=== PATIENT | male | born 1950 | race Caucasian/White ===

== ENCOUNTER → 2018-01-04 08:21 | Outpatient (CLI) | payer MEDICARE, SELFPAY ==
[2018-01-04 09:18] LABS: AST(SGOT) 39 U/L (15-37); Alanine Aminotransfer ALT/SGPT 66 U/L (16-61); Albumin, Serum 3.7 g/dL (3.2-5.0); Alkaline Phosphatase 42 U/L (45-117); Bilirubin, Direct 0.12 mg/dL (0.00-0.30); Cholesterol 156 mg/dL (200); Globulin 3.3 g/dL (2.2-4.2); High Density Lipoprotein 34 mg/dL; Triglycerides 221 mg/dL; Very Low Density Lipoprotein 44 mg/dL (5-40)
== END ==
PROVIDERS: Family Provider Family Medicine; PCP Family Medicine; Visit Provider Internal Medicine Cardiovascular Disease
DX: E78.5 Hyperlipidemia, unspecified (principal); Z79.899 Other long term (current) drug therapy
CPT/HCPCS: 36415; 80061; 80076

== ENCOUNTER → 2018-10-04 08:55 | Outpatient (CLI) | payer MEDICARE, SELFPAY ==
[2018-10-04 10:33] LABS: AST(SGOT) 36 U/L (15-37); Alanine Aminotransfer ALT/SGPT 67 U/L (16-61); Albumin, Serum 3.7 g/dL (3.2-5.0); Alkaline Phosphatase 41 U/L (45-117); Bilirubin, Direct 0.09 mg/dL (0.00-0.30); Cholesterol 158 mg/dL (200); Globulin 3.2 g/dL (2.2-4.2); High Density Lipoprotein 37 mg/dL; Protein, Total 6.9 g/dL (6.4-8.2); Triglycerides 217 mg/dL; Very Low Density Lipoprotein 43 mg/dL (5-40)
== END ==
PROVIDERS: Family Provider Family Medicine; PCP Family Medicine; Referring Provider Internal Medicine Cardiovascular Disease; Visit Provider Internal Medicine Cardiovascular Disease
DX: E78.5 Hyperlipidemia, unspecified (principal)
CPT/HCPCS: 36415; 80061; 80076

== ENCOUNTER → 2019-06-14 07:07 | Outpatient (CLI) | payer MEDICARE, SELFPAY ==
[2018-10-08 13:10] VITALS: BMI 36.3
[2019-06-14 08:54] LABS: AST(SGOT) 30 U/L (15-37); Alanine Aminotransfer ALT/SGPT 61 U/L (16-61); Albumin, Serum 3.6 g/dL (3.2-5.0); Alkaline Phosphatase 36 U/L (45-117); Bilirubin, Direct 0.14 mg/dL (0.00-0.30); Cholesterol 155 mg/dL (200); Globulin 3.3 g/dL (2.2-4.2); High Density Lipoprotein 43 mg/dL; Protein, Total 6.9 g/dL (6.4-8.2); Triglycerides 179 mg/dL; Very Low Density Lipoprotein 36 mg/dL (5-40)
== END ==
PROVIDERS: Family Provider Family Medicine; PCP Family Medicine; Referring Provider Internal Medicine Cardiovascular Disease; Visit Provider Internal Medicine Cardiovascular Disease
DX: E78.5 Hyperlipidemia, unspecified (principal)
CPT/HCPCS: 36415; 80061; 80076

== ENCOUNTER → 2019-07-08 06:14 | Outpatient (CLI) | payer MEDICARE, SELFPAY ==
[2019-06-20 14:14] VITALS: BMI 36.3
--- NOTE | 2019-07-08 06:15 | ECHOCS_ITS ---
Reason For Study: S/P CABG Procedure This was a 2D Doppler, Color Flow transthoracic echocardiogram. Contrast injection was performed. The study was technically difficult. Exam performed in department. Left Ventricle Normal LV size. Left ventricular systolic function is normal. The estimated ejection fraction is 65 %. Stage 2 diastolic dysfunction. No regional wall motion abnormalities noted. Right Ventricle Normal RV size. Normal systolic function. Atria Normal left atrium. Normal right atrium. Mitral Valve Normal mitral valve. Tricuspid Valve Normal tricuspid valve. Aortic Valve Normal aortic valve. The aortic valve is not well visualized. Pulmonic Valve Normal pulmonic valve. Great Vessels Normal aortic root. The pulmonary artery is normal size. Normal inferior vena cava. Pericardium/Pleural No pericardial effusion. Medication Diluted definity 2.5ml given slow IV push to enhance endocardial definition. MMode/2D Measurements & Calculations LVIDd: 5.4 cm IVSd: 1.1 cm Ao root diam: 3.8 cm LVIDs: 3.8 cm LVPWd: 1.3 cm LA dimension: 4.2 cm FS: 30.0 % LAV(MOD-sp4): 50.4 ml LA A4 area: 19.1 cm2 RA A4 area: 17.8 cm2 Time Measurements MV dec time: 0.17 sec Doppler Measurements & Calculations MV E max john: 91.6 cm/sec Lat Peak E' John: 7.0 cm/sec Med Peak E' John: 5.4 cm/sec MV A max john: 75.0 cm/sec E/E' lat: 13.1 E/E' med: 16.9 MV E/A: 1.2 MV V2 max: 105.0 cm/sec MV P1/2t max john: 105.9 cm/sec Ao V2 max: 124.2 cm/sec MV max P.4 mmHg MV P1/2t: 103.8 msec Ao max P.2 mmHg MV V2 mean: 60.6 cm/sec MV dec slope: 298.9 cm/sec2 Ao V2 mean: 80.4 cm/sec MV mean P.7 mmHg Ao mean P.0 mmHg MV V2 VTI: 32.8 cm MVA(P1/2t): 2.1 cm2 Ao V2 VTI: 28.2 cm LV V1 max: 84.6 cm/sec PA V2 max: 86.7 cm/sec LV V1 max P.9 mmHg LV V1 mean P.5 mmHg LV V1 mean: 57.7 cm/sec LV V1 VTI: 21.8 cm Interpretation Summary Normal LV size. Left ventricular systolic function is normal. The estimated ejection fraction is 65 %. Stage 2 diastolic dysfunction. The study was technically limited. The study was technically difficult. Contrast injection was performed. Ordering Physician: Caesar Weiner Referring Physician: JUAN Elizondo M.D. Performed By: Daniel Loo RCS
--- NOTE | 2019-07-08 20:11 | STRESSREP ---
Stress Test Report Pharmacologic myocardial perfusion stress test. 69-year-old man with a history of coronary artery disease status post coronary bypass surgery. Stress protocol: Resting EKG demonstrates normal sinus rhythm with a rate of 62 bpm normal intervals are noted right bundle branch block is present. Resting blood pressures 160/80 mmHg. 0.4 mg of regadenoson was infused per usual protocol followed by rapid intravenous saline flush injection continuous implementation engineer was performed. Maximum heart rate attained was 81 bpm which was 53% of maximum predicted heart rate the maximum workload was 1 metabolic equivalent. At rest nonspecific ST-T wave changes were noted at peak infusion nonspecific ST-T wave changes were noted with no meet the criteria for ischemia. Myocardial perfusion protocol. 15.0 mCi of technetium 99m sestamibi was injected at rest. 0.4 mg of regadenoson was infused per usual protocol peak infusion 45.0 mCi of technetium 99m sestamibi was injected stress images were obtained stress and rest images were reconstructed in comparing the short axis vertical and horizontal long axis. Gated images were also obtained Perfusion SPECT analysis: Review of the stress images demonstrate normal uptake of tracer noted in the septum and lateral wall and anterior wall. The basal to mid inferior wall demonstrates a perfusion defect suggestive of a previous inferior infarct. The resting images demonstrate the same suggesting a previous moderate size inferior infarct. No reversibility is noted suggest ischemia. Gated SPECT analysis. The gated ejection fraction is noted to be 69%. Conclusion: Pharmacologic myocardial perfusion stress test with no evidence of ischemia. Previous inferior infarct noted. Preserved ejection fraction
== END ==
PROVIDERS: Family Provider Family Medicine; PCP Family Medicine; Referring Provider Internal Medicine Cardiovascular Disease; Visit Provider Internal Medicine Cardiovascular Disease
DX: I25.10 Atherosclerotic heart disease of native coronary artery without angina pectoris (principal); Z95.1 Presence of aortocoronary bypass graft
CPT/HCPCS: 78452; 93017; 93306; A9500; Q9957; A4216; C8929; J2785

== ENCOUNTER 2019-10-20 13:45 | Emergency (ER) | payer MEDICARE, SELFPAY ==
[2019-06-20 14:14] VITALS: BMI 36.3
[2019-10-20] VITALS (7 sets, daily range): BP systolic 144–176; BP diastolic 59–82; PULSE 65–75; RESP 12–18; TEMP 36.9–37.1; O2SAT 96–97; BMI 36.3
--- NOTE | 2019-10-20 13:49 | EKG12_ITS ---
Test Reason : STROKE SYMPT Blood Pressure : / mmHG Vent. Rate : 073 BPM Atrial Rate : 073 BPM P-R Int : 256 ms QRS Dur : 128 ms QT Int : 468 ms P-R-T Axes : 050 -09 054 degrees QTc Int : 515 ms Sinus rhythm with 1st degree A-V block Right bundle branch block T wave abnormality, consider lateral ischemia Abnormal ECG Confirmed by CHANTEL WANG, RADHA ([id number]), scientific publications editor GIACOMO COVARRUBIAS ([id number]) on 10/21/2019 10:18:41 AM Referred By: UG Confirmed By:RADHA GOLDEN MD
--- NOTE | 2019-10-20 13:49 | CT_ITS ---
STUDY: CT BRAIN WITHOUT CONTRAST REASON FOR EXAM: Male, 69 years old. STROKE PROTOCAL -- LEFT SIDE DEFICIT RADIATION DOSAGE (If Supplied By Facility): CTDIvol = ( 44.99 ) mGy, DLP = ( 745.49 ) mGycm TECHNIQUE: Transaxial CT imaging of the brain was performed without administration of intravenous contrast material. Individualized dose optimization techniques were used for this CT. COMPARISON: No relevant priors. FINDINGS: Normal soft tissue structures. Normal calvarium. There is moderate cerebral atrophy with widening of the extra-axial spaces and ventricular dilatation. There are areas of decreased attenuation within the white matter tracts of the supratentorial brain, consistent with microvascular disease changes. Normal basal ganglia and thalami. Normal brainstem. There is mild cerebellar atrophy. There is no intracranial hemorrhage. There is an area of subtle matos/white matter differentiation loss in the left temporoparietal lobe which could be related to very early ischemia in the correct clinical setting. No mass effect or midline shift Normal visualized paranasal sinuses. CT/Brain/Head without Contrast IMPRESSION: There is an area of subtle matos/white matter differentiation loss in the left temporoparietal region suggesting acute ischemic stroke. MRI brain will be needed to further evaluate. No mass effect or midline shift. No hemorrhage. N.B. : The above information has been verbally conveyed by Gus Bañuelos DO to Damien [id number], on 10/20/2019 14:07:24 (ET). Electronically Signed: Gus Bañuelos DO at 14:08 EST Tel , Service support ,
--- NOTE | 2019-10-20 13:51 | CT_ITS ---
STUDY: CTA HEAD AND NECK WITH CONTRAST REASON FOR EXAM: Male, 69 years old. STROKE PROTOCOL -- LEFT SIDE DEFICIT RADIATION DOSAGE (If Supplied By Facility): CTDIvol = ( 18.58 ) mGy, DLP = ( 747.29 ) mGycm TECHNIQUE: CT angiography was performed with a multi-detector CT scanner. Data acquisition was obtained from the skull base through the vertex following intravenous administration of 100CC [id number]. MIP images were reconstructed from the axial data set. Post-processing of the angiographic images was performed, with multiplanar reformation and 3D reconstruction. Individualized dose optimization techniques were used for this CT. COMPARISON: No relevant priors. FINDINGS: There is decreased flow in the left distal internal carotid artery There is calcified plaque formation of the right cavernous carotid artery, without a cross-sectional luminal stenosis. There is calcified plaque formation of the left cavernous carotid artery, with a moderate stenosis (50-75%). Normal right A1 segments of the anterior cerebral artery. Normal left A1 segments of the anterior cerebral artery. Normal intact anterior communicating artery (ACOM). Normal bilateral A2 segments of the anterior cerebral arteries. Normal right M1 and M2 segments of the middle cerebral arteries, with a normal M1 bifurcation. There is left M1 occlusion, series 2 image 179/258 Normal right posterior communicating artery (PCOM). Normal left posterior communicating artery (PCOM). There is a small atretic right vertebral artery with a dominant left vertebral artery. Normal basilar artery with a normal basilar bifurcation. The visualized bilateral superior cerebellar (SCA) arteries are normal. Normal bilateral P1, P2 and visualized P3 segments of the posterior cerebral arteries. There is no demonstrated aneurysm of the [place]. There is no demonstrated abnormality of the visualized brain. AORTIC ARCH: There is atherosclerotic calcific plaque formation of the aortic arch and great vessels arising from the aortic arch, without a hemodynamically significant stenosis. There is a bovine origin of the great vessels with a common origin of the brachiocephalic and left common carotid artery. Normal origin of the left subclavian artery. Normal origins of the brachiocephalic, left common carotid, and left subclavian arteries. RIGHT CAROTID ARTERIES: There is atherosclerotic plaque formation of the common carotid artery, but without a hemodynamically significant stenosis. There is moderate atherosclerotic plaque formation with moderate narrowing of the right carotid bulb. There is moderate atherosclerotic plaque formation of the origin of the right internal carotid artery with an estimated stenosis of 50-69% stenosis. There is atherosclerotic tortuous elongation of the cervical portion of the right internal carotid artery. Normal origin of the right external carotid artery (ECA). LEFT CAROTID ARTERIES: There is atherosclerotic plaque formation of the common carotid artery, but without a hemodynamically significant stenosis. There is extensive atherosclerotic plaque formation with severe narrowing of the carotid bulb with a hemodynamically significant stenosis. There is severe atherosclerotic plaque formation of the origin of the left internal carotid artery with a near complete occlusion. There is decreased flow in the visualized cervical portion of the left internal carotid artery. Normal origin of the left external carotid artery (ECA). VERTEBRAL ARTERIES: There is enhancement within the bilateral vertebral arteries with a small right vertebral artery, and a dominant left vertebral artery. CT/CTA Head AND Neck W/ Contrast IMPRESSION: Left middle cerebral artery occlusion. Severe left internal carotid artery stenosis. Moderate right internal carotid artery stenosis. N.B. : The above information has been verbally conveyed by Earnest Gallagher MD to Dr. Faustino MD, on 10/20/2019 14:35:09 (ET). Electronically Signed: Earnest Gallagher MD at 14:37 EST , Service support ,
--- NOTE | 2019-10-20 13:52 | ED.VIS.STROK ---
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 Narrative: Patient 69-year-old male who was last seen well by his at 0730. noted he was having trouble speaking and had a symmetric smile. Squad was called. Stroke alert was called prior to his arrival. History is limited to what the paramedics were able to tell me. There is no therapy available history at this time. has arrived. She informed that he awoke at 0600 and was normal. Symptoms started at 0730. Prior similar symptoms: No Recent Illness/Hospitalization: No Capacity - Capacity Assessment Tool Can the patient make a choice & communicate that choice?: No Can the patient understand benefits, risks and alternatives?: Unable to Determine Can the patient make a logical, rational choice?: Unable to Determine Is the choice the patient makes consistent w/ their values?: Yes Is there an impending, emergent risk to the patient?: Yes Does the patient have an Advance Directive?: No Is there a Surrogate Available?: Yes i.e. HCPOA: Yes i.e. close relative (spouse, child, parent, sibling)?: Yes - Past Medical History (1) Abdominal aortic aneurysm (AAA) Status: Chronic Comment: History of endovascular stent graft for abdominal aortic aneurysm (2) Atherosclerosis of coronary artery of [place] heart without angina pectoris Status: Chronic Comment: CABG x 3 MASTERS to LAD, SVG to Dx, SVG to RCA 01/09/2009 (3) Essential (primary) hypertension Status: Chronic (4) Hyperlipidemia Status: Chronic (5) H/O coronary artery bypass surgery Status: Chronic Comment: CABG x 3 MASTERS to LAD, SVG to Dx, SVG to RCA 01/09/2009 (6) Type 1 diabetes mellitus Status: Chronic Past Medical History - Allergies and Home Meds Allergies/Adverse Reactions: Allergies No Known Allergies Allergy (Verified 10/20/19 14:10) Primary Care Physician: Raffaele Elizondo III, MD [Primary Care Provider] - Prior records reviewed: Yes Lives: Spouse/ Significant Other Smoking Status: Former smoker Alcohol: None Drugs: None Review of Systems ROS: Unable to Obtain STROKE Inital Vital Signs reviewed: Yes - NIHSS Initial 1a Level of Consciousness: 1 1b LOC Questions (Score 2 if aphasic/stupor): 2 1c LOC Commands (Only score 1st attempt): 0 2 Best Gaze (If aphasic, use reflexive mvmts.): 0 3 Visual: 0 4 Facial Palsy: 1 5 Motor Arm Right (UN = amputation/fusion): 1 5 Motor Arm Left: 0 6 Motor Leg Right: 1 6 Motor Leg Left: 0 7 Limb ataxia (Only + if out of proportion): 0 8 Sensory (Aphasia/stupor=0 or 1, coma=2): 1 9 Best Language: 2 10 Dysarthria (mute, coma=2, intubated=UN): 0 11 Extinction and Inattention (only scored if +): 1 Total Score: 10 General: Well nourished, Well developed, Obese Head: Normocephalic, Atraumatic Eyes: Perrl, EOMI. Negative for: Pale conjunctiva, Scleral icterus ENT: Moist mucous membranes, No rhinorrhea Neck: Supple, Nontender, No lymphadenopathy, No JVD Cardiovascular: Regular rate, Regular rhythm, No murmurs Respiratory: No distress, CTA bilaterally, Chest nontender Abdomen: Soft, Nontender, Nondistended, Normal bowel sounds Rectal: Deferred Back: Nontender, Normal Inspection Extremities: Nontender, Edema Skin: No rash, No Trauma. Negative for: Cyanosis, Diaphoresis, Jaundice Neurological: Right side facial droop. Negative for: Alert, Oriented x3, Cranial nerves II-XII grossly intact, Normal Strength, Normal Sensation Psychological: Normal affect Diagnostic/Tx/Re-eval I received a call from the radiologist at 08/24/2002 that indicates patient has an acute stroke involving the left temporoparietal region. CTA reveals severe left internal carotid artery stenosis. There is occlusion of the left middle cerebral artery. Spoke with neurologist at [facility]. He confirms that there is a clot. He has accepted patient. Time of conversation 1430 with neuroradiologist and neurologist at [facility]. Arrangements are now being made, [address] 10/20/19 13:49 IMPRESSION: There is an area of subtle matos/white matter differentiation loss in the left temporoparietal region suggesting acute ischemic stroke. MRI brain will be needed to further evaluate. No mass effect or midline shift. No hemorrhage. N.B. : The above information has been verbally conveyed by Gus Bañuelos DO to Damien Dong MD, on 10/20/2019 14:07:24 (ET). Electronically Signed: Gus Bañuelos DO at 14:08 EST Tel , Service support , ADDENDUM: 10/20/19 1415 IMPRESSION: There is an area of subtle matos/white matter differentiation loss in the left temporoparietal region suggesting acute ischemic stroke. MRI brain will be needed to further evaluate. No mass effect or midline shift. No hemorrhage. N.B. : The above information has been verbally conveyed by Gus Bañuelos DO to Damien Dong MD, on 10/20/2019 14:07:24 (ET). Electronically Signed: Gus Bañuelos DO at 14:08 EST Tel , Service support , 10/20/19 13:49 Brain/Head without Contrast [CT] Stat 10/20/19 13:51 CTA Head AND Neck W/ Contrast [CT] Stat Laboratory Results 10/20/19 10/20/19 10/20/19 14:02 14:02 14:02 WBC 7.7 RBC 4.42 L Hgb 11.4 L Hct 36.1 L MCV 81.7 MCH 25.8 L MCHC 31.6 L RDW Std Deviation 46.6 H RDW Coeff of [place] 15.9 H Plt Count 251 MPV 9.9 Immature Gran % (Auto) 0.400 Neut % (Auto) 76.1 H Lymph % (Auto) 12.3 L [place] % (Auto) 9.0 Eos % (Auto) 1.7 Baso % (Auto) 0.5 Absolute Neuts (auto) 5.8 Absolute Lymphs (auto) 0.94 Nucleated RBC % 0 PT 13.6 INR 1.1 APTT 27.3 Sodium 137 Potassium 4.9 Chloride 103 Carbon Dioxide 29.0 Anion Gap 5 BUN 41 H Creatinine 2.13 H Estim Creat Clear Calc 33.19 Est GFR (MDRD) Af Amer 40 L Est GFR (MDRD) Non-Af 33 L BUN/Creatinine Ratio 19.2 Glucose 111 H Calcium 9.0 Troponin I < 0.015 transport to [facility] for retrieval. - EKG Initial EKG Interpretation: Sinus Rhythm - Sinus rhythm with a ventricular rate of 73 and first-degree AV block. ND interval 256 ms. QS duration 120 ms. There is evidence of right bundle branch block. There is repolarization changes noted. QT interval 468 ms. [place] to the right. - Medical Decision Making Stroke Team Activated: Yes Reviewed Inclusion/Exclusion criteria: Yes IV Alteplase (t-PA) Administered: No - Patient outside the 6-hour window No contraindications for IV Alteplase (t-PA) administration.: Yes Alteplase (t-PA) risks, benefits, alternative discussed: No Trocar set was initiated since patient has a NIH of 10 and findings consistent with left hemispheric stroke. Case was discussed with neurologist at [facility]. He confirms there is a clot. He has accepted patient. He requested 325 mg of aspirin rectally. This was ordered and patient will receive. [facility] transport person, chance, is helping with life flight transport to [facility]. has been told that her has had a stroke and that there is a clot. She understands and agrees with transport since does not have capacity to make this decision. Critical care time (excluding procedures): 30-74 minutes - Acute care time 33 minutes this includes history, physical examination, documentation, interpretation of laboratory results, discussion with radiologist who read unenhanced scan and radiologist who read CTA of the head neck. This also included time with neurologist at [facility] who has accepted patient and asked that aspirin be given to patient. has been told that her is within the window to remove the clot that is causing his symptoms. She understands risk benefits of transfer and procedure. She would like him transferred. She made decision since I do not believe patient has capacity to make this decision. Capacity form was completed. 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
[2019-10-20 14:11] LABS: Absolute Lymphocyte Count 0.94 X10^3/uL (0.83-4.51); Absolute Neutrophil Count 5.8 X10^3/uL (2.0-7.7); Basophil# 0.04 X10^3/uL; Basophil% 0.5 % (0-1); Eosinophil# 0.13 X10^3/uL; Eosinophils% 1.7 % (0-5); Hematocrit 36.1 % (40-54); Hemoglobin 11.4 g/dL (13.0-16.5); Lymphocyte # 0.94 X10^3/ul (4.0); Lymphocyte % 12.3 % (19-41); Mean Corp Hgb Conc 31.6 g/dL (32-36); Mean Corpuscular Hgb 25.8 pg (27.0-32.0); Mean Corpuscular Volume 81.7 fL (80-94); Mean Platelet Vol. 9.9 fl (6.2-12.0); Monocyte# 0.69 X10^3/uL; NRBC Flagged by Analyzer 0 % (0-5); Neutrophil # 5.84 X10^3/uL (2.7-7.7); Neutrophil % 76.1 % (47-70); Platelet Count 251 K/mm3 (150-450); RBC Distribution Width CV 15.9 % (11.6-14.6); RBC Distribution Width SD 46.6 fl (35.1-43.9); Red Blood Count 4.42 M/mm3 (4.6-6.2); White Blood Count 7.7 K/mm3 (4.4-11.0)
--- NOTE | 2019-10-20 14:12 | HP.PCM_ITS ---
Problem List (1) Type 1 diabetes mellitus Status: Chronic (2) Atherosclerosis of coronary artery of [place] heart without angina pectoris Status: Chronic Qualifiers: Coronary Disease-Associated Artery/Lesion type: [place] artery Qualified Code(s): I25.10 - Atherosclerotic heart disease of [place] coronary artery without angina pectoris Comment: CABG x 3 MASTERS to LAD, SVG to Dx, SVG to RCA 01/09/2009 (3) H/O coronary artery bypass surgery Status: Chronic Comment: CABG x 3 MASTERS to LAD, SVG to Dx, SVG to RCA 01/09/2009 (4) Abdominal aortic aneurysm (AAA) Status: Chronic Comment: History of endovascular stent graft for abdominal aortic aneurysm (5) Essential (primary) hypertension Status: Chronic (6) Hyperlipidemia Status: Chronic Qualifiers: Hyperlipidemia type: pure hypercholesterolemia Qualified Code(s): E78.00 - Pure hypercholesterolemia, unspecified History of Present Illness Date of Admission: 10/20/19 Chief Complaint: Right facial droop, slurred speech. The patient is a 69 year old M Past Medical History Past Medical History (Chronic Problems): Chronic Problems (Last Reviewed 06/20/19 @ 14:[address] Caesar Weiner MD) Type 1 diabetes mellitus (Chronic) Atherosclerosis of coronary artery of [place] heart without angina pectoris (Chronic) CABG x 3 MASTERS to LAD, SVG to Dx, SVG to RCA 01/09/2009 H/O coronary artery bypass surgery (Chronic 01/09/09) CABG x 3 MASTERS to LAD, SVG to Dx, SVG to RCA 01/09/2009 Abdominal aortic aneurysm (AAA) (Chronic) History of endovascular stent graft for abdominal aortic aneurysm Essential (primary) hypertension (Chronic) Hyperlipidemia (Chronic) Medical History: Medical History (Last Reviewed 06/20/19 @ 14:[address] Caesar Weiner MD) Atherosclerosis of coronary artery of [place] heart without angina pectoris (Chronic) I25.10 CABG x 3 MASTERS to LAD, SVG to Dx, SVG to RCA 01/09/2009 Abdominal aortic aneurysm (AAA) (Chronic) I71.4 History of endovascular stent graft for abdominal aortic aneurysm Essential (primary) hypertension (Chronic) I10 Hyperlipidemia (Chronic) E78.5 Diabetes mellitus E11.9 Allergies No Known Allergies Allergy (Verified 10/20/19 14:10) Home Medications: Ambulatory Orders Medication Instructions Recorded metoprolol succinate 100 mg 100 mg PO QDAY #90 tab 12/13/17 tablet,extended release 24 hr fenofibrate nanocrystallized 145 145 mg PO QDAY #90 tab 02/01/18 mg tablet acetaminophen 650 mg 650 mg PO QDAY tab 04/06/18 tablet,extended release albuterol sulfate 90 mcg/actuation INHALATION 33 Days #8 04/06/18 aerosol inhaler aspirin 81 mg tablet,delayed 81 mg PO QDAY 04/06/18 release budesonide-formoterol HFA 160 INHALATION 90 Days #30 04/06/18 mcg-4.5 mcg/actuation aerosol inhaler insulin lispro 100 unit/mL 12 unit SC TID ml 04/06/18 subcutaneous pen multivit with min-folic acid 200 mcg PO 04/06/18 mcg chewable tablet omega-3 360 [id number]-pta-fish oil cap PO 04/06/18 1,200 mg capsule,delayed release omeprazole 20 mg capsule,delayed 20 mg PO QDAY 90 Days #90 cap 04/06/18 release pioglitazone 30 mg tablet 30 mg PO QDAY 90 Days #90 tab 04/06/18 pregabalin 75 mg capsule 75 mg PO BID 90 Days #180 cap 04/06/18 dulaglutide 1.5 mg/0.5 mL 1.5 mg SC QWEEK 10/08/18 subcutaneous pen injector folic acid 800 mcg tablet 0.8 mg PO DAILY 10/08/18 insulin glargine 100 unit/mL (3 46 unit SC QHS 98 Days #45.08 ml 10/08/18 mL) subcutaneous pen GO LO PO DAILY 06/20/19 amlodipine 5 mg tablet 5 mg PO QDAY 90 Days #90 tab 06/20/19 atorvastatin 80 mg tablet 80 mg PO QDAY #90 tab 06/20/19 hydrochlorothiazide 25 mg tablet 25 mg PO QDAY #90 tab 06/20/19 ramipril 5 mg capsule 5 mg PO QDAY #90 cap 06/20/19 Surgical History: Surgical History (Last Reviewed 06/20/19 @ 14:[address] Caesar Weiner MD) H/O coronary artery bypass surgery (Resolved) Onset Date: 01/09/09 Z95.1 CABG x 3 MASTERS to LAD, SVG to Dx, SVG to RCA 01/09/2009 History of coronary artery stent placement Z95.5 [id number] LAD w/ 3.5 x 15 mm Penta 10/2001 History of endovascular stent graft for abdominal aortic aneurysm (AAA) Onset Date: 2015 Z82 Lives: Spouse/ Significant Other Smoking Status: Former smoker Alcohol: None Drugs: None - Physical Exam Vitals/I&O's: Vital Signs Temp Pulse Resp BP Pulse Ox 98.7 F 75 18 176/82 H 97 10/20/19 13:47 10/20/19 13:47 10/20/19 13:47 10/20/19 13:47 10/20/19 13:47 Oxygen Flow Rate (L/min) 2 Oxygen Delivery Method Nasal Cannula Weight: 246 lb Body Mass Index (BMI) 36.3 Finger Stick Blood Glucose 100 Laboratory Results 10/20/19 14:02: WBC 7.7, RBC 4.42 L, Hgb 11.4 L, Hct 36.1 L, MCV 81.7, MCH 25.8 L, MCHC 31.6 L, RDW Std Deviation 46.6 H, RDW Coeff of Sherlyn 15.9 H, Plt Count 251, MPV 9.9, Immature Gran % (Auto) 0.400, Neut % (Auto) 76.1 H, Lymph % (Auto) 12.3 L, [place] % (Auto) 9.0, Eos % (Auto) 1.7, Baso % (Auto) 0.5, Absolute Neuts (auto) 5.8, Absolute Lymphs (auto) 0.94, Nucleated RBC % 0 10/20/19 14:02: PT Pending, INR Pending, APTT Pending 10/20/19 14:02: Sodium Pending, Potassium Pending, Chloride Pending, Carbon Dioxide Pending, Anion Gap Pending, BUN Pending, Creatinine Pending, Est GFR (MDRD) Af Amer Pending, Est GFR (MDRD) Non-Af Pending, BUN/Creatinine Ratio Pending, Glucose Pending, Calcium Pending, Troponin I Pending Assessment/Plan 1. Acute ischemic stroke-brain CT admission shows left temporal parietal region acute ischemic stroke. Head and neck CTA pending. Obtain MRI brain. PT/OT/ST. Obtain echo. Neuro consult from ED pending. [facility]. 2. CAD with history of CABG x3 MASTERS to LAD, SVG to DX and SVG to RCA (2008)- continue aspirin, statin. Follows with Dr. Weiner. 3. Hypertension-permissive secondary to #1. Hold ramipril, HCTZ, amlodipine, metoprolol. 4. Hyperlipidemia-continue high-dose statin. Fasting lipid panel in a.m. 5. Type 2 diabetes [id number] with sliding scale insulin. Continue home long-acting regimen. Hold oral regimen. 6. Chronic COPD- PRN albuterol aerosol. 7. GERD- continue PPI. 8. AAA-history of endovascular stent graft. Continue outpatient follow-up. DVT prophylaxis-Lovenox subcu This patient was seen by LIZZETTE Escamilla under the supervision of Dr. Estes.
[2019-10-20 14:18] LABS: International Normalized Ratio 1.1; Prothrombin Time (Protime)PT. 13.6 SECONDS (11.7-14.9)
[2019-10-20 14:19] LABS: Partial Thromboplast Time 27.3 Seconds (24.1-36.2)
[2019-10-20 14:30] LABS: Anion Gap 5 (5-15); BUN 41 mg/dL (7-18); BUN/Creat Ratio 19.2 RATIO (10-20); Chloride 103 mmol/L (98-107); Creatinine, Serum 2.13 mg/dL (0.70-1.30); EST Glomerular Filtration Rate 33 mL/min (>60); Est Glom Filt Rate - Afr Amer 40 mL/min (>60); Estimated Creatinine Clearance 33.19 ml/min; Glucose 111 mg/dL (74-106); Potassium 4.9 mmol/L (3.5-5.1); Sodium Level 137 mmol/L (136-145)
[2019-10-20] MEDS: Aspirin 300 MG Suppository RECTAL (14:38)
--- NOTE | 2019-10-20 14:41 | NURSING ---
1439 MED FLIGHT ETA IS 25 TO 26 MIN
== END 2019-10-20 15:18 | disposition short-term general hospital (02) ==
PROVIDERS: Emergency Provider Emergency Medicine; PCP Family Medicine
DX: I63.232 Cerebral infarction due to unspecified occlusion or stenosis of left carotid arteries (principal); I25.10 Atherosclerotic heart disease of native coronary artery without angina pectoris; E78.5 Hyperlipidemia, unspecified; I10 Essential (primary) hypertension; I44.0 Atrioventricular block, first degree; I45.10 Unspecified right bundle-branch block; I71.4 Abdominal aortic aneurysm, without rupture; Z79.4 Long term (current) use of insulin; Z87.891 Personal history of nicotine dependence; Z95.1 Presence of aortocoronary bypass graft
CPT/HCPCS: 70450; 70496; 70498; 80048; 84484; 85025; 85610; 85730; 93005; 99285; J7030; Q9967; A4216

== ENCOUNTER 2019-11-04 21:03 | Inpatient (IN) | payer MEDICARE, SELFPAY ==
[2019-10-20 13:56] VITALS: BMI 36.3
[2019-11-04 21:12] VITALS: BP 141/73; PULSE 62; RESP 16; TEMP 36.7; O2SAT 95
--- NOTE | 2019-11-04 21:13 | NURSING ---
Pt arrived to unit at 2054 via ambulance services to inpatient rehab unit. present at bedside.
[2019-11-04 21:20] VITALS: PULSE 62; RESP 16; O2SAT 95
[2019-11-04 21:37] VITALS: BMI 35.2
[2019-11-04 21:55] VITALS: BMI 35.2
[2019-11-04 22:10] LABS: Bedside Glucose 162 mg/dL (70-110)
[2019-11-04] MEDS: Insulin Lispro 100 UNIT/ML INSULN.PEN SC (23:34)
[2019-11-04] MEDS: Carvedilol 25 MG Tablet PO (23:35)
[2019-11-04] MEDS: Atorvastatin Calcium 80 MG Tablet 40 MG PO (23:35)
[2019-11-04] MEDS: Senna/Docusate Sodium 1 Tablet 2 TABLET PO (23:35)
[2019-11-04] MEDS: Fenofibrate 145 MG Tablet PO (23:35)
[2019-11-04] MEDS: Pregabalin 75 MG Capsule 150 MG PO (23:36)
[2019-11-05 07:11] LABS: Bedside Glucose 156 mg/dL (70-110)
[2019-11-05 07:31] LABS: Absolute Lymphocyte Count 0.96 X10^3/uL (0.83-4.51); Absolute Neutrophil Count 4.7 X10^3/uL (2.0-7.7); Basophil# 0.03 X10^3/uL; Basophil% 0.4 % (0-1); Eosinophils% 4.3 % (0-5); Hematocrit 34.6 % (40-54); Hemoglobin 11.1 g/dL (13.0-16.5); Lymphocyte # 0.96 X10^3/ul (4.0); Lymphocyte % 13.8 % (19-41); Mean Corp Hgb Conc 32.1 g/dL (32-36); Mean Platelet Vol. 9.6 fl (6.2-12.0); Monocyte# 0.78 X10^3/uL; Monocyte% 11.2 % (0-10); NRBC Flagged by Analyzer 0.3 % (0-5); Neutrophil # 4.71 X10^3/uL (2.7-7.7); Platelet Count 447 K/mm3 (150-450); RBC Distribution Width CV 14.3 % (11.6-14.6); RBC Distribution Width SD 40.7 fl (35.1-43.9); Red Blood Count 4.27 M/mm3 (4.6-6.2); White Blood Count 6.9 K/mm3 (4.4-11.0)
[2019-11-05 07:58] LABS: ALB/GLOB Ratio 0.7 RATIO (0.9-2.4); AST(SGOT) 60 U/L (15-37); Alanine Aminotransfer ALT/SGPT 88 U/L (16-61); Albumin, Serum 2.7 g/dL (3.2-5.0); Alkaline Phosphatase 40 U/L (45-117); Anion Gap 9 (5-15); BUN 57 mg/dL (7-18); BUN/Creat Ratio 28.5 RATIO (10-20); Calcium,Total 9.6 mg/dL (8.5-10.1); Chloride 108 mmol/L (98-107); EST Glomerular Filtration Rate 35 mL/min (>60); Est Glom Filt Rate - Afr Amer 43 mL/min (>60); Globulin 4.1 g/dL (2.2-4.2); Glucose 145 mg/dL (74-106); Magnesium 1.9 mg/dL (1.6-2.6); Potassium 3.7 mmol/L (3.5-5.1); Protein, Total 6.8 g/dL (6.4-8.2); Sodium Level 144 mmol/L (136-145)
[2019-11-05] MEDS: Insulin Lispro 100 UNIT/ML INSULN.PEN SC ×4 (08:19→22:21)
[2019-11-05] MEDS: Carvedilol 25 MG Tablet PO ×2 (08:20→22:16)
[2019-11-05] MEDS: hydroCHLOROthiazide 25 MG Tablet PO (08:20)
[2019-11-05] MEDS: Aspirin E.C. 81 MG Tablet PO (08:20)
[2019-11-05] MEDS: NYSTATIN 500,000 UNIT/5 ML UDC 500000 UNIT PO ×4 (08:21→22:16)
[2019-11-05] MEDS: amLODIPine 5 MG Tablet 10 MG PO (08:21)
[2019-11-05] MEDS: Famotidine 20 MG Tablet PO (08:22)
[2019-11-05] MEDS: Fenofibrate 145 MG Tablet PO (08:24)
[2019-11-05] MEDS: FLUoxetine 20 MG Capsule PO (08:24)
[2019-11-05] MEDS: Senna/Docusate Sodium 1 Tablet 2 TABLET PO ×2 (08:24→22:15)
[2019-11-05] MEDS: Pregabalin 75 MG Capsule 150 MG PO ×2 (09:19→22:15)
[2019-11-05 09:29] VITALS: BP 141/73; PULSE 60; RESP 18; TEMP 36.9; O2SAT 96
[2019-11-05 11:30] LABS: Bedside Glucose 188 mg/dL (70-110)
--- NOTE | 2019-11-05 11:35 | PCM.HP.STD ---
Problem List (1) PAD (peripheral artery disease) Status: Chronic (2) BPH (benign prostatic hyperplasia) Status: Chronic (3) COPD (chronic obstructive pulmonary disease) Status: Chronic (4) Chronic back pain Status: Chronic Qualifiers: Back pain location: low back pain (5) Chronic renal failure, stage 3 (moderate) Status: Chronic (6) Obstructive sleep apnea Status: Chronic Comment: does not wear CPAP (7) Dysphagia Status: Acute (8) Acute ischemic left MCA stroke Status: Acute Comment: 10/20/19 (9) Cerebrovascular disease Status: Chronic Comment: occluded left M1 (10) Morbid obesity Status: Acute (11) Former cigarette smoker Status: Acute (12) History of AAA (abdominal aortic aneurysm) repair Status: Acute (13) Carotid stenosis, left Status: Chronic Comment: near total occlusion (14) Carotid stenosis, right Status: Chronic Comment: moderate (15) Grade II diastolic dysfunction Status: Chronic (16) Abnormal LFTs Status: Acute Comment: mild increase in AST and ALT (17) Atherosclerosis of coronary artery of [place] heart without angina pectoris Status: Chronic Qualifiers: Coronary Disease-Associated Artery/Lesion type: [place] artery Qualified Code(s): I25.10 - Atherosclerotic heart disease of [place] coronary artery without angina pectoris Comment: CABG x 3 MASTERS to LAD, SVG to Dx, SVG to RCA 01/09/2009 (18) H/O coronary artery bypass surgery Status: Chronic Comment: CABG x 3 MASTERS to LAD, SVG to Dx, SVG to RCA 01/09/2009 (19) Abdominal aortic aneurysm (AAA) Status: Chronic Comment: History of endovascular stent graft for abdominal aortic aneurysm (20) Essential (primary) hypertension Status: Chronic (21) Hyperlipidemia Status: Chronic Qualifiers: Hyperlipidemia type: pure hypercholesterolemia Qualified Code(s): E78.00 - Pure hypercholesterolemia, unspecified (22) Type 2 diabetes mellitus Status: Chronic Qualifiers: Diabetes mellitus complication detail: with chronic kidney disease Chronic kidney disease stage: stage 3 (moderate) Comment: also with cardiovascular disease. 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 Status: Acute (24) Left atrial enlargement Status: Chronic Comment: mild - moderate History of Present Illness Date of Admission: 11/05/19 Chief Complaint: Post left MCA ischemic stroke debility with dysphagia, severe right side weakness, right side visual field defect and right facial droop The patient is a 69 year old M with a past medical history of hypertension, diabetes mellitus type 2, coronary artery disease, CABG in 2009, peripheral arterial disease, hyperlipidemia, history of abdominal aortic aneurysm status post endovascular stent, morbid obesity, former tobacco dependence, BPH, chronic low back pain, tonic renal failure stage III and recent L MCA ischemic CVA who is admitted to the IPRU at [facility] on 11/04/19 for >3 hours of therapy a day to restore function at or near his prior level of independence/function. At the present time he is requiring a Marli lift to get him out of the bed. He has severe expressive aphasia and impaired receptive aphasia. He is able to follow simple commands for me but, I have to demonstrate what I want him to do. HE was independent with ADL's, mobility and driving prior to the stroke. All the records sent from [facility] were reviewed. He had a KWADWO at [facility] and he does not have a PFO , ASD or VSD. EF was 55% MBS showed aspiration of thin and nectar thick liquids. HGB is low and the MCV was 81 today. HGBA1C was 6.5% at [facility] and the LDL was 87. Stress test Conclusion: Pharmacologic myocardial perfusion stress test with no evidence of ischemia. Previous inferior infarct noted. Preserved ejection fraction 07/08/192013 <Electronically signed by Caesar Weiner MD> Date Caesar Weiner MD Echocardiogram 07/08/2019 Normal left ventricular size Left ventricular systolic function is normal EF is 65% Stage II diastolic dysfunction Normal tricuspid valve Past Medical History Past Medical History (Chronic Problems): Chronic Problems (Last Reviewed 11/05/19 @ 12:[address] Diamond Sosa, ) PAD (peripheral artery disease) (Chronic) BPH (benign prostatic hyperplasia) (Chronic) COPD (chronic obstructive pulmonary disease) (Chronic) Chronic back pain (Chronic) Chronic renal failure, stage 3 (moderate) (Chronic) Obstructive sleep apnea (Chronic) does not wear CPAP Cerebrovascular disease (Chronic) occluded left M1 Carotid stenosis, left (Chronic) near total occlusion Carotid stenosis, right (Chronic) moderate Grade II diastolic dysfunction (Chronic) Type 2 diabetes mellitus (Chronic) also with cardiovascular disease. cerebrovascular disease, PAD Left atrial enlargement (Chronic) mild - moderate Atherosclerosis of coronary artery of [place] heart without angina pectoris (Chronic) CABG x 3 MASTERS to LAD, SVG to Dx, SVG to RCA 01/09/2009 H/O coronary artery bypass surgery (Chronic 01/09/09) CABG x 3 MASTERS to LAD, SVG to Dx, SVG to RCA 01/09/2009 Abdominal aortic aneurysm (AAA) (Chronic) History of endovascular stent graft for abdominal aortic aneurysm Essential (primary) hypertension (Chronic) Hyperlipidemia (Chronic) Medical History: Medical History (Last Reviewed 11/05/19 @ 12:[address] Diamond Sosa DO) Atherosclerosis of coronary artery of [place] heart without angina pectoris (Chronic) I25.10 CABG x 3 MASTERS to LAD, SVG to Dx, SVG to RCA 01/09/2009 Abdominal aortic aneurysm (AAA) (Chronic) I71.4 History of endovascular stent graft for abdominal aortic aneurysm Essential (primary) hypertension (Chronic) I10 Hyperlipidemia (Chronic) E78.5 Diabetes mellitus E11.9 Allergies No Known Allergies Allergy (Verified 10/20/19 14:10) Home Medications: Ambulatory Orders Medication Instructions Recorded albuterol sulfate 90 mcg/actuation 1 puff INHALATION Q6H PRN PRN 33 04/06/18 aerosol inhaler Days #8 aspirin 81 mg tablet,delayed 81 mg PO QDAY 04/06/18 release insulin lispro 100 unit/mL See Protocol SC ACHS ml 04/06/18 subcutaneous pen pregabalin 75 mg capsule 150 mg PO BID 90 Days #180 cap 04/06/18 dulaglutide 1.5 mg/0.5 mL 1.5 mg SC QWEEK 10/08/18 subcutaneous pen injector insulin glargine 100 unit/mL (3 20 unit SC BID 98 Days #45.08 ml 10/08/18 mL) subcutaneous pen Amlodipine Besylate 10 mg PO QDAY 11/04/19 Atorvastatin Calcium 40 mg PO QDAY 11/04/19 Fenofibrate Nanocrystallized 145 mg PO QDAY 11/04/19 [Tricor] Hydrochlorothiazide [Hctz] 25 mg PO QDAY 11/04/19 Surgical History: Surgical History (Last Reviewed 11/05/19 @ 12:[address] Diamond Sosa DO) H/O coronary artery bypass surgery (Chronic) Onset Date: 01/09/09 Z95.1 CABG x 3 MASTERS to LAD, SVG to Dx, SVG to RCA 01/09/2009 History of coronary artery stent placement Z95.5 [id number] LAD w/ 3.5 x 15 mm Penta 10/2001 History of endovascular stent graft for abdominal aortic aneurysm (AAA) Onset Date: 2015 Z95.828 Psychiatric History: Depression - psot stroke Smoking Status: Former smoker - quit in approximately 2008....when he had his CABG probably Tobacco Use: Cigarettes, Chew Alcohol: Occasional - 2-3 times a month, beer and hard liquor Drugs: None - *Family History Maternal Family History: Family History (Last Reviewed 11/05/19 @ 12:[address] Diamond Sosa DO) Father Myocardial infarction Hypertension Brother Diabetes Review of Systems Unable to obtain accurate/complete ROS d/t: can not obtain - he has expressive aphasia. Comment: He did deny CP, SOB, N/V/abd pain by shaking his head. No headache and no other pain. VTE Information - Inpt Only VTE Present on Admission: No VTE Mechan Device Prophylaxis: Knee High JAMAL Hose VTE Pharm Prophylaxis ordered?: Yes Patient Problems: Active and Suspected Problems (Last Reviewed 11/05/19 @ 12:[address] Diamond Sosa DO) Dysphagia (Acute) Acute ischemic left MCA stroke (Acute) 10/20/19 Morbid obesity (Acute) Former cigarette smoker (Acute) History of AAA (abdominal aortic aneurysm) repair (Acute) Abnormal LFTs (Acute) mild increase in AST and ALT Depression due to acute stroke (Acute) - Physical Exam Vitals/I&O's: Vital Signs Temp Pulse Resp BP Pulse Ox 98.4 F 60 18 141/73 H 96 11/05/19 09:29 11/05/19 09:29 11/05/19 09:29 11/05/19 09:29 11/05/19 09:29 Oxygen Delivery Method Room Air Weight: 231 lb 15.985 oz Body Mass Index (BMI) 35.2 Finger Stick Blood Glucose 100 Intake and Output for Last 24 Hours 11/03/19 11/04/19 11/05/19 23:59 23:59 23:59 Intake Total 60 / 60 300 / 300 Balance 60 / 60 300 / 300 General: Alert, Cooperative, No apparent distress, - - expressive aphasia - severe HEENT: Atraumatic, PERRLA, EOMI, Normocephalic, - - tongue is coated. Was on antibiotics recently for aspiration pneumonia Oral: Dry Mucosa Neck: Supple, No JVD, Negative Carotid Bruits, - - Brisk carotid upstroke with good pulse volume Lungs: No rhonchi, No wheeze, Diminished, Rales - on the right side anterolateral, - - Not tachypneic, no accessory muscle use Cardiovascular: Regular rate, Regular Rhythm, Normal S1, Normal S2, No murmurs, No rub noted, No Gallop, - - Heart sounds are distant, more likely than not secondary to patient's body habitus Abdomen: Bowel Sounds Present, Soft, Obese, - - No guarding with palpation Extremities: No clubbing, No cyanosis, No edema, No Calf Tenderness, Diminished Peripheral Pulses Skin: No rashes, No breakdown Musculoskeletal: No Muscle Wasting Neurological: - - Right facial droop, 0/5 strength in the right upper extremity, he is able to plantar flex and dorsiflex the R foot and is able to move it a little side to side. He has 5/5 strength in the LUE and the left LE. He has no right side neglect. Severe expressive aphasia. He is able to follow simple commands.I did not detect a visual field deficit on my exam but, the exam is difficult because he can only say no to me. Psych/Mental Status: - - not agitated. He is cooperative. Laboratory Results 11/04/19 21:42: POC Glucose 162 H 11/05/19 06:49: POC Glucose 156 H 11/05/19 07:04: WBC 6.9, RBC 4.27 L, Hgb 11.1 L, Hct 34.6 L, MCV 81.0, MCH 26.0 L, MCHC 32.1, RDW Std Deviation 40.7, RDW Coeff of Sherlyn 14.3, Plt Count 447, MPV 9.6, Immature Gran % (Auto) 2.300 H, Neut % (Auto) 68.0, Lymph % (Auto) 13.8 L, [place] % (Auto) 11.2 H, Eos % (Auto) 4.3, Baso % (Auto) 0.4, Absolute Neuts (auto) 4.7, Absolute Lymphs (auto) 0.96, Nucleated RBC % 0.3 11/05/19 07:04: Sodium 144, Potassium 3.7, Chloride 108 H, Carbon Dioxide 27.0, Anion Gap 9, BUN 57 H, Creatinine 2.00 H, Estim Creat Clear Calc 34.20, Est GFR (MDRD) Af Amer 43 L, Est GFR (MDRD) Non-Af 35 L, BUN/Creatinine Ratio 28.5 H, Glucose 145 H, Calcium 9.6, Magnesium 1.9, Total Bilirubin 0.40, AST 60 H, ALT 88 H, Alkaline Phosphatase 40 L, Total Protein 6.8, Albumin 2.7 L, Globulin 4.1, Albumin/Globulin Ratio 0.7 L 11/05/19 11:20: POC Glucose 188 H Current Medications Albuterol Sulfate (Ventolin Hfa (Sp)) 1 puff INHALATION Q6H PRN PRN PRN Reason: WHEEZING Amlodipine Besylate (Norvasc) 10 mg PO DAILY [facility] Last Admin: 11/05/19 08:21 Dose: 10 mg Documented by: Aspirin (Ecotrin) 81 mg PO DAILY [facility] Last Admin: 11/05/19 08:20 Dose: 81 mg Documented by: Atorvastatin Calcium (Lipitor) 40 mg PO QHS [facility] Last Admin: 11/04/19 23:35 Dose: 40 mg Documented by: Bisacodyl (Dulcolax) 10 mg RECTAL .PRN X 1 PRN PRN Reason: Constipation Carvedilol (Coreg) 25 mg PO BID [facility] Last Admin: 11/05/19 08:20 Dose: 25 mg Documented by: Famotidine (Pepcid) 20 mg PO DAILY [facility] Last Admin: 11/05/19 08:22 Dose: 20 mg Documented by: Fenofibrate (Tricor) 145 mg PO DAILY [facility] Last Admin: 11/05/19 08:24 Dose: 145 mg Documented by: Fluoxetine HCl (Prozac) 20 mg PO DAILY [facility] Last Admin: 11/05/19 08:24 Dose: 20 mg Documented by: Hydrochlorothiazide (Hctz) 25 mg PO DAILY [facility] Last Admin: 11/05/19 08:20 Dose: 25 mg Documented by: Insulin Glargine (Lantus (Bkc)) 20 units SC BID [facility] Last Admin: 11/05/19 08:20 Dose: 20 u Documented by: Insulin Human Lispro (Humalog Kwikpen (Bkc)) 0 unit SC ACHS [facility] Last Admin: 11/05/19 08:19 Dose: 1 u Documented by: Magnesium Hydroxide (Milk Of Magnesia) 30 ml PO .PRN X 1 PRN PRN Reason: Constipation Nystatin (Nystatin) 500,000 unit PO 4X/DAY [facility] Last Admin: 11/05/19 08:21 Dose: 500,000 unit Documented by: Pregabalin (Lyrica) 150 mg PO BID [facility] Last Admin: 11/05/19 09:19 Dose: 150 mg Documented by: Senna/Docusate Sodium (Senokot-S, Yessenia-Colace) 2 tablet PO BID [facility] Last Admin: 11/05/19 08:24 Dose: 2 tablet Documented by: Assessment/Plan All Active Problems (Last Reviewed 11/05/19 @ 12:[address] 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 Subacute left ischemic MCA infarct with total occlusion of the M1 branch on CTA. 2. Post stroke debility secondary to #1 3. Severe expressive a aphasia 4. Dysphagia -currently on honey thick liquids and pur?ed diet 5. Dehydration 6. Abnormal LFTs with mild increased in transaminases 7. Hypertension 8. Hyperlipidemia 9. Diabetes mellitus type 2 with recent hemoglobin A1c of 6.5% 10. History of abdominal aortic aneurysm, status post endovascular repair with stent 11. Carotid stenosis, left greater than right 12. Cerebrovascular disease 13. Coronary artery disease with history of CABG in 2008 14. Former tobacco dependence-quit in 2008 15. Normochromic normocytic anemia-check iron studies, reticulocyte count, TSH 16. Recent aspiration pneumonia-check AP chest today 17. Mild to moderate left atrial enlargement, 55% EF, no shunt on KWADWO 18. Obstructive sleep apnea-this was on the records from [facility] and apparently he is not on CPAP. He has never had a sleep study at [facility]. Will obtain Dr. Raffaele Elizondo iii's records. PLAN PT for gait stability OT for ADL's ST for evaluation Analgesics as needed Bowel protocol Fall precautions Continue Prozac 20 mg daily for post stroke depression GI prophylaxis with famotidine DVT prophylaxis with subcu heparin 5000 units every 12 hours Follow up with Dr. Raffaele Elizondo and neurology at [facility] following DC from Rehab Inpatient E&M: [id number] Init Hosp L3
--- NOTE | 2019-11-05 12:45 | RAD_ITS ---
STUDY: X-RAY CHEST REASON FOR EXAM: Male, 69 years old. ASPIRATION PNEUMONIA FOLLOW UP, TECHNIQUE: Single frontal view of the chest. COMPARISON: 08/08/2012. FINDINGS: Median sternotomy wires and mediastinal clips. Cardiac silhouette unremarkable. Pulmonary vascularity unremarkable. Aorta unremarkable. No focal airspace opacities. No pleural effusions. Upper abdomen unremarkable. Osseous structures intact. No pneumothorax. RAD/Chest 1 View IMPRESSION: No acute cardiopulmonary findings Electronically Signed: Cesar Kat, at 17:12 EDT Tel , Service support ,
[2019-11-05 12:55] LABS: Cholesterol 106 mg/dL (200); High Density Lipoprotein 29 mg/dL; Triglycerides 256 mg/dL; Very Low Density Lipoprotein 51 mg/dL (5-40)
--- NOTE | 2019-11-05 13:01 | PCM.RU.PYE ---
Admission Information Primary Diagnosis:: Post stroke debility Status Changes from Prescreening?: No changes Identified Actual Problem List:: Aspiration, Cognitve Impr/Memory Loss, Depression, Alteration in Nutrition, Mobility Impaired, Self Care Deficit, Ineffective Communication, Diabetes, Hyperglycemia, BP, Hypertension, Alteration-Leisure Activ. Potential Problem List:: DVT, Bleeding, Infection, UTI, Aspiration, Falls, Skin Integrity, Depression Risk of Complications DVT: JAMAL Hose, - - Heparin 5000 units subcutaneously every 12 hours Bleeding: Monitor Lab Values, Nursing to Teach Precautions for anti-coagulation therapy., Wound, if applicable, to be assessed every shift., Stroke patients assessed for lethargy or change in status. Infection: Clinical Staff to Monitor for S/S of infection:, S/S of infection include fever, redness, warmth, etc. Urinary Tract Infection: Monitor for frequency, burning, discomfort, or incontinence., Nursing will obtain urine sample for urinalysis and C&S when ordered. Aspiration: Clinical staff will monitor for coughing, drooling, congestion., Speech will evaluate swallowing and dsyphasia., Nursing will monitor patient swallowing during meals. Falls: Patient will be evaluated for Fall Precautions, Patient will be placed on Fall Precautions as indicated per protocol. Skin Breakdown: Nursing will assess skin daily using assessment tool., Nursing will place on Skin Breakdown Precautions as indicated. Pain: Clinical staff will assess patient's pain level per protocol., Medications will be given, if needed, and the pain level reassessed., Other methods: Massage, distraction, decrease stimulus, etc. used PRN. Plan of Care Patient requires physician specializing in physical medicine and rehab oversight to provide close medical supervision of rehab issues including: Pain Management, Sleep Problems, Bowel and Bladder, Medical and co-morbidity Management, DVT prophylaxis, Rehabilitation Leadership, Coordination of treatment team Patient needs Physical Therapy: For a minimum of 1 hour, At least 5 out of 7 days Patient needs Physical Therapy to improve:: Mobility, Mobility, Mobility, Strengthening, Transfers, Stretching, ROM, Endurance, Stairs, Gait, Balance Patient needs Occupational Therapy: For a minimum of 1 hour, At least 5 out of 7 days Patient needs Occupational Therapy to improve ADL's incl.: Eating, Grooming, Bathing, Dressing, Toileting, Toilet transfers, Community Reintegration, Higher functioning activities, Household tasks, Adaptive Equipment, Splinting, Other activities as determined Patient requires speech therapy: For a minimum of 1 hour, At least 5 out of 7 days Patient requires speech therapy for: Swallowing, Cognition, Language Skills, Compensatory Strategies Patient requires 24/ Rehabilitation Nursing for: Pain Issues, Identifying and preventing risk factors, Monitoring and reporting current medical conditions, Assisting with ambulation, transfer, and all ADL's, Teaching patients about disease process and medications, Family teaching, Providing safe environment, Bowel and Bladder Issues, Skin integrity, Medication Management Patient needs Associate Chemist/ Case Management for: Discharge Planning, Arranging Home Equipment or Services, Family Interventions Patient needs Dietary and Nutrition Services for: Adequate Nutrition, Nutritional Supplements, Nutritional Education Goals Patient will remain: free from falls, or injury at time of discharge. Patient will perform bed mobility at: MOD I level of assist. Patient will complete transfers from bed to chair at: MOD I level of assist. Patient will ambulate: 100 feet, with MOD I assist, with LRD Patient will complete upper body dressing at: MOD I level of assist. Patient will complete lower body dressing at: MOD I level of assist. Patient will complete toileting at: MOD I level of assist. Patient will perform bathing at: MOD I level of assist. Patient will complete grooming at: MOD I level of assist. Patient will complete home management skills at: MOD I level of assist. Patient will achieve: 12 stairs, at MOD I assist Patient will have pain level of: of 3 or less Patient's skin will: remain intact, free from infection. Patient will receive: adequate nutrition. Discharge Planning Pt Prognosis for Sig. Practical Improv. w/in Reasonable Time: Fair Estimated Length of stay (days): 21 Anticipated D/C Destination: [facility] Was Preadmission Assessment Accurate?: Yes
[2019-11-05 13:04] LABS: Platelet Count 456 K/mm3 (150-450); RET-HE 32.3 pg (30-35); Reticulocyte Count 2.35 % (0.5-1.5)
[2019-11-05] MEDS: 0.9% Normal Saline 1,000 ML 75 ML IV (13:07)
[2019-11-05 13:09] LABS: Hemoglobin A1c 7.1 % (4.2-6.3)
[2019-11-05 13:11] LABS: Ferritin 266 ng/mL (26-388); Iron 84 ug/dL (65-175); Iron Binding Capacity,Total 300 ug/dL (250-450)
--- NOTE | 2019-11-05 13:39 | CASEMGMT ---
Social Work Completed PHQ-9 with pt. Score: 09/16 Cynthia Soares, social work risk management internship Sabina Alexandra, FLYING SQUAD SALESPERSON BOTTLE TESTER
--- NOTE | 2019-11-05 14:00 | NURSING ---
Unable to complete orthostatic VS due to patient unable to stand long enough for standing vs to be done. Therapy x 2 and x2 staff members assisted but unable. Currently patient is flaccid on right side and able to stand pivot transfers x 2-3 staff with therapy present but cannot stand for long periods of time. Dr. Sosa aware, unable to complete.
[2019-11-05 14:01] LABS: Thyroid Stim Hormone (TSH) 1.99 uIU/mL (0.358-3.74)
[2019-11-05 14:07] VITALS: BMI 35.3
[2019-11-05 14:54] VITALS: BMI 35.2
--- NOTE | 2019-11-05 15:01 | CASEMGMT ---
Social Work Reviewed and agreed with social work internet sales director documentation on this date. Sabina Alexandra, RECRUITMENT CONSULTANT SPINNER BOX
--- NOTE | 2019-11-05 15:28 | CASEMGMT ---
Social Work Attempted to meet with pt to complete assessment. Pt is nonverbal d/t stroke and SWI was unable to assess pt other than yes/no questions. Attempted to call pt to complete rest of assessment. Left message with . Will continue to follow. Cynthia Soares, social work sales intern Sabina Alexandra, MILKING SYSTEM INSTALLER SOCIAL WORKER CLINICAL
[2019-11-05 17:01] LABS: Bedside Glucose 162 mg/dL (70-110)
[2019-11-05 20:42] VITALS: BP 129/76; PULSE 68; RESP 16; TEMP 36.6; O2SAT 96
[2019-11-05 20:45] VITALS: BMI 35.2
[2019-11-05 22:15] VITALS: PULSE 68; RESP 16; O2SAT 63
[2019-11-05] MEDS: Heparin Injection (Vial) 5,000 UNIT/ML VIAL 5000 UNIT SC (22:15)
[2019-11-05 22:41] LABS: Bedside Glucose 219 mg/dL (70-110)
[2019-11-05] MEDS: Atorvastatin Calcium 40 MG Tablet PO (22:45)
--- NOTE | 2019-11-05 22:53 | NURSING ---
pt has not voided since 1900 and bladder scan completed at 2100, value was 514cc. pt offered urinal at this time and was unable to void. pt given 120cc of po fluids thickened as ordered and pt drank all of this. pt currently has ns running at 75cc/hr x's 2 bags. Rn aware and will continue to monitor
--- NOTE | 2019-11-06 00:41 | NURSING ---
0000 staff to check on pt and remains dry. bladder scan completed and value was 596cc. pt straight cathed for 500cc of strong smellingpt has hx of BPH dark yellow urine. pt tolerated well. pt took po fluids when offered. pt has hx of BPH and did indicate to this staff worker that he has difficulty urinating at home.
[2019-11-06] MEDS: 0.9% Normal Saline 1,000 ML 75 ML IV (02:08)
[2019-11-06 06:45] LABS: Bedside Glucose 146 mg/dL (70-110)
[2019-11-06] MEDS: amLODIPine 5 MG Tablet 10 MG PO (07:30)
[2019-11-06] MEDS: hydroCHLOROthiazide 25 MG Tablet PO (07:30)
[2019-11-06] MEDS: Aspirin E.C. 81 MG Tablet PO (07:30)
[2019-11-06] MEDS: Senna/Docusate Sodium 1 Tablet 2 TABLET PO (07:31)
[2019-11-06] MEDS: FLUoxetine 20 MG Capsule PO (07:31)
[2019-11-06] MEDS: Famotidine 20 MG Tablet PO (07:31)
[2019-11-06] MEDS: Fenofibrate 145 MG Tablet PO (07:31)
[2019-11-06 09:04] VITALS: BP 134/67; PULSE 62; RESP 18; TEMP 36.8; O2SAT 95
[2019-11-06] MEDS: Heparin Injection (Vial) 5,000 UNIT/ML VIAL 5000 UNIT SC ×2 (09:18→22:59)
[2019-11-06] MEDS: Pregabalin 75 MG Capsule 150 MG PO ×2 (10:05→23:09)
[2019-11-06] MEDS: Carvedilol 25 MG Tablet PO ×2 (10:05→23:00)
[2019-11-06 11:36] LABS: Bedside Glucose 283 mg/dL (70-110)
[2019-11-06 11:40] VITALS: PULSE 70; RESP 16; O2SAT 94
[2019-11-06] MEDS: Albuterol 2.5 MG/3 ML VIAL.NEB. INHALATION (11:40)
[2019-11-06] MEDS: NYSTATIN 500,000 UNIT/5 ML UDC 500000 UNIT PO ×4 (11:58→22:58)
[2019-11-06] MEDS: Insulin Lispro 100 UNIT/ML INSULN.PEN SC ×3 (11:58→23:00)
[2019-11-06 15:35] VITALS: BMI 35.2
[2019-11-06 17:25] LABS: Bedside Glucose 163 mg/dL (70-110)
[2019-11-06 20:15] VITALS: BP 128/72; PULSE 67; RESP 18; TEMP 36.6; O2SAT 95
[2019-11-06] MEDS: Atorvastatin Calcium 40 MG Tablet PO (22:58)
[2019-11-06 23:11] LABS: Bedside Glucose 201 mg/dL (70-110)
[2019-11-07 07:00] VITALS: BP 126/72; PULSE 64; RESP 20; TEMP 36.8; O2SAT 95
[2019-11-07 07:31] LABS: Bedside Glucose 124 mg/dL (70-110)
--- NOTE | 2019-11-07 08:45 | PCM.PN.BLA ---
Progress Note Pedro was seen on TEAM rounds today. His deyvi present for rounds today. She speaks Hungarian and speaks pretty good broken Italian....they have been for 50 years Afebrile VSS-blood pressure is well controlled. Maintaining appropriate oxygen saturation on RA Oral intake is proving. The oral intake yesterday was 1660 and the prior day was 1300. Discussed with nursing -Pedro has been having large residuals post void. He was unable to void at all this morning and a Andersen catheter was inserted. The urine is somewhat pale and clear. Reviewed the PT/OT/ST notes - he has some movement in the RUE today in the triceps area. He is counting and he said hello to me today. It has become more obvious over the past 2 days that there is a right visual field cut and he has R side neglect. Medication list reviewed. The blood sugar record was reviewed today. The lunchtime blood sugar is increased because he does not get any lispro in the a.m. Requiring minimal insulin with meals. he is alert today. Able to say hello and able to say clearly no and yes now. He has a R visual field cut and also R side neglect. He applied shaving cream to his face today and he did not cover the right side of the face with cream. Still with a right side facial droop He now has some movement in the R shoulder and the triceps. Lungs - CTA Heart RRR, no gallop no edema Impressions 1. Post stroke debility 2. Left ischemic MCA infarct with total occlusion of the M1 branch on CTA of the head 3. urine retention - with increasing creat. We started on Flomax and a andersen was placed. will recheck a BMP in the AM and also a phosphorous. voiding trial in a few days 4. Complicated urinary tract infection-more likely than not secondary to urine retention. - start Duricef and obtain a urine culture. Start Flomax 0.4 mg daily Start 2 units of insulin with each meal. Continue the sliding insulin scale. Continue the Lantus.. BMP and BNP today - BNP was 48 and the Creat has increased to 2.45.....possibly due to the urine retention. Will recheck the BMP in the AM. Check a urine sodium and creat today. If the creat continues to increase will consult nephrology. If creat is not improved by tomorrow will also get a renal US. Try acccupap with the aerosols BS's are coming under better control. May be a candidate for a trial of Pletal to see if the pain in the left leg improves......at the very least he should have repeat JUDY's on the legs and referral to vascular surgery if < 0.8 I reviewed all the records sent from the office of Dr. 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 whether the left Leg pain is due to sciatic/lumbar stenosis OR to critical PVD....JUDY in 2017 n the left was only 0.61 he has a hx of SMA stent and suprarenal stent with bilateral SECURITY GUARD endarterectomies with profundoplasty and patch on 09/16/2014 I spent a total of 50 minutes in the care of this pt....including reviewing all the records we received from Dr. Elizondo Inpatient E&M: 10182 Subs Hosp L3
[2019-11-07 09:12] LABS: Anion Gap 10 (5-15); BUN 64 mg/dL (7-18); BUN/Creat Ratio 26.1 RATIO (10-20); Calcium,Total 9.3 mg/dL (8.5-10.1); Chloride 106 mmol/L (98-107); Creatinine, Serum 2.45 mg/dL (0.70-1.30); EST Glomerular Filtration Rate 28 mL/min (>60); Est Glom Filt Rate - Afr Amer 34 mL/min (>60); Estimated Creatinine Clearance 27.92 ml/min; Glucose 288 mg/dL (74-106); Potassium 4.4 mmol/L (3.5-5.1); Sodium Level 140 mmol/L (136-145)
[2019-11-07 09:13] LABS: BNP,B-Type NATRIURETIC PEPTIDE 45.8 pg/mL (0-100)
[2019-11-07] MEDS: Aspirin E.C. 81 MG Tablet PO (09:13)
[2019-11-07] MEDS: NYSTATIN 500,000 UNIT/5 ML UDC 500000 UNIT PO ×4 (09:13→21:58)
[2019-11-07] MEDS: FLUoxetine 20 MG Capsule PO (09:13)
[2019-11-07] MEDS: Fenofibrate 145 MG Tablet PO (09:13)
[2019-11-07] MEDS: Carvedilol 25 MG Tablet PO ×2 (09:13→21:58)
[2019-11-07] MEDS: hydroCHLOROthiazide 25 MG Tablet PO (09:13)
[2019-11-07] MEDS: Senna/Docusate Sodium 1 Tablet 2 TABLET PO (09:13)
[2019-11-07] MEDS: amLODIPine 5 MG Tablet 10 MG PO (09:13)
[2019-11-07] MEDS: Heparin Injection (Vial) 5,000 UNIT/ML VIAL 5000 UNIT SC ×2 (09:14→21:58)
[2019-11-07] MEDS: Famotidine 20 MG Tablet PO (09:14)
[2019-11-07] MEDS: Insulin Lispro 100 UNIT/ML INSULN.PEN SC ×6 (09:16→22:10)
[2019-11-07] MEDS: Pregabalin 75 MG Capsule 150 MG PO ×2 (09:18→21:58)
--- NOTE | 2019-11-07 10:38 | CASEMGMT ---
Social Work IDT met with pt and pt to discuss pt progress. Pt is walking 10ft at the wall rail, with FWW at mod assist x2. Pt able to line ordering clinician parallel bars for 2 minutes- mod x2. Pt is mod assist for grooming, min assist for UE ADLS, and total assist for LE tasks. Pt is max assist x2 for toileting tasks. Pt is having unilateral neglect and some contraction in shoulder. Pt is on HT liquids and pureed diet. ST to work on strengthening swallowing/ mouth muscles then re-eval for aspiration. ST also to work on language and speech tasks. Explained [facility] insurance to pt, NRD 11/17. Pt requesting SW talk with dtr-in-law for information and communication to facilitate language barrier. SW requested pt to bring in POA paper work. Will continue to follow. Cynthia Soares, social work production intern Sabina Alexandra, GROUND CREWMAN STRETCHING MACHINE OPERATOR
[2019-11-07 12:05] LABS: Bedside Glucose 178 mg/dL (70-110)
[2019-11-07 14:16] LABS: Mucous, Urine 0 SEEN /hpf (<or=2+)
[2019-11-07 14:17] LABS: Color, Urine Yellow (Yellow); Glucose, Dipstick Normal (Normal); Ketone-Dipstick Negative (Negative); Leukocyte Esterase-Dipstick 500 /ul (Negative); Nitrite-Dipstick Negative (Negative); Occult Blood-Urine 250 /ul (Negative); Protein-Dipstick 30 mg/dl (Negative); Urine Bilirubin Dipstick Negative (Negative); Urine Clarity Clear (Clear); Urine Urobilinogen Normal (Normal)
[2019-11-07 14:23] LABS: Red Blood Cells-Urine 5-10 SEEN /hpf (0-5); Squamous Epithelial Cells - UA 0-5 SEEN /hpf (0-5); White Blood Cells 10-25 SEEN /hpf (0-5)
[2019-11-07 14:24] LABS: Bacteria 1+ /hpf (None Seen)
--- NOTE | 2019-11-07 16:15 | CASEMGMT ---
Social Work Reviewed and agreed with social work international recruiter documentation on this date. Sabina Alexandra, TRAFFIC SIGNAL SUPERVISOR MAINTENANCE UNIVERSITY LIBRARIAN
[2019-11-07 17:00] VITALS: BMI 35.2
[2019-11-07 17:00] LABS: Bedside Glucose 169 mg/dL (70-110)
[2019-11-07] MEDS: Tamsulosin HCl 0.4 MG Capsule PO (17:46)
[2019-11-07] MEDS: Cefadroxil 500 MG CAPSULE 1000 MG PO (18:28)
[2019-11-07 19:24] LABS: Urine Sodium 61 mmol/L (Not Establ.)
[2019-11-07] MEDS: Atorvastatin Calcium 40 MG Tablet PO (21:58)
[2019-11-07] MEDS: Acetaminophen 500 MG Tablet 1000 MG PO (21:59)
[2019-11-07 22:00] VITALS: BP 145/60; PULSE 73; RESP 18; TEMP 37; O2SAT 96
--- NOTE | 2019-11-07 22:00 | NURSING ---
pt c/o tenderness to buttocks at this time. When assesses, small 1 cm x 1 cm shear noted to R gluteal cleft. Sacral mepilex applied for protection and comfort measures. pt to be turned every 2 hours. will continue to monitor area for increased irritation. pt states the mepilex provides increased comfort.
[2019-11-07 22:06] LABS: Bedside Glucose 205 mg/dL (70-110)
[2019-11-08 01:46] VITALS: BMI 35.2
[2019-11-08] MEDS: Acetaminophen 500 MG Tablet 1000 MG PO ×3 (05:25→23:02)
[2019-11-08 06:46] LABS: Bedside Glucose 153 mg/dL (70-110)
[2019-11-08] MEDS: Insulin Lispro 100 UNIT/ML INSULN.PEN SC ×7 (08:15→23:02)
[2019-11-08 08:17] LABS: Anion Gap 6 (5-15); BUN 62 mg/dL (7-18); BUN/Creat Ratio 26.1 RATIO (10-20); Calcium,Total 9.7 mg/dL (8.5-10.1); Chloride 107 mmol/L (98-107); Creatinine, Serum 2.38 mg/dL (0.70-1.30); EST Glomerular Filtration Rate 29 mL/min (>60); Est Glom Filt Rate - Afr Amer 35 mL/min (>60); Estimated Creatinine Clearance 28.74 ml/min; Glucose 201 mg/dL (74-106); Phosphorus 3.6 mg/dL (2.5-4.9); Potassium 4.4 mmol/L (3.5-5.1); Sodium Level 141 mmol/L (136-145)
[2019-11-08] MEDS: Famotidine 20 MG Tablet PO (08:45)
[2019-11-08] MEDS: FLUoxetine 20 MG Capsule PO (08:45)
[2019-11-08] MEDS: hydroCHLOROthiazide 25 MG Tablet PO (08:45)
[2019-11-08] MEDS: Senna/Docusate Sodium 1 Tablet 2 TABLET PO (08:45)
[2019-11-08] MEDS: Aspirin E.C. 81 MG Tablet PO (08:45)
[2019-11-08] MEDS: Carvedilol 25 MG Tablet PO ×2 (08:45→23:01)
[2019-11-08] MEDS: Fenofibrate 145 MG Tablet PO (08:45)
[2019-11-08] MEDS: Cefadroxil 500 MG CAPSULE PO ×2 (08:46→23:01)
[2019-11-08] MEDS: NYSTATIN 500,000 UNIT/5 ML UDC 500000 UNIT PO ×4 (08:46→23:01)
[2019-11-08] MEDS: Heparin Injection (Vial) 5,000 UNIT/ML VIAL 5000 UNIT SC ×2 (08:46→23:01)
[2019-11-08] MEDS: amLODIPine 5 MG Tablet 10 MG PO (08:46)
[2019-11-08] MEDS: Pregabalin 75 MG Capsule 150 MG PO ×2 (08:50→23:01)
[2019-11-08 09:40] VITALS: BP 134/71; PULSE 59; RESP 18; TEMP 36.7; O2SAT 95
[2019-11-08 11:31] LABS: Bedside Glucose 222 mg/dL (70-110)
[2019-11-08 14:24] VITALS: BMI 35.2
[2019-11-08] MEDS: Tamsulosin HCl 0.4 MG Capsule PO (17:21)
[2019-11-08 17:36] LABS: Bedside Glucose 166 mg/dL (70-110)
[2019-11-08 19:31] VITALS: BP 131/68; PULSE 65; RESP 18; TEMP 36.6; O2SAT 94
[2019-11-08 22:11] LABS: Bedside Glucose 165 mg/dL (70-110)
[2019-11-08] MEDS: Atorvastatin Calcium 40 MG Tablet PO (23:03)
[2019-11-08 23:46] VITALS: BMI 35.2
[2019-11-09 00:08] VITALS: PULSE 61; RESP 18
[2019-11-09] MEDS: Albuterol 2.5 MG/3 ML VIAL.NEB. INHALATION ×3 (00:08→17:53)
[2019-11-09] MEDS: Acetaminophen 500 MG Tablet 1000 MG PO ×3 (05:54→20:26)
[2019-11-09 06:56] LABS: Bedside Glucose 137 mg/dL (70-110)
[2019-11-09 07:15] VITALS: PULSE 60; RESP 16; O2SAT 94
[2019-11-09] MEDS: Insulin Lispro 100 UNIT/ML INSULN.PEN SC ×5 (07:50→17:01)
[2019-11-09] MEDS: Carvedilol 25 MG Tablet PO ×2 (07:51→20:15)
[2019-11-09] MEDS: Aspirin E.C. 81 MG Tablet PO (07:51)
[2019-11-09] MEDS: Cefadroxil 500 MG CAPSULE PO (07:51)
[2019-11-09] MEDS: hydroCHLOROthiazide 25 MG Tablet PO (07:51)
[2019-11-09] MEDS: Heparin Injection (Vial) 5,000 UNIT/ML VIAL 5000 UNIT SC ×2 (07:52→20:15)
[2019-11-09] MEDS: NYSTATIN 500,000 UNIT/5 ML UDC 500000 UNIT PO ×4 (07:53→20:14)
[2019-11-09] MEDS: amLODIPine 5 MG Tablet 10 MG PO (07:53)
[2019-11-09] MEDS: FLUoxetine 20 MG Capsule PO (07:54)
[2019-11-09] MEDS: Senna/Docusate Sodium 1 Tablet 2 TABLET PO ×2 (07:54→20:14)
[2019-11-09] MEDS: Famotidine 20 MG Tablet PO (07:54)
[2019-11-09] MEDS: Fenofibrate 145 MG Tablet PO (07:55)
[2019-11-09] MEDS: Pregabalin 75 MG Capsule 150 MG PO ×2 (07:56→20:19)
[2019-11-09 08:51] VITALS: BP 126/71; PULSE 64; RESP 18; TEMP 36.4; O2SAT 95
[2019-11-09 12:11] LABS: Bedside Glucose 194 mg/dL (70-110)
[2019-11-09 12:30] VITALS: BMI 35.2
--- NOTE | 2019-11-09 14:10 | PCM.PN.BLA ---
Progress Note Afebile VSS-blood pressure is well controlled. Maintaining appropriate oxygen saturation on RA Oral intake is adequate Discussed with nursing - He has not been sleeping well at night. Reviewed the PT/OT/ST notes Medication list reviewed. BS record reviewed. The BS at lunch has been high the past 2 days. The urine culture had no growth. Alert, NAD Lungs - diminished but CTA H - RRR, no gallop abd - soft, NT, good bowel function No calf tenderness and no edema or cyanosis no rashes and no breakdown Impression's 1. Post stroke debility 2. Tract infection 3. Urine retention 4. Insomnia 5. Diabetes mellitus type 2 Trazodone 50 mg p.o. nightly. Voiding trial next week. Continue Flomax 0.4 mg daily Mealtime insulin was adjusted He needs a sleep study......will try to arrange this for the day of DC if possible DC the Cefadroxil Inpatient E&M: 66847 Subs Hosp L2
[2019-11-09] MEDS: Tamsulosin HCl 0.4 MG Capsule PO (17:01)
[2019-11-09 17:15] LABS: Bedside Glucose 155 mg/dL (70-110)
[2019-11-09 17:53] VITALS: PULSE 61; RESP 16
[2019-11-09 19:28] VITALS: BP 126/64; PULSE 61; RESP 18; TEMP 36.4; O2SAT 94
[2019-11-09 20:13] VITALS: BMI 35.2
[2019-11-09] MEDS: traZODone 50 MG Tablet PO (20:15)
[2019-11-09] MEDS: Atorvastatin Calcium 40 MG Tablet PO (20:19)
[2019-11-09 21:26] LABS: Bedside Glucose 161 mg/dL (70-110)
[2019-11-09 22:00] VITALS: PULSE 61
[2019-11-10] MEDS: Acetaminophen 500 MG Tablet 1000 MG PO ×3 (06:54→20:37)
[2019-11-10 07:10] LABS: Bedside Glucose 134 mg/dL (70-110)
[2019-11-10] MEDS: Insulin Lispro 100 UNIT/ML INSULN.PEN SC ×5 (08:26→16:54)
[2019-11-10] MEDS: Carvedilol 25 MG Tablet PO ×2 (08:27→20:37)
[2019-11-10] MEDS: Aspirin E.C. 81 MG Tablet PO (08:28)
[2019-11-10] MEDS: hydroCHLOROthiazide 25 MG Tablet PO (08:30)
[2019-11-10] MEDS: Heparin Injection (Vial) 5,000 UNIT/ML VIAL 5000 UNIT SC ×2 (08:30→20:38)
[2019-11-10] MEDS: amLODIPine 5 MG Tablet 10 MG PO (08:31)
[2019-11-10] MEDS: Famotidine 20 MG Tablet PO (08:32)
[2019-11-10] MEDS: FLUoxetine 20 MG Capsule PO (08:32)
[2019-11-10] MEDS: NYSTATIN 500,000 UNIT/5 ML UDC 500000 UNIT PO ×4 (08:32→20:40)
[2019-11-10] MEDS: Senna/Docusate Sodium 1 Tablet 2 TABLET PO ×2 (08:32→20:38)
[2019-11-10] MEDS: Fenofibrate 145 MG Tablet PO (08:33)
[2019-11-10 09:00] VITALS: PULSE 58; RESP 16; O2SAT 96
[2019-11-10] MEDS: Albuterol 2.5 MG/3 ML VIAL.NEB. INHALATION ×2 (09:00→21:15)
[2019-11-10] MEDS: Pregabalin 75 MG Capsule 150 MG PO ×2 (09:36→20:37)
[2019-11-10 09:54] VITALS: BP 138/68; PULSE 60; RESP 18; TEMP 36.6; O2SAT 95
[2019-11-10 11:36] LABS: Bedside Glucose 234 mg/dL (70-110)
[2019-11-10 13:00] VITALS: BMI 35.2
[2019-11-10] MEDS: Tamsulosin HCl 0.4 MG Capsule PO (16:48)
[2019-11-10 17:21] LABS: Bedside Glucose 172 mg/dL (70-110)
[2019-11-10 19:41] VITALS: BP 120/57; PULSE 65; RESP 18; TEMP 36.9; O2SAT 95
[2019-11-10 20:35] VITALS: BMI 35.2
[2019-11-10] MEDS: traZODone 50 MG Tablet PO (20:37)
[2019-11-10] MEDS: Atorvastatin Calcium 40 MG Tablet PO (20:37)
[2019-11-10 20:40] VITALS: PULSE 65; RESP 18; O2SAT 95
[2019-11-10 21:15] VITALS: PULSE 62; RESP 16
[2019-11-10 21:36] LABS: Bedside Glucose 244 mg/dL (70-110)
[2019-11-10 21:52] VITALS: BP 120/57; PULSE 65; RESP 18; TEMP 36.9; O2SAT 95
--- NOTE | 2019-11-11 02:38 | NURSING ---
called into room by tool inspector and staff noted a moderate amt at the top of attends and on abd. staff cleansed abd with ns and found that heprin site was still bleeding. bandaide applied to area and will continue to monitor.
--- NOTE | 2019-11-11 03:52 | NURSING ---
Reviewed and agree with PROP ATTENDANT documentation and charting.
[2019-11-11] MEDS: Acetaminophen 500 MG Tablet 1000 MG PO ×3 (05:23→20:41)
[2019-11-11 07:05] LABS: Bedside Glucose 152 mg/dL (70-110)
[2019-11-11] MEDS: Fenofibrate 145 MG Tablet PO (08:14)
[2019-11-11] MEDS: FLUoxetine 20 MG Capsule PO (08:14)
[2019-11-11] MEDS: hydroCHLOROthiazide 25 MG Tablet PO (08:14)
[2019-11-11] MEDS: amLODIPine 5 MG Tablet 10 MG PO (08:15)
[2019-11-11] MEDS: Aspirin E.C. 81 MG Tablet PO (08:15)
[2019-11-11] MEDS: Famotidine 20 MG Tablet PO (08:15)
[2019-11-11] MEDS: Carvedilol 25 MG Tablet PO ×2 (08:15→20:41)
[2019-11-11] MEDS: Insulin Lispro 100 UNIT/ML INSULN.PEN SC ×4 (08:16→17:43)
[2019-11-11] MEDS: Insulin Lispro 100 UNIT/ML INSULN.PEN 8 UNIT SC (08:16)
[2019-11-11 08:30] VITALS: BP 130/63; PULSE 54; RESP 15; TEMP 36.7; O2SAT 95
[2019-11-11] MEDS: Heparin Injection (Vial) 5,000 UNIT/ML VIAL 5000 UNIT SC ×2 (10:33→22:16)
[2019-11-11] MEDS: Pregabalin 75 MG Capsule 150 MG PO ×2 (10:33→20:41)
[2019-11-11] MEDS: NYSTATIN 500,000 UNIT/5 ML UDC 500000 UNIT PO ×4 (10:38→20:41)
[2019-11-11 12:16] LABS: Bedside Glucose 181 mg/dL (70-110)
[2019-11-11 13:34] VITALS: BMI 35.2
[2019-11-11 17:35] LABS: Bedside Glucose 155 mg/dL (70-110)
[2019-11-11] MEDS: Insulin Lispro 100 UNIT/ML INSULN.PEN 6 UNIT SC (17:43)
[2019-11-11] MEDS: Tamsulosin HCl 0.4 MG Capsule PO (17:43)
[2019-11-11] MEDS: traZODone 50 MG Tablet PO (20:41)
[2019-11-11] MEDS: Senna/Docusate Sodium 1 Tablet 2 TABLET PO (20:41)
[2019-11-11] MEDS: Atorvastatin Calcium 40 MG Tablet PO (20:41)
[2019-11-11 20:45] VITALS: BMI 35.2
[2019-11-11 20:48] VITALS: BP 135/70; PULSE 64; RESP 20; TEMP 36.6; O2SAT 96
[2019-11-11 21:15] LABS: Bedside Glucose 248 mg/dL (70-110)
[2019-11-11 22:00] VITALS: PULSE 64; RESP 20; O2SAT 96
--- NOTE | 2019-11-12 03:39 | NURSING ---
Reviewed and agree with SUPERVISOR SPRING UP documentation and charting.
[2019-11-12] MEDS: Acetaminophen 500 MG Tablet 1000 MG PO ×3 (05:31→20:12)
[2019-11-12 06:25] LABS: Bedside Glucose 145 mg/dL (70-110)
[2019-11-12 07:00] VITALS: BP 131/67; PULSE 53; RESP 18; TEMP 36.9; O2SAT 95
[2019-11-12] MEDS: hydroCHLOROthiazide 25 MG Tablet PO (07:54)
[2019-11-12] MEDS: amLODIPine 5 MG Tablet 10 MG PO (07:54)
[2019-11-12] MEDS: Carvedilol 25 MG Tablet PO ×2 (07:54→20:12)
[2019-11-12] MEDS: Aspirin E.C. 81 MG Tablet PO (07:54)
[2019-11-12] MEDS: FLUoxetine 20 MG Capsule PO (07:55)
[2019-11-12] MEDS: Fenofibrate 145 MG Tablet PO (07:55)
[2019-11-12] MEDS: Famotidine 20 MG Tablet PO (07:55)
[2019-11-12] MEDS: Insulin Lispro 100 UNIT/ML INSULN.PEN 8 UNIT SC (07:55)
[2019-11-12] MEDS: Heparin Injection (Vial) 5,000 UNIT/ML VIAL 5000 UNIT SC ×2 (07:57→20:12)
[2019-11-12] MEDS: Pregabalin 75 MG Capsule 150 MG PO ×2 (08:01→20:14)
[2019-11-12] MEDS: NYSTATIN 500,000 UNIT/5 ML UDC 500000 UNIT PO ×4 (09:12→20:11)
[2019-11-12 12:06] LABS: Bedside Glucose 156 mg/dL (70-110)
[2019-11-12] MEDS: Insulin Lispro 100 UNIT/ML INSULN.PEN SC ×2 (12:16→12:17)
[2019-11-12 14:59] VITALS: BMI 35.2
--- NOTE | 2019-11-12 16:33 | PCM.PN.BLA ---
Progress Note Afebile VSS-blood pressure is very well controlled Maintaining appropriate oxygen saturation on RA Oral intake is good Discussed with nursing - no problems that need addressed Reviewed the PT/OT/ST notes Medication list reviewed. Pedro has no complaints. He tells me that his says he snores and actually stops breathing at night....even before the CVA. He has never had a sleep study. He often feels tired during the day. On his records from the other hospital KAREN is listed as a diagnosis and I am not sure how this was made without a sleep study. Alert, sitting in the recliner at the bedside watching TV. He is pleasant and appears in no acute distress. Lungs-clear to auscultation Heart-regular rate and rhythm, no gallop Abdomen-obese, soft, nontender, nondistended, good bowel function, no guarding with palpation, bowel sounds heard No peripheral edema, no calf tenderness No rashes, no skin breakdown Still with a right facial droop He is able to say a few words now in addition to yes, no, hello he was able to get out of short sentence. He was able to say the months, first and last name, count from 1-11 and say his ABCs with speech therapy today. He is now able to advance his right leg without assistance when ambulating. Impressions 1. Post stroke debility 2. Left ischemic MCA infarct with total occlusion of the M1 branch on CTA of the head 3. urine retention - with increasing creat. We started on Flomax and a andersen was placed. 4. Complicated urinary tract infection (ruled out) -more likely than not secondary to urine retention. - Urine culture was negative and Duricef was discontinued. 5. Sleep disordered breathing-suspected KAREN 6. Diabetes mellitus type 2 -continue to adjust insulin to get the blood sugars adequately controlled. Goal range is 120-180 on all blood sugars 7. [id number]-mvqy-[id number] Measure Pedro's neck and get an overnight trending pulse ox. If he desaturates at night will place him on oxygen at night and anytime he is sleeping. AND refer for a sleep study at [place]. Studies show that stroke patients recover better and have less functional disability if sleep apnea is treated. Will calculate a STOP BANG after we have the neck circumference. Voiding trial in the AM....UA prior to removing the andersen Inpatient E&M: 38363 Subs Hosp L2
[2019-11-12] MEDS: Tamsulosin HCl 0.4 MG Capsule PO (17:13)
[2019-11-12] MEDS: Insulin Lispro 100 UNIT/ML INSULN.PEN 10 UNIT SC (17:18)
[2019-11-12 17:26] LABS: Bedside Glucose 139 mg/dL (70-110)
[2019-11-12 20:00] VITALS: BP 100/58; PULSE 59; RESP 18; TEMP 36.2; O2SAT 95; BMI 35.2
[2019-11-12] MEDS: traZODone 50 MG Tablet PO (20:11)
[2019-11-12] MEDS: Senna/Docusate Sodium 1 Tablet 2 TABLET PO (20:11)
[2019-11-12] MEDS: Atorvastatin Calcium 40 MG Tablet PO (20:12)
[2019-11-12 21:10] LABS: Mucous, Urine 0 SEEN /hpf (<or=2+); Squamous Epithelial Cells - UA 0 SEEN /hpf (0-5); White Blood Cells 0 SEEN /hpf (0-5)
[2019-11-12 21:26] LABS: Color, Urine Yellow (Yellow); Glucose, Dipstick Normal (Normal); Ketone-Dipstick Negative (Negative); Leukocyte Esterase-Dipstick Negative /ul (Negative); Nitrite-Dipstick Negative (Negative); Occult Blood-Urine 50 /ul (Negative); Protein-Dipstick 30 mg/dl (Negative); Specific Gravity, Urine 1.015 (1.002-1.030); Urine Bilirubin Dipstick Negative (Negative); Urine Clarity Clear (Clear); Urine Urobilinogen Normal (Normal)
[2019-11-12 21:33] LABS: Bacteria RARE /hpf (None Seen); Red Blood Cells-Urine 0-5 SEEN /hpf (0-5)
[2019-11-12 21:56] LABS: Bedside Glucose 192 mg/dL (70-110)
[2019-11-12 23:22] VITALS: PULSE 59; O2SAT 94
--- NOTE | 2019-11-13 01:21 | NURSING ---
Reviewed and agree with BONE TENDER charting.
[2019-11-13 05:27] LABS: Absolute Lymphocyte Count 0.89 X10^3/uL (0.83-4.51); Absolute Neutrophil Count 2.5 X10^3/uL (2.0-7.7); Basophil# 0.03 X10^3/uL; Basophil% 0.7 % (0-1); Eosinophil# 0.25 X10^3/uL; Eosinophils% 5.9 % (0-5); Hematocrit 34.6 % (40-54); Lymphocyte # 0.89 X10^3/ul (4.0); Mean Corp Hgb Conc 31.8 g/dL (32-36); Mean Corpuscular Hgb 26.3 pg (27.0-32.0); Mean Corpuscular Volume 82.8 fL (80-94); Mean Platelet Vol. 10.3 fl (6.2-12.0); Monocyte# 0.57 X10^3/uL; Monocyte% 13.5 % (0-10); NRBC Flagged by Analyzer 0 % (0-5); Neutrophil # 2.48 X10^3/uL (2.7-7.7); Neutrophil % 58.7 % (47-70); Platelet Count 231 K/mm3 (150-450); RBC Distribution Width CV 15.6 % (11.6-14.6); RBC Distribution Width SD 43.7 fl (35.1-43.9); Red Blood Count 4.18 M/mm3 (4.6-6.2); White Blood Count 4.2 K/mm3 (4.4-11.0)
[2019-11-13 05:41] LABS: Anion Gap 9 (5-15); BUN 60 mg/dL (7-18); BUN/Creat Ratio 24.9 RATIO (10-20); Calcium,Total 9.1 mg/dL (8.5-10.1); Chloride 99 mmol/L (98-107); Creatinine, Serum 2.41 mg/dL (0.70-1.30); EST Glomerular Filtration Rate 29 mL/min (>60); Est Glom Filt Rate - Afr Amer 35 mL/min (>60); Estimated Creatinine Clearance 28.38 ml/min; Glucose 132 mg/dL (74-106); Magnesium 2.2 mg/dL (1.6-2.6); Phosphorus 3.7 mg/dL (2.5-4.9); Potassium 3.8 mmol/L (3.5-5.1); Sodium Level 137 mmol/L (136-145)
[2019-11-13 06:01] VITALS: PULSE 57; RESP 20
[2019-11-13] MEDS: Albuterol 2.5 MG/3 ML VIAL.NEB. INHALATION (06:01)
[2019-11-13] MEDS: Acetaminophen 500 MG Tablet 1000 MG PO ×3 (06:33→21:09)
[2019-11-13 06:51] LABS: Bedside Glucose 157 mg/dL (70-110)
--- NOTE | 2019-11-13 07:18 | NURSING ---
0545 andersen d/c'd this am as per order and tolerated well. urine is cloudy with mild odor. urine showed positive for blood and protein that was in in the previous ua but noted to be improved .
[2019-11-13] MEDS: Insulin Lispro 100 UNIT/ML INSULN.PEN SC ×3 (08:40→12:31)
[2019-11-13] MEDS: Insulin Lispro 100 UNIT/ML INSULN.PEN 10 UNIT SC (08:41)
[2019-11-13] MEDS: Famotidine 20 MG Tablet PO (08:46)
[2019-11-13] MEDS: NYSTATIN 500,000 UNIT/5 ML UDC 500000 UNIT PO ×4 (08:46→21:09)
[2019-11-13] MEDS: FLUoxetine 20 MG Capsule PO (08:46)
[2019-11-13] MEDS: Pregabalin 75 MG Capsule 150 MG PO ×2 (08:46→21:07)
[2019-11-13] MEDS: Fenofibrate 145 MG Tablet PO (08:46)
[2019-11-13] MEDS: amLODIPine 5 MG Tablet 10 MG PO (08:47)
[2019-11-13] MEDS: hydroCHLOROthiazide 25 MG Tablet PO (08:47)
[2019-11-13] MEDS: Heparin Injection (Vial) 5,000 UNIT/ML VIAL 5000 UNIT SC (08:47)
[2019-11-13] MEDS: Carvedilol 25 MG Tablet PO ×2 (08:47→21:09)
[2019-11-13] MEDS: Aspirin E.C. 81 MG Tablet PO (08:47)
[2019-11-13 10:00] VITALS: BP 122/61; PULSE 62; RESP 20; TEMP 36.6; O2SAT 94
[2019-11-13 12:20] LABS: Bedside Glucose 170 mg/dL (70-110)
[2019-11-13 13:32] VITALS: BMI 35.2
--- NOTE | 2019-11-13 14:09 | PCM.PN.BLA ---
Progress Note Afebrile Blood pressure is well controlled. He is maintaining appropriate oxygen saturation on room air while awake. Overnight trending pulse ox shows that he desaturates to 84% and his heart rate decreased to 40 bpm at one time. All lab was personally reviewed. Hemoglobin is stable at 11. Platelet count is within normal limits. There are 5.9% eosinophils. Creatinine is stable at 2.41 and the BUN is 60. Phosphorus and magnesium are within normal limits. GFR is 29 which is consistent with stage IV chronic renal failure. Blood sugar record was reviewed. Blood sugars are well controlled. All blood sugars for the past 36 hours have been less than 200. the highest BS is still at HS. Lungs - CTA HRRR no significant peripheral edema no rashes and no pruritus Impressions 1. post CVA disability 2. HTN - controlled 3. CRF stage IV - will need to follow up with nephrology going forward 4. sleep disordered breathing 5. Normochromic normocytic anemia - heme negative stool Placed the patient on oxygen 2 L anytime he is sleeping. Will need a formal sleep study following discharge. Increase the mealtime Humalog at dinner to get the at bedtime blood sugar less than 180. Continue therapy Change the aerosols to PRN....no longer wheezing Stop HCTZ. continue the Coreg 25 mg p.o. twice daily and amlodipine 10 mg daily for blood pressure control. If additional BP control is needed will consider Cardura or Hydralazine encourage increased fluid intake today Recheck a BMP in a few days Inpatient E&M: 70643 Subs Hosp L2
[2019-11-13] MEDS: Tamsulosin HCl 0.4 MG Capsule PO (17:04)
[2019-11-13] MEDS: Insulin Lispro 100 UNIT/ML INSULN.PEN 12 UNIT SC (17:04)
[2019-11-13 17:25] LABS: Bedside Glucose 122 mg/dL (70-110)
[2019-11-13 20:42] VITALS: BP 130/60; PULSE 63; RESP 18; TEMP 36.8; O2SAT 95
[2019-11-13 20:45] VITALS: BMI 35.2
[2019-11-13 20:54] VITALS: PULSE 63; RESP 18
[2019-11-13] MEDS: Atorvastatin Calcium 40 MG Tablet PO (21:07)
[2019-11-13] MEDS: traZODone 50 MG Tablet PO (21:08)
[2019-11-13] MEDS: Senna/Docusate Sodium 1 Tablet 2 TABLET PO (21:09)
[2019-11-13 22:31] LABS: Bedside Glucose 201 mg/dL (70-110)
[2019-11-14] MEDS: Acetaminophen 500 MG Tablet 1000 MG PO ×3 (06:47→22:18)
[2019-11-14 07:01] LABS: Bedside Glucose 120 mg/dL (70-110)
[2019-11-14] MEDS: Insulin Lispro 100 UNIT/ML INSULN.PEN 10 UNIT SC (08:20)
[2019-11-14 09:14] VITALS: BP 114/54; PULSE 55; RESP 16; TEMP 36.9; O2SAT 96
--- NOTE | 2019-11-14 09:29 | CASEMGMT ---
Social Work IDT met with pt and pt dtr in law via conference call for Team meeting. Pt is mod assist for transfers and uses HR to assist in pulling himself. Pt is an assist of 2 to stand-assist of max x 1 and min x1. Pt is walking 20ft with FWW and HR and has right field cut. Pt is able to do UE bathing at SBA and LE bathing at max assist. Pt is able to do UE dressing at mod assist and max assist x2 on LE dressing. Pt is total assist for toileting. Pt complains of no pain and is sleeping well. Pt is on puree texture diet with Honey Thick liquids. ST to work on automatic speech, short sounds and words and working on verbalizing basic wants and needs. Pt is doing breathing treatments to continue to clear lungs. Explained insurance to pt NRD 11/17- continued stay is not guaranteed so alt. plans suggested. Explained to dtr in law the difference of insurance in an inpatient rehab verses SNF. Provided list of facilities via email. Dtr in law understanding and asked for SW/SWI to explain why family is not able to visit. Pt aware and understanding of visitation restrictions. Will continue to follow. Cynthia Soares, social work internal revenue agent Sabina Alexandra, FIELD ATTENDANT NURSE ORTHOPEDIC
--- NOTE | 2019-11-14 09:45 | RAD_ITS ---
STUDY: X-RAY CHEST REASON FOR EXAM: Male, 69 years old. COUGH TECHNIQUE: Single AP portable view of the chest. COMPARISON: Comparison is made with prior study dated November 05, 2019. FINDINGS: Elevation of the right hemidiaphragm. The lungs are clear. There is no demonstrated pleural abnormality. Sternal cerclage wires and vascular clips are present from a prior sternotomy and coronary artery bypass graft procedure (CABG). Borderline cardiomegaly Normal mediastinum and carmen. Normal visualized pulmonary arteries. Normal visualized aortic arch and descending thoracic aorta. Normal visualized thoracic spine. Normal visualized ribs, clavicles, and shoulders. There is no demonstrated abnormality of the visualized soft tissue structures of the upper abdomen. RAD/Chest 1 View (Portable) IMPRESSION: No acute abnormality is seen. Electronically Signed: Adithya Wallace, at 10:06 EDT , Service support ,
[2019-11-14] MEDS: NYSTATIN 500,000 UNIT/5 ML UDC 500000 UNIT PO ×4 (10:30→22:19)
[2019-11-14] MEDS: Tamsulosin HCl 0.4 MG Capsule PO ×2 (10:30→22:20)
[2019-11-14] MEDS: Fenofibrate 145 MG Tablet PO (10:30)
[2019-11-14] MEDS: hydroCHLOROthiazide 25 MG Tablet PO (10:30)
[2019-11-14] MEDS: Senna/Docusate Sodium 1 Tablet 2 TABLET PO ×2 (10:30→22:19)
[2019-11-14] MEDS: Carvedilol 25 MG Tablet PO ×2 (10:30→22:21)
[2019-11-14] MEDS: Aspirin E.C. 81 MG Tablet PO (10:30)
[2019-11-14] MEDS: FLUoxetine 20 MG Capsule PO (10:30)
[2019-11-14] MEDS: amLODIPine 5 MG Tablet 10 MG PO (10:30)
[2019-11-14] MEDS: Famotidine 20 MG Tablet PO (10:30)
[2019-11-14] MEDS: Pregabalin 75 MG Capsule 150 MG PO ×2 (10:30→22:19)
[2019-11-14 11:26] LABS: Bedside Glucose 233 mg/dL (70-110)
[2019-11-14] MEDS: Insulin Lispro 100 UNIT/ML INSULN.PEN SC ×3 (12:14→17:04)
--- NOTE | 2019-11-14 13:21 | PCM.PROGNOTE ---
Patient Problems: Active and Suspected Problems (Last Reviewed 11/05/19 @ 12:[address] 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 No family was present but we had a phone conference with his bcmmkrkz-tu-rjk Halima. Afebile VSS-blood pressure is well controlled Maintaining appropriate oxygen saturation on RA - he is on O2 at 2 LPM while he is sleeping due to sleep disordered breathing with desaturation to 84% on an overnight trending pulse ox. Oral intake is good. Patient is currently on a pur?ed diet with honey thickened liquids. Meal analysis was completed today by the speech therapist. He was able to self feed with his left hand. Cues were required for use of double swallows. He had cough x3 following bites of pur?ed food. There were no overt signs of aspiration noted. Discussed with nursing -the Pimentel catheter was discontinued today and he has had to be straight cathed twice. We will continue with straight cath as needed today but if he continues to retain will replace the Pimentel tomorrow. Reviewed the PT/OT/ST notes Medication list reviewed. He is progressing. Will have insurance update on 11/18/19. He is sleeping weel. NO N/V/D/C. Denies CP. He does have a cough and today he told me he feels SOB. I had changed the aerodols to PRN yesterday because he had not had any wheezing but, he has wheezes throughout today. No tachypnea at rest. CXR showed improved aeration and good improvement in the infiltrate in the left base. He did have aspiration PNA prior to being admitted to the rehab unit. - Physical Exam Vitals/I&O's: Vital Signs Temp Pulse Resp BP Pulse Ox 98.4 F 55 L 16 114/54 L 96 11/14/19 09:14 11/14/19 09:14 11/14/19 09:14 11/14/19 09:14 11/14/19 09:14 Oxygen Flow Rate (L/min) 2 Oxygen Delivery Method Nasal Cannula Weight: 230 lb 9.656 oz Body Mass Index (BMI) 35.2 Finger Stick Blood Glucose 100 Intake and Output for Last 24 Hours 11/12/19 11/13/19 11/14/19 23:59 23:59 23:59 Intake Total 1350 / 1350 1720 / 1770 940 / 940 Output Total 1425 / 1425 1350 / 1350 1400 / 1400 Balance -75 / -75 370 / 420 -460 / -460 General: Alert, Cooperative, Well developed, Well nourished, - - he is coughing more today and it sounds loose. HEENT: PERRLA, Normocephalic Oral: Moist Mucosa, No Gingival or Mucosal Lesions/ Ulcerations Neck: No Nodes, Trachea Midline Lungs: Wheezes - expiratory wheezing diffusely with fair air exchange. No rales. Not tachypneic at rest and no accessory muscle use. Cardiovascular: Regular rate, Regular Rhythm, Normal S1, Normal S2, No Gallop Abdomen: Bowel Sounds Present, Soft, Non Tender, Non-Distended, Obese Extremities: No edema, No Calf Tenderness Skin: No rashes, No breakdown Neurological: - - Requiring 1 person for sit to stand today. doing better with moving his feet for standing and pivoting. He was able to walk 20 feet x 2 with advancing his right lower extremity 100% of the time. He did not require wheelchair follow today and was able to turn and pivot to sit in the chair. Psych/Mental Status: Appropriate Microbiology Past 72 Hours 11/12/19 20:50 Urine, Clean Catch Urine Culture - Preliminary Culture exhibits no growth. Laboratory Results 11/13/19 17:01: POC Glucose 122 H 11/13/19 21:07: POC Glucose 201 H 11/14/19 06:53: POC Glucose 120 H 11/14/19 11:16: POC Glucose 233 H Current Medications Acetaminophen (Tylenol) 1,000 mg PO Q8 [facility] Last Admin: 11/14/19 06:47 Dose: 1,000 mg Documented by: Albuterol Sulfate (Ventolin Aerosols) 2.5 mg INHALATION Q2H PRN PRN PRN Reason: SOB &/OR WHEEZING Albuterol Sulfate (Ventolin Aerosols) 2.5 mg INHALATION Q4HWA.RT [facility] Last Admin: 11/14/19 11:51 Dose: Not Given Documented by: Amlodipine Besylate (Norvasc) 10 mg PO DAILY [facility] Last Admin: 11/14/19 10:30 Dose: 10 mg Documented by: Aspirin (Ecotrin) 81 mg PO DAILY [facility] Last Admin: 11/14/19 10:30 Dose: 81 mg Documented by: Atorvastatin Calcium (Lipitor) 40 mg PO QHS [facility] Last Admin: 11/13/19 21:07 Dose: 40 mg Documented by: Bisacodyl (Dulcolax) 10 mg RECTAL .PRN X 1 PRN PRN Reason: Constipation Carvedilol (Coreg) 25 mg PO BID [facility] Last Admin: 11/14/19 10:30 Dose: 25 mg Documented by: Famotidine (Pepcid) 20 mg PO DAILY [facility] Last Admin: 11/14/19 10:30 Dose: 20 mg Documented by: Fenofibrate (Tricor) 145 mg PO DAILY [facility] Last Admin: 11/14/19 10:30 Dose: 145 mg Documented by: Fluoxetine HCl (Prozac) 20 mg PO DAILY [facility] Last Admin: 11/14/19 10:30 Dose: 20 mg Documented by: Hydrochlorothiazide (Hctz) 25 mg PO DAILY [facility] Last Admin: 11/14/19 10:30 Dose: 25 mg Documented by: Insulin Glargine (Lantus (Bkc)) 15 units SC QHS [facility] Last Admin: 11/13/19 21:08 Dose: 15 u Documented by: Insulin Glargine (Lantus (Bkc)) 20 units SC QAM [facility] Last Admin: 11/14/19 10:30 Dose: 20 u Documented by: Insulin Human Lispro (Humalog Kwikpen (Bkc)) 0 unit SC TIDAC [facility]; Protocol Last Admin: 11/14/19 12:14 Dose: 4 u Documented by: Insulin Human Lispro (Humalog Kwikpen (Bkc)) 3 unit SC LUNCH [facility] Last Admin: 11/14/19 12:14 Dose: 3 u Documented by: Insulin Human Lispro (Humalog Kwikpen (Bkc)) 10 unit SC BREAKFAST [facility] Last Admin: 11/14/19 08:20 Dose: 10 u Documented by: Insulin Human Lispro (Humalog Kwikpen (Bkc)) 12 unit SC DINNER [facility] Last Admin: 11/13/19 17:04 Dose: 12 u Documented by: Magnesium Hydroxide (Milk Of Magnesia) 30 ml PO .PRN X 1 PRN PRN Reason: Constipation Nystatin (Nystatin) 500,000 unit PO 4X/DAY [facility] Last Admin: 11/14/19 10:30 Dose: 500,000 unit Documented by: Pregabalin (Lyrica) 150 mg PO BID [facility] Last Admin: 11/14/19 10:30 Dose: 150 mg Documented by: Senna/Docusate Sodium (Senokot-S, Yessenia-Colace) 2 tablet PO BID [facility] Last Admin: 11/14/19 10:30 Dose: 2 tablet Documented by: Sodium Chloride () 10 - 40 ml IV UD PRN PRN Reason: SALINE FLUSH Tamsulosin HCl (Flomax) 0.4 mg PO BID [facility] Last Admin: 11/14/19 10:30 Dose: 0.4 mg Documented by: Trazodone HCl (Desyrel) 50 mg PO QHS [facility] Last Admin: 11/13/19 21:08 Dose: 50 mg Documented by: Medical Necessity - Tobacco Use Smoking Status: Former smoker Tobacco Use: Cigarettes, Chew Assessment/Plan All Active Problems (Last Reviewed 11/05/19 @ 12:[address] 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 Subacute left ischemic MCA infarct with total occlusion of the M1 branch on CTA. 2. Post stroke debility secondary to #1 3. Severe expressive aphasia - doing better with automatics like counting, hello, good. He was able to say Rehana today which is the name of his physical therapist. 4. Dysphagia -currently on honey thick liquids and pur?ed diet. No overt signs/SX of aspiration 5. Dehydration 6. Abnormal LFTs with mild increased in transaminases 7. Takxbrfnrkft-fteu-avwiaqzgyj 8. Hyperlipidemia 9. Diabetes mellitus type 2 with recent hemoglobin A1c of 6.5% 10. History of abdominal aortic aneurysm, status post endovascular repair with stent 11. Carotid stenosis, left greater than right 12. Cerebrovascular disease 13. Coronary artery disease with history of CABG in 2008 14. Former tobacco dependence-quit in 2008 15. Normochromic normocytic anemia-check iron studies, reticulocyte count, TSH 16. Recent aspiration pneumonia-check AP chest today 17. Mild to moderate left atrial enlargement, 55% EF, no shunt on KWADWO 18. Obstructive sleep apnea? -this was on the records from [facility] and apparently he is not on CPAP. He has never had a sleep study. He desaturates at night down to 84% and HR decreases to 40. Will need a sleep study going forward but, for now will use O2 at 2 LPM anytime he is sleeping. 19. Suspected acute bronchitis-most likely viral- can not do a respiratory panel due to short supply but, it would not change the management at this time so no need 20. Stage IV chronic renal failure - Will need to follow up with nephrology going forward. Restart the Albuterol aerosols Q 4H WA and continue PRN Decrease the protein in the diet...D/W the sales support technician. Limit protein to 40-60 GM daily K is 3.8 on 11/13/19 Adjust the dinner insulin up to better control the HS sugar. Increase the Flomax to 0.4 mg BID and check orthostatic BP in the AM X3 - if he is still retaining then will consider Avodart 0.5 mg daily. Continue to monitor the breath sounds frequently Inpatient E&M: 53345 Subs Hosp L2
[2019-11-14 14:58] VITALS: PULSE 61; RESP 12; O2SAT 91; BMI 35.2
[2019-11-14 16:35] LABS: Bedside Glucose 151 mg/dL (70-110)
[2019-11-14] MEDS: Insulin Lispro 100 UNIT/ML INSULN.PEN 15 UNIT SC (17:04)
[2019-11-14 18:45] VITALS: PULSE 62; RESP 18
[2019-11-14] MEDS: Albuterol 2.5 MG/3 ML VIAL.NEB. INHALATION (18:45)
[2019-11-14 19:18] VITALS: BP 129/80; PULSE 61; RESP 18; TEMP 36.5; O2SAT 96
[2019-11-14 21:11] LABS: Bedside Glucose 176 mg/dL (70-110)
[2019-11-14] MEDS: Atorvastatin Calcium 40 MG Tablet PO (22:19)
[2019-11-14] MEDS: traZODone 50 MG Tablet PO (22:20)
[2019-11-15] VITALS (8 sets, daily range): BP systolic 75–139; BP diastolic 39–67; PULSE 50–58; RESP 16–18; TEMP 36.3–36.6; O2SAT 95–99; BMI 35.2
--- NOTE | 2019-11-15 02:35 | NURSING ---
PT BLADDER SCANNED FOR 560 ML URINE, AND IS UNABLE TO PASS URINE INTO URINAL. #16 FR CUBA INSERTED VIA STERILE TECHNIQUE WITHOUT DIFFICULTY. PT TOLERATES PROCEDURE WELL. 425 ML OF CLEAR YELLOW URINE DRAINED FROM CUBA BAG.
[2019-11-15] MEDS: Acetaminophen 500 MG Tablet 1000 MG PO ×3 (06:54→20:43)
[2019-11-15 07:36] LABS: Bedside Glucose 151 mg/dL (70-110)
[2019-11-15] MEDS: Insulin Lispro 100 UNIT/ML INSULN.PEN SC ×2 (08:06→12:16)
[2019-11-15] MEDS: Insulin Lispro 100 UNIT/ML INSULN.PEN 12 UNIT SC (08:06)
[2019-11-15] MEDS: Aspirin E.C. 81 MG Tablet PO (08:07)
[2019-11-15] MEDS: Fenofibrate 145 MG Tablet PO (08:07)
[2019-11-15] MEDS: Famotidine 20 MG Tablet PO (08:07)
[2019-11-15] MEDS: NYSTATIN 500,000 UNIT/5 ML UDC 500000 UNIT PO ×4 (08:07→20:44)
[2019-11-15] MEDS: FLUoxetine 20 MG Capsule PO (08:07)
[2019-11-15] MEDS: amLODIPine 5 MG Tablet 10 MG PO (08:59)
[2019-11-15] MEDS: Carvedilol 25 MG Tablet PO (08:59)
[2019-11-15] MEDS: Pregabalin 75 MG Capsule 150 MG PO ×2 (08:59→20:44)
[2019-11-15] MEDS: Tamsulosin HCl 0.4 MG Capsule PO ×2 (09:00→20:44)
--- NOTE | 2019-11-15 10:00 | NURSING ---
Dr. Sosa aware of orthostatic VS readings from manager night and day shift. Patient asymptomatic.
--- NOTE | 2019-11-15 10:03 | CASEMGMT ---
Social Work DIL contacted SW to discuss SNF and payment options. Explained for DIL to choose several facilities for SW to refer to and use Medicare.gov as a resource since SNFs are not allowing tours. DIL inquired about Medicare and Medicaid coverage. Explained traditional Medicare vs Medicare Replacement and Medicaid for spousal eligibility. DIL would like Medicaid application. Emailed application. Offered continued assistance with DC planning. Will continue to follow. NRD 11/17. ELIZABETH MahanW
--- NOTE | 2019-11-15 11:52 | PCM.PN.BLA ---
Progress Note Afebile Orthostatics were + today. HR can not increase when upright to maintain the BP. Coreg dose has been decreased. He was asymptomatic even though the orthostatics were + Maintaining appropriate oxygen saturation on RA Oral intake is good. Last bowel movement was 11/14/2019. Urine output is good. Discussed with nursing - no problems that need addressed Reviewed the PT/OT/ST notes Medication list reviewed. Blood sugar record was reviewed. His blood sugars are now in good control. The at bedtime sugar last night was 176. He tells me he feels rested when he gets up in the morning and he is sleeping much better since the oxygen was added. He is also doing better with therapy and the OT reported to me today that is is now moving the RUE and starting to have some muscle twitching. Denies SOB today and the cough is improving. He was restarted on scheduled Albuterol aerosols yesterday. alert, NAD Lungs no rales, good air exchange, less expiratory wheezing today and it is more like rhonchi. Not tachypneic, no conversational dyspnea, no accessory muscle use. Heart-regular rate and rhythm, no gallop No peripheral edema No rashes, no breakdown, no calf tenderness. Impressions 1. Post stroke debility with right side weakness and primarily expressive aphasia 2. Diabetes mellitus type 7-nzim-djuxiqyfpd now 3. Pbypkyqyqkfh-nrle-avmgyrssja 4. Stage IV chronic renal failure 5. BPH with urine retention, on Flomax 0.4 mg twice daily. 6. Orthostatic hypotension-asymptomatic. He cannot increase his heart rate when going from lying to standing due to high-dose beta-kathrine. The Coreg has been decreased to 18.75 mg twice daily from 25 mg twice daily. We will continue to monitor orthostatic pressures for the next 2 days. 7. Voiding trial on Monday - Pimentel was inserted 11/15/19 at 3 AM due to persistent large residuals. 8. Sleep disordered breathing-suspected KAREN, possibly central and peripheral. Will continue oxygen therapy and attempt to schedule a sleep study for the day he is discharged from rehab Recheck BMP on Monday BUN is increased out of proportion to the creatinine secondary to high protein intake. Diet has been changed to 40 to 60 g of protein daily Urine culture from 11/12/2019 prior to removing the catheter has no growth. Continue scheduled aerosols. Chest x-ray showed no infiltrates on 11/14/2019. STROKE Vital Signs/Narrative: Vital Signs Pulse Pulse Pulse BP BP BP 11/15/19 08:55 50 L 50 L 53 L 127/67 H 139/65 H 106/57 L Inpatient E&M: 55052 Subs Hosp L2
[2019-11-15] MEDS: Albuterol 2.5 MG/3 ML VIAL.NEB. INHALATION ×3 (11:57→19:05)
[2019-11-15 12:06] LABS: Bedside Glucose 136 mg/dL (70-110)
[2019-11-15 17:01] LABS: Bedside Glucose 107 mg/dL (70-110)
[2019-11-15] MEDS: Insulin Lispro 100 UNIT/ML INSULN.PEN 15 UNIT SC (17:09)
[2019-11-15] MEDS: Carvedilol 6.25 MG Tablet 18.75 MG PO (20:44)
[2019-11-15] MEDS: traZODone 50 MG Tablet PO (20:44)
[2019-11-15] MEDS: Atorvastatin Calcium 40 MG Tablet PO (20:44)
[2019-11-15 21:35] LABS: Bedside Glucose 177 mg/dL (70-110)
[2019-11-16 05:00] VITALS: BMI 35.2
[2019-11-16 06:00] VITALS: BP 111/74; BP 127/66; BP 95/48; PULSE 52; PULSE 55; PULSE 61
[2019-11-16] MEDS: Acetaminophen 500 MG Tablet 1000 MG PO ×3 (06:04→21:23)
[2019-11-16 06:21] LABS: Bedside Glucose 105 mg/dL (70-110)
[2019-11-16 06:25] VITALS: PULSE 52; RESP 16
[2019-11-16] MEDS: Albuterol 2.5 MG/3 ML VIAL.NEB. INHALATION ×3 (06:25→19:16)
[2019-11-16] MEDS: Famotidine 20 MG Tablet PO (08:01)
[2019-11-16] MEDS: amLODIPine 5 MG Tablet 10 MG PO (08:01)
[2019-11-16] MEDS: NYSTATIN 500,000 UNIT/5 ML UDC 500000 UNIT PO ×4 (08:01→21:23)
[2019-11-16] MEDS: Fenofibrate 145 MG Tablet PO (08:01)
[2019-11-16] MEDS: Tamsulosin HCl 0.4 MG Capsule PO ×2 (08:01→21:23)
[2019-11-16] MEDS: Aspirin E.C. 81 MG Tablet PO (08:02)
[2019-11-16] MEDS: Carvedilol 6.25 MG Tablet 18.75 MG PO ×2 (08:02→21:23)
[2019-11-16] MEDS: Insulin Lispro 100 UNIT/ML INSULN.PEN 12 UNIT SC (08:03)
[2019-11-16] MEDS: FLUoxetine 20 MG Capsule PO (08:06)
[2019-11-16] MEDS: Pregabalin 75 MG Capsule 150 MG PO ×2 (08:06→21:29)
[2019-11-16 08:48] VITALS: BP 126/63; PULSE 52; RESP 16; TEMP 36.6; O2SAT 97
[2019-11-16 09:03] VITALS: BMI 35.2
[2019-11-16] MEDS: Insulin Lispro 100 UNIT/ML INSULN.PEN SC ×3 (11:55→16:47)
[2019-11-16 12:01] LABS: Bedside Glucose 165 mg/dL (70-110)
[2019-11-16 14:56] VITALS: PULSE 51; RESP 14
[2019-11-16] MEDS: Insulin Lispro 100 UNIT/ML INSULN.PEN 15 UNIT SC (16:47)
[2019-11-16 16:56] LABS: Bedside Glucose 184 mg/dL (70-110)
[2019-11-16 19:16] VITALS: PULSE 67; RESP 16
[2019-11-16 21:05] VITALS: BP 130/68; PULSE 61; RESP 16; TEMP 36.7; O2SAT 95
[2019-11-16 21:11] LABS: Bedside Glucose 203 mg/dL (70-110)
[2019-11-16] MEDS: traZODone 50 MG Tablet PO (21:23)
[2019-11-16] MEDS: Atorvastatin Calcium 40 MG Tablet PO (21:23)
[2019-11-17] VITALS (8 sets, daily range): BP systolic 90–139; BP diastolic 44–66; PULSE 55–62; RESP 16–20; TEMP 36.7; O2SAT 93–98; BMI 35.2
[2019-11-17] MEDS: Acetaminophen 500 MG Tablet 1000 MG PO ×3 (06:26→21:23)
[2019-11-17 06:56] LABS: Bedside Glucose 112 mg/dL (70-110)
[2019-11-17] MEDS: Insulin Lispro 100 UNIT/ML INSULN.PEN 12 UNIT SC (07:39)
[2019-11-17] MEDS: Albuterol 2.5 MG/3 ML VIAL.NEB. INHALATION ×5 (07:40→22:05)
[2019-11-17] MEDS: Famotidine 20 MG Tablet PO (07:52)
[2019-11-17] MEDS: Senna/Docusate Sodium 1 Tablet 2 TABLET PO (07:52)
[2019-11-17] MEDS: Fenofibrate 145 MG Tablet PO (07:52)
[2019-11-17] MEDS: FLUoxetine 20 MG Capsule PO (07:52)
[2019-11-17] MEDS: Carvedilol 6.25 MG Tablet 18.75 MG PO ×2 (07:53→21:22)
[2019-11-17] MEDS: NYSTATIN 500,000 UNIT/5 ML UDC 500000 UNIT PO ×4 (07:53→21:23)
[2019-11-17] MEDS: Tamsulosin HCl 0.4 MG Capsule PO ×2 (07:53→21:23)
[2019-11-17] MEDS: amLODIPine 5 MG Tablet 10 MG PO (07:53)
[2019-11-17] MEDS: Aspirin E.C. 81 MG Tablet PO (07:53)
[2019-11-17] MEDS: Pregabalin 75 MG Capsule 150 MG PO ×2 (07:56→21:23)
[2019-11-17] MEDS: Insulin Lispro 100 UNIT/ML INSULN.PEN SC ×2 (11:46)
[2019-11-17 12:06] LABS: Bedside Glucose 182 mg/dL (70-110)
[2019-11-17] MEDS: Insulin Lispro 100 UNIT/ML INSULN.PEN 15 UNIT SC (16:59)
[2019-11-17 17:16] LABS: Bedside Glucose 140 mg/dL (70-110)
[2019-11-17] MEDS: traZODone 50 MG Tablet PO (21:22)
[2019-11-17] MEDS: Atorvastatin Calcium 40 MG Tablet PO (21:23)
[2019-11-17 21:35] LABS: Bedside Glucose 223 mg/dL (70-110)
[2019-11-18 05:00] VITALS: BMI 35.2
[2019-11-18] MEDS: Acetaminophen 500 MG Tablet 1000 MG PO ×3 (06:03→20:52)
[2019-11-18 06:41] LABS: Anion Gap 8 (5-15); BUN 43 mg/dL (7-18); BUN/Creat Ratio 22.5 RATIO (10-20); Calcium,Total 8.7 mg/dL (8.5-10.1); Chloride 101 mmol/L (98-107); Creatinine, Serum 1.91 mg/dL (0.70-1.30); EST Glomerular Filtration Rate 37 mL/min (>60); Est Glom Filt Rate - Afr Amer 45 mL/min (>60); Estimated Creatinine Clearance 35.81 ml/min; Glucose 111 mg/dL (74-106); Phosphorus 3.1 mg/dL (2.5-4.9); Potassium 3.8 mmol/L (3.5-5.1); Sodium Level 139 mmol/L (136-145)
[2019-11-18 06:50] LABS: Bedside Glucose 115 mg/dL (70-110)
[2019-11-18 07:05] VITALS: PULSE 60; RESP 20
[2019-11-18] MEDS: Albuterol 2.5 MG/3 ML VIAL.NEB. INHALATION ×3 (07:05→19:59)
[2019-11-18 07:28] VITALS: BP 123/60; PULSE 55; RESP 16; TEMP 36.4; O2SAT 95
[2019-11-18] MEDS: amLODIPine 5 MG Tablet 10 MG PO (07:39)
[2019-11-18] MEDS: FLUoxetine 20 MG Capsule PO (07:39)
[2019-11-18] MEDS: Fenofibrate 145 MG Tablet PO (07:39)
[2019-11-18] MEDS: Tamsulosin HCl 0.4 MG Capsule PO ×2 (07:40→20:48)
[2019-11-18] MEDS: Famotidine 20 MG Tablet PO (07:40)
[2019-11-18] MEDS: Carvedilol 6.25 MG Tablet 18.75 MG PO (07:40)
[2019-11-18] MEDS: Aspirin E.C. 81 MG Tablet PO (07:40)
[2019-11-18] MEDS: Insulin Lispro 100 UNIT/ML INSULN.PEN 12 UNIT SC (07:40)
[2019-11-18] MEDS: Pregabalin 75 MG Capsule 150 MG PO ×2 (07:44→20:51)
--- NOTE | 2019-11-18 08:05 | PCM.PN.BLA ---
Progress Note Afebile VSS - Still orthostatic but, asymptomatic. Maintaining appropriate oxygen saturation on RA Oral intake is good. Discussed with nursing - no problems that need addressed Reviewed the PT/OT/ST notes Medication list reviewed. All lab was personally reviewed. Now that the protein has been restricted in his diet the BUN is down to 43 from 64 and the creatinine is 1.91, down from 2.45 at admission. Phosphorus is within normal limits and so is the calcium. Electrolytes are normal. Blood sugar record was reviewed. Blood sugars at at bedtime are still mildly increased and last night's at bedtime blood sugar was 223. He is sleeping well at night. no complaints today. He is still having trouble with forming words that are not automatisms. MM are a little dry Lungs are clear to auscultation after a cough. H - RRR, no gallop no ankle edema no breakdown Impressions 1. Post stroke debility 2. Diabetes mellitus type 3-bkmb-xswknzmytl 3. HTN - well controlled but having some orthostatic changes in blood pressure. will decrease the Coreg again. 4. BPH Urine retention-currently on Flomax 0.4 mg twice daily 5. Stage IV renal failure - continue with the protein restriction Increase the AM Lantus to 26 units and continue the 20 units at HS. Decrease the Coreg to 12.5 units BID. DC the Pimentel today and continue with post void residuals STROKE Vital Signs/Narrative: Vital Signs Temp Pulse Resp BP Pulse Ox 11/18/19 07:28 97.6 F L 55 L 16 123/60 H 95
[2019-11-18] MEDS: NYSTATIN 500,000 UNIT/5 ML UDC 500000 UNIT PO ×4 (11:01→20:51)
[2019-11-18 12:00] LABS: Bedside Glucose 120 mg/dL (70-110)
[2019-11-18] MEDS: Insulin Lispro 100 UNIT/ML INSULN.PEN SC ×2 (12:02→17:17)
[2019-11-18 13:18] VITALS: BMI 35.2
--- NOTE | 2019-11-18 14:06 | CASEMGMT ---
Addendum entered by Sabina Alexandra 11/19/19 14:39: [facility] has accepted pt. [facility] is not network with [place] any longer. [facility] does not have any male beds available. Spoke with DIL. DIL inquired about TCU. Explained a referral can be made, but not Medicaid certified and is short-term; therefore, if pt would require longer -term care and pt cannot pay privately, pt would transfer to another SNF. [facility] understands and prefers not to have pt transfer multiple times. Explored other possible SNF referrals. DIL to review more facilities on Medicare.gov and will notify SW of decisions. DIL stated her and MIL are meeting with pt's bank 11/20 to noreen temporary POA to access pt's bank information in order to complete Medicaid application. Still awaiting insurance outcome. Original Note: Social Work Spoke with patient's DIL whom would like referrals made to [facility], [facility] and [facility]. DIL having difficulty getting access to pt's bank accounts to fill out Medicaid application. Will continue to assist as able. Referrals made. Will continue to follow. Sabina Alexandra, ELIZABETH AGRAWALW
[2019-11-18 15:38] VITALS: PULSE 61; RESP 20
[2019-11-18 17:01] LABS: Bedside Glucose 152 mg/dL (70-110)
[2019-11-18] MEDS: Insulin Lispro 100 UNIT/ML INSULN.PEN 15 UNIT SC (17:17)
[2019-11-18 19:10] VITALS: BP 139/63; PULSE 55; RESP 18; TEMP 36.7; O2SAT 96
[2019-11-18 20:06] VITALS: PULSE 60; RESP 18
[2019-11-18 20:37] VITALS: BMI 35.2
[2019-11-18] MEDS: Carvedilol 12.5 MG Tablet PO (20:47)
[2019-11-18] MEDS: traZODone 50 MG Tablet PO (20:48)
[2019-11-18] MEDS: Senna/Docusate Sodium 1 Tablet 2 TABLET PO (20:50)
[2019-11-18] MEDS: Atorvastatin Calcium 40 MG Tablet PO (20:52)
[2019-11-18 21:01] LABS: Bedside Glucose 143 mg/dL (70-110)
[2019-11-19] VITALS (7 sets, daily range): BP systolic 124–130; BP diastolic 50–65; PULSE 50–62; RESP 16–18; TEMP 36.3–36.4; O2SAT 94–96; BMI 35.2
[2019-11-19] MEDS: Acetaminophen 500 MG Tablet 1000 MG PO ×3 (05:39→21:19)
[2019-11-19 06:31] LABS: Bedside Glucose 125 mg/dL (70-110)
[2019-11-19] MEDS: Albuterol 2.5 MG/3 ML VIAL.NEB. INHALATION ×4 (07:08→19:15)
[2019-11-19] MEDS: Insulin Lispro 100 UNIT/ML INSULN.PEN 12 UNIT SC (07:48)
[2019-11-19] MEDS: Aspirin E.C. 81 MG Tablet PO (07:49)
[2019-11-19] MEDS: Tamsulosin HCl 0.4 MG Capsule PO ×2 (07:49→21:19)
[2019-11-19] MEDS: Carvedilol 12.5 MG Tablet PO ×2 (07:49→21:19)
[2019-11-19] MEDS: amLODIPine 5 MG Tablet 10 MG PO (07:51)
[2019-11-19] MEDS: NYSTATIN 500,000 UNIT/5 ML UDC 500000 UNIT PO ×4 (07:52→21:22)
[2019-11-19] MEDS: Famotidine 20 MG Tablet PO (07:52)
[2019-11-19] MEDS: FLUoxetine 20 MG Capsule PO (07:52)
[2019-11-19] MEDS: Fenofibrate 145 MG Tablet PO (07:53)
[2019-11-19] MEDS: Senna/Docusate Sodium 1 Tablet 2 TABLET PO ×2 (07:53→21:19)
[2019-11-19] MEDS: Pregabalin 75 MG Capsule 150 MG PO ×2 (08:02→21:19)
[2019-11-19 11:41] LABS: Bedside Glucose 137 mg/dL (70-110)
[2019-11-19] MEDS: Insulin Lispro 100 UNIT/ML INSULN.PEN SC (11:52)
--- NOTE | 2019-11-19 14:41 | PCM.PN.BLA ---
Progress Note Afebrile Blood pressure is well controlled Heart rate remains in the 50-60 range even with decreasing the Coreg dose to one half the previous dose. Good oral intake. Blood sugar record was reviewed. Blood sugars are under excellent control. Denies shortness of breath at rest. No nausea/vomiting/abdominal pain/sore throat/chest pain. He does still have an occasional cough. Denies lightheadedness with standing. Alert, appropriate, no apparent distress Lungs-expiratory wheezing mostly in the bases. No Rales. Not tachypneic, no conversational dyspnea but only able to speak one word and not a full sentence. Heart-regular rate and rhythm Abdomen-obese, soft, nontender, no guarding with palpation, bowel sounds present no edema Impressions 1. post stroke disability 2. Diabetes mellitus type 7-glni-hrcsnxeqez 3. Soxrsvalhztb-viof-ilyabivthz 4. Chronic renal failure stage III?4 5. Diabetic nephropathy Continue current medications Orthostatic blood pressures x3 days now that the Coreg has been decreased. Remove Pimentel today and check postvoid residuals. If he is unable to void will order a urology consult and consider adding Avodart. STROKE Vital Signs/Narrative: Vital Signs Pulse Resp 11/19/19 10:55 54 L 16 Inpatient E&M: 31710 Subs Hosp L2
[2019-11-19 17:10] LABS: Bedside Glucose 115 mg/dL (70-110)
[2019-11-19] MEDS: Insulin Lispro 100 UNIT/ML INSULN.PEN 15 UNIT SC (17:24)
[2019-11-19] MEDS: traZODone 50 MG Tablet PO (21:19)
[2019-11-19] MEDS: Atorvastatin Calcium 40 MG Tablet PO (21:19)
[2019-11-19 21:41] LABS: Bedside Glucose 153 mg/dL (70-110)
--- NOTE | 2019-11-20 01:34 | NURSING ---
Reviewed and agree with [employer] documentation and charting.
[2019-11-20] MEDS: Acetaminophen 500 MG Tablet 1000 MG PO ×3 (05:13→21:51)
[2019-11-20 06:45] LABS: Bedside Glucose 117 mg/dL (70-110)
[2019-11-20 07:02] VITALS: PULSE 54; RESP 16
[2019-11-20] MEDS: Albuterol 2.5 MG/3 ML VIAL.NEB. INHALATION (07:02)
[2019-11-20 08:00] VITALS: BP 131/69; PULSE 55; RESP 18; TEMP 36.4; O2SAT 99
[2019-11-20] MEDS: Carvedilol 12.5 MG Tablet PO ×2 (08:42→21:54)
[2019-11-20] MEDS: Insulin Lispro 100 UNIT/ML INSULN.PEN 12 UNIT SC (08:42)
[2019-11-20] MEDS: amLODIPine 5 MG Tablet 10 MG PO (08:43)
[2019-11-20] MEDS: FLUoxetine 20 MG Capsule PO (08:43)
[2019-11-20] MEDS: Aspirin E.C. 81 MG Tablet PO (08:43)
[2019-11-20] MEDS: Pregabalin 75 MG Capsule 150 MG PO ×2 (08:43→21:52)
[2019-11-20] MEDS: Tamsulosin HCl 0.4 MG Capsule PO ×2 (08:43→21:53)
[2019-11-20] MEDS: Fenofibrate 145 MG Tablet PO (08:44)
[2019-11-20] MEDS: Famotidine 20 MG Tablet PO (08:44)
[2019-11-20] MEDS: NYSTATIN 500,000 UNIT/5 ML UDC 500000 UNIT PO ×4 (08:44→21:52)
[2019-11-20] MEDS: Senna/Docusate Sodium 1 Tablet 2 TABLET PO ×2 (08:44→21:51)
[2019-11-20 08:53] VITALS: PULSE 63
[2019-11-20 11:45] LABS: Bedside Glucose 108 mg/dL (70-110)
--- NOTE | 2019-11-20 12:10 | PCM.PN.BLA ---
Progress Note Afebrile Vital signs are stable. Orthostatics were not done this morning so I reminded nursing and they will do this this afternoon and then daily for the next couple days. He failed his voiding trial yesterday and the Pimentel catheter had to be put in again. This is on Flomax 0.4 mg twice daily. I have hesitated to start Avodart or finasteride because of orthostatic hypotension. PT/OT/ST notes were reviewed. Blood sugar record was reviewed and his blood sugars are under excellent control. No hypoglycemia. Patient has a cough which is sometimes productive. He coughs mostly when he is eating or drinking. He denies shortness of breath at rest. He does have some shortness of breath with exertion but trying to ambulate is a lot of exertion for him and I do not think this is out of the normal. He denies chest pain. He also denies sore throat, nasal congestion, rhinorrhea, facial pain, ear pain. He has no nausea/vomiting/abdominal pain. He was able to remember that I am his doctor today and said fairly clearly. He is alert and interactive. Lungs-clear to auscultation throughout with no wheezes, rales or rhonchi. Heart-regular rate and rhythm Abdomen-soft, nontender, no guarding with palpation, bowel sounds present No peripheral edema No rashes and no breakdown He has motion in his right arm today and is able to extend his arm and to rotate his hand. The brace for his right upper extremity came in today and is being applied by OT. Impressions 1. Post stroke debility 2. Diabetes mellitus type 6-uxgu-awrprjruxa 3. Urine retention despite Flomax 0.4 mg twice daily. I am hesitant to start finasteride or Avodart because he has had orthostatic hypotension and I have had to decrease the Coreg. Consult has been placed for Dr. Adnerson to evaluate the patient. 4. Zoxynyzhcjlk-titw-ybqcatvwqv 5. Suspected COPD with bronchospasm-likely aggravated by dysphagia. Wheezing has resolved with 4 times daily aerosols. Will start a combination inhaler He is to have a modified barium swallow today. Fluticasone/salmeterol 1 puff Q 12H and Ventolin inhaler 2 puffs Q 4 H while awake until he gets the first dose of the [place] MDI tonight and in the AM change to PRN on the Ventolin STROKE Vital Signs/Narrative: Vital Signs Pulse 11/20/19 08:53 63 Inpatient E&M: 65176 Subs Hosp L2
[2019-11-20] MEDS: Insulin Lispro 100 UNIT/ML INSULN.PEN SC (12:26)
--- NOTE | 2019-11-20 12:30 | SP.MBSS_ITS ---
PRIMARY / SECONDARY DIAGNOSIS: dysphagia (R13.10) REFERRING PHYSICIAN: Dr. 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, dysphagia, and severe aphasia / apraxia; chronic obstructive pulmonary disease, grade II diastolic dysfunction, atherosclerosis of coronary artery of [place] heart without angina pectoris, left and right carotid stenosis, left atrial stenosis, left atrial enlargement, status post carotid artery bypass graft, abdominal aortic aneurysm status post endovascular stent graft for abdominal aortic aneurysm, hypertension, hyperlipidemia, type II diabetes mellitus, obstructive sleep apnea, chronic back pain, peripheral artery disease, benign prostatic hyperplasia, ADDITIONAL OBJECTIVE ASSESSMENT RESULTS: 10/20/2019 CT of the brain revealed an area of subtle matos/white matter differentiation loss in the left temporoparietal region suggesting acute ischemic stroke; left middle cerebral artery occlusion. 10/20/2019 CTA revealed severe left internal carotid artery stenosis; moderate right internal carotid artery stenosis. 11/05/2019 chest x-ray revealed no acute cardiopulmonary findings 11/14/2019 chest x-ray revealed no acute abnormality. ASSESSMENT PARAMETERS: The Patient participated in a Modified Barium Swallow (MBS) study on 11/20/2019. This study was recorded in the lateral view and images were sent to PACs for storage. Scoring was completed through each trial using the 8- point Penetration-Aspiration Scale (PAS) and summarized via the Modified Barium Swallow Impairment Profile (MBSImP) and the Bolus Residue Scale (BRS), with severity scoring through the Dysphagia Severity Rating Scale (DSRS) and the Swallowing Performance Scale (SPS), and recommended diet textures through the International Dysphagia Diet Standardisation Initiative (IDDSI) RESULTS OF THE EVALUATION: The Patient presents with mild to moderate oropharyngeal dysphagia (DSRS: 4; SPS: 4) with penetration and inconsistent ejection of thin and nectar thickened liquids secondary to a recent left middle cerebral artery cerebrovascular accident involving the left temporoparietal regions with resulting right hemiplegia, dysphagia, and severe aphasia / apraxia; complicated by the diagnosis of chronic obstructive pulmonary disease, OBJECTIVE ASSESSMENT OF SWALLOW FUNCTION (QUANTITATIVE ? PER TRIAL): PENETRATION / ASPIRATION SCALE (PALACIO): 1 = does not enter airway 2 = enters airway/above vocal folds/ejected 3 = enters airway/above vocal folds/not ejected 4 = enters airway/contacts vocal folds/ejected 5 = enters airway/contacts vocal folds/not ejected 6 = enters airway/below vocal folds/ejected 7 = enters airway/below vocal folds/not ejected despite effort 8 = enters airway/below vocal folds/no effort PENETRATION / ASPIRATION SCALE (SCORE): Thin liquid - 5 mL tsp.: 1 Thin liquids via cup (single sip): 2* Thin liquids via cup (single sip): 5* Thin liquids via cup (single sip): 2* Thin liquids via straw (single sip): 1* Thin liquids via straw (single sip): 3 Thin liquids via straw (single sip): 5 Thin liquids via straw (sequential swallows): 3* Pudding via spoon: 1 Regular textured cookie: 1 Thin liquids via straw (chin tuck): NA / could not view Thin liquids via straw (chin tuck): 1 Thin liquids via straw (chin tuck): 3 Thin liquids via straw (chin tuck): 1 * [place] thickened liquids via straw (single sip): 1 [place] thickened liquids via straw (single sip): 1 [place] thickened liquids via straw (single sip): 5 Honey thickened liquids via straw (single sip): 1 Honey thickened liquids via straw (single sip): 1 Honey thickened liquids via straw (single sip): 1 * difficulty viewing lower laryngeal vestibule and below due to body habitus denotes post prandial throat clearing with videofluoroscopy off denotes poor execution OBJECTIVE ASSESSMENT OF SWALLOW FUNCTION (QUANTITATIVE ? AGGREGATE): MODIFIED BARIUM SWALLOW IMPAIRMENT PROFILE (MBSImP) LABIAL SEAL: 1 (of 4) interlabial escape, no progression TONGUE CONTROL: 1 (of 3) lateral buccal cavity / floor of mouth BOLUS PREPARATION / MASTICATION: 1 (of 3) slow prolonged; complete recollection BOLUS TRANSPORT / LINGUAL MOTION: 1 (of 4) delayed initiation of motion ORAL RESIDUE: 2 (of 4) residue collection on oral structures INITIATION OF PHARYNGEAL SWALLOW: 3 (of 4) pyriforms SOFT PALATE ELEVATION: 0 (of 4) no bolus between soft palate & pharyngeal wall LARYNGEAL ELEVATION: 1 (of 3) partial superior movement / approximation ANTERIOR HYOID EXCURSION: 1 (of 2) partial movement EPIGLOTTIC MOVEMENT: 0 (of 2) complete inversion LARYNGEAL VESTIBULE CLOSURE: 1 (of 2) incomplete closure PHARYNGEAL STRIPPING WAVE: 0 (of 2) present / complete PE SEGMENT OPENIN (of 3) complete distension / duration; no obstruction TONGUE BASE RETRACTION: 0 (of 4) no contrast PHARYNGEAL RESIDUE: 2 (of 4) collection of residue ESOPHAGEAL BOLUS CLEARANCE: 0 (of 4) complete clearance; esophageal coating BOLUS RESIDUE SCALE (BRS): 2 (of 6) residue in valleculae OBJECTIVE ASSESSMENT OF SWALLOW FUNCTION (SEVERITY GRADING): DYSPHAGIA SEVERITY RATING SCALE (DSRS): 4 (moderate) SWALLOWING PERFORMANCE SCALE (SPS): 4 (mild to moderate) OBJECTIVE ASSESSMENT OF SWALLOW FUNCTION (QUALITATIVE): ORAL PREPARATORY PHASE: mild mastication inefficiency with prolonged mastication; overall sufficient anterior oral containment during oral manipulation; preserved management of breathing / bolus formation ORAL TRANSITIONAL PHASE: overall sufficient bolus transportation, which was surprising given his expressive apraxic like speech errors; impaired oral clearance with milder right sided buccal pocketing; no presence of premature posterior bolus loss (rather pharyngeal phase delay / dyssynchrony), though the potential clearly exists with his right sided oral asymmetries PHARYNGEAL PHASE: consistent milder pharyngeal swallow delay / dyssynchrony with noted variations in bolus dwell time (1-3 seconds) that appeared to somewhat worsen (albeit mildly) with execution of the chin tuck posture; mild reduction in hyolaryngeal excursion and duration resulting in inconsistent laryngeal vestibule pressure generated to completely expel penetrated material; no signs of pharyngeal dysmotility; no signs of velopharyngeal impairments; ESOPHAGEAL PHASE: no obvious esophageal phase abnormalities observed. CONTRIBUTING / COMPLICATING FACTORS AND NOTABLE FINDINGS: weak cued volitional cough intensity generated to expel penetrated material that may suggest dystussia; there appeared to be a darker density along the inferior posterior pyriform within the soft tissue that appeared as possible calcifications; this was present prior to trials with use of a barium agent and did not appear to visually change; all images were complicated by the Patients body habitus, in particular obtaining views of the glottis and below, which may have negatively impacted the sensitivity of this assessment. DYSPHAGIA ASSOCIATED MEDICAL CONSIDERATIONS / INTERVENTION CONSIDERATIONS: No aspiration appreciated throughout trials, unable to definitively rule out silent aspiration, though he did demonstrate post prandial throat clearing following deeper penetration of thin liquids (rather minimal amounts) that would suggest that his sensory response to aspiration remains intact. while the results of the fibroendoscopic evaluation of the swallow function suggested silent aspiration of solid textures with an intact cough response with solids and mixed textures, this would most likely be in response to any residual liquid viscosities vs. solid textures given the known properties of silent aspiration, though this clinician was not the individual who performed the assessment, and does not have imaging available of the said test. Regardless, his swallow function appears to be trending in a positive direction despite the remaining concerns for intake tolerance, and is likely sufficient enough to suggest advancement at bedside is clinically sufficient, particularly as his overall medical condition continues to improve. It is worth noting that there is limited evidence to suggest that prolonged placement on a thickened liquid viscosity reduces aspiration pneumonia rates during the post-acute care phase following a cerebrovascular accident; he may benefit from more aggressive advancement attempts following this phase particularly if his overall condition continues to improve. I would consider this Patient to be a high risk for malnutrition and dehydration due to the extent of recommended liquid viscosities / diet texture restrictions, and the related negative impact on palatability / intake pleasure / quality of life and anticipated smaller PO intake quantities, higher risk for early satiety with recommended thicker viscosities, and reduced rate of intake with slower viscosities, recent cerebrovascular accident (up to 24% of acute stroke admission are at risk of malnutrition), and his continued significance of dysphagia, with higher rates of unintentional weight loss, inability to clear foods / fluids from the mouth, and inability to manage oral secretions typically accompanying more severe dysphagia). I would consider implementation of the [place] Free Water Protocol (FFWP) following Patient and family education ONLY FOLLOWING CLEARANCE BY THE MEDICAL TEAM if strict and aggressive oral care is provided. RECOMMENDATIONS FOR INTERVENTION: The Patient requires intensive skilled speech-language intervention targeting diet texture management and training / implementation of recommended compensatory strategies; training and implementation of recommended oropharyngeal strengthening exercises to facilitate improved labial control / strength, lingual control / strength, and laryngeal vestibule closure / pressure; training and implementation of a home oral care protocol to improve / maintain the integrity of the oral mucosa reducing the risk of aspiration related pulmonary complications; training, implementation, and Patient / caregiver education regarding implementation of the [place] Free Water Protocol (FFWP); Patient education regarding stroke associated dysphagia; and Patient and caregiver training targeting meal preparation / thickened liquid preparation if unable to advance to baseline diet textures prior to discharge. POST ASSESSMENT EDUCATION: The results and recommendations were discussed with the Patient immediately following MBS completion, with the Patient non-verbally signaling understanding and agreement with all recommendations and education provided. DIET TEXTURE RECOMMENDATIONS: Will recommend a mechanical soft textured (IDDSI: 5), honey thickened liquid (IDDSI: 3) diet following clinical assessment in the form of a meal analysis RECOMMENDED COMPENSATORY STRATEGIES: Supervision with assistance as needed, consider cutting tougher textures into bite sized pieces (once advanced to a solid diet), check for right sided pocketing, preferably left sided bolus placement, reduced bolus volume / rate of ingestion, seated upright at 90 degrees during PO intake, remain upright for 30-60 minutes post meal (GERD precaution), medications one at a time with a liquid chaser. IMAGE COUNT: [id number] Luis Linton M.A., MARISOL-HYBRID POWERTRAIN DEVELOPMENT ENGINEER, CBIS MBSImP Certified, LSVT Certified [facility] Speech-Language Pathology Department [email or web address]
[2019-11-20 14:07] VITALS: BMI 35.2
[2019-11-20 14:23] VITALS: BP 108/54; BP 139/64; BP 146/60; PULSE 54; PULSE 59; PULSE 76
--- NOTE | 2019-11-20 15:31 | PCM.CONS.U ---
Reason for Consult Date of Consultation: 11/20/19 Reason for Consultation: Urinary retention status post stroke History of Present Illness: The patient Is a 69-year-old male who unfortunately suffered a significant stroke he has multiple medical problems who is failed a voiding trial while in rehab [facility]. Catheter is been replaced he is currently on double dose of Flomax. Also has UTI probably from the catheter. Past Medical History Past Medical History (Chronic Problems): Chronic Problems (Last Reviewed 11/05/19 @ 12:[address] Diamond Sosa DO) PAD (peripheral artery disease) (Chronic) BPH (benign prostatic hyperplasia) (Chronic) COPD (chronic obstructive pulmonary disease) (Chronic) Chronic back pain (Chronic) Chronic renal failure, stage 3 (moderate) (Chronic) Obstructive sleep apnea (Chronic) does not wear CPAP Cerebrovascular disease (Chronic) occluded left M1 Carotid stenosis, left (Chronic) near total occlusion Carotid stenosis, right (Chronic) moderate Grade II diastolic dysfunction (Chronic) Type 2 diabetes mellitus (Chronic) also with cardiovascular disease. cerebrovascular disease, PAD Left atrial enlargement (Chronic) mild - moderate Atherosclerosis of coronary artery of [place] heart without angina pectoris (Chronic) CABG x 3 MASTERS to LAD, SVG to Dx, SVG to RCA 01/09/2009 H/O coronary artery bypass surgery (Chronic 01/09/09) CABG x 3 MASTERS to LAD, SVG to Dx, SVG to RCA 01/09/2009 Abdominal aortic aneurysm (AAA) (Chronic) History of endovascular stent graft for abdominal aortic aneurysm Essential (primary) hypertension (Chronic) Hyperlipidemia (Chronic) Medical History: Medical History (Last Reviewed 11/05/19 @ 12:[address] Diamond Sosa DO) Atherosclerosis of coronary artery of [place] heart without angina pectoris (Chronic) I25.10 CABG x 3 MATSERS to LAD, SVG to Dx, SVG to RCA 01/09/2009 Abdominal aortic aneurysm (AAA) (Chronic) I71.4 History of endovascular stent graft for abdominal aortic aneurysm Essential (primary) hypertension (Chronic) I10 Hyperlipidemia (Chronic) E78.5 Diabetes mellitus E11.9 Allergies No Known Allergies Allergy (Verified 10/20/19 14:10) Home Medications: Ambulatory Orders Medication Instructions Recorded albuterol sulfate 90 mcg/actuation 1 puff INHALATION Q6H PRN PRN 33 04/06/18 aerosol inhaler Days #8 aspirin 81 mg tablet,delayed 81 mg PO QDAY 04/06/18 release insulin lispro 100 unit/mL See Protocol SC ACHS ml 04/06/18 subcutaneous pen pregabalin 75 mg capsule 150 mg PO BID 90 Days #180 cap 04/06/18 dulaglutide 1.5 mg/0.5 mL 1.5 mg SC QWEEK 10/08/18 subcutaneous pen injector insulin glargine 100 unit/mL (3 20 unit SC BID 98 Days #45.08 ml 10/08/18 mL) subcutaneous pen Amlodipine Besylate 10 mg PO QDAY 11/04/19 Atorvastatin Calcium 40 mg PO QDAY 11/04/19 Fenofibrate Nanocrystallized 145 mg PO QDAY 11/04/19 [Tricor] Hydrochlorothiazide [Hctz] 25 mg PO QDAY 11/04/19 Surgical History: Surgical History (Last Reviewed 11/05/19 @ 12:[address] Diamond Sosa DO) H/O coronary artery bypass surgery (Chronic) Onset Date: 01/09/09 Z95.1 CABG x 3 MASTERS to LAD, SVG to Dx, SVG to RCA 01/09/2009 History of coronary artery stent placement Z95.5 [id number] LAD w/ 3.5 x 15 mm Penta 10/2001 History of endovascular stent graft for abdominal aortic aneurysm (AAA) Onset Date: 2015 Z95.828 Psychiatric History: Depression - psot stroke Smoking Status: Former smoker Tobacco Use: Cigarettes, Chew Alcohol: Occasional - 2-3 times a month, beer and hard liquor Drugs: None - *Family History Maternal Family History: Family History (Last Reviewed 11/05/19 @ 12:[address] Diamond Sosa DO) Father Myocardial infarction Hypertension Brother Diabetes Review of Systems Constitutional: Denies: Chills, Fever, Weight Change HEENT: Denies: Head Aches, Sinus Congestion, Sinus Drainage Cardiovascular: Denies: Chest Pain, Palpitations Respiratory: Denies: Cough, Shortness of breath at rest, Sputum production Gastrointestinal: Denies: Abdominal Pain, Nausea, Vomiting Genitourinary: Denies: Dysuria Musculoskeletal: Denies: Joint Pain, Joint Tenderness Skin: Denies: Rash, Wounds Neurological: Reports: Focal weakness. Denies: Numbness, Tingling Psychiatric: Denies: Anxiety, Depression, Homicidal Ideations, Suicidal Ideations Hematologic/ Lymphatic: Denies: Easy Bruising, Easy Bleeding Unable to obtain accurate/complete ROS d/t: Difficult to obtain Physical Exam - Physical Exam Vital Signs Temp 97.6 F L 11/20/19 08:00 Pulse 54 L 11/20/19 14:23 Resp 18 11/20/19 08:00 BP 139/64 H 11/20/19 14:23 Pulse Ox 99 11/20/19 08:00 Intake & Output 11/18/19 11/19/19 11/20/19 23:59 23:59 23:59 Intake Total 1440 / 1440 800 / 800 1220 / 1220 Output Total 1200 / 1200 1425 / 1425 500 / 500 Balance 240 / 240 -625 / -625 720 / 720 Intake: Oral 1440 / 1440 800 / 800 1220 / 1220 Output: Urine 1200 / 1200 1425 / 1425 500 / 500 Other: Number of Bowel Movements 1 General: Confused, Non-Cooperative HEENT: Atraumatic, Normocephalic Neck: Supple Lungs: Normal air movement Cardiovascular: Regular Rhythm Abdomen: Soft Assessment/Plan All Active Problems (Last Reviewed 11/05/19 @ 12:[address] 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 At this point sort of a poor candidate for any surgical intervention given his mental status and overall condition high likelihood surgical intervention with fail would continue with medical therapy we could try another voiding trial within a week. After discharge from [facility] he certainly can follow-up in the office for further evaluation if he improves he may be a surgical candidate at this point he still has a long recovery from his stroke. Call with questions I would say on the right the Avodart 0.5 mg daily this will cause any problems or dizziness but it will work slowly.
[2019-11-20 16:46] LABS: Bedside Glucose 127 mg/dL (70-110)
[2019-11-20] MEDS: Insulin Lispro 100 UNIT/ML INSULN.PEN 15 UNIT SC (17:37)
[2019-11-20 21:31] LABS: Bedside Glucose 144 mg/dL (70-110)
[2019-11-20] MEDS: Fluticasone/Salmeterol 232-14 Inhaler 1 PUFF IH (21:45)
[2019-11-20] MEDS: Atorvastatin Calcium 40 MG Tablet PO (21:52)
[2019-11-20] MEDS: traZODone 50 MG Tablet PO (21:53)
[2019-11-20 22:11] VITALS: BMI 35.2
[2019-11-20 22:19] VITALS: BP 128/68; PULSE 56; RESP 16; TEMP 36.4; O2SAT 95
[2019-11-20 22:22] VITALS: PULSE 58; RESP 18
[2019-11-21] MEDS: Acetaminophen 500 MG Tablet 1000 MG PO ×3 (05:15→21:05)
[2019-11-21 07:48] LABS: Bedside Glucose 76 mg/dL (70-110)
[2019-11-21] MEDS: NYSTATIN 500,000 UNIT/5 ML UDC 500000 UNIT PO ×4 (09:42→21:04)
[2019-11-21] MEDS: amLODIPine 5 MG Tablet 10 MG PO (09:42)
[2019-11-21] MEDS: Famotidine 20 MG Tablet PO (09:42)
[2019-11-21] MEDS: Finasteride 5 MG Tablet PO (09:42)
[2019-11-21] MEDS: Carvedilol 12.5 MG Tablet PO ×2 (09:43→21:02)
[2019-11-21] MEDS: Tamsulosin HCl 0.4 MG Capsule PO ×2 (09:43→21:02)
[2019-11-21] MEDS: Aspirin E.C. 81 MG Tablet PO (09:43)
[2019-11-21] MEDS: Fenofibrate 145 MG Tablet PO (09:43)
[2019-11-21] MEDS: FLUoxetine 20 MG Capsule PO (09:43)
[2019-11-21] MEDS: Fluticasone/Salmeterol 232-14 Inhaler 1 PUFF IH ×2 (09:44→21:02)
[2019-11-21] MEDS: Insulin Lispro 100 UNIT/ML INSULN.PEN 12 UNIT SC (09:44)
--- NOTE | 2019-11-21 09:46 | CASEMGMT ---
Social Work IDT met with pt and via conference call for team meeting. Pt is walking 18ft with hemiwalker at mod assist. Concerns with pt balance as pt leans while walking. Pt is able to do 3 steps with 1 HR at mod assist x2 for safety and balance. Pt rt arm has shown some muscle contraction, but pt has not started using arm, pt to wear split on rt arm for contractures of the fingers. Pt is able to do stand pivot transfers at mod assist and able to to stand 2 minutes at min assist. Pt is max-total assist for all ADLS. Pt is working on language tasks and naming items. Pt is able to do 1-2 word phrases. Pt on HT liquids and puree diet but ST to do meal analysis to trial mech soft. Pt is sleeping well and complains of no pain. Explained insurance to pt, NRD 11/20, DC plan is to go to SNF upon DC-referrals made. Cynthia Soares, social work pr intern Sabina Alexandra, BRANCH OFFICE ADMINISTRATOR BROADCAST OPERATIONS TECHNICIAN
[2019-11-21] MEDS: Pregabalin 75 MG Capsule 150 MG PO ×2 (09:49→21:04)
[2019-11-21 09:59] VITALS: BP 113/62; PULSE 54; RESP 16; TEMP 36.4; O2SAT 95
[2019-11-21 10:00] VITALS: BP 108/50; BP 127/71; BP 129/57; PULSE 59; PULSE 61; PULSE 96
--- NOTE | 2019-11-21 10:05 | CASEMGMT ---
Addendum entered by Sabina Alexandra 11/22/19 14:33: [facility] has accepted pt. [facility] does not currently have a private room as new admits are being isolated, but pt placed on waitlist. Notified DIL. Will continue to follow. awaiting outcome from update 11/20 Original Note: Social Work Spoke with dtr in law. She would like to refer to [facility] and [facility]- referrals made. Cynthia Soares, social work training intern Sabina Alexandra, ELIZABETH AGRAWALW
[2019-11-21] MEDS: Insulin Lispro 100 UNIT/ML INSULN.PEN SC (12:16)
[2019-11-21 12:21] LABS: Bedside Glucose 149 mg/dL (70-110)
[2019-11-21 14:51] VITALS: BMI 35.2
--- NOTE | 2019-11-21 15:42 | PCM.PN.BLA ---
Progress Note Pedro was seen on team rounds today. His Yasmin participated in the conference call. Afebile VSS-orthostatics are positive today once again but the patient remains asymptomatic. Proscar 5 mg was added to his drug regimen yesterday. He is able to increase his heart rate now that the Coreg has been decreased. By Dr. Anderson. Maintaining appropriate oxygen saturation on RA Oral intake is good Discussed with nursing - no problems that need addressed Reviewed the PT/OT/ST notes Medication list reviewed. Blood sugar record was reviewed. Fasting blood sugar was decreased at 76 today and the at bedtime Lantus dose has been decreased appropriately. Will avoid having blood sugars less than 100 fasting. Keep postprandials under 180. The goal for his hemoglobin A1c post discharge will be less than or equal to 7 No complaints today. alert, NAD Lungs - occasional expiratory wheeze. No Rales. Not tachypneic at rest. No accessory muscle use and no conversational dyspnea. He is speaking in 1-2 word phrases at this time. Heart-regular rate and rhythm No ankle edema No rash breakdown No change in neurologic exam since yesterday Impressions 1. post stroke debility-continue therapy 2. Diabetes mellitus type [id number] 3. Hypertension-controlled 4. Orthostatic hypotension -asymptomatic. We will continue to monitor orthostatic blood pressures since he has been started on Proscar in addition to Flomax 0.4 mg twice daily. 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 We will check with the retail pharmacy and if they have Avodart will send a prescription down for family to pay for. Inpatient E&M: 31104 Subs Hosp L2
[2019-11-21 17:01] LABS: Bedside Glucose 83 mg/dL (70-110)
[2019-11-21] MEDS: Insulin Lispro 100 UNIT/ML INSULN.PEN 15 UNIT SC (18:00)
[2019-11-21 18:11] LABS: Bedside Glucose 158 mg/dL (70-110)
[2019-11-21 20:41] LABS: Bedside Glucose 186 mg/dL (70-110)
[2019-11-21] MEDS: traZODone 50 MG Tablet PO (21:02)
[2019-11-21] MEDS: Atorvastatin Calcium 40 MG Tablet PO (21:04)
[2019-11-21 22:00] VITALS: BP 136/68; PULSE 59; RESP 16; TEMP 36.8; O2SAT 96
[2019-11-21 22:50] VITALS: BMI 35.2
[2019-11-22 06:00] VITALS: BP 136/69; BP 137/69; BP 96/55; PULSE 55; PULSE 58; PULSE 74
[2019-11-22] MEDS: Acetaminophen 500 MG Tablet 1000 MG PO ×3 (06:14→21:43)
[2019-11-22 06:25] LABS: Bedside Glucose 72 mg/dL (70-110)
[2019-11-22 06:41] LABS: Bedside Glucose 84 mg/dL (70-110)
[2019-11-22] MEDS: Insulin Lispro 100 UNIT/ML INSULN.PEN 12 UNIT SC (08:09)
[2019-11-22] MEDS: Senna/Docusate Sodium 1 Tablet 2 TABLET PO ×2 (08:18→21:43)
[2019-11-22] MEDS: NYSTATIN 500,000 UNIT/5 ML UDC 500000 UNIT PO ×4 (08:19→21:43)
[2019-11-22] MEDS: amLODIPine 5 MG Tablet 10 MG PO (08:20)
[2019-11-22] MEDS: Aspirin E.C. 81 MG Tablet PO (08:21)
[2019-11-22] MEDS: DUTASTERIDE 0.5 MG CAPSULE PO (08:22)
[2019-11-22] MEDS: Tamsulosin HCl 0.4 MG Capsule PO ×2 (08:24→21:45)
[2019-11-22 08:39] VITALS: BP 120/50; PULSE 57; RESP 20; TEMP 36.4; O2SAT 96
[2019-11-22] MEDS: Carvedilol 12.5 MG Tablet PO ×2 (08:44→21:45)
[2019-11-22] MEDS: Fluticasone/Salmeterol 232-14 Inhaler 1 PUFF IH ×2 (08:45→21:45)
[2019-11-22] MEDS: Famotidine 20 MG Tablet PO (08:46)
[2019-11-22] MEDS: Fenofibrate 145 MG Tablet PO (08:46)
[2019-11-22] MEDS: FLUoxetine 20 MG Capsule PO (08:47)
[2019-11-22] MEDS: Pregabalin 75 MG Capsule 150 MG PO ×2 (08:49→21:43)
[2019-11-22 11:16] LABS: Bedside Glucose 148 mg/dL (70-110)
--- NOTE | 2019-11-22 13:07 | PCM.PN.BLA ---
Progress Note Afebrile Blood pressure is well controlled..... But he continues to have orthostatic hypotension. Currently on Flomax 0.4 mg twice daily, Avodart 0.5 mg daily, Coreg 12.5 mg twice daily, amlodipine 10 mg daily Maintaining appropriate oxygen saturation on room air Blood sugar record was reviewed. Blood sugar last night at at bedtime was 186 and this morning's fasting was 72. Lantus was decreased yesterday to 17 units nightly. Lungs - rare wheeze H - RRR no edema Impressions 1. post stroke debility 2. DM II - very well controlled 3. HTN - controlled 4. Orthostatic hypotension 5. Urine retention-currently on Flomax 0.4 mg twice daily and Avodart 0.5 mg daily. Continue Pimentel catheter. Voiding trial next . We will follow-up with Dr. Anahy cordero in the office post discharge. May need TURP. Decrease the at bedtime Lantus to 14 units nightly and decrease a.m. Lantus to 24 units every morning. Continue same mealtime insulin Continue current antihypertensive regimen but decrease the amlodipine to 2.5 mg daily and continue to monitor the BP Inpatient E&M: [id number] [facility] Hosp L1
[2019-11-22] MEDS: Insulin Lispro 100 UNIT/ML INSULN.PEN SC (13:31)
[2019-11-22 16:45] LABS: Bedside Glucose 146 mg/dL (70-110)
[2019-11-22 17:00] VITALS: BMI 35.2
[2019-11-22] MEDS: Insulin Lispro 100 UNIT/ML INSULN.PEN 15 UNIT SC (17:12)
[2019-11-22 19:11] VITALS: BP 138/59; PULSE 60; RESP 20; TEMP 36.5; O2SAT 98
[2019-11-22 21:26] LABS: Bedside Glucose 127 mg/dL (70-110)
[2019-11-22] MEDS: Atorvastatin Calcium 40 MG Tablet PO (21:44)
[2019-11-22] MEDS: traZODone 50 MG Tablet PO (21:45)
[2019-11-23 06:36] LABS: Bedside Glucose 92 mg/dL (70-110)
[2019-11-23] MEDS: Acetaminophen 500 MG Tablet 1000 MG PO ×3 (06:44→20:55)
[2019-11-23 07:00] VITALS: BP 136/66; PULSE 52; RESP 16; TEMP 36.6; O2SAT 99
[2019-11-23] MEDS: amLODIPine 5 MG Tablet 10 MG PO (08:13)
[2019-11-23] MEDS: Senna/Docusate Sodium 1 Tablet 2 TABLET PO ×2 (08:14→20:56)
[2019-11-23] MEDS: Fenofibrate 145 MG Tablet PO (08:14)
[2019-11-23] MEDS: FLUoxetine 20 MG Capsule PO (08:14)
[2019-11-23] MEDS: Tamsulosin HCl 0.4 MG Capsule PO ×2 (08:15→20:55)
[2019-11-23] MEDS: Aspirin E.C. 81 MG Tablet PO (08:15)
[2019-11-23] MEDS: Pregabalin 75 MG Capsule 150 MG PO ×2 (08:16→21:01)
[2019-11-23] MEDS: Famotidine 20 MG Tablet PO (08:16)
[2019-11-23] MEDS: Carvedilol 12.5 MG Tablet PO ×2 (08:16→20:56)
[2019-11-23] MEDS: NYSTATIN 500,000 UNIT/5 ML UDC 500000 UNIT PO ×4 (08:16→20:56)
[2019-11-23] MEDS: Insulin Lispro 100 UNIT/ML INSULN.PEN 12 UNIT SC (08:41)
[2019-11-23] MEDS: Fluticasone/Salmeterol 232-14 Inhaler 1 PUFF IH ×2 (08:41→20:56)
[2019-11-23 09:57] VITALS: PULSE 57
[2019-11-23 10:22] VITALS: BMI 35.2
--- NOTE | 2019-11-23 10:27 | NURSING ---
According to the education on Avodart via EMAR, it says not to crush or chew. This nurse called Pharmacy and spoke with Real to see what we could do if any interchange for drug could be substituted. Real Stated that PRoscar would be the other drug but Proscar should not be crushed wither b/c of the hormones. This nurse did attempt to give Avodart with morning meds around 0815 but pt was unable to swallow. This nurse will consult with Dr. Sosa.
[2019-11-23 11:41] LABS: Bedside Glucose 111 mg/dL (70-110)
[2019-11-23] MEDS: Insulin Lispro 100 UNIT/ML INSULN.PEN SC ×2 (12:43→17:11)
[2019-11-23 16:56] LABS: Bedside Glucose 157 mg/dL (70-110)
[2019-11-23] MEDS: Insulin Lispro 100 UNIT/ML INSULN.PEN 15 UNIT SC (17:10)
[2019-11-23 18:57] VITALS: BP 122/60; PULSE 62; RESP 18; TEMP 36.3; O2SAT 97
[2019-11-23] MEDS: Atorvastatin Calcium 40 MG Tablet PO (20:56)
[2019-11-23] MEDS: traZODone 50 MG Tablet PO (20:57)
[2019-11-23 21:01] LABS: Bedside Glucose 108 mg/dL (70-110)
[2019-11-23 21:39] VITALS: BMI 35.2
[2019-11-24] MEDS: Acetaminophen 500 MG Tablet 1000 MG PO ×3 (05:43→20:43)
[2019-11-24 05:58] VITALS: BP 142/59; PULSE 61; RESP 16; TEMP 36.4; O2SAT 100
[2019-11-24 06:31] LABS: Bedside Glucose 89 mg/dL (70-110)
[2019-11-24 06:54] VITALS: BP 105/45; BP 124/70; BP 142/59; PULSE 58; PULSE 61; PULSE 69
[2019-11-24] MEDS: Insulin Lispro 100 UNIT/ML INSULN.PEN 12 UNIT SC (07:32)
[2019-11-24 08:30] VITALS: PULSE 60
[2019-11-24] MEDS: Senna/Docusate Sodium 1 Tablet 2 TABLET PO ×2 (10:06→20:43)
[2019-11-24] MEDS: Carvedilol 12.5 MG Tablet PO ×2 (10:06→20:44)
[2019-11-24] MEDS: NYSTATIN 500,000 UNIT/5 ML UDC 500000 UNIT PO ×4 (10:06→20:43)
[2019-11-24] MEDS: Fluticasone/Salmeterol 232-14 Inhaler 1 PUFF IH ×2 (10:07→20:44)
[2019-11-24] MEDS: Aspirin E.C. 81 MG Tablet PO (10:07)
[2019-11-24] MEDS: FLUoxetine 20 MG Capsule PO (10:07)
[2019-11-24] MEDS: Finasteride 5 MG Tablet PO (10:07)
[2019-11-24] MEDS: Tamsulosin HCl 0.4 MG Capsule PO ×2 (10:07→20:43)
[2019-11-24] MEDS: amLODIPine 5 MG Tablet 10 MG PO (10:07)
[2019-11-24] MEDS: Fenofibrate 145 MG Tablet PO (10:07)
[2019-11-24] MEDS: Pregabalin 75 MG Capsule 150 MG PO ×2 (10:07→20:43)
[2019-11-24] MEDS: Famotidine 20 MG Tablet PO (10:07)
[2019-11-24 11:55] LABS: Bedside Glucose 101 mg/dL (70-110)
[2019-11-24] MEDS: Insulin Lispro 100 UNIT/ML INSULN.PEN SC (12:01)
[2019-11-24 16:55] LABS: Bedside Glucose 114 mg/dL (70-110)
[2019-11-24] MEDS: Insulin Lispro 100 UNIT/ML INSULN.PEN 15 UNIT SC (17:15)
[2019-11-24 17:19] VITALS: BMI 35.2
[2019-11-24 19:40] VITALS: BP 130/51; PULSE 58; RESP 18; TEMP 36.4; O2SAT 97
[2019-11-24] MEDS: Atorvastatin Calcium 40 MG Tablet PO (20:43)
[2019-11-24] MEDS: traZODone 50 MG Tablet PO (20:43)
[2019-11-24 20:56] LABS: Bedside Glucose 191 mg/dL (70-110)
[2019-11-24 21:10] VITALS: BMI 35.2
[2019-11-25] MEDS: Acetaminophen 500 MG Tablet 1000 MG PO ×3 (05:23→21:22)
[2019-11-25 05:43] VITALS: BP 124/65; BP 131/64; BP 97/63; PULSE 56; PULSE 60; PULSE 80
[2019-11-25 05:45] VITALS: RESP 16; TEMP 36.5; O2SAT 98
[2019-11-25 06:15] LABS: Bedside Glucose 86 mg/dL (70-110)
[2019-11-25 06:18] LABS: Hematocrit 35.1 % (40-54); Hemoglobin 11.2 g/dL (13.0-16.5); Mean Corp Hgb Conc 31.9 g/dL (32-36); Mean Corpuscular Hgb 26.5 pg (27.0-32.0); Mean Platelet Vol. 10.3 fl (6.2-12.0); Platelet Count 178 K/mm3 (150-450); RBC Distribution Width CV 17.4 % (11.6-14.6); RBC Distribution Width SD 51.8 fl (35.1-43.9); Red Blood Count 4.23 M/mm3 (4.6-6.2); White Blood Count 4.2 K/mm3 (4.4-11.0)
[2019-11-25 06:40] LABS: Anion Gap 8 (5-15); BUN 29 mg/dL (7-18); BUN/Creat Ratio 16.7 RATIO (10-20); Calcium,Total 9.1 mg/dL (8.5-10.1); Chloride 104 mmol/L (98-107); Creatinine, Serum 1.74 mg/dL (0.70-1.30); EST Glomerular Filtration Rate 42 mL/min (>60); Est Glom Filt Rate - Afr Amer 50 mL/min (>60); Estimated Creatinine Clearance 39.31 ml/min; Glucose 92 mg/dL (74-106); Magnesium 1.9 mg/dL (1.6-2.6); Phosphorus 3.1 mg/dL (2.5-4.9); Potassium 4.3 mmol/L (3.5-5.1); Sodium Level 139 mmol/L (136-145)
[2019-11-25] MEDS: Insulin Lispro 100 UNIT/ML INSULN.PEN 12 UNIT SC (08:35)
[2019-11-25] MEDS: Fluticasone/Salmeterol 232-14 Inhaler 1 PUFF IH ×2 (08:37→21:22)
[2019-11-25] MEDS: Carvedilol 12.5 MG Tablet PO ×2 (08:37→21:21)
[2019-11-25] MEDS: Tamsulosin HCl 0.4 MG Capsule PO ×2 (08:37→21:22)
[2019-11-25] MEDS: Aspirin E.C. 81 MG Tablet PO (08:37)
[2019-11-25] MEDS: NYSTATIN 500,000 UNIT/5 ML UDC 500000 UNIT PO ×4 (08:38→21:24)
[2019-11-25] MEDS: amLODIPine 5 MG Tablet 10 MG PO (08:38)
[2019-11-25] MEDS: Famotidine 20 MG Tablet PO (08:38)
[2019-11-25] MEDS: Fenofibrate 145 MG Tablet PO (08:38)
[2019-11-25] MEDS: FLUoxetine 20 MG Capsule PO (08:38)
[2019-11-25] MEDS: Finasteride 5 MG Tablet PO (08:38)
--- NOTE | 2019-11-25 08:52 | PCM.PN.BLA ---
Progress Note Afebile VSS -he still has orthostatic hypotension. Vital signs lying down are heart rate 58, blood pressure 130/51. Standing up the vital signs are heart rate 80 and blood pressure 97/63. He is now c/o lightheadedness with standing. Maintaining appropriate oxygen saturation on RA Oral intake is good Discussed with nursing - no problems that need addressed Reviewed the PT/OT/ST notes Medication list reviewed. All lab was personally reviewed. White blood cell count is once again 4.2 and mildly decreased. The hemoglobin is stable at 11.2 and platelets are within normal limits. There is no longer a left shift. BMP shows a potassium of 4.3 and a normal sodium and carbon dioxide. The BUN is down to 29 from 57 at admission. The creatinine today is 1.74, down from 2.45 at admission. Phosphorus and magnesium are within normal limits. Blood sugar record was reviewed. Blood sugars are under excellent control. No hypoglycemia. He is c/o lightheadedness with standing and SOB with exertion. Coughing is better with eating. alert, smiling and appears in no acute distress. Lungs - CTA today H-RRR, no gallop abd - soft, NT, ND, BS's are present and he has no guarding with palpation no edema in the ankles no rash and no breakdown. Impressions 1. Post stroke debility-left MCA ischemic infarct 2. Diabetes mellitus type [id number] 3. Hypertension-controlled however the patient has orthostasis. I suspect this is related to Proscar and Flomax. Will decrease the amlodipine to 5 mg daily today. 4. BPH with urine retention-on Flomax 0.4 mg twice daily and Proscar 5 mg daily. Voiding trial this coming . We will follow-up with Dr. Anderson in the office post discharge. 5. Stage III chronic renal failure-numbers have improved since protein is being restricted in his diet. DC the sliding insulin scale Continue the fluticasone/salmeterol inhaler 1 puff every 12 hours and Ventolin 2 puffs every 4 hours as needed wheezing. STROKE Vital Signs/Narrative: Vital Signs Temp Pulse Pulse Pulse Resp BP BP 11/25/19 05:45 97.7 F L 16 11/25/19 05:43 56 L 60 80 131/64 H 124/65 H BP Pulse Ox 11/25/19 05:45 98 11/25/19 05:43 97/63 Inpatient E&M: 08999 Subs Hosp L2
--- NOTE | 2019-11-25 10:11 | CASEMGMT ---
Addendum entered by Sabina Alexandra 11/25/19 11:41: Notified DIL insurance approved additional days, NRD 11/25. Will continue to follow. Original Note: Social Work Dtr in law requested call from [facility]/SW. Dtr in law to get more information to complete Medicaid application and send to SW/[facility]. Informed dtr in law that [facility] and [place] approved for pt to come to facility, family to decide on facility. Will continue to follow. Cynthia Soares, social work recruitment internship Sabina Alexandra, TELEVISION PRODUCTION ASSISTANT PLATING OPERATOR
[2019-11-25 11:05] LABS: Bedside Glucose 147 mg/dL (70-110)
[2019-11-25] MEDS: Pregabalin 75 MG Capsule 150 MG PO ×2 (11:28→21:21)
[2019-11-25] MEDS: Insulin Lispro 100 UNIT/ML INSULN.PEN SC (12:08)
[2019-11-25 14:33] VITALS: BMI 35.2
[2019-11-25 17:15] LABS: Bedside Glucose 132 mg/dL (70-110)
[2019-11-25] MEDS: Insulin Lispro 100 UNIT/ML INSULN.PEN 15 UNIT SC (17:42)
[2019-11-25 18:45] VITALS: BP 143/59; PULSE 57; RESP 18; TEMP 36.4; O2SAT 98
[2019-11-25 21:01] LABS: Bedside Glucose 150 mg/dL (70-110)
[2019-11-25] MEDS: traZODone 50 MG Tablet PO (21:21)
[2019-11-25] MEDS: Atorvastatin Calcium 40 MG Tablet PO (21:22)
[2019-11-25] MEDS: Senna/Docusate Sodium 1 Tablet 2 TABLET PO (21:22)
[2019-11-25 21:41] VITALS: BMI 35.2
[2019-11-26 06:55] LABS: Bedside Glucose 92 mg/dL (70-110)
[2019-11-26] MEDS: Insulin Lispro 100 UNIT/ML INSULN.PEN 12 UNIT SC (08:05)
[2019-11-26] MEDS: Fluticasone/Salmeterol 232-14 Inhaler 1 PUFF IH ×2 (08:07→21:02)
[2019-11-26] MEDS: Fenofibrate 145 MG Tablet PO (08:07)
[2019-11-26] MEDS: Pregabalin 75 MG Capsule 150 MG PO ×2 (08:07→21:03)
[2019-11-26] MEDS: FLUoxetine 20 MG Capsule PO (08:07)
[2019-11-26] MEDS: Famotidine 20 MG Tablet PO (08:07)
[2019-11-26] MEDS: Acetaminophen 500 MG Tablet 1000 MG PO ×3 (08:07→21:03)
[2019-11-26] MEDS: Finasteride 5 MG Tablet PO (08:07)
[2019-11-26] MEDS: Tamsulosin HCl 0.4 MG Capsule PO ×2 (08:08→21:02)
[2019-11-26] MEDS: Carvedilol 12.5 MG Tablet PO ×2 (08:08→21:02)
[2019-11-26] MEDS: Senna/Docusate Sodium 1 Tablet 2 TABLET PO (08:08)
[2019-11-26] MEDS: NYSTATIN 500,000 UNIT/5 ML UDC 500000 UNIT PO ×4 (08:08→21:03)
[2019-11-26] MEDS: Aspirin E.C. 81 MG Tablet PO (08:08)
[2019-11-26] MEDS: amLODIPine 5 MG Tablet PO (08:08)
[2019-11-26 09:06] VITALS: PULSE 55; RESP 18; TEMP 36.6; O2SAT 95
--- NOTE | 2019-11-26 09:12 | CASEMGMT ---
Social Work DIL provided with Medicaid application. Faxed to [facility]. Insurance update 11/25. Will continue to follow. Sabina Alexandra, BODY DIE MAKER ADVERTISING ACCOUNT EXECUTIVE
[2019-11-26] MEDS: Insulin Lispro 100 UNIT/ML INSULN.PEN SC ×2 (11:58→17:18)
[2019-11-26 12:16] LABS: Bedside Glucose 115 mg/dL (70-110)
--- NOTE | 2019-11-26 12:22 | CASEMGMT ---
Social Work Spoke with PRESTON to inform her insurance approved patient with NRD 11/[address] in [address]. Team Meeting 11/27 and PRESTON to tell SW facility of choice. Will continue to follow. Sabina Alexandra MSW CAN INTAKE WORKER
[2019-11-26 15:46] VITALS: BMI 35.2
[2019-11-26] MEDS: Insulin Lispro 100 UNIT/ML INSULN.PEN 15 UNIT SC (17:18)
[2019-11-26 17:30] LABS: Bedside Glucose 169 mg/dL (70-110)
[2019-11-26 20:46] LABS: Bedside Glucose 168 mg/dL (70-110)
[2019-11-26 20:54] VITALS: BP 145/60; PULSE 55; RESP 18; TEMP 36.6; O2SAT 96; BMI 35.2
[2019-11-26] MEDS: traZODone 50 MG Tablet PO (21:02)
[2019-11-26] MEDS: Atorvastatin Calcium 40 MG Tablet PO (21:03)
[2019-11-26 21:20] VITALS: O2SAT 98
[2019-11-27] MEDS: Acetaminophen 500 MG Tablet 1000 MG PO ×3 (06:13→21:41)
[2019-11-27 06:16] VITALS: O2SAT 97
[2019-11-27 06:55] LABS: Bedside Glucose 91 mg/dL (70-110)
[2019-11-27] MEDS: Insulin Lispro 100 UNIT/ML INSULN.PEN 12 UNIT SC (07:38)
[2019-11-27] MEDS: Fluticasone/Salmeterol 232-14 Inhaler 1 PUFF IH ×2 (07:39→21:42)
[2019-11-27] MEDS: Aspirin E.C. 81 MG Tablet PO (07:39)
[2019-11-27] MEDS: Carvedilol 12.5 MG Tablet PO ×2 (07:39→21:40)
[2019-11-27] MEDS: Tamsulosin HCl 0.4 MG Capsule PO ×2 (07:39→21:40)
[2019-11-27] MEDS: Fenofibrate 145 MG Tablet PO (07:40)
[2019-11-27] MEDS: Famotidine 20 MG Tablet PO (07:40)
[2019-11-27] MEDS: NYSTATIN 500,000 UNIT/5 ML UDC 500000 UNIT PO ×4 (07:40→21:41)
[2019-11-27] MEDS: Senna/Docusate Sodium 1 Tablet 2 TABLET PO (07:40)
[2019-11-27] MEDS: amLODIPine 5 MG Tablet PO (07:40)
[2019-11-27] MEDS: FLUoxetine 20 MG Capsule PO (07:41)
[2019-11-27] MEDS: Finasteride 5 MG Tablet PO (07:41)
[2019-11-27] MEDS: Pregabalin 75 MG Capsule 150 MG PO ×2 (07:57→21:40)
[2019-11-27 08:13] VITALS: BP 122/61; PULSE 54; RESP 16; TEMP 36.6; O2SAT 99
[2019-11-27 08:48] VITALS: BMI 35.2
[2019-11-27 11:25] LABS: Bedside Glucose 131 mg/dL (70-110)
[2019-11-27] MEDS: Insulin Lispro 100 UNIT/ML INSULN.PEN SC (11:41)
--- NOTE | 2019-11-27 14:05 | PCM.PN.BLA ---
Progress Note Afebrile Blood pressure is well controlled Maintaining appropriate oxygen saturation on room air Good bowel function. Last bowel movement was 11/26/2019. Reviewed PT/OT/ST notes. Reviewed blood sugar record. Blood sugars are under very good control. Denies lightheadedness. Denies shortness of breath or chest pain. He agrees with me that his shortness of breath with exertion has improved with the institution of fluticasone/salmeterol inhaler and Ventolin rescue inhaler. He has actually not had to use the rescue inhaler since the order was put in. He is much more alert during the day since he was started on O2 when sleeping. He is smiling and in a good mood, Interacts well with the staff. Lungs - CTA with no wheezing. Air exchange has improved H - RRR no peripheral edema, abd - soft and NT Impressions 1. post stroke debility 2. DM II - very well controlled on current drug regimen 3. HTN - controlled 4. BPH with urine retention - it has been 7 days since the Proscar was started. Voiding trial in the AM 5. orthostatic hypotension - will recheck the orthostatic BP in the AM......he is asymptomatic Inpatient E&M: 34639 Subs Hosp L2
[2019-11-27] MEDS: Insulin Lispro 100 UNIT/ML INSULN.PEN 15 UNIT SC (16:43)
[2019-11-27 16:50] LABS: Bedside Glucose 122 mg/dL (70-110)
[2019-11-27 19:00] VITALS: BP 138/64; PULSE 56; RESP 18; TEMP 37.1; O2SAT 96
[2019-11-27 21:01] LABS: Bedside Glucose 146 mg/dL (70-110)
[2019-11-27 21:30] VITALS: PULSE 56; RESP 18; O2SAT 96; BMI 35.2
[2019-11-27] MEDS: Atorvastatin Calcium 40 MG Tablet PO (21:41)
[2019-11-27] MEDS: traZODone 50 MG Tablet PO (21:42)
[2019-11-28] MEDS: Acetaminophen 500 MG Tablet 1000 MG PO ×3 (05:04→20:57)
--- NOTE | 2019-11-28 05:55 | NURSING ---
andersen d/c'd at 0525 am as per order, pt tolerated well . 525cc of clear bright yellow urine was noted in the andersen bag. pt encouraged to drink extra fluids this am and pt declined.
[2019-11-28 06:44] VITALS: BP 105/58; BP 138/65; BP 141/65; PULSE 51; PULSE 53; PULSE 65
[2019-11-28 06:45] LABS: Bedside Glucose 96 mg/dL (70-110)
[2019-11-28 08:02] VITALS: BP 138/65; PULSE 51; RESP 16; TEMP 36.6; O2SAT 96
[2019-11-28] MEDS: Pregabalin 75 MG Capsule 150 MG PO ×2 (08:05→20:56)
[2019-11-28] MEDS: Insulin Lispro 100 UNIT/ML INSULN.PEN 12 UNIT SC (08:05)
[2019-11-28] MEDS: Tamsulosin HCl 0.4 MG Capsule PO ×2 (08:06→20:57)
[2019-11-28] MEDS: Aspirin E.C. 81 MG Tablet PO (08:06)
[2019-11-28] MEDS: Fluticasone/Salmeterol 232-14 Inhaler 1 PUFF IH ×2 (08:06→20:58)
[2019-11-28] MEDS: Carvedilol 12.5 MG Tablet PO ×2 (08:06→20:59)
[2019-11-28] MEDS: amLODIPine 5 MG Tablet PO (08:07)
[2019-11-28] MEDS: NYSTATIN 500,000 UNIT/5 ML UDC 500000 UNIT PO ×4 (08:07→20:57)
[2019-11-28] MEDS: Famotidine 20 MG Tablet PO (08:08)
[2019-11-28] MEDS: FLUoxetine 20 MG Capsule PO (08:08)
[2019-11-28] MEDS: Finasteride 5 MG Tablet PO (08:08)
[2019-11-28] MEDS: Fenofibrate 145 MG Tablet PO (08:09)
[2019-11-28 09:37] VITALS: PULSE 51
--- NOTE | 2019-11-28 10:24 | CASEMGMT ---
Addendum entered by Sabina Alexandra 11/28/19 11:56: returned call. SW provided update. Answered questions. understandable of information. Will continue to follow. Original Note: Social Work Met with pt (attempted to call , left message to call SW/FRANKY back for update). Pt is min assist for sit to stand transfers and is able to do stand pivot transfers. Pt is walking 30ft with hemiwalker and without w/c follow at min to mod assist. Pt still fatigues. Pt still to work on steps, currently able to so at mod assist. Pt rt arm is improving in strength and muscle contractions with support. Pt hand grasp strength improving. Pt is able to transfer into the shower at min assist and is mod assist for showering and min assist for toilet transfers. Pt is able to do UE dressing at min assist and LE dressing is still max-total assist. Pt is upgraded to [facility] soft diet and is now on Guillermo free water protocol. Pt to work on speech and comprehension. Explained insurance information to pt, NRD 11/27, therapy recommending continued stay. SNF recommended upon DC for further therapy, family was given list of SNFs and has chosen [facility]. Will continue to follow Cynthia Soares, social work logistics intern Sabina Alexandra, [employer] PRODUCTS CHECKER BOTTLE DEALER
[2019-11-28 11:29] VITALS: BMI 35.2
[2019-11-28 11:50] LABS: Bedside Glucose 129 mg/dL (70-110)
[2019-11-28] MEDS: Insulin Lispro 100 UNIT/ML INSULN.PEN SC ×2 (12:08→17:04)
--- NOTE | 2019-11-28 14:13 | PCM.PN.BLA ---
Progress Note The patient was seen on team rounds today. Conference call was attempted with his family but there was no answer. Afebrile Vital signs are stable however the patient is still orthostatic. The blood pressure was 138/65 lying today and decreased to 105/58 with standing. He was asymptomatic. The heart rate increased from 51-65. He is maintaining appropriate oxygen saturation on room air. Blood sugar record reveals the blood sugars are under excellent control. No hypoglycemic episodes. He is currently on a 5 shot a day regimen with scheduled mealtime insulin and Lantus twice daily. The Pimentel catheter was discontinued this morning and the patient has not voided yet. Bladder scan just revealed greater than 300 cc of urine. He has been on Proscar 5 mg daily for 1 week now and tamsulosin 0.4 mg twice daily for at least 2 weeks. Alert, smiling, appropriate Lungs-clear to auscultation with good air exchange. Heart-regular rate and rhythm, no gallop, no murmur Abdomen-obese, soft, nontender, nondistended, good bowel function, bowel sounds in all quadrants and no guarding with palpation No peripheral edema getting stronger. Able to do steps today. Did TUG with the amauri-walker for the first time yesterday. Sit to stand score was 7 in 1 minute. He is doing better with speech and he has started on a Guillermo water protocol. Still having trouble with washing and dressing LE's. Impressions 1. Post left MCA ischemic stroke debility 2. Urine retention-has not voided in the past several hours and his residual was greater than 300 cc. If the residual is greater than 400 or he has not voided will need to reinsert Pimentel and have him follow-up with Dr. Anderson for possible surgical intervention in the future. Will likely need to be discharged with a Pimentel catheter. He will be going to half-way at discharge. 3. Diabetes mellitus type 2-excellent control with the current drug regimen 4. Xvdeubuszpct-sgdg-jcieosnxda 5. COPD-wheezing has resolved and the air exchange has improved with use of a fluticasone/salmeterol inhaler. We will continue this along with a rescue albuterol inhaler at discharge. Will have him follow up with Dr. Shook as an OP to simplify insulin regimen or consider a pump I emphasized the importance of the diet in his current excellent control. will need to follow up with the rail transportation operator for education on the appropriate diet. Continue current medication regimen. Insurance update today. Inpatient E&M: 13756 Subs Hosp L2
--- NOTE | 2019-11-28 15:23 | CASEMGMT ---
Social Work Insurance issued more days for pt. NRD 12/04. Called and informed her- appreciative. Emailed dtr about NRD. Will continue to follow. Cynthia Soares, social work international student advisor ELIZABETH MahanW
[2019-11-28] MEDS: Insulin Lispro 100 UNIT/ML INSULN.PEN 15 UNIT SC (17:05)
[2019-11-28 17:20] LABS: Bedside Glucose 151 mg/dL (70-110)
--- NOTE | 2019-11-28 20:23 | NURSING ---
pt uses call light at this time and requests use of urinal. pt continent of urine and put 275 ml out and bladder scanned for 0 ml. will continue voiding trials.
[2019-11-28 20:30] VITALS: BP 131/62; PULSE 59; RESP 16; TEMP 36.8; O2SAT 96; BMI 35.2
[2019-11-28] MEDS: traZODone 50 MG Tablet PO (20:57)
[2019-11-28] MEDS: Atorvastatin Calcium 40 MG Tablet PO (20:57)
[2019-11-28 21:21] LABS: Bedside Glucose 144 mg/dL (70-110)
[2019-11-29] MEDS: Acetaminophen 500 MG Tablet 1000 MG PO ×3 (05:07→21:26)
[2019-11-29 05:59] VITALS: BP 110/63; BP 121/65; BP 136/70; PULSE 53; PULSE 67; PULSE 73
[2019-11-29 07:05] LABS: Bedside Glucose 105 mg/dL (70-110)
[2019-11-29] MEDS: Insulin Lispro 100 UNIT/ML INSULN.PEN 12 UNIT SC (07:48)
[2019-11-29] MEDS: Fluticasone/Salmeterol 232-14 Inhaler 1 PUFF IH ×2 (07:49→21:26)
[2019-11-29] MEDS: Aspirin E.C. 81 MG Tablet PO (07:49)
[2019-11-29] MEDS: Tamsulosin HCl 0.4 MG Capsule PO ×2 (07:49→21:26)
[2019-11-29] MEDS: Carvedilol 12.5 MG Tablet PO ×2 (07:49→21:26)
[2019-11-29 07:50] VITALS: PULSE 52
[2019-11-29] MEDS: Finasteride 5 MG Tablet PO (07:50)
[2019-11-29] MEDS: FLUoxetine 20 MG Capsule PO (07:50)
[2019-11-29] MEDS: NYSTATIN 500,000 UNIT/5 ML UDC 500000 UNIT PO ×4 (07:50→21:26)
[2019-11-29] MEDS: amLODIPine 5 MG Tablet PO (07:50)
[2019-11-29] MEDS: Famotidine 20 MG Tablet PO (07:50)
[2019-11-29] MEDS: Fenofibrate 145 MG Tablet PO (07:51)
[2019-11-29] MEDS: Pregabalin 75 MG Capsule 150 MG PO ×2 (07:55→21:34)
[2019-11-29 08:01] VITALS: BP 129/61; PULSE 52; RESP 16; TEMP 36.5; O2SAT 96
[2019-11-29 08:53] VITALS: BMI 35.2
--- NOTE | 2019-11-29 11:35 | NURSING ---
pt unable to urinate at this time, bladder scanned for 435ml. Per Dr. Sosa insert andersen catheter at this time d/t retention. 16 fr andersen inserted using sterile technique. 400mL clear, yellow urine return upon insertion. pt tolerated well. Will continue to monitor.
[2019-11-29 11:50] LABS: Bedside Glucose 101 mg/dL (70-110)
[2019-11-29] MEDS: Insulin Lispro 100 UNIT/ML INSULN.PEN SC (12:03)
--- NOTE | 2019-11-29 13:04 | PCM.PN.BLA ---
Progress Note Unable to void this AM and the urine in the bladder is > 400. Pimentel reinserted. Will get a US of the bladder today. Will need to follow up with DR. Anderson after discharge.
--- NOTE | 2019-11-29 13:06 | US_ITS ---
STUDY: RENAL ULTRASOUND - COMPLETE REASON FOR EXAM: Male, 69 years old. INC CREATININE TECHNIQUE: Ultrasound evaluation of the kidneys was performed with real-time and static miranda-scale imaging. COMPARISON: None. FINDINGS: RIGHT KIDNEY: Normal location of the right kidney, which is normal in size. The right kidney measures 10.5 x 4.2 x 5 cm. There is a normal cortex of the right kidney. The renal cortex measures 0.6 cm. There is no right renal mass or cyst. There are no right renal calculi. There is no right hydronephrosis. DISTAL RIGHT URETER: There is non-visualization of the distal right ureter. There is no demonstrated right ureterovesical junction calculus. There is a visualized right ureteral jet. LEFT KIDNEY: Normal location of the left kidney, which is normal in size. The left kidney measures 10.2 x 5.1 x 4.7 cm. There is a normal cortex of the left kidney. The renal cortex measures 1.4 cm. There is no left renal mass or cyst. There are no left renal calculi. There is no left hydronephrosis. DISTAL LEFT URETER: There is non-visualization of the distal left ureter. There is no demonstrated left ureterovesical junction calculus. There is a visualized left ureteral jet. Mildly diffusely increased cortical echoes bilaterally consistent with nonspecific renal parenchymal disease BLADDER: The bladder is empty containing Pimentel catheter. US/Kidney and Bladder IMPRESSION: Findings consistent with nonspecific renal parenchymal disease. No evidence for hydronephrosis Electronically Signed: Luis A Hayes MD at 16:37 EDT , Service support ,
[2019-11-29] MEDS: Insulin Lispro 100 UNIT/ML INSULN.PEN 15 UNIT SC (16:58)
[2019-11-29 17:36] LABS: Bedside Glucose 120 mg/dL (70-110)
[2019-11-29 20:08] VITALS: BP 151/77; PULSE 58; RESP 16; TEMP 36.8; O2SAT 98
[2019-11-29] MEDS: Atorvastatin Calcium 40 MG Tablet PO (21:26)
[2019-11-29] MEDS: traZODone 50 MG Tablet PO (21:26)
[2019-11-29 21:36] LABS: Bedside Glucose 188 mg/dL (70-110)
[2019-11-29 21:45] VITALS: PULSE 58
[2019-11-29 22:00] VITALS: BMI 35.2
[2019-11-30] MEDS: Acetaminophen 500 MG Tablet 1000 MG PO ×3 (05:07→21:05)
[2019-11-30 06:00] VITALS: BP 131/62; BP 135/69; BP 141/71; PULSE 55; PULSE 59
[2019-11-30 06:15] LABS: Bedside Glucose 109 mg/dL (70-110)
[2019-11-30 06:32] VITALS: O2SAT 92
[2019-11-30] MEDS: Insulin Lispro 100 UNIT/ML INSULN.PEN 12 UNIT SC (07:53)
[2019-11-30 08:18] VITALS: BP 131/62; PULSE 57; RESP 16; TEMP 36.3; O2SAT 97
[2019-11-30] MEDS: Tamsulosin HCl 0.4 MG Capsule PO ×2 (08:30→21:03)
[2019-11-30] MEDS: FLUoxetine 20 MG Capsule PO (08:30)
[2019-11-30] MEDS: amLODIPine 5 MG Tablet PO (08:30)
[2019-11-30] MEDS: Aspirin E.C. 81 MG Tablet PO (08:30)
[2019-11-30] MEDS: Famotidine 20 MG Tablet PO (08:30)
[2019-11-30] MEDS: Carvedilol 12.5 MG Tablet PO ×2 (08:30→21:02)
[2019-11-30] MEDS: Finasteride 5 MG Tablet PO (08:32)
[2019-11-30] MEDS: Fenofibrate 145 MG Tablet PO (08:34)
[2019-11-30] MEDS: Pregabalin 75 MG Capsule 150 MG PO ×2 (09:59→21:07)
[2019-11-30] MEDS: NYSTATIN 500,000 UNIT/5 ML UDC 500000 UNIT PO ×4 (10:00→21:05)
[2019-11-30] MEDS: Fluticasone/Salmeterol 232-14 Inhaler 1 PUFF IH ×2 (10:03→21:03)
[2019-11-30] MEDS: Insulin Lispro 100 UNIT/ML INSULN.PEN SC ×3 (11:38→16:45)
[2019-11-30 11:40] LABS: Bedside Glucose 153 mg/dL (70-110)
[2019-11-30 16:36] VITALS: BMI 35.2
[2019-11-30] MEDS: Insulin Lispro 100 UNIT/ML INSULN.PEN 15 UNIT SC (16:45)
[2019-11-30 17:11] LABS: Bedside Glucose 193 mg/dL (70-110)
[2019-11-30 18:45] VITALS: BP 150/65; PULSE 53; RESP 18; TEMP 36.6; O2SAT 97
[2019-11-30] MEDS: traZODone 50 MG Tablet PO (21:02)
[2019-11-30] MEDS: Atorvastatin Calcium 40 MG Tablet PO (21:04)
[2019-11-30 21:06] LABS: Bedside Glucose 180 mg/dL (70-110)
[2019-11-30 21:34] VITALS: BMI 35.2
[2019-12-01] MEDS: Acetaminophen 500 MG Tablet 1000 MG PO ×3 (05:20→21:19)
[2019-12-01 06:00] VITALS: BP 111/53; BP 137/67; BP 145/63; PULSE 53; PULSE 55; PULSE 95
[2019-12-01 06:30] VITALS: O2SAT 97
[2019-12-01 07:00] LABS: Bedside Glucose 103 mg/dL (70-110)
[2019-12-01] MEDS: Finasteride 5 MG Tablet PO (07:57)
[2019-12-01] MEDS: FLUoxetine 20 MG Capsule PO (07:57)
[2019-12-01] MEDS: Aspirin E.C. 81 MG Tablet PO (07:57)
[2019-12-01] MEDS: Fenofibrate 145 MG Tablet PO (07:57)
[2019-12-01] MEDS: amLODIPine 5 MG Tablet PO (07:57)
[2019-12-01 07:58] VITALS: BP 115/56; PULSE 58; RESP 16; TEMP 36.7; O2SAT 97
[2019-12-01] MEDS: Famotidine 20 MG Tablet PO (07:58)
[2019-12-01] MEDS: Carvedilol 12.5 MG Tablet PO ×2 (07:58→21:17)
[2019-12-01] MEDS: Insulin Lispro 100 UNIT/ML INSULN.PEN 12 UNIT SC (08:04)
[2019-12-01] MEDS: Tamsulosin HCl 0.4 MG Capsule PO ×2 (08:30→21:17)
[2019-12-01] MEDS: Fluticasone/Salmeterol 232-14 Inhaler 1 PUFF IH ×2 (08:30→21:17)
[2019-12-01] MEDS: Pregabalin 75 MG Capsule 150 MG PO ×2 (08:59→21:19)
[2019-12-01] MEDS: NYSTATIN 500,000 UNIT/5 ML UDC 500000 UNIT PO ×4 (08:59→21:17)
[2019-12-01 11:32] VITALS: BMI 35.2
[2019-12-01] MEDS: Insulin Lispro 100 UNIT/ML INSULN.PEN SC ×3 (11:41→17:07)
[2019-12-01 11:45] LABS: Bedside Glucose 210 mg/dL (70-110)
[2019-12-01] MEDS: Insulin Lispro 100 UNIT/ML INSULN.PEN 15 UNIT SC (17:07)
[2019-12-01 17:31] LABS: Bedside Glucose 166 mg/dL (70-110)
[2019-12-01 19:24] VITALS: BP 152/91; PULSE 58; RESP 16; TEMP 37; O2SAT 98
[2019-12-01] MEDS: traZODone 50 MG Tablet PO (21:17)
[2019-12-01] MEDS: Atorvastatin Calcium 40 MG Tablet PO (21:17)
[2019-12-01 21:20] LABS: Bedside Glucose 176 mg/dL (70-110)
[2019-12-02 05:00] VITALS: BMI 35.2
[2019-12-02 06:00] VITALS: BP 134/62; BP 140/78; BP 150/70; PULSE 58; PULSE 63; PULSE 77
[2019-12-02] MEDS: Acetaminophen 500 MG Tablet 1000 MG PO ×3 (06:27→21:37)
[2019-12-02 06:46] LABS: Bedside Glucose 113 mg/dL (70-110)
[2019-12-02] MEDS: Insulin Lispro 100 UNIT/ML INSULN.PEN 12 UNIT SC (07:31)
[2019-12-02] MEDS: Famotidine 20 MG Tablet PO (07:34)
[2019-12-02] MEDS: Aspirin E.C. 81 MG Tablet PO (07:34)
[2019-12-02] MEDS: amLODIPine 5 MG Tablet PO (07:34)
[2019-12-02] MEDS: Fenofibrate 145 MG Tablet PO (07:35)
[2019-12-02] MEDS: FLUoxetine 20 MG Capsule PO (07:35)
[2019-12-02] MEDS: Finasteride 5 MG Tablet PO (07:38)
[2019-12-02 08:17] VITALS: BP 150/64; PULSE 64; RESP 17; TEMP 36.6; O2SAT 99
[2019-12-02] MEDS: Tamsulosin HCl 0.4 MG Capsule PO ×2 (08:31→21:39)
[2019-12-02] MEDS: Pregabalin 75 MG Capsule 150 MG PO ×2 (08:31→21:38)
[2019-12-02] MEDS: Carvedilol 12.5 MG Tablet PO ×2 (08:31→21:39)
[2019-12-02] MEDS: Fluticasone/Salmeterol 232-14 Inhaler 1 PUFF IH ×2 (08:34→21:39)
[2019-12-02] MEDS: NYSTATIN 500,000 UNIT/5 ML UDC 500000 UNIT PO ×4 (08:38→21:38)
[2019-12-02 11:46] LABS: Bedside Glucose 97 mg/dL (70-110)
[2019-12-02] MEDS: Insulin Lispro 100 UNIT/ML INSULN.PEN SC (12:04)
--- NOTE | 2019-12-02 14:25 | PN_ITS ---
Progress Note Afebile VSS -blood pressure lying down is mildly elevated since antihypertensives were decreased due to orthostatic hypotension related to antihypertensive plus Flomax plus Proscar. He remains orthostatic. The blood pressure went from 150/70- 134/62 when going from supine to standing. The heart rate increased from 58 supine to 77 standing. He denies lightheadedness today. Maintaining appropriate oxygen saturation on RA Oral intake is good Discussed with nursing - no problems that need addressed Reviewed the PT/OT/ST notes Medication list reviewed. Blood sugar record was reviewed and blood sugars are under good control. Alert, smiling, less facial droop today. Lungs-clear to auscultation with good air exchange Heart-regular rate and rhythm Abdomen-soft, nontender, nondistended, bowel sounds present, no guarding with palpation No peripheral edema No calf tenderness No rash or breakdown Impressions 1. Post stroke debility-ischemic left MCA 2. Orthostatic hypotension, asymptomatic. Will need to tolerate a mild increase in blood pressure to prevent lightheadedness due to orthostasis. Will need to continue Proscar and Flomax 0.4 mg twice daily until the patient has a TURP. Will likely have to discharge with a Pimentel catheter in place and have him follow-up with Dr. Anderson in the office. Failed voiding trial last week after having been on Proscar for 1 week and Flomax 0.4 mg for a few weeks. 3. Diabetes mellitus type 6-[id number]-ctihsrodkd 4. Hypertension 5. COPD-controlled with the addition of fluticasone/salmeterol to his drug regimen. He has not had to use the Ventolin rescue inhaler since being started on fluticasone/salmeterol. continue the current medications' recheck lab on Monday Check orthostatics only if symptomatic going forward
[2019-12-02 17:00] VITALS: BMI 35.2
[2019-12-02] MEDS: Insulin Lispro 100 UNIT/ML INSULN.PEN 15 UNIT SC (17:16)
[2019-12-02 18:01] LABS: Bedside Glucose 144 mg/dL (70-110)
[2019-12-02 20:31] VITALS: BP 140/85; PULSE 61; RESP 18; TEMP 36.7; O2SAT 96
[2019-12-02 21:30] VITALS: BMI 35.2
[2019-12-02] MEDS: Atorvastatin Calcium 40 MG Tablet PO (21:38)
[2019-12-02] MEDS: traZODone 50 MG Tablet PO (21:39)
[2019-12-02 22:21] LABS: Bedside Glucose 133 mg/dL (70-110)
[2019-12-03] MEDS: Acetaminophen 500 MG Tablet 1000 MG PO ×3 (05:59→20:56)
[2019-12-03 06:21] LABS: Bedside Glucose 116 mg/dL (70-110)
[2019-12-03 07:01] VITALS: O2SAT 93
[2019-12-03] MEDS: amLODIPine 5 MG Tablet PO (08:15)
[2019-12-03] MEDS: Famotidine 20 MG Tablet PO (08:15)
[2019-12-03] MEDS: Pregabalin 75 MG Capsule 150 MG PO ×2 (08:15→20:59)
[2019-12-03] MEDS: FLUoxetine 20 MG Capsule PO (08:15)
[2019-12-03] MEDS: Aspirin E.C. 81 MG Tablet PO (08:16)
[2019-12-03] MEDS: Carvedilol 12.5 MG Tablet PO ×2 (08:16→20:54)
[2019-12-03] MEDS: Finasteride 5 MG Tablet PO (08:16)
[2019-12-03] MEDS: Insulin Lispro 100 UNIT/ML INSULN.PEN 12 UNIT SC (08:16)
[2019-12-03] MEDS: Tamsulosin HCl 0.4 MG Capsule PO ×2 (08:16→20:55)
[2019-12-03] MEDS: Fenofibrate 145 MG Tablet PO (08:16)
[2019-12-03] MEDS: Fluticasone/Salmeterol 232-14 Inhaler 1 PUFF IH ×2 (08:16→20:54)
[2019-12-03] MEDS: NYSTATIN 500,000 UNIT/5 ML UDC 500000 UNIT PO ×4 (08:17→20:56)
[2019-12-03 08:35] VITALS: BP 128/86; PULSE 65; RESP 17; TEMP 36.6; O2SAT 97
[2019-12-03 08:43] VITALS: BMI 35.2
--- NOTE | 2019-12-03 11:26 | CASEMGMT ---
Social Work Received Medicaid pending number from [facility]: [id number]. Cynthia Soares, social work health information internship Sabina Alexandra, ELIZABETH AGRICULTURAL CHEMIST
[2019-12-03 11:55] LABS: Bedside Glucose 97 mg/dL (70-110)
[2019-12-03] MEDS: Insulin Lispro 100 UNIT/ML INSULN.PEN SC ×2 (12:01→16:49)
[2019-12-03] MEDS: Insulin Lispro 100 UNIT/ML INSULN.PEN 15 UNIT SC (16:50)
[2019-12-03 17:06] LABS: Bedside Glucose 184 mg/dL (70-110)
[2019-12-03 19:56] VITALS: BP 157/66; PULSE 71; RESP 18; TEMP 36.7; O2SAT 95
[2019-12-03] MEDS: traZODone 50 MG Tablet PO (20:54)
[2019-12-03] MEDS: Atorvastatin Calcium 40 MG Tablet PO (20:56)
[2019-12-03 21:01] LABS: Bedside Glucose 182 mg/dL (70-110)
[2019-12-03 22:48] VITALS: BMI 35.2
[2019-12-04] MEDS: Acetaminophen 500 MG Tablet 1000 MG PO (05:55)
[2019-12-04 06:35] LABS: Bedside Glucose 135 mg/dL (70-110)
[2019-12-04] MEDS: Famotidine 20 MG Tablet PO (07:54)
[2019-12-04] MEDS: FLUoxetine 20 MG Capsule PO (07:55)
[2019-12-04] MEDS: amLODIPine 5 MG Tablet PO (07:55)
[2019-12-04] MEDS: Aspirin E.C. 81 MG Tablet PO (07:55)
[2019-12-04] MEDS: Carvedilol 12.5 MG Tablet PO ×2 (07:55→21:10)
[2019-12-04] MEDS: Fenofibrate 145 MG Tablet PO (07:55)
[2019-12-04] MEDS: Finasteride 5 MG Tablet PO (07:59)
[2019-12-04 08:00] VITALS: BP 141/50; PULSE 59; RESP 16; TEMP 36.3; O2SAT 95
[2019-12-04] MEDS: Fluticasone/Salmeterol 232-14 Inhaler 1 PUFF IH ×2 (08:00→21:10)
[2019-12-04] MEDS: Insulin Lispro 100 UNIT/ML INSULN.PEN 12 UNIT SC (08:02)
[2019-12-04] MEDS: Pregabalin 75 MG Capsule 150 MG PO ×2 (08:57→21:09)
[2019-12-04] MEDS: NYSTATIN 500,000 UNIT/5 ML UDC 500000 UNIT PO ×4 (08:57→21:09)
[2019-12-04] MEDS: Tamsulosin HCl 0.4 MG Capsule PO (08:57)
--- NOTE | 2019-12-04 09:14 | PN_ITS ---
Progress Note Afebile VSS-blood pressures are creeping up. There have been several blood pressures in the past few days that have been greater than 135/80. Maintaining appropriate oxygen saturation on RA Oral intake is good. Discussed with nursing - no problems that need addressed Reviewed the PT/OT/ST notes Medication list reviewed. Blood sugar record was reviewed. Blood sugars are very well controlled with no hypoglycemia. His only complaint today is lightheadedness when standing. His blood pressure sitting while in the therapy room was 140 systolic and dropped to 106 systolic when he stood. He denies shortness of breath, cough, sore throat, chest pain, N/V, abdominal pain. No suprapubic pain. Alert, appropriate, no apparent distress His smile is becoming more symmetric No jugular vein distention, no cervical nodes Lungs-good air exchange with no wheezing or rails Heart-regular rate and rhythm, no gallop Abdomen-soft, nontender, nondistended, normal bowel sounds, no guarding with palpation No peripheral edema Doing better with a hemiwalker with ambulation Impressions 1. Post stroke debility-ischemic left MCA with aphasia and R side weakness. continue to progress in therapy. Able to get many more words out and speech is more intelligible. 2. Orthostatic hypotension, symptomatic. Will need to adjust the medications. Would like to get the Pimentel out prior to discharge but, this may not be possible 3. Diabetes mellitus type 1-[id number]-xokkixdpln 4. Hypertension - mild systolic HTN lying down but, significant drop when he goes from lying to standing. About a 30-35 point drop. May need to tolerate mild HTN lying down to keep him asymptomatic....this will change after surgical intervention and then we can more more aggressive about keeping the BP < 120/80. 5. COPD-controlled with the addition of fluticasone/salmeterol to his drug regimen. He has not had to use the Ventolin rescue inhaler since being started on fluticasone/salmeterol. Change the Tylenol to 1000 mg p.o. every 8 hours as needed pain 1-4. The BP is mildly increased BUT, he is orthostatic because of the anti- hypertensives AND Proscar and Flomax...... Will DC the amlodipine and start Terazosin 1 mg daily in the AM. Decrease the Flomax to 0.4 mg daily so the Terazocin and the Flomax are given several hours apart. Voiding trial next Monday. Reinstitute daily orthostatics Monday. We may just have to tolerate a mildly increased pressure lying down to keep the orthostasis from being symptomatic. I suspect he is going to need a TURP and he will be following up with Dr. Anderson post DC. Check a PSA in the AM CMP, CBC with no differential, lipid panel in a.m. Inpatient E&M: 47847 Subs Hosp L2
[2019-12-04 11:16] LABS: Bedside Glucose 162 mg/dL (70-110)
[2019-12-04 11:24] VITALS: O2SAT 95
[2019-12-04] MEDS: Insulin Lispro 100 UNIT/ML INSULN.PEN SC ×3 (11:52→17:03)
[2019-12-04] MEDS: Doxazosin 1 MG Tablet PO (11:55)
[2019-12-04 12:00] VITALS: BP 106/51; BP 141/78
--- NOTE | 2019-12-04 13:59 | PCM.CONS.U ---
Problem List (1) BPH (benign prostatic hyperplasia) Status: Chronic Qualifiers: Lower urinary tract symptom detail: urinary retention Reason for Consult Date of Consultation: 12/04/19 Reason for Consultation: Urinary retention BPH History of Present Illness: The patient is a 69 year old male who is in rehab he is progressing nicely in rehab but still needs a catheter is failed voiding trials he has medical therapy on board but still not been able to urinate spontaneously today I spoke to the patient regarding the options one would be to do a TURP to alleviate the obstruction the other would be to consider long-term catheter management he would rather have a TURP to see if he can alleviate his obstruction and be catheter free in the long-term this would be better for the patient as progressive deterioration in his bladder function and prostate with a chronic catheter will certainly occur. Past Medical History Past Medical History (Chronic Problems): Chronic Problems (Last Reviewed 11/05/19 @ 12:[address] Diamond Sosa DO) PAD (peripheral artery disease) (Chronic) BPH (benign prostatic hyperplasia) (Chronic) COPD (chronic obstructive pulmonary disease) (Chronic) Chronic back pain (Chronic) Chronic renal failure, stage 3 (moderate) (Chronic) Obstructive sleep apnea (Chronic) does not wear CPAP Cerebrovascular disease (Chronic) occluded left M1 Carotid stenosis, left (Chronic) near total occlusion Carotid stenosis, right (Chronic) moderate Grade II diastolic dysfunction (Chronic) Type 2 diabetes mellitus (Chronic) also with cardiovascular disease. cerebrovascular disease, PAD Left atrial enlargement (Chronic) mild - moderate Atherosclerosis of coronary artery of [place] heart without angina pectoris (Chronic) CABG x 3 MASTERS to LAD, SVG to Dx, SVG to RCA 01/09/2009 H/O coronary artery bypass surgery (Chronic 01/09/09) CABG x 3 MASTERS to LAD, SVG to Dx, SVG to RCA 01/09/2009 Abdominal aortic aneurysm (AAA) (Chronic) History of endovascular stent graft for abdominal aortic aneurysm Essential (primary) hypertension (Chronic) Hyperlipidemia (Chronic) Medical History: Medical History (Last Reviewed 11/05/19 @ 12:[address] Diamond Sosa DO) Atherosclerosis of coronary artery of [place] heart without angina pectoris (Chronic) I25.10 CABG x 3 MASTERS to LAD, SVG to Dx, SVG to RCA 01/09/2009 Abdominal aortic aneurysm (AAA) (Chronic) I71.4 History of endovascular stent graft for abdominal aortic aneurysm Essential (primary) hypertension (Chronic) I10 Hyperlipidemia (Chronic) E78.5 Diabetes mellitus E11.9 Allergies No Known Allergies Allergy (Verified 10/20/19 14:10) Home Medications: Ambulatory Orders Medication Instructions Recorded albuterol sulfate 90 mcg/actuation 1 puff INHALATION Q6H PRN PRN 33 04/06/18 aerosol inhaler Days #8 aspirin 81 mg tablet,delayed 81 mg PO QDAY 04/06/18 release insulin lispro 100 unit/mL See Protocol SC ACHS ml 04/06/18 subcutaneous pen pregabalin 75 mg capsule 150 mg PO BID 90 Days #180 cap 04/06/18 dulaglutide 1.5 mg/0.5 mL 1.5 mg SC QWEEK 10/08/18 subcutaneous pen injector insulin glargine 100 unit/mL (3 20 unit SC BID 98 Days #45.08 ml 10/08/18 mL) subcutaneous pen Amlodipine Besylate 10 mg PO QDAY 11/04/19 Atorvastatin Calcium 40 mg PO QDAY 11/04/19 Fenofibrate Nanocrystallized 145 mg PO QDAY 11/04/19 [Tricor] Hydrochlorothiazide [Hctz] 25 mg PO QDAY 11/04/19 Dutasteride [Avodart] 0.5 mg PO DAILY 11/21/19 Surgical History: Surgical History (Last Reviewed 11/05/19 @ 12:[address] Diamond Sosa DO) H/O coronary artery bypass surgery (Chronic) Onset Date: 01/09/09 Z95.1 CABG x 3 MASTERS to LAD, SVG to Dx, SVG to RCA 01/09/2009 History of coronary artery stent placement Z95.5 DEG-Mdld-Irpr LAD w/ 3.5 x 15 mm Penta 10/2001 History of endovascular stent graft for abdominal aortic aneurysm (AAA) Onset Date: 2015 Z95.828 Surgical History: no surgical history Psychiatric History: Depression - psot stroke Smoking Status: Former smoker Tobacco Use: Cigarettes, Chew Alcohol: Occasional - 2-3 times a month, beer and hard liquor Drugs: None - *Family History Maternal Family History: Family History (Last Reviewed 11/05/19 @ 12:[address] Diamond Sosa DO) Father Myocardial infarction Hypertension Brother Diabetes Review of Systems Constitutional: Denies: Chills, Fever, Weight Change HEENT: Denies: Head Aches, Sinus Congestion, Sinus Drainage Cardiovascular: Denies: Chest Pain, Palpitations Respiratory: Denies: Cough, Shortness of breath at rest, Sputum production Gastrointestinal: Denies: Abdominal Pain, Nausea, Vomiting Genitourinary: Denies: Dysuria Musculoskeletal: Denies: Joint Pain, Joint Tenderness Skin: Denies: Rash, Wounds Neurological: Denies: Numbness, Tingling, Focal weakness Psychiatric: Denies: Anxiety, Depression, Homicidal Ideations, Suicidal Ideations Hematologic/ Lymphatic: Denies: Easy Bruising, Easy Bleeding Physical Exam - Physical Exam Vital Signs Temp 97.3 F L 12/04/19 08:00 Pulse 59 L 12/04/19 08:00 Resp 16 12/04/19 08:00 BP 141/50 H 12/04/19 08:00 Pulse Ox 95 12/04/19 11:24 Intake & Output 12/02/19 12/03/19 12/04/19 23:59 23:59 23:59 Intake Total 1460 / 1460 1140 / 1140 720 / 720 Output Total 1750 / 1750 1200 / 1450 1050 / 1050 Balance -290 / -290 -60 / -310 -330 / -330 Intake: Oral 1460 / 1460 1140 / 1140 720 / 720 Output: Urine 1750 / 1750 1200 / 1450 1050 / 1050 General: Alert, Oriented x3 HEENT: Atraumatic Oral: Moist Mucosa Neck: Supple Lungs: Normal air movement Cardiovascular: Regular rate Abdomen: Soft, Non Tender, Obese Assessment/Plan All Active Problems (Last Reviewed 11/05/19 @ 12:[address] Diamond Sosa DO) Dysphagia (Acute) Acute ischemic left MCA stroke (Acute) Morbid obesity (Acute) Former cigarette smoker (Acute) History of AAA (abdominal aortic aneurysm) repair (Acute) Abnormal LFTs (Acute) Depression due to acute stroke (Acute) 69-year-old male who is in rehab still has urinary retention despite medical therapy and put him on the schedule for next week for transurethral section of the prostate he understands is possible that the resection of the prostate and alleviation of obstruction may not work as possible he still may need a Pimentel catheter afterwards but he is willing to undergo that risk he understood stands over the risk of bleeding and infection and failure of the procedure to alleviate his urinary obstruction. Today we discussed the options and he wants to proceed with surgery we will get him set up soon to prevent further deterioration of bladder function.
[2019-12-04 15:43] VITALS: BMI 35.2
[2019-12-04 16:36] LABS: Bedside Glucose 183 mg/dL (70-110)
[2019-12-04] MEDS: Insulin Lispro 100 UNIT/ML INSULN.PEN 15 UNIT SC (17:04)
[2019-12-04 19:28] VITALS: BP 146/69; PULSE 64; RESP 16; TEMP 36.8; O2SAT 99
[2019-12-04] MEDS: Atorvastatin Calcium 40 MG Tablet PO (21:09)
[2019-12-04] MEDS: traZODone 50 MG Tablet PO (21:10)
[2019-12-04 22:46] LABS: Bedside Glucose 176 mg/dL (70-110)
[2019-12-05 06:36] LABS: Hematocrit 31.6 % (40-54); Hemoglobin 10.2 g/dL (13.0-16.5); Mean Corp Hgb Conc 32.3 g/dL (32-36); Mean Corpuscular Hgb 26.8 pg (27.0-32.0); Mean Corpuscular Volume 83.2 fL (80-94); Platelet Count 265 K/mm3 (150-450); RBC Distribution Width CV 16.3 % (11.6-14.6); RBC Distribution Width SD 49.6 fl (35.1-43.9)
[2019-12-05 06:55] LABS: Bedside Glucose 138 mg/dL (70-110)
[2019-12-05 07:10] LABS: ALB/GLOB Ratio 0.8 RATIO (0.9-2.4); AST(SGOT) 17 U/L (15-37); Alanine Aminotransfer ALT/SGPT 24 U/L (16-61); Albumin, Serum 2.7 g/dL (3.2-5.0); Alkaline Phosphatase 29 U/L (45-117); Anion Gap 7 (5-15); BUN 34 mg/dL (7-18); BUN/Creat Ratio 18.8 RATIO (10-20); Calcium,Total 8.9 mg/dL (8.5-10.1); Chloride 104 mmol/L (98-107); Cholesterol 104 mg/dL (200); Creatinine, Serum 1.81 mg/dL (0.70-1.30); EST Glomerular Filtration Rate 40 mL/min (>60); Est Glom Filt Rate - Afr Amer 48 mL/min (>60); Estimated Creatinine Clearance 37.79 ml/min; Globulin 3.3 g/dL (2.2-4.2); Glucose 130 mg/dL (74-106); High Density Lipoprotein 39 mg/dL; Potassium 4.1 mmol/L (3.5-5.1); Sodium Level 139 mmol/L (136-145); Triglycerides 112 mg/dL; Very Low Density Lipoprotein 22 mg/dL (5-40)
[2019-12-05] MEDS: FLUoxetine 20 MG Capsule PO (08:09)
[2019-12-05] MEDS: Fluticasone/Salmeterol 232-14 Inhaler 1 PUFF IH ×2 (08:09→22:31)
[2019-12-05] MEDS: Senna/Docusate Sodium 1 Tablet 2 TABLET PO ×2 (08:09→22:31)
[2019-12-05] MEDS: Pregabalin 75 MG Capsule 150 MG PO ×2 (08:09→22:31)
[2019-12-05] MEDS: NYSTATIN 500,000 UNIT/5 ML UDC 500000 UNIT PO ×4 (08:09→22:31)
[2019-12-05] MEDS: Famotidine 20 MG Tablet PO (08:09)
[2019-12-05] MEDS: Finasteride 5 MG Tablet PO (08:10)
[2019-12-05] MEDS: Doxazosin 1 MG Tablet PO (08:10)
[2019-12-05] MEDS: Carvedilol 12.5 MG Tablet PO ×2 (08:10→22:31)
[2019-12-05] MEDS: Aspirin E.C. 81 MG Tablet PO (08:10)
[2019-12-05] MEDS: Fenofibrate 145 MG Tablet PO (08:10)
[2019-12-05] MEDS: Insulin Lispro 100 UNIT/ML INSULN.PEN 12 UNIT SC (08:11)
[2019-12-05 08:21] VITALS: BP 137/75; BP 142/60; BP 152/84; PULSE 61; PULSE 64; PULSE 73
[2019-12-05 08:51] VITALS: BP 142/60; PULSE 61; RESP 16; TEMP 36.6; O2SAT 98
--- NOTE | 2019-12-05 10:16 | CASEMGMT ---
Addendum entered by Sabina Alexandra 12/05/19 15:55: [facility] has accepted pt and [facility] has pt on waitlist. Original Note: Social Work IDT met with patient and via conference call. Discussed patient's progress in therapy. Pt is min assist to complete steps with 2 HR, walking 50 ft min-mod with hemiwalker, when fatigues pt leans to the right. Pt is min assist for stand pivot transfers with hemiwalker, set up/SBA for grooming while seated, min for UE and max for LE. Pt upgraded to mech soft and honey thick liquids with Guillermo free water protocol. Continuing to work on speech and cognition strategies. Pt overall improving well. Pt still having difficulty with urinary retention and surgery is scheduled for 12/10. Physician recommending pt remain in [place] to continue with therapy until surgery, then transfer to SNF to complete therapy. This is family preference as well. needs pt to become more independent prior to returning home. IDT hopeful this is a realistic plan. Pt and family first choice for SNF [facility], then [facility] if bed availability. Family requested referral be made to [facility] for alternative as well - referral made. Family aware [facility] cannot accept Medicaid so if insurance does not approve pt, pt will DC to SNF under Medicaid. Will continue to follow. ELIZABETH Mahan
[2019-12-05 11:50] LABS: Bedside Glucose 117 mg/dL (70-110)
--- NOTE | 2019-12-05 12:04 | PN_ITS ---
Progress Note Pedro was seen on team rounds today. His Yasmin participated in a conference call while the team was in his room. Afebile VSS Maintaining appropriate oxygen saturation on RA Oral intake is good Discussed with nursing - no problems that need addressed Reviewed the PT/OT/ST notes Medication list reviewed. Blood sugar record was reviewed and the blood sugars are well controlled. All lab was personally reviewed. The CBC shows a normal white blood cell count of 8, hemoglobin of 10.2 which is decreased from 11.2 on 11/25/2019 and a normal p latelet count. CMP shows normal electrolytes with a BUN of 34 and a stable creatinine at 1.81. LFTs are normal. The total cholesterol is 104 with a LDL of 43 and an HDL of 29. The PSA is 19.6. He denies lightheadedness sitting in a chair today but when he got up and tried to ambulate he became very lightheaded. Orthostatic vital signs were negative this morning however he then received Hytrin for elevated blood pressure. Denies chest pain, shortness of breath, cough. No nausea/vomiting/abdominal pain/diarrhea. Alert, appropriate, able to speak 2 and 3 word sentences to me now. Lungs-clear to auscultation with good air exchange Heart-regular rate and rhythm No peripheral edema Abdomen-soft, nontender No calf tenderness Continues to improve with PT/OT/ST. Impressions 1. Post left MCA ischemic CVA debility 2. Diabetes mellitus type 5-[id number] 3. Urine retention-intolerant of medications due to symptomatic orthostatic hypotension. Seen by Dr. Anderson last night and scheduled for TURP next Monday 4. Significantly elevated PSA at 19.6-more likely than not he has prostate cancer. Will order a CT scan of the abdomen and pelvis with contrast and prior to the study give the patient a 500 cc bolus followed by 1 L of normal saline at 75 cc/h. We will also obtain a bone scan at Dr. Anderson's request. 5. Chronic renal failure stage III-recheck BMP in the a.m. since he will receive contrast today. 6. Dyslipidemia-HDL is less than 70 which is good but the HDL is only 29 and this is low. May consider a long-acting niacin supplement at bedtime. I spoke with his Yasmin and his qujkkeep-fw-vqo Halima on the phone and also with Pedro about the elevated PSA and the likelihood that he has prostate cancer. We will proceed with a staging work-up prior to planned surgery. I am going to allow his Yasmin to visit today IF she is afebrile, has no cough or SOB and agrees to mask, gown and gloves. He needs the emotional support.....after we talked about the possibility of Prostate CA he looked overwhelmed and depressed.......as if thinking will it ever stop and what else bad could happen to me. His sons live out of town and can not be here. STROKE Vital Signs/Narrative: Vital Signs Temp Pulse Pulse Pulse Pulse Resp BP 12/05/19 08:51 97.9 F 61 16 142/60 H 12/05/19 08:21 61 64 73 BP BP BP Pulse Ox 12/05/19 08:51 98 12/05/19 08:21 142/60 H 152/84 H 137/75 H Inpatient E&M: 18966 Subs Hosp L3
[2019-12-05] MEDS: Insulin Lispro 100 UNIT/ML INSULN.PEN SC (12:07)
--- NOTE | 2019-12-05 12:14 | CT_ITS ---
STUDY: CT ABDOMEN AND PELVIS WITH CONTRAST REASON FOR EXAM: Male, 69 years old. PROSTATE CANCER RADIATION DOSAGE (If Supplied By Facility): CTDIvol = ( 20.35 ) mGy, DLP = ( 2284.69 ) mGycm TECHNIQUE: Transaxial images were obtained from the dome of the diaphragm to the symphysis pubis without oral contrast. IV 100mL Isovue-300 was administered. Sagittal and coronal images were reconstructed. Individualized dose optimization techniques were used for this CT. COMPARISON: None. FINDINGS: The visualized lung bases are unremarkable. The visualized portions of the heart are within normal limits. Normal liver. Contracted thick-walled gallbladder without calcified stones possibly physiologic.. Normal spleen. Normal pancreas. Normal bilateral adrenal glands. Tiny nonobstructing renal calculus bilaterally. No evidence for hydronephrosis or mass. Normal visualized stomach. Normal small intestine. Scattered diverticular changes of the colon without evidence for acute colitis. Appendix not visualized consistent with appendectomy. Atherosclerotic changes of the aorta with distal abdominal aortic aneurysm measuring approximately 5 x 4.35 cm status post stent placement.. Normal inferior vena cava. Normal retroperitoneum. Incompletely distended thick-walled bladder containing Pimentel catheter. Nonspecific prominence of the prostate. Normal abdominal wall. Lumbar spine demonstrates degenerative change. Subtle sclerotic changes involving the L4 and L5 vertebral bodies possibly representing metastatic disease CT/Abdomen/Pelvis WITH Contrast IMPRESSION: Atherosclerotic changes of the aorta with distal abdominal aortic aneurysm status post stenting. Nonspecific prominence of the prostate which may be consistent with neoplasm as per clinical history. No pathologically enlarged retroperitoneal nodes for liver metastasis. Subtle sclerotic changes within the L3-4 and 5 vertebral bodies. Bone scan would be helpful to exclude possibility of metastatic disease. Electronically Signed: Luis A Hayes MD at 20:35 EDT , Service support ,
[2019-12-05] MEDS: 0.9% Normal Saline 1,000 ML 75 ML IV (14:53)
[2019-12-05 15:30] VITALS: BMI 35.2
--- NOTE | 2019-12-05 15:53 | CASEMGMT ---
[employer] approved pt with [facility] 12/11. Notified pt, dtr and . Will continue to follow. Sabina Alexandra, HEAD TURNING MACHINE OPERATOR TEXTILE TECHNOLOGIST
[2019-12-05] MEDS: Insulin Lispro 100 UNIT/ML INSULN.PEN 15 UNIT SC (16:44)
[2019-12-05] MEDS: Tamsulosin HCl 0.4 MG Capsule PO (16:44)
[2019-12-05 17:21] LABS: Bedside Glucose 142 mg/dL (70-110)
[2019-12-05 19:33] VITALS: BP 159/72; PULSE 63; RESP 18; TEMP 36.4; O2SAT 97
[2019-12-05] MEDS: Atorvastatin Calcium 40 MG Tablet PO (22:31)
[2019-12-05] MEDS: traZODone 50 MG Tablet PO (22:31)
[2019-12-05] MEDS: Menthol/Lanolin/Calamine/Znox 113 GM Tube 1 APPLIC TOPICAL (22:48)
[2019-12-05 23:11] LABS: Bedside Glucose 188 mg/dL (70-110)
[2019-12-06 06:00] VITALS: BP 115/80; BP 125/59; BP 129/57; PULSE 62; PULSE 65; PULSE 78
[2019-12-06] MEDS: Enoxaparin 40 MG/0.4 ML Syringe SC (06:26)
[2019-12-06 07:00] LABS: Bedside Glucose 111 mg/dL (70-110)
[2019-12-06 07:12] LABS: Anion Gap 6 (5-15); BUN 35 mg/dL (7-18); Calcium,Total 8.8 mg/dL (8.5-10.1); Chloride 105 mmol/L (98-107); Creatinine, Serum 1.59 mg/dL (0.70-1.30); EST Glomerular Filtration Rate 46 mL/min (>60); Est Glom Filt Rate - Afr Amer 56 mL/min (>60); Estimated Creatinine Clearance 43.02 ml/min; Glucose 110 mg/dL (74-106); Sodium Level 139 mmol/L (136-145)
[2019-12-06] MEDS: Insulin Lispro 100 UNIT/ML INSULN.PEN 12 UNIT SC (07:54)
--- NOTE | 2019-12-06 08:00 | NM_ITS ---
CLINICAL: Male, 69 years old. (+) arthritis, diabetes -- (-) falls trauma -- possible pelvic cancer WHOLE BODY NUCLEAR BONE SCAN TECHNIQUE: Following the IV administration of 28 mCi of Tc MDP, whole body bone imaging was performed with a gamma camera following a three hour delay. COMPARISON STUDIES : NM - None. CR - Not available for review at this time. CT - Not available for review at this time. MR - Not available for review at this time. US - Not available for review at this time. FINDINGS: There is a normal concentration of radiopharmaceutical throughout the axial and appendicular skeletal system. There is mildly increased tracer uptake within the shoulder joints and acromioclavicular joints consistent with arthritic changes. There are similar findings within the knee joints and ankles. There is increased tracer uptake within the L5 vertebral body with apparent involvement of the left pedicle suspicious for metastatic lesion.. Incidental finding of apparent atrophic left kidney. NM/Bone Scan Whole Body IMPRESSION: Findings which may be consistent with metastatic lesion involving the L5 vertebral body and left pedicle. MRI with contrast would be helpful for further assessment. Electronically Signed: Luis A Hayes MD at 16:23 EDT , Service support ,
[2019-12-06] MEDS: Menthol/Lanolin/Calamine/Znox 113 GM Tube 1 APPLIC TOPICAL ×2 (08:20→20:27)
[2019-12-06] MEDS: Carvedilol 12.5 MG Tablet PO ×2 (08:24→20:28)
[2019-12-06] MEDS: Fluticasone/Salmeterol 232-14 Inhaler 1 PUFF IH ×2 (08:24→20:28)
[2019-12-06] MEDS: Aspirin E.C. 81 MG Tablet PO (08:24)
[2019-12-06] MEDS: NYSTATIN 500,000 UNIT/5 ML UDC 500000 UNIT PO ×4 (08:25→20:29)
[2019-12-06] MEDS: Finasteride 5 MG Tablet PO (08:25)
[2019-12-06] MEDS: Famotidine 20 MG Tablet PO (08:25)
[2019-12-06] MEDS: FLUoxetine 20 MG Capsule PO (08:26)
[2019-12-06] MEDS: Fenofibrate 145 MG Tablet PO (08:26)
[2019-12-06] MEDS: Senna/Docusate Sodium 1 Tablet 2 TABLET PO ×2 (08:26→20:29)
[2019-12-06] MEDS: Pregabalin 75 MG Capsule 150 MG PO ×2 (08:33→20:29)
[2019-12-06 10:00] VITALS: BP 125/59; PULSE 62; RESP 16; RESP 18; TEMP 36.9; O2SAT 96
--- NOTE | 2019-12-06 10:59 | PCM.PN.BLA ---
Progress Note Afebile VSS-orthostatics are still mildly positive today but the patient denies lightheadedness with standing. The systolic blood pressure has varied from 128 to 159 over the past 3 days. Maintaining appropriate oxygen saturation on RA Oral intake is good Discussed with nursing - no problems that need addressed Reviewed the PT/OT/ST notes Medication list reviewed. Blood sugar record was reviewed. The blood sugars are under good control. He had a BMP this morning and the potassium was 4.0 with a normal sodium. The BUN was 35 and the creatinine is now down to 1.59. Calcium was within normal limits. CT scan of the abdomen and pelvis with contrast showed a thick-walled gallbladder with no stones. Adrenal glands are normal. There were tiny nonobstructing renal calculus in both kidneys. There was scattered diverticular disease. There were atherosclerotic changes of the aorta with distal abdominal aortic aneurysm measuring 5 x 4.35 cm. And he is status post stent placement. There was an incompletely distended thick-walled bladder with a Pimentel catheter present. There was nonspecific prominence of the prostate. The lumbar spine demonstrated degenerative change and subtle sclerotic changes involving the L4 and L5 vertebral bodies. Patient is scheduled for a bone scan this afternoon. Alert, appropriate, no apparent distress, able to get more speech out than previously Denies shortness of breath. He continues to have cough but is able to clear his throat easily. Lungs-clear to auscultation with much better air exchange than at admission. Heart-regular rate and rhythm, no gallop, denies lightheadedness Abdomen-obese, soft, nontender, no guarding with palpation, bowel sounds present No peripheral edema No calf tenderness No rashes and no breakdown of skin Better with the hemiwalker Impressions 1. post stroke debility - L MCA. Progressing in therapy daily and participating with everything the therapist asks him to do. 2. DM II - very good control with the current insulin regimen. 3. HTN - controlled. Orthostatic hypotension is better now that we have discontinued Flomax. He remains on Proscar 5 mg daily. 4. Suspected prostate cancer. PSA is 19.6. The prostate is nonspecifically enlarged on CT scan of the abdomen and pelvis with contrast. Awaiting the results of the bone scan to be done this afternoon. Patient is scheduled for surgery on 12/11/[address] Anderson because he does not tolerate medication for BPH. We will be able to get a tissue diagnosis at that time. Inpatient E&M: 08801 Subs Hosp L2
[2019-12-06 11:50] LABS: Bedside Glucose 145 mg/dL (70-110)
[2019-12-06] MEDS: Insulin Lispro 100 UNIT/ML INSULN.PEN SC ×2 (13:20→17:28)
--- NOTE | 2019-12-06 15:26 | CHAPLAIN ---
Type of Pastoral Visit _x__ Initial Visit ___ Follow-up Visit ___ On-call Visit ___ General Patient Visit ___ Spiritual Assessment ___ Family Conference ___ Bereavement ___ Rapid Response ___ Code Blue ___ Other (describe below) Pastoral Care Referral From _x__ Patient ___ Family ___ Nurse _x__ Physician _x__ Retail Pharmacy Manager ___ Communication Technician ___ Other (describe below) Sacrament/Intervention _x__ Active listening ___ Anointing ___ Gnosticism ___ Bereavement ___ Communion ___ Montserrat exploration ___ ___ Life review _x__ Prayer ___ Reconciliation ___ Sacrament of Sick _x__ Supportive presence ___ Wedding ___ Other (describe below) Pastoral Comments gave calm and time to hear patient as his verbal skills are hindered due to stroke; pt gives answers to questions; on several occasions gave pt opportunity to express any concerns or worries but he did not indicate any issues or needs; pt presents with attitude of whatever will be; pt states he has a and that decisions are being made about his future care; pt welcomed visit and a prayer when offered
[2019-12-06 17:00] VITALS: BMI 35.2
[2019-12-06] MEDS: Insulin Lispro 100 UNIT/ML INSULN.PEN 15 UNIT SC (17:29)
[2019-12-06] MEDS: Tamsulosin HCl 0.4 MG Capsule PO (17:30)
[2019-12-06 18:00] LABS: Bedside Glucose 160 mg/dL (70-110)
[2019-12-06 20:13] VITALS: BP 160/83; PULSE 61; RESP 18; TEMP 36.6; O2SAT 96
[2019-12-06] MEDS: 0.9% Saline Lock 10 ML Syringe IV (20:27)
[2019-12-06] MEDS: Atorvastatin Calcium 40 MG Tablet PO (20:28)
[2019-12-06] MEDS: traZODone 50 MG Tablet PO (20:28)
[2019-12-06 21:36] LABS: Bedside Glucose 184 mg/dL (70-110)
[2019-12-07 02:47] VITALS: BMI 35.2
[2019-12-07] MEDS: Enoxaparin 40 MG/0.4 ML Syringe SC (05:57)
[2019-12-07 07:00] VITALS: BP 153/67; PULSE 70; RESP 16; TEMP 37.1; O2SAT 99
[2019-12-07 07:11] LABS: Bedside Glucose 120 mg/dL (70-110)
[2019-12-07] MEDS: Insulin Lispro 100 UNIT/ML INSULN.PEN 12 UNIT SC (08:23)
[2019-12-07] MEDS: Famotidine 20 MG Tablet PO (08:23)
[2019-12-07] MEDS: FLUoxetine 20 MG Capsule PO (08:24)
[2019-12-07] MEDS: Fenofibrate 145 MG Tablet PO (08:24)
[2019-12-07] MEDS: Finasteride 5 MG Tablet PO (08:24)
[2019-12-07] MEDS: Senna/Docusate Sodium 1 Tablet 2 TABLET PO ×2 (08:24→20:48)
[2019-12-07] MEDS: NYSTATIN 500,000 UNIT/5 ML UDC 500000 UNIT PO ×4 (08:25→21:09)
[2019-12-07] MEDS: Aspirin E.C. 81 MG Tablet PO (08:27)
[2019-12-07] MEDS: Carvedilol 12.5 MG Tablet PO ×2 (08:27→20:48)
[2019-12-07] MEDS: Pregabalin 75 MG Capsule 150 MG PO ×2 (08:30→20:48)
[2019-12-07] MEDS: Fluticasone/Salmeterol 232-14 Inhaler 1 PUFF IH ×2 (08:31→20:48)
[2019-12-07] MEDS: Menthol/Lanolin/Calamine/Znox 113 GM Tube 1 APPLIC TOPICAL ×2 (08:31→20:49)
[2019-12-07 10:59] VITALS: BP 117/74; BP 137/68; BP 143/72; PULSE 61; PULSE 63; PULSE 82
[2019-12-07 11:38] VITALS: BMI 35.2
[2019-12-07] MEDS: Insulin Lispro 100 UNIT/ML INSULN.PEN SC ×3 (12:22→17:10)
[2019-12-07 12:35] LABS: Bedside Glucose 170 mg/dL (70-110)
[2019-12-07] MEDS: Insulin Lispro 100 UNIT/ML INSULN.PEN 15 UNIT SC (17:11)
[2019-12-07] MEDS: 0.9% Saline Lock 10 ML Syringe IV (17:11)
[2019-12-07 17:20] LABS: Bedside Glucose 152 mg/dL (70-110)
[2019-12-07 20:30] VITALS: BP 161/70; PULSE 77; RESP 20; TEMP 36.9; O2SAT 98; BMI 35.2
[2019-12-07] MEDS: Atorvastatin Calcium 40 MG Tablet PO (20:48)
[2019-12-07] MEDS: traZODone 50 MG Tablet PO (20:49)
[2019-12-07 22:40] LABS: Bedside Glucose 151 mg/dL (70-110)
[2019-12-08] MEDS: Enoxaparin 40 MG/0.4 ML Syringe SC (05:38)
[2019-12-08] MEDS: 0.9% Saline Lock 10 ML Syringe IV ×2 (05:38→17:06)
[2019-12-08 06:00] VITALS: BP 117/58; BP 147/67; BP 156/69; PULSE 62; PULSE 63; PULSE 76
[2019-12-08 07:10] LABS: Bedside Glucose 129 mg/dL (70-110)
[2019-12-08] MEDS: Pregabalin 75 MG Capsule 150 MG PO ×2 (09:38→21:54)
[2019-12-08] MEDS: NYSTATIN 500,000 UNIT/5 ML UDC 500000 UNIT PO ×3 (09:38→17:03)
[2019-12-08] MEDS: Fenofibrate 145 MG Tablet PO (09:39)
[2019-12-08] MEDS: Fluticasone/Salmeterol 232-14 Inhaler 1 PUFF IH ×2 (09:39→21:53)
[2019-12-08] MEDS: Senna/Docusate Sodium 1 Tablet 2 TABLET PO ×2 (09:39→21:53)
[2019-12-08] MEDS: Famotidine 20 MG Tablet PO (09:39)
[2019-12-08] MEDS: Carvedilol 12.5 MG Tablet PO ×2 (09:39→21:53)
[2019-12-08] MEDS: FLUoxetine 20 MG Capsule PO (09:39)
[2019-12-08] MEDS: Aspirin E.C. 81 MG Tablet PO (09:39)
[2019-12-08] MEDS: Finasteride 5 MG Tablet PO (09:39)
[2019-12-08] MEDS: Insulin Lispro 100 UNIT/ML INSULN.PEN 12 UNIT SC (09:40)
[2019-12-08 10:00] VITALS: BP 156/69; PULSE 63; RESP 18; TEMP 36.8; O2SAT 94
[2019-12-08] MEDS: Insulin Lispro 100 UNIT/ML INSULN.PEN SC ×2 (11:59→17:03)
[2019-12-08] MEDS: Menthol/Lanolin/Calamine/Znox 113 GM Tube 1 APPLIC TOPICAL ×2 (12:02→21:55)
[2019-12-08 12:15] LABS: Bedside Glucose 147 mg/dL (70-110)
[2019-12-08 12:40] VITALS: BMI 35.2
[2019-12-08] MEDS: Insulin Lispro 100 UNIT/ML INSULN.PEN 15 UNIT SC (17:03)
[2019-12-08 17:31] LABS: Bedside Glucose 165 mg/dL (70-110)
[2019-12-08 21:11] LABS: Bedside Glucose 221 mg/dL (70-110)
[2019-12-08 21:50] VITALS: BP 127/71; PULSE 64; RESP 16; TEMP 37; O2SAT 94; BMI 35.2
[2019-12-08] MEDS: Atorvastatin Calcium 40 MG Tablet PO (21:53)
[2019-12-08] MEDS: traZODone 50 MG Tablet PO (21:54)
[2019-12-09] MEDS: Enoxaparin 40 MG/0.4 ML Syringe SC (05:16)
[2019-12-09 06:00] VITALS: BP 122/54; BP 138/69; BP 149/78; PULSE 59; PULSE 68; PULSE 74
[2019-12-09 07:05] LABS: Bedside Glucose 142 mg/dL (70-110)
[2019-12-09] MEDS: Insulin Lispro 100 UNIT/ML INSULN.PEN 12 UNIT SC (07:46)
[2019-12-09] MEDS: Aspirin E.C. 81 MG Tablet PO (07:47)
[2019-12-09] MEDS: Carvedilol 12.5 MG Tablet PO ×2 (07:47→20:42)
[2019-12-09] MEDS: Fluticasone/Salmeterol 232-14 Inhaler 1 PUFF IH ×2 (07:47→20:44)
[2019-12-09] MEDS: Finasteride 5 MG Tablet PO (07:48)
[2019-12-09] MEDS: Famotidine 20 MG Tablet PO (07:48)
[2019-12-09] MEDS: Senna/Docusate Sodium 1 Tablet 2 TABLET PO ×2 (07:49→20:58)
[2019-12-09] MEDS: Fenofibrate 145 MG Tablet PO (07:49)
[2019-12-09] MEDS: FLUoxetine 20 MG Capsule PO (07:49)
[2019-12-09] MEDS: Menthol/Lanolin/Calamine/Znox 113 GM Tube 1 APPLIC TOPICAL ×2 (08:03→20:40)
[2019-12-09] MEDS: Pregabalin 75 MG Capsule 150 MG PO ×2 (08:12→20:52)
[2019-12-09 09:11] VITALS: BP 149/78; PULSE 68; RESP 18; TEMP 36.6; O2SAT 96
--- NOTE | 2019-12-09 11:21 | PCM.PN.BLA ---
Progress Note Afebile VSS -very mild orthostatic hypotension today. Maintaining appropriate oxygen saturation on RA Oral intake is fair Discussed with nursing - I got a note from caustic cresylate shift superintendent stating the the urine was cloudy and had an odor. UA has been ordered. Reviewed the PT/OT/ST notes Medication list reviewed. Blood sugar record was reviewed and the blood sugars are under excellent control. The bone scan showed findings consistent with metastatic lesion involving the L5 vertebral body and the left pedicle. He admits to being anxious about the upcoming surgery and also about the suspicion of prostate CA. He denies difficulty sleeping. No SOB and no N/V/abdominal pain. Denies suprapubic pain. No flank pain. Alert, appropriate, no apparent distress, sitting in the recliner at the bedside when I talked with him. Lungs-good air exchange, not tachypneic at rest, no wheezes, no rhonchi, no Rales. Heart-regular rate and rhythm, no murmur, no gallop Abdomen-obese, soft, nontender to palpation, bowel sounds present No peripheral edema, no calf tenderness No rashes, no breakdown He was able to ambulate 59 feet today with the hemiwalker. Taking longer strides with the right lower extremity and moving his right lower extremity forward without assist. He performed the tug test in 1 minute and 36 seconds using the hemiwalker with continuous guard assist/min assist today. We performed 10 sit to stands in 30 seconds. Impressions 1. post stroke debility - L MCA. Progressing in therapy daily and participating with everything the therapist asks him to do. 2. DM II - very good control with the current insulin regimen. 3. HTN - controlled. Orthostatic hypotension is better now that we have discontinued Flomax. He remains on Proscar 5 mg daily. 4. Suspected prostate cancer. PSA is 19.6. The prostate is nonspecifically enlarged on CT scan of the abdomen and pelvis with contrast. Awaiting the results of the bone scan to be done this afternoon. Patient is scheduled for surgery on 12/11/[address] Anderson because he does not tolerate medication for BPH. We will be able to get a tissue diagnosis at that time. check a UA and a urine culture today. Check a CBC and BMP in the AM in preparation for surgery Wed DC Wed AM for planned surgery with Dr. Anderson - he will go to SNF following DC from the hospital after surgery. STROKE Vital Signs/Narrative: Vital Signs Temp Pulse Resp BP Pulse Ox 12/09/19 09:11 97.9 F 68 18 149/78 H 96 Inpatient E&M: 30259 Subs Hosp L2
[2019-12-09 11:46] LABS: Bedside Glucose 135 mg/dL (70-110)
[2019-12-09] MEDS: Insulin Lispro 100 UNIT/ML INSULN.PEN SC ×2 (12:01→17:04)
[2019-12-09 12:33] LABS: Color, Urine Yellow (Yellow); Glucose, Dipstick Normal (Normal); Ketone-Dipstick Negative (Negative); Leukocyte Esterase-Dipstick 500 /ul (Negative); Nitrite-Dipstick Positive (Negative); Occult Blood-Urine 50 /ul (Negative); Protein-Dipstick 100 mg/dl (Negative); Urine Bilirubin Dipstick Negative (Negative); Urine Clarity Cloudy (Clear); Urine Urobilinogen Normal (Normal)
[2019-12-09 12:42] LABS: Bacteria 2+ /hpf (None Seen); Mucous, Urine 1+ /hpf (<or=2+); Red Blood Cells-Urine 0-5 SEEN /hpf (0-5); Squamous Epithelial Cells - UA 0-5 SEEN /hpf (0-5); White Blood Cells 50-100 SEEN /hpf (0-5)
--- NOTE | 2019-12-09 13:29 | NURSING ---
Spoke with Arielle for central scheduling regarding pt's TURP scheduled for 12/10. pt is to be NPO 12/09 after midnight. HGB A1C needs ordered. OK to give Coreg and Pepcid in am. give half of Lantus dose 12/09 evening. Made Arielle aware that the pt will discharged for Rehab and will need a new V number for surgery.
[2019-12-09 13:51] VITALS: BMI 35.2
[2019-12-09] MEDS: 0.9% Saline Lock 10 ML Syringe IV (14:56)
--- NOTE | 2019-12-09 15:39 | CHAPLAIN ---
Type of Pastoral Visit ___ Initial Visit _x__ Follow-up Visit ___ On-call Visit ___ General Patient Visit ___ Spiritual Assessment ___ Family Conference ___ Bereavement ___ Rapid Response ___ Code Blue ___ Other (describe below) Pastoral Care Referral From _x__ Patient ___ Family _x__ Nurse ___ Physician ___ Oxyacetylene Burner ___ Tile Setter Apprentice ___ Other (describe below) Sacrament/Intervention ___ Active listening ___ Anointing ___ Christianity ___ Bereavement ___ Communion ___ Montserrat exploration ___ ___ Life review _x__ Prayer ___ Reconciliation ___ Sacrament of Sick _x__ Supportive presence ___ Wedding ___ Other (describe below) Pastoral Comments
[2019-12-09] MEDS: Insulin Lispro 100 UNIT/ML INSULN.PEN 15 UNIT SC (17:05)
[2019-12-09] MEDS: Cefadroxil 500 MG CAPSULE 1000 MG PO (17:20)
[2019-12-09 17:56] LABS: Bedside Glucose 171 mg/dL (70-110)
[2019-12-09 20:30] VITALS: PULSE 60; O2SAT 96; BMI 35.2
[2019-12-09] MEDS: Acetaminophen 500 MG Tablet 1000 MG PO (20:41)
[2019-12-09] MEDS: traZODone 50 MG Tablet PO (20:42)
[2019-12-09] MEDS: Atorvastatin Calcium 40 MG Tablet PO (20:51)
[2019-12-09 21:06] LABS: Bedside Glucose 174 mg/dL (70-110)
[2019-12-09 22:00] VITALS: BP 150/82; PULSE 60; RESP 18; TEMP 36.8; O2SAT 96
--- NOTE | 2019-12-10 03:44 | NURSING ---
Reviewed and agree with PHARMACY SALES REPRESENTATIVE documentation.
--- NOTE | 2019-12-10 05:02 | NURSING ---
pt reports that he still has a headache a 5/10 on pain scale and refused tylenol when offered . pt denied any visual disturbances or any other sx. vs stable at this time and pt is afebrile
[2019-12-10] MEDS: 0.9% Saline Lock 10 ML Syringe IV (05:03)
[2019-12-10 06:00] VITALS: BP 126/64; BP 151/71; PULSE 61; PULSE 62; PULSE 72
[2019-12-10 06:26] LABS: Bedside Glucose 138 mg/dL (70-110)
[2019-12-10] MEDS: Acetaminophen 500 MG Tablet 1000 MG PO ×2 (06:54→16:56)
[2019-12-10 07:12] LABS: Absolute Lymphocyte Count 0.66 X10^3/uL (0.83-4.51); Basophil# 0.02 X10^3/uL; Basophil% 0.3 % (0-1); Eosinophils% 2.9 % (0-5); Hematocrit 32.7 % (40-54); Hemoglobin 10.3 g/dL (13.0-16.5); Lymphocyte # 0.66 X10^3/ul (4.0); Lymphocyte % 9.6 % (19-41); Mean Corp Hgb Conc 31.5 g/dL (32-36); Mean Corpuscular Hgb 25.7 pg (27.0-32.0); Mean Corpuscular Volume 81.5 fL (80-94); Monocyte# 0.94 X10^3/uL; Monocyte% 13.7 % (0-10); NRBC Flagged by Analyzer 0 % (0-5); Neutrophil # 5.02 X10^3/uL (2.7-7.7); Neutrophil % 72.9 % (47-70); Platelet Count 263 K/mm3 (150-450); RBC Distribution Width CV 15.4 % (11.6-14.6); RBC Distribution Width SD 46.1 fl (35.1-43.9); Red Blood Count 4.01 M/mm3 (4.6-6.2); White Blood Count 6.9 K/mm3 (4.4-11.0)
[2019-12-10 07:32] LABS: Hemoglobin A1c 7.7 % (4.2-6.3)
[2019-12-10 07:35] LABS: ALB/GLOB Ratio 0.8 RATIO (0.9-2.4); AST(SGOT) 15 U/L (15-37); Alanine Aminotransfer ALT/SGPT 24 U/L (16-61); Albumin, Serum 2.7 g/dL (3.2-5.0); Alkaline Phosphatase 33 U/L (45-117); Anion Gap 7 (5-15); BUN 31 mg/dL (7-18); BUN/Creat Ratio 22.5 RATIO (10-20); Calcium,Total 9.2 mg/dL (8.5-10.1); Chloride 102 mmol/L (98-107); Creatinine, Serum 1.38 mg/dL (0.70-1.30); EST Glomerular Filtration Rate 54 mL/min (>60); Est Glom Filt Rate - Afr Amer 66 mL/min (>60); Estimated Creatinine Clearance 49.57 ml/min; Globulin 3.6 g/dL (2.2-4.2); Glucose 132 mg/dL (74-106); Magnesium 1.8 mg/dL (1.6-2.6); Phosphorus 3.2 mg/dL (2.5-4.9); Potassium 3.9 mmol/L (3.5-5.1); Protein, Total 6.3 g/dL (6.4-8.2); Sodium Level 138 mmol/L (136-145)
[2019-12-10] MEDS: Cefadroxil 500 MG CAPSULE 1000 MG PO ×2 (08:06→22:10)
[2019-12-10] MEDS: Carvedilol 12.5 MG Tablet PO ×2 (08:06→22:10)
[2019-12-10] MEDS: Aspirin E.C. 81 MG Tablet PO (08:06)
[2019-12-10] MEDS: Insulin Lispro 100 UNIT/ML INSULN.PEN 12 UNIT SC (08:06)
[2019-12-10] MEDS: Famotidine 20 MG Tablet PO (08:07)
[2019-12-10] MEDS: Fluticasone/Salmeterol 232-14 Inhaler 1 PUFF IH ×2 (08:07→22:11)
[2019-12-10] MEDS: Pregabalin 75 MG Capsule 150 MG PO ×2 (08:07→22:19)
[2019-12-10] MEDS: Fenofibrate 145 MG Tablet PO (08:08)
[2019-12-10] MEDS: Senna/Docusate Sodium 1 Tablet 2 TABLET PO ×2 (08:08→22:10)
[2019-12-10] MEDS: Finasteride 5 MG Tablet PO (08:08)
[2019-12-10] MEDS: FLUoxetine 20 MG Capsule PO (08:08)
[2019-12-10] MEDS: Menthol/Lanolin/Calamine/Znox 113 GM Tube 1 APPLIC TOPICAL ×2 (08:26→22:38)
[2019-12-10 09:12] VITALS: BP 148/65; PULSE 60; RESP 20; TEMP 36.6; O2SAT 95
--- NOTE | 2019-12-10 10:31 | NURSING ---
Reported by OT, noted SL catheter dislodged. This press writer assessed site and catheter was indeed out of insertion site. Removed and dry dressing applied to Lt AC. No redness noted to site. Patient denied pain to area.
--- NOTE | 2019-12-10 11:07 | PCM.CONS.B ---
Problem List (1) BPH (benign prostatic hyperplasia) Status: Chronic Qualifiers: Lower urinary tract symptom detail: urinary retention - Consult Date of Consult: 12/10/19 - Reason for Consult 69 yo male on EKG new findings will need cardiac clearance prior to TURP for now will do a prostate biopys local only in the OR tomorrow very likely has prostate ca, and bone scan ++.
[2019-12-10] MEDS: Insulin Lispro 100 UNIT/ML INSULN.PEN SC ×3 (11:35→16:55)
[2019-12-10 11:51] LABS: Bedside Glucose 151 mg/dL (70-110)
--- NOTE | 2019-12-10 12:22 | EKG12_ITS ---
Test Reason : PRE-OP Blood Pressure : / mmHG Vent. Rate : 066 BPM Atrial Rate : 066 BPM P-R Int : 210 ms QRS Dur : 140 ms QT Int : 462 ms P-R-T Axes : 039 -05 024 degrees QTc Int : 484 ms Sinus rhythm with 1st degree A-V block Right bundle branch block Abnormal ECG Confirmed by DREW WANG, LANA ([id number]), associate entertainment editor YONAS ESQUIVEL ([id number] on 12/17/2019 9:25:40 AM Referred By: Confirmed By:LANA RUSSELL MD
--- NOTE | 2019-12-10 12:26 | PCM.PROGNOTE ---
Patient Problems: Active and Suspected Problems (Last Reviewed 11/05/19 @ 12:[address] 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 He remains on Proscar. He denies lightheadedness today. Maintaining appropriate oxygen saturation on RA Oral intake is good Discussed with nursing - no problems that need addressed Reviewed the PT/OT/ST notes Medication list reviewed. Blood sugar record was reviewed and the blood sugars are well controlled. Very rare blood sugar greater than 180. All lab from today was personally reviewed. White blood cell count is normal at 6.9. The platelets are normal. Hemoglobin is stable at 10.3. CMP shows a potassium of 3.9 and a BUN of 31 with a creatinine of 1.38 which is down from 2.41 at its highest while in the inpatient rehab unit. HGBA1C is 7.7 but, since coming to the IPRU his BS's have come under good control. Magnesium is normal at 1.8 and phosphorus is within normal limits. LFTs are unremarkable. Albumin is decreased at 2.7. UA done on 12/09/2019 shows 50-100 WBCs with 0-5 RBCs and 0-5 squamous epithelial cells. He had 2+ bacteria. The preliminary on the urine culture is greater than 100,000 presumptive E. coli. He denies CP, SOB, palpitations. He continues to progress in therapy. Alert , NAD, appropriate, cooperative PERRL, EOMI MM are moist and there are no mucosal lesions The neck is supple and the trachea is midline, there are no cervical nodes. The carotids have a brisk upstroke and good pulse volume. Lungs are clear to auscultation with no wheezes, rales or rhonchi. He is not tachypneic and has no conversational dyspnea or accessory muscle use. Heart sounds are somewhat distant due to body habitus however there is no murmur, no rub and no gallop appreciated. Abdomen is soft, NT, ND and there are normal bowel sounds heard in all quadrants. There was no guarding with palpation His smile is more symmetrical than at admission. He still has expressive aphasia but he is now speaking in 1-2 word sentences. He has R side weakness but is walking with a hemiwalker and walked 59 ft yesterday with min assist No peripheral edema, no calf tenderness Skin is warm and dry, no rashes, no breakdown. Mood is upbeat but anxious about the surgery tomorrow. EKG on 10/20/19 shows a RBBB with nonspecific ST and T wave changes in the lateral precordial leads. The EKG from May of 2019 showed NSR with non-specific ST and T wave changes. Will recheck an EKG now and also try to obtain an EKG from [facility]. Impressions 1. Post stroke debility secondary to left MCA ischemic infarct. Right-sided weakness and expressive a aphasia. Continues to improve in therapy. 2. Diabetes mellitus type 2-very good control since admission to the inpatient rehab unit 3. Hypertension-systolic blood pressure is mildly increased however, we are tolerating this rather than having orthostatic hypotension. 4. BPH/prostatic CA with urine retention. Unable to DC the Pimentel even with Flomax BID and Proscar on board. He developed severe symptomatic orthostasis which has resolved with the discontinuation of FLomax. He remains on Proscar. He is scheduled for TURP and prostate bx tomorrow however anesthesia wants cardiology clearance due to the new RBBB with ST and T wave changes that possibly are due to repolarization abnormality related to the RBBB. KWADWO at [facility] showed a normal EF and did not mention any wall motion abnormalities. He had a negative stress in June 2019 and he is followed as an OP by Dr. Weiner. Will check another EKG now. 5. Hx of CAD with PTCA remotely and CABG in 2008. 6. Stage 3 CRF - creat has steadily been improving since placement of Pimentel, relief of UT obstruction and decreasing the protein in the diet. 7. UTI with > 100,000 colonies of presumptive E. Coli on preliminary urine culture. Continue the Duricef. Consult Dr. Lainez for cardiac eval. Discussed with Dr. Anderson and with Dr. Soliman - Physical Exam Vitals/I&O's: Vital Signs Temp Pulse Resp BP Pulse Ox 97.8 F 60 20 H 148/65 H 95 12/10/19 09:12 12/10/19 09:12 12/10/19 09:12 12/10/19 09:12 12/10/19 09:12 Oxygen Flow Rate (L/min) 2 Oxygen Delivery Method Room Air Weight: 231 lb 11.293 oz Body Mass Index (BMI) 35.2 Finger Stick Blood Glucose 100 Orthostatic Vital Signs Start: 11/14/19 14:48 Freq: 0600 Status: Active Protocol: Activity Type Activity Date Activity User E-Sign Co-Sign Detail Recorded Client Recorded Date Recorded By Document 12/10/19 06:00 LASHA [id number] 12/10/19 07:03 CAK 12/10/19 06:00 Orthostatic Vitals Standing -Blood Pressure (90/60-120/80 mm Hg) 126/64 H -Extremity Use Left Arm -Pulse Rate (60-100 beats/min) 72 Sitting -Blood Pressure (90/60-120/80 mm Hg) 151/71 H -Extremity Use Left Arm -Pulse Rate (60-100 beats/min) 61 Lying -Blood Pressure (90/60-120/80 mm Hg) 126/64 H -Extremity Use Left Arm -Pulse Rate (60-100 beats/min) 62 Intake and Output for Last 24 Hours 12/08/19 12/09/19 12/10/19 23:59 23:59 23:59 Intake Total 870 / 990 2110 / 2110 440 / 440 Output Total 1850 / 2200 2100 / 2100 1250 / 1250 Balance -980 / -1210 10 10 -810 / -810 Microbiology Past 72 Hours 12/09/19 12:25 Urine Catheter - Pimentel Urine Culture - Preliminary Presumptive E. coli Laboratory Results 12/09/19 12:25: Urine Color Yellow, Urine Clarity Cloudy, Urine pH 6.0, Ur Specific [place] 1.020, Urine Protein 100 H, Urine Glucose (UA) Normal, Urine Ketones Negative, Urine Occult Blood 50 H, Urine Nitrite Positive H, Urine Bilirubin Negative, Urine Urobilinogen Normal, Ur Leukocyte Esterase 500 H, Urine RBC 0-5 SEEN, Urine WBC 50-100 SEEN, Ur Squamous Epith Cells 0-5 SEEN, Urine Bacteria 2+, Urine Mucus 1+ 12/09/19 16:55: POC Glucose 171 H 12/09/19 20:48: POC Glucose 174 H 12/10/19 06:04: POC Glucose 138 H 12/10/19 06:46: Hemoglobin A1c 7.7 H 12/10/19 06:46: WBC 6.9, RBC 4.01 L, Hgb 10.3 L, Hct 32.7 L, MCV 81.5, MCH 25.7 L, MCHC 31.5 L, RDW Std Deviation 46.1 H, RDW Coeff of Sherlyn 15.4 H, Plt Count 263, MPV 10.0, Immature Gran % (Auto) 0.600, Neut % (Auto) 72.9 H, Lymph % (Auto) 9.6 L, Sully % (Auto) 13.7 H, Eos % (Auto) 2.9, Baso % (Auto) 0.3, Absolute Neuts (auto) 5.0, Absolute Lymphs (auto) 0.66 L, Nucleated RBC % 0 12/10/19 06:46: Sodium 138, Potassium 3.9, Chloride 102, Carbon Dioxide 29.0, Anion Gap 7, BUN 31 H, Creatinine 1.38 H, Estim Creat Clear Calc 49.57, Est GFR (MDRD) Af Amer 66, Est GFR (MDRD) Non-Af 54 L, BUN/Creatinine Ratio 22.5 H, Glucose 132 H, Calcium 9.2, Phosphorus 3.2, Magnesium 1.8, Total Bilirubin 0.20, AST 15, ALT 24, Alkaline Phosphatase 33 L, Total Protein 6.3 L, Albumin 2.7 L, Globulin 3.6, Albumin/Globulin Ratio 0.8 L 12/10/19 11:07: POC Glucose 151 H Current Medications Acetaminophen (Tylenol) 1,000 mg PO Q8H PRN PRN Reason: pain 1-4 Last Admin: 12/10/19 06:54 Dose: 1,000 mg Documented by: Albuterol Sulfate (Ventolin Hfa (Sp)) 2 puff INHALATION Q4H PRN PRN PRN Reason: wheezing/SOB Aspirin (Ecotrin) 81 mg PO DAILY [facility] Last Admin: 12/10/19 08:06 Dose: 81 mg Documented by: Atorvastatin Calcium (Lipitor) 40 mg PO QHS [facility] Last Admin: 12/09/19 20:51 Dose: 40 mg Documented by: Bisacodyl (Dulcolax) 10 mg RECTAL .PRN X 1 PRN PRN Reason: Constipation Calamine/Phenol (Calmoseptine Ointment) 1 applic TOPICAL BID [facility]; Protocol Last Admin: 12/10/19 08:26 Dose: 1 applicatio Documented by: Carvedilol (Coreg) 12.5 mg PO BID [facility] Last Admin: 12/10/19 08:06 Dose: 12.5 mg Documented by: Cefadroxil (Duricef) 1,000 mg PO BID [facility] Last Admin: 12/10/19 08:06 Dose: 1,000 mg Documented by: Enoxaparin Sodium (Lovenox) 40 mg SC DAILY@0600 [facility] Last Admin: 12/09/19 05:16 Dose: 40 mg Documented by: Famotidine (Pepcid) 20 mg PO DAILY [facility] Last Admin: 12/10/19 08:07 Dose: 20 mg Documented by: Fenofibrate (Tricor) 145 mg PO DAILY [facility] Last Admin: 12/10/19 08:08 Dose: 145 mg Documented by: Finasteride (Proscar) 5 mg PO DAILY [facility] Last Admin: 12/10/19 08:08 Dose: 5 mg Documented by: Fluoxetine HCl (Prozac) 20 mg PO DAILY [facility] Last Admin: 12/10/19 08:08 Dose: 20 mg Documented by: Insulin Glargine (Lantus (Bkc)) 24 units SC QAM [facility] Last Admin: 12/10/19 08:07 Dose: 24 units Documented by: Insulin Glargine (Lantus (Bkc)) 12 units SC QHS [facility] Last Admin: 12/09/19 20:50 Dose: 12 units Documented by: Insulin Glargine (Lantus (Bkc)) 6 units SC X1 ONE Stop: 12/10/19 22:01 Insulin Human Lispro (Humalog Kwikpen (Bkc)) 0 unit SC TIDAC [facility]; Protocol Last Admin: 12/10/19 11:35 Dose: 1 u Documented by: Insulin Human Lispro (Humalog Kwikpen (Bkc)) 3 unit SC LUNCH [facility] Last Admin: 12/10/19 11:35 Dose: 3 u Documented by: Insulin Human Lispro (Humalog Kwikpen (Bkc)) 15 unit SC DINNER [facility] Last Admin: 12/09/19 17:05 Dose: 15 u Documented by: Insulin Human Lispro (Humalog Kwikpen (Bkc)) 12 unit SC BREAKFAST [facility] Last Admin: 12/10/19 08:06 Dose: 12 u Documented by: Magnesium Hydroxide (Milk Of Magnesia) 30 ml PO .PRN X 1 PRN PRN Reason: Constipation Pregabalin (Lyrica) 150 mg PO BID [facility] Last Admin: 12/10/19 08:07 Dose: 150 mg Documented by: Fluticasone/Salmeterol (Fluticasone-Salmeterol [id number]) 1 puff IH Q12 [facility] Last Admin: 12/10/19 08:07 Dose: 1 puff Documented by: Senna/Docusate Sodium (Senokot-S, Yessenia-Colace) 2 tablet PO BID [facility] Last Admin: 12/10/19 08:08 Dose: 2 tablet Documented by: Sodium Chloride () 10 - 40 ml IV UD PRN PRN Reason: SALINE FLUSH Last Admin: 12/10/19 05:03 Dose: 10 ml Documented by: Sodium Chloride () 10 - 40 ml IV UD PRN PRN Reason: SALINE FLUSH Last Admin: 12/09/19 14:56 Dose: 10 ml Documented by: Trazodone HCl (Desyrel) 50 mg PO QHS [facility] Last Admin: 12/09/19 20:42 Dose: 50 mg Documented by: Medical Necessity - Tobacco Use Smoking Status: Former smoker Tobacco Use: Cigarettes, Chew Assessment/Plan All Active Problems (Last Reviewed 11/05/19 @ 12:[address] Diamond Sosa, DO) Dysphagia (Acute) Acute ischemic left MCA stroke (Acute) Morbid obesity (Acute) Former cigarette smoker (Acute) History of AAA (abdominal aortic aneurysm) repair (Acute) Abnormal LFTs (Acute) Depression due to acute stroke (Acute) Inpatient E&M: 02171 Subs Hosp L3
--- NOTE | 2019-12-10 13:15 | EKG12_ITS ---
Test Reason : PRE-OP Blood Pressure : / mmHG Vent. Rate : 064 BPM Atrial Rate : 064 BPM P-R Int : 218 ms QRS Dur : 138 ms QT Int : 468 ms P-R-T Axes : 090 -11 006 degrees QTc Int : 482 ms Sinus rhythm with 1st degree A-V block Right bundle branch block Abnormal ECG Confirmed by DREW WANG, LANA ([id number]), international editorial producer YONAS ESQUIVEL ([id number] on 12/17/2019 9:47:00 AM Referred By: MATTHEW Confirmed By:LANA RUSSELL MD
--- NOTE | 2019-12-10 13:29 | EKG12_ITS ---
Test Reason : PRE-OP Blood Pressure : / mmHG Vent. Rate : 066 BPM Atrial Rate : 066 BPM P-R Int : 212 ms QRS Dur : 136 ms QT Int : 564 ms P-R-T Axes : 035 -07 025 degrees QTc Int : 591 ms Sinus rhythm with 1st degree A-V block Right bundle branch block Abnormal ECG Confirmed by DREW WANG, LANA ([id number]), book or script editor YONAS ESQUIVEL ([id number] on 12/17/2019 9:46:47 AM Referred By: Confirmed By:LANA RUSSELL MD
--- NOTE | 2019-12-10 14:02 | CASEMGMT ---
Social Work SW continues to be in conversation with pt's DIL regarding DC plans and Medicaid. Patient has surgery scheduled for 12/10. Family would like pt to DC to TCU after surgery from acute, if insurance approves precert. If insurance does not approve TCU, pt will DC to [facility] under Medicaid. Hand-off to be given to following acute SW. Plan: DC 12/10 for surgery. TCU first choice. [facility] second choice. Sabina Alexandra, LIVE GAMES DEALER HARDBOARD SUPERVISOR
[2019-12-10 14:24] VITALS: BMI 35.2
--- NOTE | 2019-12-10 16:14 | PCM.CONS.C ---
Problem List (1) Atherosclerosis of coronary artery of [place] heart without angina pectoris Status: Chronic Qualifiers: Coronary Disease-Associated Artery/Lesion type: [place] artery Qualified Code(s): I25.10 - Atherosclerotic heart disease of [place] coronary artery without angina pectoris Comment: CABG x 3 MASTERS to LAD, SVG to Dx, SVG to RCA 01/09/2009 (2) H/O coronary artery bypass surgery Status: Chronic Comment: CABG x 3 MASTERS to LAD, SVG to Dx, SVG to RCA 01/09/2009 (3) Abdominal aortic aneurysm (AAA) Status: Chronic Comment: History of endovascular stent graft for abdominal aortic aneurysm (4) Hyperlipidemia Status: Chronic Qualifiers: Hyperlipidemia type: pure hypercholesterolemia Qualified Code(s): E78.00 - Pure hypercholesterolemia, unspecified (5) Essential (primary) hypertension Status: Chronic (6) Type 2 diabetes mellitus Status: Chronic Qualifiers: Diabetes mellitus complication detail: with chronic kidney disease Chronic kidney disease stage: stage 3 (moderate) Comment: also with cardiovascular disease. cerebrovascular disease, PAD (7) Acute ischemic left MCA stroke Status: Chronic Comment: 10/20/19 (8) Preop cardiovascular exam Status: Acute Reason for Consult Date of Consultation: 12/10/19 History of Present Illness: The patient is a 69 year old white male with history of CAD, CABG, abdominal aortic aneurysm status post repair, hyperlipidemia, hypertension, diabetes mellitus, status post recent CVA, who is referred for preoperative cardiovascular evaluation based on ongoing urologic concerns and the need for prostate biopsy and TURP. He has previously been followed by Caesar Weiner MD, of the [facility]. It appears he had an outpatient cardiovascular visit which was on 06-20-2019. Following that visit he underwent evaluation and care with a transthoracic echocardiogram and a pharmacologic stress nuclear imaging study. He did not require repeat diagnostic cardiac catheterization. He was noted on 10-20-2019 to present to [facility] for concerns of CVA. He was transferred to [facility] for further evaluation and care. He, per the [facility] medical records available for review, underwent additional cardiovascular evaluation with a transesophageal echocardiogram which demonstrated preserved LV systolic function/LVEF of 55% and no obvious source, such as PFO, ASD, VSD, etc., cardioembolic phenomena leading to his CVA. He had residual CVA deficits including an element of expressive aphasia. He was eventually transferred to [facility] inpatient physical medicine rehabilitation unit for further evaluation and care. He has been there and participating in his physical therapy without any complaints of ongoing chest discomfort or difficulty breathing. There has been no reports of near syncope or syncope. He has been undergoing evaluation care for concerns of a prostate related issue. Apparently he has an abnormal PSA as well as a chronic indwelling Pimentel catheter. After evaluation he has been recommended for prostate biopsy and TURP surgery. In preparation for this his previous case was reviewed. There was notation on his 10-20-2019 ECG of sinus rhythm with right bundle branch block with ST/T wave changes with a question of myocardial ischemia in the lateral distribution. This was repeated and still demonstrated sinus rhythm with right bundle branch block but with no obvious additional ST/T wave changes. At the present time he denies any concerning symptoms at rest or with his physical therapy of chest discomfort. There is been no obvious evidence of acute CHF or pulmonary edema. There has been no report of orthopnea or PND. There has been no report of near syncope or syncope. He has not required any other cardiovascular testing either at [facility] or at [facility]. There is concern that if he does not have his urologic procedure performed this would delay diagnosis of his elevated PSA as well as potentially lead to chronic cystitis/UTI, etc. [] Past Medical History Allergies/Adverse Reactions: Allergies No Known Allergies Allergy (Verified 10/20/19 14:10) Home Medications: Ambulatory Orders Medication Instructions Recorded albuterol sulfate 90 mcg/actuation 1 puff INHALATION Q6H PRN PRN 33 04/06/18 aerosol inhaler Days #8 aspirin 81 mg tablet,delayed 81 mg PO QDAY 04/06/18 release insulin lispro 100 unit/mL See Protocol SC ACHS ml 04/06/18 subcutaneous pen pregabalin 75 mg capsule 150 mg PO BID 90 Days #180 cap 04/06/18 dulaglutide 1.5 mg/0.5 mL 1.5 mg SC QWEEK 10/08/18 subcutaneous pen injector insulin glargine 100 unit/mL (3 20 unit SC BID 98 Days #45.08 ml 10/08/18 mL) subcutaneous pen Amlodipine Besylate 10 mg PO QDAY 11/04/19 Atorvastatin Calcium 40 mg PO QDAY 11/04/19 Fenofibrate Nanocrystallized 145 mg PO QDAY 11/04/19 [Tricor] Hydrochlorothiazide [Hctz] 25 mg PO QDAY 11/04/19 Dutasteride [Avodart] 0.5 mg PO DAILY 11/21/19 Past Medical History (Chronic Problems): Chronic Problems (Last Reviewed 11/05/19 @ 12:[address] Diamond Sosa DO) PAD (peripheral artery disease) (Chronic) BPH (benign prostatic hyperplasia) (Chronic) COPD (chronic obstructive pulmonary disease) (Chronic) Chronic back pain (Chronic) Chronic renal failure, stage 3 (moderate) (Chronic) Obstructive sleep apnea (Chronic) does not wear CPAP Acute ischemic left MCA stroke (Chronic) 10/20/19 Cerebrovascular disease (Chronic) occluded left M1 Carotid stenosis, left (Chronic) near total occlusion Carotid stenosis, right (Chronic) moderate Grade II diastolic dysfunction (Chronic) Type 2 diabetes mellitus (Chronic) also with cardiovascular disease. cerebrovascular disease, PAD Left atrial enlargement (Chronic) mild - moderate Atherosclerosis of coronary artery of [place] heart without angina pectoris (Chronic) CABG x 3 MASTERS to LAD, SVG to Dx, SVG to RCA 01/09/2009 H/O coronary artery bypass surgery (Chronic 01/09/09) CABG x 3 MASTERS to LAD, SVG to Dx, SVG to RCA 01/09/2009 Abdominal aortic aneurysm (AAA) (Chronic) History of endovascular stent graft for abdominal aortic aneurysm Essential (primary) hypertension (Chronic) Hyperlipidemia (Chronic) Surgical History: no surgical history Psychiatric History: Depression - psot stroke - *Family History Maternal Family History: Family History (Last Reviewed 11/05/19 @ 12:[address] Diamond Sosa DO) Father Myocardial infarction Hypertension Brother Diabetes Smoking Status: Former smoker Tobacco Use: Cigarettes, Chew Alcohol: Occasional - 2-3 times a month, beer and hard liquor Drugs: None Review of Systems - Review of Systems General: Denies: Fever, Night Sweats, Fatigue Cardiovascular: Denies: Chest Discomfort, Shortness of Breath, Orthopnea, PND, Peripheral Edema, Palpitations, Lightheadedness, Dizziness, Near Syncope, Syncope Respiratory: Denies: Cough, Sputum Production, Hemoptysis Gastrointestinal: Denies: Hematemesis, Hematochezia, Melena Genitourinary: Denies: Dysuria, Hematuria Skin: Denies: Rash Neurological: Reports: History of CVA Subjectve: This is a 69-year-old white male who appears to be resting comfortably in the wheelchair at this time. Objective: Vital Signs Temp Pulse Resp BP Pulse Ox 97.8 F 60 20 H 148/65 H 95 12/10/19 09:12 12/10/19 09:12 12/10/19 09:12 12/10/19 09:12 12/10/19 09:12 Oxygen Flow Rate (L/min) 2 Oxygen Delivery Method Room Air Weight: 231 lb 11.293 oz Body Mass Index (BMI) 35.2 Finger Stick Blood Glucose 100 Orthostatic Vital Signs Start: 11/14/19 14:48 Freq: 0600 Status: Active Protocol: Activity Type Activity Date Activity User E-Sign Co-Sign Detail Recorded Client Recorded Date Recorded By Document 12/10/19 06:00 CAPriyanka [id number] 12/10/19 07:03 CAK 12/10/19 06:00 Orthostatic Vitals Standing -Blood Pressure (90/60-120/80) 126/64 H -Extremity Use Left Arm -Pulse Rate (60-100) 72 Sitting -Blood Pressure (90/60-120/80) 151/71 H -Extremity Use Left Arm -Pulse Rate (60-100) 61 Lying -Blood Pressure (90/60-120/80) 126/64 H -Extremity Use Left Arm -Pulse Rate (60-100) 62 Intake and Output for Last 24 Hours 12/08/19 12/09/19 12/10/19 23:59 23:59 23:59 Intake Total 870 / 990 2110 / 2110 1400 / 1400 Output Total 1850 / 2200 2100 / 2100 1750 / 1750 Balance -980 / -1210 10 -350 / -350 General: Awake, Alert, Oriented x 3, Cooperative, No Acute Distress HEENT: Atraumatic Oral: Moist Mucosa Neck: Supple, Good ROM Lungs: Clear to auscultation Cardiovascular: Regular Rhythm, Normal S1, Normal S2 Abdomen: Bowel Sounds Present, Soft, Non Tender Extremities: No edema, - - LUE: in a sling Psych/Mental Status: Appropriate 12/10/19 06:46: Hemoglobin A1c 7.7 H 12/10/19 06:46: WBC 6.9, RBC 4.01 L, Hgb 10.3 L, Hct 32.7 L, MCV 81.5, MCH 25.7 L, MCHC 31.5 L, Plt Count 263, MPV 10.0, Immature Gran % (Auto) 0.600, Neut % (Auto) 72.9 H, Lymph % (Auto) 9.6 L, [place] % (Auto) 13.7 H, Eos % (Auto) 2.9, Baso % (Auto) 0.3, Absolute Neuts (auto) 5.0, Nucleated RBC % 0 12/10/19 06:46: Sodium 138, Potassium 3.9, Chloride 102, Carbon Dioxide 29.0, Anion Gap 7, BUN 31 H, Creatinine 1.38 H, Est GFR (MDRD) Af Amer 66, Est GFR (MDRD) Non-Af 54 L, BUN/Creatinine Ratio 22.5 H, Glucose 132 H, Calcium 9.2, Phosphorus 3.2, Magnesium 1.8, Total Bilirubin 0.20 Rhythm: sinus rhythm EKG: sinus rhythm; RBBB ECHO: 07-08-19 Interpretation Summary Normal LV size. Left ventricular systolic function is normal. The estimated ejection fraction is 65 %. Stage 2 diastolic dysfunction. The study was technically limited. The study was technically difficult. Contrast injection was performed. Stress Test: 07-08-19 Stress Test Report Pharmacologic myocardial perfusion stress test. 69-year-old man with a history of coronary artery disease status post coronary bypass surgery. Stress protocol: Resting EKG demonstrates normal sinus rhythm with a rate of 62 bpm normal intervals are noted right bundle branch block is present. Resting blood pressures 160/80 mmHg. 0.4 mg of regadenoson was infused per usual protocol followed by rapid intravenous saline flush injection continuous classroom monitor was performed. Maximum heart rate attained was 81 bpm which was 53% of maximum predicted heart rate the maximum workload was 1 metabolic equivalent. At rest nonspecific ST-T wave changes were noted at peak infusion nonspecific ST-T wave changes were noted with no meet the criteria for ischemia. Myocardial perfusion protocol. 15.0 mCi of technetium 99m sestamibi was injected at rest. 0.4 mg of regadenoson was infused per usual protocol peak infusion 45.0 mCi of technetium 99m sestamibi was injected stress images were obtained stress and rest images were reconstructed in comparing the short axis vertical and horizontal long axis. Gated images were also obtained Perfusion SPECT analysis: Review of the stress images demonstrate normal uptake of tracer noted in the septum and lateral wall and anterior wall. The basal to mid inferior wall demonstrates a perfusion defect suggestive of a previous inferior infarct. The resting images demonstrate the same suggesting a previous moderate size inferior infarct. No reversibility is noted suggest ischemia. Gated SPECT analysis. The gated ejection fraction is noted to be 69%. Conclusion: Pharmacologic myocardial perfusion stress test with no evidence of ischemia. Previous inferior infarct noted. Preserved ejection fraction CT Surgery: 01-09-2009: [facility] MASTERS to the LAD, SVG to the diagonal branch, SVG to the RCA system Assessment/Plan 1. CAD status post CABG The patient has a history of CAD and CABG. At the present time he appears to be without any acute symptoms. He is undergone noninvasive evaluation. His studies are as noted above. He does have a follow-up ECG which was performed at the time of his CVA. It did demonstrate sinus rhythm with a right bundle branch block pattern with ST and T wave changes. He underwent a subsequent cardiovascular evaluation at [facility] which included a KWADWO. Based upon the information available there is no report of any left ventricular dysfunction/diminished LVEF. He apparently did not require additional cardiovascular evaluation while at [facility]. He has been recuperating in cardiac rehabilitation. He has been reported is doing well with no concerns. He had a follow-up ECG that demonstrated sinus rhythm with right bundle branch block with no obvious ST or T wave changes. At the moment it would be recommended that he continue cardiovascular medical therapy as deemed appropriate. It does not appear that he requires additional cardiac diagnostic studies or therapeutic intervention at this time. 2. Abdominal aortic aneurysm status post repair He has a history of AAA status post endovascular stent graft. He has been followed by peripheral vascular surgery for this. 3. Hyperlipidemia He will continue risk factor modification medical therapy as deemed appropriate. 4. Hypertension His blood pressures have been noted. They have fluctuated somewhat. He will need to continue medical management and follow-up as deemed appropriate. 5. Diabetes mellitus He will continue evaluation care per internal medicine 6. CVA He has been recuperating from his CVA. He denies any ongoing recurrent issues at this time. 7. Preoperative cardiovascular evaluation At the present time he has been reported is doing well with no obvious concerning cardiovascular symptoms or adverse events. He is in need of his urologic surgery based upon his elevated PSA and concerns of his prostate related issues with chronic indwelling Pimentel catheter issues and concerns of potential chronic cystitis/UTI, etc. Thus at the present time, noting his appearance of a stable cardiovascular course, his recent study at [facility], his previous noninvasive studies of [facility], it was felt the patient did not require additional cardiac diagnostic studies/therapeutic intervention and would proceed with his urologic surgery. He should have close monitoring of his cardiac rate rhythm and blood pressure during and following his procedure. Should continue medical management and around the time of his procedure as best as possible. Attempt should be made to avoid significant fluctuations in his vital signs or his volume status during and following his procedure. Certainly he would be considered at an increased risk for adverse cardiovascular events based upon his cardiovascular history. However, with what appears to be his stable cardiovascular course and the results of his previous findings hopefully these risk can be At a minimum. The above was discussed with the patient and Dr. Sosa. This note was generated using a voice recognition system and there may be incorrect words, spelling or punctuation that were not noted when reviewing the office note prior to saving.
[2019-12-10 16:25] LABS: Bedside Glucose 171 mg/dL (70-110)
[2019-12-10] MEDS: Insulin Lispro 100 UNIT/ML INSULN.PEN 15 UNIT SC (16:55)
--- NOTE | 2019-12-10 18:04 | DS.PCM_ITS ---
Discharge Date and Diagnosis - Problem List Patient Problems: Active and Suspected Problems (Last Reviewed 11/05/19 @ 12:[address] 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 Diamond Sosa DO) Subacute left ischemic MCA CVA with total occlusion of the M1 branch on CTA Post stroke debility secondary to CVA with expressive a aphasia and right-sided weakness Dysphagia Dehydration-resolved Elevated PSA-19.6 Abnormal bone scan with increased uptake in L5 vertebral body and pedicle Sleep disordered breathing-requiring oxygen when sleeping due to hypoxemia Urine retention Complicated urinary tract infection secondary to urine retention requiring long- term Pimentel insertion Orthostatic hypotension Acute on chronic renal failure-resolved Normochromic normocytic anemia - Secondary Discharge Diagnosis Chronic Problems (Last Reviewed 11/05/19 @ 12:[address] Diamond Sosa DO) PAD (peripheral artery disease) (Chronic) Prostatic enlargement with elevated PSA COPD (chronic obstructive pulmonary disease) (Chronic)-suspected Chronic back pain (Chronic) Chronic renal failure, stage 3 (moderate) (Chronic) Sleep disordered breathing-has never had a sleep study Acute ischemic left MCA stroke (Chronic) 10/20/19 Cerebrovascular disease (Chronic) occluded left M1 Carotid stenosis, left (Chronic) near total occlusion Carotid stenosis, right (Chronic) moderate Grade II diastolic dysfunction (Chronic) Type 2 diabetes mellitus (Chronic) also with cardiovascular disease. cerebrovascular disease, PAD Left atrial enlargement (Chronic) mild - moderate Atherosclerosis of coronary artery of [place] heart without angina pectoris (Chronic) CABG x 3 MASTERS to LAD, SVG to Dx, SVG to RCA 01/09/2009 H/O coronary artery bypass surgery (Chronic 01/09/09) CABG x 3 MASTERS to LAD, SVG to Dx, SVG to RCA 01/09/2009 Abdominal aortic aneurysm (AAA) (Chronic) History of endovascular stent graft for abdominal aortic aneurysm Essential (primary) hypertension (Chronic) Hyperlipidemia (Chronic) RBBB Hospital Course and Treatment Imaging Results: Clinical Impression(s) from Imaging Studies Chest X-Ray 11/05/19 12:45 IMPRESSION: No acute cardiopulmonary findings Electronically Signed: Cesar Kat, at 17:12 EDT Tel , Service support , Chest X-Ray 11/14/19 09:45 IMPRESSION: No acute abnormality is seen. Electronically Signed: Adithya Wallace, at 10:06 EDT , Service support , Renal Ultrasound 11/29/19 13:06 IMPRESSION: Findings consistent with nonspecific renal parenchymal disease. No evidence for hydronephrosis Electronically Signed: Luis A Hayes MD at 16:37 EDT , Service support , Abdomen/Pelvis CT 12/05/19 12:14 IMPRESSION: Atherosclerotic changes of the aorta with distal abdominal aortic aneurysm status post stenting. Nonspecific prominence of the prostate which may be consistent with neoplasm as per clinical history. No pathologically enlarged retroperitoneal nodes for liver metastasis. Subtle sclerotic changes within the L3-4 and 5 vertebral bodies. Bone scan would be helpful to exclude possibility of metastatic disease. Electronically Signed: Luis A Hayes MD at 20:35 EDT , Service support , Bone Scan Nuclear Medicine 12/06/19 08:00 IMPRESSION: Findings which may be consistent with metastatic lesion involving the L5 vertebral body and left pedicle. MRI with contrast would be helpful for further assessment. Electronically Signed: Luis A Hayes MD at 16:23 EDT , Service support , Laboratory Results - last 24 hr 12/09/19 12/10/19 12/10/19 20:48 06:04 06:46 WBC RBC Hgb Hct MCV MCH MCHC RDW Std Deviation RDW Coeff of Sherlyn Plt Count MPV Immature Gran % (Auto) Neut % (Auto) Lymph % (Auto) Talbot % (Auto) Eos % (Auto) Baso % (Auto) Absolute Neuts (auto) Absolute Lymphs (auto) Nucleated RBC % Sodium Potassium Chloride Carbon Dioxide Anion Gap BUN Creatinine Estim Creat Clear Calc Est GFR (MDRD) Af Amer Est GFR (MDRD) Non-Af BUN/Creatinine Ratio Glucose Hemoglobin A1c 7.7 H Calcium Phosphorus Magnesium Total Bilirubin AST ALT Alkaline Phosphatase Total Protein Albumin Globulin Albumin/Globulin Ratio POC Glucose 174 H 138 H 12/10/19 12/10/19 12/10/19 06:46 06:46 11:07 WBC 6.9 RBC 4.01 L Hgb 10.3 L Hct 32.7 L MCV 81.5 MCH 25.7 L MCHC 31.5 L RDW Std Deviation 46.1 H RDW Coeff of Sherlyn 15.4 H Plt Count 263 MPV 10.0 Immature Gran % (Auto) 0.600 Neut % (Auto) 72.9 H Lymph % (Auto) 9.6 L Talbot % (Auto) 13.7 H Eos % (Auto) 2.9 Baso % (Auto) 0.3 Absolute Neuts (auto) 5.0 Absolute Lymphs (auto) 0.66 L Nucleated RBC % 0 Sodium 138 Potassium 3.9 Chloride 102 Carbon Dioxide 29.0 Anion Gap 7 BUN 31 H Creatinine 1.38 H Estim Creat Clear Calc 49.57 Est GFR (MDRD) Af Amer 66 Est GFR (MDRD) Non-Af 54 L BUN/Creatinine Ratio 22.5 H Glucose 132 H Hemoglobin A1c Calcium 9.2 Phosphorus 3.2 Magnesium 1.8 Total Bilirubin 0.20 AST 15 ALT 24 Alkaline Phosphatase 33 L Total Protein 6.3 L Albumin 2.7 L Globulin 3.6 Albumin/Globulin Ratio 0.8 L POC Glucose 151 H 12/10/19 16:13 WBC RBC Hgb Hct MCV MCH MCHC RDW Std Deviation RDW Coeff of Sherlyn Plt Count MPV Immature Gran % (Auto) Neut % (Auto) Lymph % (Auto) Talbot % (Auto) Eos % (Auto) Baso % (Auto) Absolute Neuts (auto) Absolute Lymphs (auto) Nucleated RBC % Sodium Potassium Chloride Carbon Dioxide Anion Gap BUN Creatinine Estim Creat Clear Calc Est GFR (MDRD) Af Amer Est GFR (MDRD) Non-Af BUN/Creatinine Ratio Glucose Hemoglobin A1c Calcium Phosphorus Magnesium Total Bilirubin AST ALT Alkaline Phosphatase Total Protein Albumin Globulin Albumin/Globulin Ratio POC Glucose [address] Cam Anderson-urology Operations: None Procedures: None Summary of Care Provided: The patient is a 69 year old M with a past medical history of hypertension, diabetes mellitus type 2, coronary artery disease, CABG in 2009, peripheral arterial disease, hyperlipidemia, history of abdominal aortic aneurysm status post endovascular stent, morbid obesity, former tobacco dependence, BPH, chronic low back pain, chronic renal failure stage III and recent L MCA ischemic CVA(10/20/19) who was admitted to the IPRU at [facility] on 11/04/19 for >3 hours of therapy a day to restore function at or near his prior level of independence/function. He was transferred from [facility] ED to [facility] on 10/20/19 for acute L MCA CVA. While at [facility] he had a transesophageal echocardiogram that revealed no PFO, no ASD and no VSD. His EF was 55% and there were no wall motion abnormalities mentioned. He had a pharmacologic nuclear stress test at [facility] in June 2019 that showed a previous inferior wall infarct with preserved ejection fraction and no evidence of ischemia. An echocardiogram done on the same day showed a ejection fraction of 65% with stage II diastolic dysfunction. He normally follows with Dr. Caesar Weiner for cardiology. At the time of admission he had a dense expressive aphasia and severe R side weakness. He was requiring a Marli lift to get him out of bed. On physical examination at admission he had diminished breath sounds and Rales on the right side. He later developed some expiratory wheezing that was scattered. The heart had a regular rate and rhythm with a normal S1, normal S2 and no murmurs, no rub or no gallop. He had a pronounced right facial droop and 0/5 strength in the right upper extremity. He was able to move the right foot from side to side a small amount. He could not lift it off the bed. Post void residuals were consistently elevated and on on the morning of 11/07/2019 he was unable to void at all. A Pimentel catheter was inserted and a UA was ordered. The UA had 10-25 WBCs and 1+ bacteria. Urine culture exhibited no growth. He was started on Flomax 0.4 mg daily and a voiding trial was done after he had been on the medication for 7 days. He was unable to void. The Pimentel catheter was reinserted and the Flomax was increased to 0.4 mg twice daily. The next voiding trial he was still unable to void and had large residuals. Dr. Mistry was consulted to participate in management and the patient was started on Proscar 5 mg daily in addition to 0.4 mg of Flomax twice daily. He became very orthostatic and this limited his therapy due to lightheadedness when standing. Dr. Anderson scheduled him for TURP because he was intolerant of the medications. A PSA was obtained and was elevated at 19.6. Dr. Anderson requested a bone scan and it showed increased uptake at L5 and the L5 pedicle possibly due to a metastatic lesion. A CT scan of the abdomen and pelvis with contrast showed nonspecific prominence of the prostate with no pathologically enlarged retroperitoneal nodes or liver metastasis. There was subtle sclerotic changes within the L3-4 and L5 vertebral bodies. EKG done on the day of the acute stroke showed right bundle branch block which was new with nonspecific ST and T wave changes in the lateral precordial leads. When compared to an EKG done in May 2019 the right bundle branch block was new and in May he had normal sinus rhythm with unremarkable T waves. An EKG was done on 12/10/2019 that showed persistent right bundle branch block but the nonspecific ST and T wave changes in the lateral precordial leads had resolved. He was seen in consultation by Dr. Lainez from cardiology. Dr. Lainez recommended he continue cardiovascular medical therapy and stated that it did not appear that he would require any additional cardiac diagnostic studies or therapeutic intervention prior to the planned surgery on 12/11/2019. Patient denied chest pain, palpitations, dyspnea on exertion since his stress test in June 2019. Anesthesia and Dr. Anderson were notified that the patient had been seen by cardiology and it was okay to proceed with the planned surgery. He has done very well in the inpatient rehab unit and he is now ambulating with standby assist with a hemiwalker. He continues to have expressive a aphasia but is now speaking more clearly and is able to speak in 1-2 word phrases. His endurance has improved and he is doing well. He had an overnight trending pulse ox while in the rehab unit and it was abnormal with hypoxia. He was started on a 2 L NC anytime he was sleeping and he became more alert and began to progress in therapy. He will need to have an OP sleep study going forward and also should have PFT's since I suspect he has COPD. He was started on a fluticasone/salmeterol inhaler while in the intensive care unit and the air exchange improved and he no longer has any wheezing. He will be discharged in the a.m. on 12/11/2023 TURP with prostate biopsy. Postoperatively he will be admitted to the acute hospital and when ready for discharge he will go to an outside shelter facility. Alert , NAD, appropriate, cooperative PERRL, EOMI MM are moist and there are no mucosal lesions The neck is supple and the trachea is midline, there are no cervical nodes. The carotids have a brisk upstroke and good pulse volume. Lungs are clear to auscultation with no wheezes, rales or rhonchi. He is not tachypneic and has no conversational dyspnea or accessory muscle use. Heart sounds are somewhat distant due to body habitus however there is no murmur, no rub and no gallop appreciated. Abdomen is soft, NT, ND and there are normal bowel sounds heard in all quadrants. There was no guarding with palpation His smile is more symmetrical than at admission. He still has expressive aphasia but he is now speaking in 1-2 word sentences. He has R side weakness but is walking with a hemiwalker and walked 59 ft yesterday with min assist No peripheral edema, no calf tenderness Skin is warm and dry, no rashes, no breakdown. Mood is upbeat but anxious about the surgery tomorrow. This note was generated with [employer] dictation software. It may contain incorrect words, spelling, and punctuation that were not noted in checking the note before signing. Patient Problems: Active and Suspected Problems (Last Reviewed 11/05/19 @ 12:[address] 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 (Acute) Preop cardiovascular exam (Acute) - Physical Exam Vitals/I&O's: Vital Signs Temp Pulse Resp BP Pulse Ox 97.8 F 60 20 H 148/65 H 95 12/10/19 09:12 12/10/19 09:12 12/10/19 09:12 12/10/19 09:12 12/10/19 09:12 Oxygen Flow Rate (L/min) 2 Oxygen Delivery Method Room Air Weight: 231 lb 11.293 oz Body Mass Index (BMI) 35.2 Finger Stick Blood Glucose 100 Orthostatic Vital Signs Start: 11/14/19 14:48 Freq: 0600 Status: Active Protocol: Activity Type Activity Date Activity User E-Sign Co-Sign Detail Recorded Client Recorded Date Recorded By Document 12/10/19 06:00 CAK [id number] 12/10/19 07:03 CAK 12/10/19 06:00 Orthostatic Vitals Standing -Blood Pressure (90/60-120/80 mm Hg) 126/64 H -Extremity Use Left Arm -Pulse Rate (60-100 beats/min) 72 Sitting -Blood Pressure (90/60-120/80 mm Hg) 151/71 H -Extremity Use Left Arm -Pulse Rate (60-100 beats/min) 61 Lying -Blood Pressure (90/60-120/80 mm Hg) 126/64 H -Extremity Use Left Arm -Pulse Rate (60-100 beats/min) 62 Intake and Output for Last 24 Hours 12/08/19 12/09/19 12/10/19 23:59 23:59 23:59 Intake Total 870 / 990 2110 / 2110 1400 / 1400 Output Total 1850 / 2200 2100 / 2100 1750 / 1750 Balance -980 / -1210 -350 / -350 Microbiology Past 72 Hours 12/09/19 12:25 Urine Catheter - Pimentel Urine Culture - Preliminary Presumptive E. coli Laboratory Results 12/09/19 20:48: POC Glucose 174 H 12/10/19 06:04: POC Glucose 138 H 12/10/19 06:46: Hemoglobin A1c 7.7 H 12/10/19 06:46: WBC 6.9, RBC 4.01 L, Hgb 10.3 L, Hct 32.7 L, MCV 81.5, MCH 25.7 L, MCHC 31.5 L, RDW Std Deviation 46.1 H, RDW Coeff of Sherlyn 15.4 H, Plt Count 263, MPV 10.0, Immature Gran % (Auto) 0.600, Neut % (Auto) 72.9 H, Lymph % (Auto) 9.6 L, Talbot % (Auto) 13.7 H, Eos % (Auto) 2.9, Baso % (Auto) 0.3, Absolute Neuts (auto) 5.0, Absolute Lymphs (auto) 0.66 L, Nucleated RBC % 0 12/10/19 06:46: Sodium 138, Potassium 3.9, Chloride 102, Carbon Dioxide 29.0, Anion Gap 7, BUN 31 H, Creatinine 1.38 H, Estim Creat Clear Calc 49.57, Est GFR (MDRD) Af Amer 66, Est GFR (MDRD) Non-Af 54 L, BUN/Creatinine Ratio 22.5 H, Glucose 132 H, Calcium 9.2, Phosphorus 3.2, Magnesium 1.8, Total Bilirubin 0.20, AST 15, ALT 24, Alkaline Phosphatase 33 L, Total Protein 6.3 L, Albumin 2.7 L, Globulin 3.6, Albumin/Globulin Ratio 0.8 L 12/10/19 11:07: POC Glucose 151 H 12/10/19 16:13: POC Glucose 171 H Current Medications Acetaminophen (Tylenol) 1,000 mg PO Q8H PRN PRN Reason: pain 1-4 Last Admin: 12/10/19 16:56 Dose: 1,000 mg Documented by: Albuterol Sulfate (Ventolin Hfa (Sp)) 2 puff INHALATION Q4H PRN PRN PRN Reason: wheezing/SOB Aspirin (Ecotrin) 81 mg PO DAILY [facility] Last Admin: 12/10/19 08:06 Dose: 81 mg Documented by: Atorvastatin Calcium (Lipitor) 40 mg PO QHS [facility] Last Admin: 12/09/19 20:51 Dose: 40 mg Documented by: Bisacodyl (Dulcolax) 10 mg RECTAL .PRN X 1 PRN PRN Reason: Constipation Calamine/Phenol (Calmoseptine Ointment) 1 applic TOPICAL BID [facility]; Protocol Last Admin: 12/10/19 08:26 Dose: 1 applicatio Documented by: Carvedilol (Coreg) 12.5 mg PO BID [facility] Last Admin: 12/10/19 08:06 Dose: 12.5 mg Documented by: Cefadroxil (Duricef) 1,000 mg PO BID [facility] Last Admin: 12/10/19 08:06 Dose: 1,000 mg Documented by: Enoxaparin Sodium (Lovenox) 40 mg SC DAILY@0600 [facility] Last Admin: 12/09/19 05:16 Dose: 40 mg Documented by: Famotidine (Pepcid) 20 mg PO DAILY [facility] Last Admin: 12/10/19 08:07 Dose: 20 mg Documented by: Fenofibrate (Tricor) 145 mg PO DAILY [facility] Last Admin: 12/10/19 08:08 Dose: 145 mg Documented by: Finasteride (Proscar) 5 mg PO DAILY [facility] Last Admin: 12/10/19 08:08 Dose: 5 mg Documented by: Fluoxetine HCl (Prozac) 20 mg PO DAILY [facility] Last Admin: 12/10/19 08:08 Dose: 20 mg Documented by: Insulin Glargine (Lantus (Bkc)) 24 units SC QAM [facility] Last Admin: 12/10/19 08:07 Dose: 24 units Documented by: Insulin Glargine (Lantus (Bkc)) 12 units SC QHS [facility] Last Admin: 12/09/19 20:50 Dose: 12 units Documented by: Insulin Glargine (Lantus (Bkc)) 6 units SC X1 ONE Stop: 12/10/19 22:01 Insulin Human Lispro (Humalog Kwikpen (Bkc)) 0 unit SC TIDAC [facility]; Protocol Last Admin: 12/10/19 16:55 Dose: 1 u Documented by: Insulin Human Lispro (Humalog Kwikpen (Bkc)) 3 unit SC LUNCH [facility] Last Admin: 12/10/19 11:35 Dose: 3 u Documented by: Insulin Human Lispro (Humalog Kwikpen (Bkc)) 15 unit SC DINNER [facility] Last Admin: 12/10/19 16:55 Dose: 15 u Documented by: Insulin Human Lispro (Humalog Kwikpen (Bkc)) 12 unit SC BREAKFAST [facility] Last Admin: 12/10/19 08:06 Dose: 12 u Documented by: Magnesium Hydroxide (Milk Of Magnesia) 30 ml PO .PRN X 1 PRN PRN Reason: Constipation Pregabalin (Lyrica) 150 mg PO BID [facility] Last Admin: 12/10/19 08:07 Dose: 150 mg Documented by: Fluticasone/Salmeterol (Fluticasone-Salmeterol [id number]) 1 puff IH Q12 [facility] Last Admin: 12/10/19 08:07 Dose: 1 puff Documented by: Senna/Docusate Sodium (Senokot-S, Yessenia-Colace) 2 tablet PO BID VIRG[facility] Last Admin: 12/10/19 08:08 Dose: 2 tablet Documented by: Sodium Chloride () 10 - 40 ml IV UD PRN PRN Reason: SALINE FLUSH Last Admin: 12/10/19 05:03 Dose: 10 ml Documented by: Sodium Chloride () 10 - 40 ml IV UD PRN PRN Reason: SALINE FLUSH Last Admin: 12/09/19 14:56 Dose: 10 ml Documented by: Trazodone HCl (Desyrel) 50 mg PO QHS [facility] Last Admin: 12/09/19 20:42 Dose: 50 mg Documented by: Home Medications: Medications to take at Discharge albuterol sulfate 90 mcg/actuation aerosol inhaler 1 puff INHALATION Q6H PRN PRN 33 Days #8 04/06/18 aspirin 81 mg tablet,delayed release 81 mg PO QDAY 04/06/18 insulin lispro 100 unit/mL subcutaneous pen See Protocol SC ACHS ml 04/06/18 pregabalin 75 mg capsule 150 mg PO BID 90 Days #180 cap 04/06/18 dulaglutide 1.5 mg/0.5 mL subcutaneous pen injector 1.5 mg SC QWEEK 10/08/18 insulin glargine 100 unit/mL (3 mL) subcutaneous pen 20 unit SC BID 98 Days #45.08 ml 10/08/18 Amlodipine Besylate 10 mg PO QDAY 11/04/19 Atorvastatin Calcium 40 mg PO QDAY 11/04/19 Fenofibrate Nanocrystallized [Tricor] 145 mg PO QDAY 11/04/19 Hydrochlorothiazide [Hctz] 25 mg PO QDAY 11/04/19 Dutasteride [Avodart] 0.5 mg PO DAILY 11/21/19 Primary Care Physician: Raffaele Elizondo III, MD [Primary Care Provider] - Disposition: Acute care Hospital Minutes spent on discharge:: 45 Patient Condition:: Stable Medical Necessity - Tobacco Use Smoking Status: Former smoker - He quit smoking in 2008 Tobacco Use: Cigarettes, Chew Meaningful Use Info Meaningful Use Diagnoses (Choose all that apply): None applicable - he had a ischemic CVA on 10/20/19 and was sent to [facility]. He was admitted to the IPRU on 11/04/19 and has had no further cerebral events. Inpatient E&M: 84921 Disch Hosp
[2019-12-10 19:49] VITALS: BP 162/74; PULSE 59; RESP 18; TEMP 36.5; O2SAT 97
[2019-12-10 22:05] VITALS: BP 148/71; PULSE 62
[2019-12-10 22:05] LABS: Bedside Glucose 111 mg/dL (70-110)
[2019-12-10] MEDS: Atorvastatin Calcium 40 MG Tablet PO (22:10)
[2019-12-10] MEDS: traZODone 50 MG Tablet PO (22:10)
[2019-12-11 01:10] VITALS: BMI 35.2
[2019-12-11 06:08] VITALS: BP 149/69; PULSE 62; RESP 18; TEMP 36.5; O2SAT 95; BMI 35.2
[2019-12-11 06:15] LABS: Bedside Glucose 129 mg/dL (70-110)
--- NOTE | 2019-12-11 06:30 | NURSING ---
GAVE REPORT TO JOJO DESOUZA IN [place]. PER DEO PT SHOULD NOT HAVE COREG OR PEPCID WITH APPLESAUCE D/T ANESTHESIA.
== END 2019-12-11 07:21 | disposition short-term general hospital (02) | DRG 57 ==
PROVIDERS: Admitting Provider Internal Medicine; PCP Family Medicine; Visit Provider Internal Medicine
DX: I69.351 Hemiplegia and hemiparesis following cerebral infarction affecting right dominant side (principal); N39.0 Urinary tract infection, site not specified; N18.4 Chronic kidney disease, stage 4 (severe); I69.398 Other sequelae of cerebral infarction; I69.392 Facial weakness following cerebral infarction; H53.8 Other visual disturbances; I69.391 Dysphagia following cerebral infarction; R13.10 Dysphagia, unspecified; E78.5 Hyperlipidemia, unspecified; I25.10 Atherosclerotic heart disease of native coronary artery without angina pectoris; E66.01 Morbid (severe) obesity due to excess calories; G47.33 Obstructive sleep apnea (adult) (pediatric); J44.9 Chronic obstructive pulmonary disease, unspecified; E11.22 Type 2 diabetes mellitus with diabetic chronic kidney disease; E11.51 Type 2 diabetes mellitus with diabetic peripheral angiopathy without gangrene; N40.1 Benign prostatic hyperplasia with lower urinary tract symptoms; R33.8 Other retention of urine; Z68.35 Body mass index [BMI] 35.0-35.9, adult; I69.320 Aphasia following cerebral infarction; I12.9 Hypertensive chronic kidney disease with stage 1 through stage 4 chronic kidney disease, or unspecified chronic kidney disease; F32.89 Other specified depressive episodes; E11.42 Type 2 diabetes mellitus with diabetic polyneuropathy; M48.061 Spinal stenosis, lumbar region without neurogenic claudication; D64.9 Anemia, unspecified; I95.1 Orthostatic hypotension; Z87.891 Personal history of nicotine dependence; B96.20 Unspecified Escherichia coli [E. coli] as the cause of diseases classified elsewhere; I45.10 Unspecified right bundle-branch block
CPT/HCPCS: 36415; 71045; 74177; 74230; 76770; 78306; 80048; 80053; 80061; 81001; 82274; 82570; 82728; 82962; 83036; 83540; 83550; 83735; 83880; 84100; 84153; 84300; 84443; 85025; 85027; 85045; 87086; 87088; 87186; 92507; 92523; 92526; 92610; 92611; 93005; 94640; 94660; 97032; 97110; 97112; 97116; 97140; 97162; 97166; 97530; 97535; 97802; 97803; 99251; J7030; J7040; Q9967; A4216; G0103; G0463

== ENCOUNTER 2019-12-12 10:20 | Observation (INO) | payer MEDICARE, SELFPAY ==
[2019-12-11] VITALS (13 sets, daily range): BP systolic 151–179; BP diastolic 61–78; PULSE 59–66; RESP 12–20; TEMP 36.2–36.9; O2SAT 92–100; BMI 35.2; BMI 39.2
--- NOTE | 2019-12-11 | PROS_PTH ---
PATIENT: RUTH VAZQUEZ LOC: MS3 U#:[id number] AGE/SX: 69/M ROOM: VT323 RE12/12/[address]: Dr. Jose Cruz Anderson MD : 1950 BED: 1 DIS: 12/12/2019 SPEC #: [id number] RECD: 12/11/19 14:43 STATUS: FRANCISCO REBrenden #: [id number] ZACK: 12/11/19 00:[address]: Jose Cruz Anderson DEPT: SURGICAL PATHOLOGY RECD BY: Rene Zheng ENTERED: 12/12/19 10:28 SP TYPE: TURP OTHR DR: MD Dr. Raffaele Lewis III, MD Tissues: A - Prostate, NOS B - PROSTATE BIOPSY Procedures: Surgery Specimen Level IV HEADER OPERATION: Cystoscopy, transurethral resection prostate, prostate biopsy PRE-OP DIAGNOSIS: Elevated PSA, urinary retention TISSUE SUBMITTED: A - TUR prostate tissue, B - Prostate biopsy MICROSCOPIC DIAGNOSIS A. Prostate, transurethral resection: Chronic prostatitis with focal acute prostatitis. B. Prostate, needle core biopsy: Benign prostatic tissue. Mild chronic inflammation. AM:ysabel 12/13/19 MICROSCOPIC DESCRIPTION Slides are reviewed. GROSS DESCRIPTION A - Received is one container labeled with the patient's name and designated prostate tissue. The specimen consists of multiple irregular fragments of pink-estrada, rubbery, soft tissue that in aggregate weigh 2.6 gm and measure in aggregate 5 x 3 x 0.3 cm. The entire specimen is submitted in three cassettes. B - Received in fixative is one container labeled with the patient's name and designated prostate biopsy. The specimen consists of three elongated fragments of light estrada-white soft tissue measuring 1.5 to 2 cm in length and 0.1 cm in diameter. The specimen is totally submitted in one cassette. / SJ:ysabel 12/12/19 TC:3 CPT: 06365 x2
[2019-12-11] MEDS: Lactated Ringers 1,000 ML 100 ML IV (08:14)
[2019-12-11 08:20] LABS: Bedside Glucose 135 mg/dL (70-110)
[2019-12-11] MEDS: Cefazolin 2 GM in 0.9% Normal Saline 100 ML IV (09:50)
--- NOTE | 2019-12-11 09:54 | HP.PCM_ITS ---
Problem List (1) Elevated PSA, greater than or equal to 20 ng/ml Status: Acute (2) Urinary retention Status: Acute (3) Urinary retention due to benign prostatic hyperplasia Status: Acute History of Present Illness Date of Admission: 12/11/19 Chief Complaint: Elevated PSA, urinary retention, BPH outlet obstruction, positive bony met The patient is a 69 year old male who in rehab is failed to regain spontaneous voiding he is been on medical therapy and still requires a catheter is failed voiding trials. PSA was found to have to be extremely elevated, bone scan was done and he is got a positive area that lit up on the spine concerning for metastatic prostate cancer. Therefore we wanted to start him on treatment as soon as possible working to taken the surgery today to do a prostate biopsy and also resection of the prostate to see if we can restore normal voiding. He understands is possible he may need a catheter and softener mid catheterization if the surgery fails but we can also start him on hormone deprivation therapy after confirmation of the diagnosis of prostate cancer. Past Medical History Past Medical History (Chronic Problems): Chronic Problems (Last Reviewed 12/11/19 @ 09:[address] Jose Cruz Anderson MD) PAD (peripheral artery disease) (Chronic) BPH (benign prostatic hyperplasia) (Chronic) COPD (chronic obstructive pulmonary disease) (Chronic) Chronic back pain (Chronic) Chronic renal failure, stage 3 (moderate) (Chronic) Obstructive sleep apnea (Chronic) does not wear CPAP Acute ischemic left MCA stroke (Chronic) 10/20/19 Cerebrovascular disease (Chronic) occluded left M1 Carotid stenosis, left (Chronic) near total occlusion Carotid stenosis, right (Chronic) moderate Grade II diastolic dysfunction (Chronic) Type 2 diabetes mellitus (Chronic) also with cardiovascular disease. cerebrovascular disease, PAD Left atrial enlargement (Chronic) mild - moderate Atherosclerosis of coronary artery of [place] heart without angina pectoris (Chronic) CABG x 3 MASTERS to LAD, SVG to Dx, SVG to RCA 01/09/2009 H/O coronary artery bypass surgery (Chronic 01/09/09) CABG x 3 MASTERS to LAD, SVG to Dx, SVG to RCA 01/09/2009 Abdominal aortic aneurysm (AAA) (Chronic) History of endovascular stent graft for abdominal aortic aneurysm Essential (primary) hypertension (Chronic) Hyperlipidemia (Chronic) Medical History: Medical History (Last Reviewed 12/11/19 @ 09:[address] Jose Cruz Anderson MD) Atherosclerosis of coronary artery of [place] heart without angina pectoris (Chronic) I25.10 CABG x 3 MASTERS to LAD, SVG to Dx, SVG to RCA 01/09/2009 Abdominal aortic aneurysm (AAA) (Chronic) I71.4 History of endovascular stent graft for abdominal aortic aneurysm Essential (primary) hypertension (Chronic) I10 Hyperlipidemia (Chronic) E78.5 Diabetes mellitus E11.9 Allergies No Known Allergies Allergy (Verified 10/20/19 14:10) Home Medications: Ambulatory Orders Medication Instructions Recorded albuterol sulfate 90 mcg/actuation 1 puff INHALATION Q6H PRN PRN 33 04/06/18 aerosol inhaler Days #8 aspirin 81 mg tablet,delayed 81 mg PO QDAY 04/06/18 release insulin lispro 100 unit/mL See Protocol SC ACHS ml 04/06/18 subcutaneous pen pregabalin 75 mg capsule 150 mg PO BID 90 Days #180 cap 04/06/18 dulaglutide 1.5 mg/0.5 mL 1.5 mg SC QWEEK 10/08/18 subcutaneous pen injector insulin glargine 100 unit/mL (3 20 unit SC BID 98 Days #45.08 ml 10/08/18 mL) subcutaneous pen Amlodipine Besylate 10 mg PO QDAY 11/04/19 Atorvastatin Calcium 40 mg PO QDAY 11/04/19 Fenofibrate Nanocrystallized 145 mg PO QDAY 11/04/19 [Tricor] Hydrochlorothiazide [Hctz] 25 mg PO QDAY 11/04/19 Dutasteride [Avodart] 0.5 mg PO DAILY 11/21/19 Surgical History: Surgical History (Last Reviewed 12/11/19 @ 09:[address] Jose Cruz Anderson MD) H/O coronary artery bypass surgery (Chronic) Onset Date: 01/09/09 Z95.1 CABG x 3 MASTERS to LAD, SVG to Dx, SVG to RCA 01/09/2009 History of coronary artery stent placement Z95.5 SPK-Lman-Sjpa LAD w/ 3.5 x 15 mm Penta 10/2001 History of endovascular stent graft for abdominal aortic aneurysm (AAA) Onset Date: 2015 Z95.828 Surgical History: no surgical history Psychiatric History: Depression - psot stroke Smoking Status: Former smoker - He quit smoking in 2008 Tobacco Use: Non-smoker Review of Systems Constitutional: Denies: Chills, Fever, Weight Change HEENT: Denies: Head Aches, Sinus Congestion, Sinus Drainage Cardiovascular: Denies: Chest Pain, Palpitations Respiratory: Denies: Cough, Shortness of breath at rest, Sputum production Gastrointestinal: Denies: Abdominal Pain, Nausea, Vomiting Genitourinary: Denies: Dysuria Musculoskeletal: Denies: Joint Pain, Joint Tenderness Skin: Denies: Rash, Wounds Neurological: Denies: Numbness, Tingling, Focal weakness Psychiatric: Denies: Anxiety, Depression, Homicidal Ideations, Suicidal Ideations Hematologic/ Lymphatic: Denies: Easy Bruising, Easy Bleeding VTE Information - Inpt Only VTE Present on Admission: No VTE Mechan Device Prophylaxis: SCD's Patient Problems: Active and Suspected Problems (Last Reviewed 12/11/19 @ 09:[address] Jose Cruz Anderson MD) Elevated PSA, greater than or equal to 20 ng/ml (Acute) Urinary retention (Acute) Urinary retention due to benign prostatic hyperplasia (Acute) - Physical Exam Vitals/I&O's: Vital Signs Temp Pulse Resp BP Pulse Ox 97.2 F L 59 L 18 159/64 H 96 12/11/19 08:00 12/11/19 08:00 12/11/19 08:00 12/11/19 08:00 12/11/19 08:00 Oxygen Delivery Method Room Air Weight: 105.233 kg Body Mass Index (BMI) 35.2 Finger Stick Blood Glucose 100 General: Alert, Oriented x3, Cooperative HEENT: Atraumatic, PERRLA, EOMI, Normocephalic Neck: Supple, No JVD, Negative Carotid Bruits Lungs: Clear to auscultation, Normal air movement Cardiovascular: Regular rate, No murmurs Abdomen: Bowel Sounds Present, Soft, Non Tender Extremities: No edema, Capillary Refill Less than 3 Seconds Skin: No rashes, No breakdown Musculoskeletal: No Tenderness to Palpation of Joints or Extremities, Muscle Wasting, - - Weakness on the patient's right upper extremity Neurological: Cranial nerves II-XII grossly intact Psych/Mental Status: Normal Affect, Appropriate Laboratory Results 12/11/19 08:07: POC Glucose 135 H Current Medications Acetaminophen (Tylenol) 325 mg PO Q4H PRN PRN PRN Reason: Pain Score 1-10/10 Hydrocodone Bitart/Acetaminophen ([place] 5mg-325mg) 1 - 2 tablet PO Q6H PRN PRN PRN Reason: Pain Score 1-5/10 Al Hydroxide/Mg Hydroxide (Mylanta Ii) 30 ml PO Q4H PRN PRN PRN Reason: Heartburn Albuterol Sulfate (Proventil Hfa) 1 puff IH Q6H PRN PRN PRN Reason: WHEEZING Amlodipine Besylate (Norvasc) 10 mg PO QDAY [facility] Atorvastatin Calcium (Lipitor) 40 mg PO QDAY [facility] Docusate Sodium (Colace) 100 mg PO BID [facility] Fenofibrate (Tricor) 145 mg PO QDAY [facility] Hydrochlorothiazide (Hctz) 25 mg PO QDAY [facility] Cefazolin Sodium 2 gm/ Sodium (Chloride) 110 mls @ 150 mls/hr IV PREOP ONE Stop: 12/11/19 10:13 Lactated Ringer's () 1,000 mls @ 100 mls/hr IV .Q10H [facility] Last Admin: 12/11/19 08:14 Dose: 100 mls/hr Documented by: Sodium Chloride () 1,000 mls @ 75 mls/hr IV .[id number] [facility] Ciprofloxacin (Cipro) 400 mg in 200 mls @ 200 mls/hr IV Q12 [facility] Stop: 12/11/19 22:59 Ibuprofen (Motrin) 600 mg PO Q6H PRN PRN PRN Reason: Pain Score 1-10/10 Insulin Glargine (Lantus (Bkc)) 20 units SC BID [facility] Non-Formulary Medication (Dutasteride) 0.5 mg PO DAILY [facility] Ondansetron HCl (Zofran) 4 mg IV Q6H PRN PRN PRN Reason: Nausea Oxycodone HCl (Oxyir) 5 mg PO Q4H PRN PRN PRN Reason: Pain Score 1-10/10 Pantoprazole Sodium (Protonix) 40 mg PO DAILY [facility] Pregabalin (Lyrica) 150 mg PO BID [facility] Assessment/Plan All Active Problems (Last Reviewed 12/11/19 @ 09:[address] Jose Cruz Anderson MD) Dysphagia (Acute) Morbid obesity (Acute) Former cigarette smoker (Acute) History of AAA (abdominal aortic aneurysm) repair (Acute) Abnormal LFTs (Acute) Depression due to acute stroke (Acute) Preop cardiovascular exam (Acute) Elevated PSA, greater than or equal to 20 ng/ml (Acute) Urinary retention (Acute) Urinary retention due to benign prostatic hyperplasia (Acute) 59-year-old male with multiple medical problems proceed with a TURP prostate biopsy today to confirm diagnosis of prostate cancer which is suspicious suspected. Essential Procedure Criteria Procedure Essential: Yes Criteria Note: On 11/05/2019 the [facility] ([facility]) Public Order signed by [facility] Director Tessie Alcantar M.D., regarding the Management of Non- Essential Surgeries and Procedures for the purpose of preserving Personal Protective Equipment (PPE) and critical hospital capacity and resources within [place] went into effect as of 11/06/2019 at 5:00PM. According to the [facility] Public Order: This action will remain in full force and effect until the State of Emergency declared by the Governor no longer exists or the Director of the [facility] rescinds or modifies this Order.. This [facility] order stated all non-essential or elective surgeries and procedures that utilize PPE should be delayed unless there is undue risk to the current or future health of a patient. After reviewing the aforementioned [facility] Public Order and the patients clinical case, I have determined that the scheduled procedure meets the criteria to go forward. Risk to Patient if Procedure Delayed: Risk of metastasis or progression of staging
--- NOTE | 2019-12-11 10:33 | DCINST_ITS ---
Discharge Diet: Light diet - advance as tolerated Discharge Activity: Return to Normal Activity, May not drive while taking narcotic pain medications., May Shower Call your doctor if your incision/area has: Continuous Slow Oozing, Sudden Increased Bleeding, Increased Pain/ Swelling, Increased Redness, Foul Smelling Discharge, Swelling at the incision site Call your doctor if you observe: Inability to urinate, Uncontrolled pain Suture Line Care: Avoid Pulling/Pushing, Avoid Pinching/Bending Instructions: Transurethral Resection of the Prostate (TURP): Home Recovery Allergies/Adverse Reactions: Allergies No Known Allergies Allergy (Verified 10/20/19 14:10) Medications to take at Discharge albuterol sulfate 90 mcg/actuation aerosol inhaler 1 puff INHALATION Q6H PRN PRN 33 Days #8 04/06/18 aspirin 81 mg tablet,delayed release 81 mg PO QDAY 04/06/18 insulin lispro 100 unit/mL subcutaneous pen See Protocol SC ACHS ml 04/06/18 pregabalin 75 mg capsule 150 mg PO BID 90 Days #180 cap 04/06/18 dulaglutide 1.5 mg/0.5 mL subcutaneous pen injector 1.5 mg SC QWEEK 10/08/18 insulin glargine 100 unit/mL (3 mL) subcutaneous pen 20 unit SC BID 98 Days #45.08 ml 10/08/18 Amlodipine Besylate 10 mg PO QDAY 11/04/19 Atorvastatin Calcium 40 mg PO QDAY 11/04/19 Fenofibrate Nanocrystallized [Tricor] 145 mg PO QDAY 11/04/19 Hydrochlorothiazide [Hctz] 25 mg PO QDAY 11/04/19 Dutasteride [Avodart] 0.5 mg PO DAILY 11/21/19 Primary Care Physician: Raffaeel Elizondo III, MD [Primary Care Provider] - Test Results: Test results from this visit will be discussed in further detail at your follow- up appointment, if applicable. Please Follow Up With: Jose Cruz Anderson MD When: in 2 weeks, please call to make an appointment. Proposed Discharge Date: 12/12/19
--- NOTE | 2019-12-11 10:36 | PCM.OPRPT ---
Problem List (1) Elevated PSA, greater than or equal to 20 ng/ml Status: Acute (2) Urinary retention Status: Acute (3) Urinary retention due to benign prostatic hyperplasia Status: Acute Report of Operation Date of Procedure: 12/11/19 Pre-Operative Diagnosis: Elevated PSA, BPH with obstruction and urinary retention Post-Operative Diagnosis: The same Surgery/Procedure Performed:: Cystoscopy, transurethral resection of the prostate, transrectal prostate biopsy Description of Surgical Findings:: 69-year-old male was found to have an elevated PSA and firm nodule on his prostate exam he has been retention of urine is failed medical therapy he does have a history of a stroke but is recovering fairly well he is failed medical therapy with Flomax and Avodart at this point we can proceed with a transurethral resection hopefully restore normal voiding and avoid a long-term catheter. Also the other concern is a very firm nodule in his prostate elevated PSA and bone scan was questionable positive. to proceed because of the likelihood of prostate cancer Patient was taken back to the operating room after smooth induction of general anesthesia he was placed supine on the table and control his pressure points were padded, he was placed in dorsolithotomy position, the penis and testicles were prepped and draped in usual sterile fashion, we removed the existing catheter. I first went into the urethra with a 21 [place] rigid cystourethroscope, the entire length the urethra was normal no scar tissues strictures or abnormalities along the course of the urethra. The sphincter was intact, past the verumontanum there was high riding bladder neck and bilateral hypertrophy which was mild in nature. Went into the bladder and identified the trigone in the left and right ureteral orifice there is no tumors within the trigone there was some inflammation of the back of the bladder wall the bladder was heavily trabeculated and stretched out. I then removed the cystoscope and placed a 24 [place] noncontinuous flow resectoscope into the bladder I then started resecting the prostate we started at the 6:[address] to the 12:00 and then working her way back to the verumontanum. I have resected a nice wide open channel and then Ellik out all the chips. Then we cauterized inside of the prostate completely and then placed a 22 [place] catheter into the bladder on continuous bladder irrigation. At the end of the case the urine was clear both the left and right ureteral orifice were uninjured during the procedure and were identified at the end of resection. We then put the bladder and continuous irrigation the urine was a pale peach color we then did a biopsy of the prostate double gloved and placed a guide through the finger and then a finger guided biopsy of the prostate could palpate the firm nodule in the prostate and the 3 biopsy of the prostate in 3 separate locations of the prostate. After the biopsies were done then the tumor chips were sent off for the prostate and also the biopsies were sent off patient anesthetic is reversed and was taken back to PACU in good condition he will spend the night in the hospital. Type of Anesthesia:: General Drains: andersen - Admit VTE Documentation VTE Present on Admission: No
[2019-12-11 11:00] LABS: Bedside Glucose 106 mg/dL (70-110)
--- NOTE | 2019-12-11 13:29 | NURSING ---
received report from Rehab nurse who has pt before surgery.
[2019-12-11] MEDS: 0.9% Normal Saline 1,000 ML 75 ML IV (13:42)
--- NOTE | 2019-12-11 13:59 | PCM.PN.HOSP ---
Patient Problems: Active and Suspected Problems (Last Reviewed 12/11/19 @ 09:[address] Jose Cruz Anderson MD) Elevated PSA, greater than or equal to 20 ng/ml (Acute) Urinary retention (Acute) Urinary retention due to benign prostatic hyperplasia (Acute) Reason for Visit: BPH s/p TURP POD#0 Subjective: Hospital medicine was consulted for medical management s/p TURP performed for BPH with elevated PSA and urinary retention. This is a 69 year old male with an extensive pmhx including CAD with prior CABG, CVA with chronic right sided weakness, some aphasia and dysphagia ( on mechanical soft / honey thickened liquids), PAD, carotid stenosis, AAA, COPD, HTN, HLD who was taken for TURP today with Dr. Anderson. Pt was released from the Acute Rehab Unit yesterday where he was being treated for complications of his CVA listed above. The patient is doing well post op with no acute complaints. He denies abdominal pain, urethral pain, rectal pain. Denies fever/chills. Denies nausea vomiting or LH. He denies cough/SOB. He is resting comfortably alert in bed NAD in semi massey position. Vitals/I&O's: Vital Signs Temp Pulse Resp BP Pulse Ox 97.8 F 63 18 179/78 H 96 12/11/19 12:35 12/11/19 12:35 12/11/19 12:35 12/11/19 12:35 12/11/19 12:35 Oxygen Flow Rate (L/min) 3 Oxygen Delivery Method Room Air Weight: 258 lb 6.4 oz Body Mass Index (BMI) 39.2 Finger Stick Blood Glucose 106 Intake and Output for Last 24 Hours 12/09/19 12/10/19 12/11/19 23:59 23:59 23:59 Intake Total 656.67 / 656.67 Output Total 5200 / 5200 Balance -4543.33 / -4543.33 General: Alert, Oriented x3, Cooperative HEENT: Atraumatic, PERRLA, EOMI, Normocephalic Neck: Supple, No JVD, Negative Carotid Bruits Lungs: Clear to auscultation, Normal air movement Cardiovascular: Regular rate, No murmurs Abdomen: Bowel Sounds Present, Soft, Non Tender Extremities: No edema, Capillary Refill Less than 3 Seconds Skin: No rashes, No breakdown Musculoskeletal: No Tenderness to Palpation of Joints or Extremities, - - right arm in sling with minimal ability to move Neurological: Cranial nerves II-XII grossly intact Psych/Mental Status: Normal Affect, Appropriate, Alert and oriented to time, place, person, mood and affect Laboratory Results 12/11/19 08:07: POC Glucose 135 H 12/11/19 10:55: POC Glucose 106 Current Medications Acetaminophen (Tylenol) 325 mg PO Q4H PRN PRN PRN Reason: Pain Score 1-10/10 Hydrocodone Bitart/Acetaminophen ([place] 5mg-325mg) 1 - 2 tablet PO Q6H PRN PRN PRN Reason: Pain Score 1-5/10 Al Hydroxide/Mg Hydroxide (Mylanta Ii) 30 ml PO Q4H PRN PRN PRN Reason: Heartburn Albuterol Sulfate (Ventolin Aerosols) 2.5 mg INHALATION Q4H PRN PRN Reason: wheezing Amlodipine Besylate (Norvasc) 10 mg PO DAILY [facility] Atorvastatin Calcium (Lipitor) 40 mg PO QHS [facility] Docusate Sodium (Colace) 100 mg PO BID [facility] Finasteride (Proscar) 5 mg PO DAILY [facility] Hydrochlorothiazide (Hctz) 25 mg PO DAILY [facility] Sodium Chloride () 1,000 mls @ 75 mls/hr IV .[id number] [facility] Last Admin: 12/11/19 13:42 Dose: 75 mls/hr Documented by: Ciprofloxacin (Cipro) 400 mg in 200 mls @ 200 mls/hr IV Q12 [facility] Stop: 12/12/19 10:59 Sodium Chloride () 250 mls @ 15 mls/hr IV .[id number] PRN PRN Reason: Saline Flush Sodium Chloride () 250 mls @ 15 mls/hr IV .[id number] PRN PRN Reason: Additional IVPB Infusion Ibuprofen (Motrin) 600 mg PO Q6H PRN PRN PRN Reason: Pain Score 1-10/10 Insulin Glargine (Lantus (Bkc)) 20 units SC BID [facility] Ondansetron HCl (Zofran) 4 mg IV Q6H PRN PRN PRN Reason: Nausea Oxycodone HCl (Oxyir) 5 mg PO Q4H PRN PRN PRN Reason: Pain Score 1-10/10 Pantoprazole Sodium (Protonix) 40 mg PO DAILY [facility] Pregabalin (Lyrica) 150 mg PO BID [facility] Sodium Chloride () 10 - 40 ml IV UD PRN PRN Reason: SALINE FLUSH STROKE Vital Signs/Narrative: Vital Signs Temp Pulse Resp BP Pulse Ox 12/11/19 12:35 97.8 F 63 18 179/78 H 96 12/11/19 11:45 97.4 F L 65 16 172/74 H 93 12/11/19 11:30 64 16 170/69 H 92 12/11/19 11:15 66 16 163/71 H 94 12/11/19 11:00 64 16 161/69 H 100 12/11/19 10:53 97.3 F L 64 16 161/71 H 100 Medical Necessity - Tobacco Use Smoking Status: Former smoker - He quit smoking in 2008 Tobacco Use: Non-smoker Assessment/Plan All Active Problems (Last Reviewed 12/11/19 @ 09:[address] Jose Cruz Anderson MD) Dysphagia (Acute) Morbid obesity (Acute) Former cigarette smoker (Acute) History of AAA (abdominal aortic aneurysm) repair (Acute) Abnormal LFTs (Acute) Depression due to acute stroke (Acute) Preop cardiovascular exam (Acute) Elevated PSA, greater than or equal to 20 ng/ml (Acute) Urinary retention (Acute) Urinary retention due to benign prostatic hyperplasia (Acute) 1. BPH, elevated PSA, urinary retention s/p TURP POD#0 - CBI in place. Recent + urine cultures (12/09/19) with E coli pt on Cipro per urology: Dr. Anderson. E coli has no resistance noted. Pt doing well with no complaints post op. AM CBC/BMP. Received koby op cefazolin. 2. Recent CVA - MCA. discharged from rehab yesterday. Ongoing chronic right sided deficits with aphasia and dysphagia. PT/OT/ST ordered. continue mechanical soft / honey thickened liquid diet and Speech therapy. Asa (held)/statin. Also hx carotid stenosis. 3. Debility 2/2 #2 - PTOT. 4. CAD with prior CABG -asa (held)/statin, coreg 5. COPD - no exacerbation - prn aerosols, budesonide, Incentive spirometer 7. T2DM with morbid obesity - continue insulin regimen + SSI. 8. HTN - resume home meds, prn hydralazine 9. Depression - continue home meds. 10. HLD - tricor/statin DVT ppx: SCDs Thank you for the opportunity to participate in the care of this patient. This patient was seen by Bert Gould PA-C under the supervision of Doctor Franklyn.
--- NOTE | 2019-12-11 14:40 | CASEMGMT ---
Addendum entered by Jonelle Forte 12/11/19 15:09: Transfer to [facility] form placed on pt's chart. Addendum entered by Jonelle Forte 12/11/19 14:51: Karmen states she will look for PT/OT and then submit pre-cert as soon as PT/OT is available. Original Note: Social Work Note TALI updated that pt came from [facility] and the plan is for pt to go to TCU pending pre-cert. If pt is denied TCU, then the plan is for pt to admit to [facility] under medicaid. TALI placed a call to Karmen in TCU. Karmen confirms that she has a bed available for pt and is able to accept pt pending pre-cert. Karmen states pt's insurance is relatively fast so she is hopeful she will hear tomorrow. TALI placed a call to PT/OT, requests that pt be seen today so pre-cert can be submitted today. PT/OT states they will attempt to see pt today. Plan: TCU pending pre-cert. Jonelle Forte BAIL ATTACHER, COMMUNITY LIVING SPECIALIST
--- NOTE | 2019-12-11 16:03 | NURSING ---
[employer] DIL given update
[2019-12-11 16:46] LABS: Bedside Glucose 104 mg/dL (70-110)
[2019-12-11] MEDS: Insulin Lispro 100 UNIT/ML INSULN.PEN 15 UNIT SC (16:56)
[2019-12-11] MEDS: amLODIPine 2.5 MG Tablet PO (19:23)
[2019-12-11] MEDS: Albuterol 2.5 MG/3 ML VIAL.NEB. INHALATION (19:38)
[2019-12-11] MEDS: Budesonide Respules 0.5 MG/2 ML AMPUL.NEB. INHALATION (19:38)
[2019-12-11] MEDS: Ciprofloxacin 400 MG/200 ML BAG 200 MG IV (21:47)
[2019-12-11] MEDS: Carvedilol 12.5 MG Tablet PO (21:47)
[2019-12-11] MEDS: Pregabalin 75 MG Capsule 150 MG PO (21:48)
[2019-12-11] MEDS: traZODone 50 MG Tablet PO (21:48)
[2019-12-11] MEDS: Atorvastatin Calcium 40 MG Tablet PO (21:48)
[2019-12-11] MEDS: Senna/Docusate Sodium 1 Tablet 2 TABLET PO (21:48)
--- NOTE | 2019-12-11 22:47 | NURSING ---
Oxygen applied at 2L nasal cannula for hs per order.
[2019-12-12] VITALS (7 sets, daily range): BP systolic 117–140; BP diastolic 50–103; PULSE 56–79; RESP 16–20; TEMP 36.6–37; O2SAT 91–98
[2019-12-12 00:06] LABS: Bedside Glucose 121 mg/dL (70-110)
[2019-12-12] MEDS: 0.9% Normal Saline 1,000 ML 75 ML IV (04:03)
--- NOTE | 2019-12-12 04:29 | NURSING ---
Checked pt's blood sugar as precautionary measure. It was 109. Pt refuses oral care or liquids at this time.
[2019-12-12 04:36] LABS: Bedside Glucose 109 mg/dL (70-110)
--- NOTE | 2019-12-12 06:06 | NURSING ---
CBI stopped per order. Oxygen removed at this time as well. Pt using I.S.
[2019-12-12 06:45] LABS: Hematocrit 30.8 % (40-54); Hemoglobin 9.7 g/dL (13.0-16.5); Mean Corp Hgb Conc 31.5 g/dL (32-36); Mean Corpuscular Hgb 26.1 pg (27.0-32.0); Mean Corpuscular Volume 82.8 fL (80-94); Platelet Count 261 K/mm3 (150-450); RBC Distribution Width CV 15.7 % (11.6-14.6); RBC Distribution Width SD 47.9 fl (35.1-43.9); Red Blood Count 3.72 M/mm3 (4.6-6.2); White Blood Count 7.1 K/mm3 (4.4-11.0)
--- NOTE | 2019-12-12 06:58 | PCM.PN.HOSP ---
Patient Problems: Active and Suspected Problems (Last Reviewed 12/11/19 @ 09:[address] Jose Cruz Anderson MD) Elevated PSA, greater than or equal to 20 ng/ml (Acute) Urinary retention (Acute) Urinary retention due to benign prostatic hyperplasia (Acute) Subjective: Patient with no acute events overnight per self and per nursing report. Patient denies any pain. Patient with continued irrigation discontinuation with appropriate looking output. Patient remains amenable to transition to TCU once clinically appropriate. Patient denies fevers, chills, nausea, emesis, abdominal pain, chest pain or dyspnea. Objective: Physical Examination: General: awake, alert, oriented x 3 and cooperative, seated upright in the bedside chair, NAD. Skin: normal color, turgor, no icterus, cyanosis. HEENT: AT/NC, EOMI, PERRLA, improved MMM. Lungs: Diminished breath sounds bilaterally, greater bilateral bases, no rales, ronchi or wheezing. Heart: Regular rate and rhythm; no gallop, rub audible. Abdomen: soft, morbidly obese, NTTP, ND, normal BS. Extremities: no cyanosis, clubbing, right upper extremity in sleeve and sling. Neurological: patient awake, alert, oriented x 3; cognitive function baseline intact; pupils equally reactive to light and accomodation; cranial nerves II-XII grossly normal, status post CVA with MCA distribution, right-sided hemiplegia, ongoing mild aphasia. Psychiatric: affect appears normal, no acute evidence of depressive or anxiety feelings. Vitals/I&O's: Vital Signs Temp Pulse Resp BP Pulse Ox 98.4 F 59 L 20 H 117/103 H 98 12/12/19 04:08 12/12/19 06:40 12/12/19 04:08 12/12/19 06:40 12/12/19 04:09 Oxygen Flow Rate (L/min) 2 Oxygen Delivery Method Nasal Cannula Weight: 258 lb 6.4 oz Body Mass Index (BMI) 39.2 Finger Stick Blood Glucose 106 Orthostatic Vital Signs Start: 12/12/19 06:40 Freq: q24h Status: Active Protocol: Activity Type Activity Date Activity User E-Sign Co-Sign Detail Recorded Client Recorded Date Recorded By Document 12/12/19 06:40 DC [id number] 12/12/19 06:56 DC 12/12/19 06:40 Orthostatic Vitals Standing -Blood Pressure (90/60-120/80) 129/60 H -Extremity Use Left Arm -Pulse Rate (60-100) 79 Sitting -Blood Pressure (90/60-120/80) 135/74 H -Extremity Use Left Arm -Pulse Rate (60-100) 63 Lying -Blood Pressure (90/60-120/80) 117/103 H -Extremity Use Left Arm -Pulse Rate (60-100) 59 L Intake and Output for Last 24 Hours 12/10/19 12/11/19 12/12/19 23:59 23:59 23:59 Intake Total 1726.67 / 1726.67 380 / 380 Output Total 7550 / 7550 1450 / 1450 Balance -5823.33 / -5823.33 -1070 / -1070 Laboratory Results 12/11/19 08:07: POC Glucose 135 H 12/11/19 10:55: POC Glucose 106 12/11/19 16:31: POC Glucose 104 12/11/19 21:29: POC Glucose 121 H 12/12/19 04:25: POC Glucose 109 12/12/19 06:13: WBC 7.1, RBC 3.72 L, Hgb 9.7 L, Hct 30.8 L, MCV 82.8, MCH 26.1 L, MCHC 31.5 L, RDW Std Deviation 47.9 H, RDW Coeff of Sherlyn 15.7 H, Plt Count 261, MPV 10.0 12/12/19 06:13: Sodium Pending, Potassium Pending, Chloride Pending, Carbon Dioxide Pending, Anion Gap Pending, BUN Pending, Creatinine Pending, Est GFR (MDRD) Af Amer Pending, Est GFR (MDRD) Non-Af Pending, BUN/Creatinine Ratio Pending, Glucose Pending, Calcium Pending Current Medications Acetaminophen (Tylenol) 325 mg PO Q4H PRN PRN PRN Reason: Pain Score 1-10/10 Hydrocodone Bitart/Acetaminophen (Robson 5mg-325mg) 1 - 2 tablet PO Q6H PRN PRN PRN Reason: Pain Score 1-5/10 Al Hydroxide/Mg Hydroxide (Mylanta Ii) 30 ml PO Q4H PRN PRN PRN Reason: Heartburn Albuterol Sulfate (Ventolin Aerosols) 2.5 mg INHALATION Q4H PRN PRN Reason: wheezing Albuterol Sulfate (Ventolin Aerosols) 2.5 mg INHALATION Q6HWA.RT [facility] Last Admin: 12/12/19 01:15 Dose: Not Given Documented by: Amlodipine Besylate (Norvasc) 5 mg PO DAILY [facility] Atorvastatin Calcium (Lipitor) 40 mg PO QHS [facility] Last Admin: 12/11/19 21:48 Dose: 40 mg Documented by: Budesonide (Pulmicort Aerosol) 0.5 mg INHALATION Q12H.RT [facility] Last Admin: 12/11/19 19:38 Dose: 0.5 mg Documented by: Carvedilol (Coreg) 12.5 mg PO BID [facility] Last Admin: 12/11/19 21:47 Dose: 12.5 mg Documented by: Dextrose (D50w Syringe) 0 gm IV X1 PRN; Protocol PRN Reason: Hypoglycemia Fenofibrate (Tricor) 145 mg PO DAILYCM [facility] Finasteride (Proscar) 5 mg PO DAILY [facility] Fluoxetine HCl (Prozac) 20 mg PO DAILY [facility] Glucagon () 1 mg IM .X1 PRN PRN Reason: Hypoglycemia Sodium Chloride () 1,000 mls @ 75 mls/hr IV .[id number] [facility] Last Admin: 12/12/19 04:03 Dose: 75 mls/hr Documented by: Ciprofloxacin (Cipro) 400 mg in 200 mls @ 200 mls/hr IV Q12 [facility] Stop: 12/12/19 10:59 Last Infusion: 12/11/19 22:47 Dose: Infused Documented by: Sodium Chloride () 250 mls @ 15 mls/hr IV .[id number] PRN PRN Reason: Saline Flush Sodium Chloride () 250 mls @ 15 mls/hr IV .[id number] PRN PRN Reason: Additional IVPB Infusion Insulin Glargine (Lantus (Bkc)) 12 units SC QHS [facility] Last Admin: 12/11/19 21:49 Dose: 12 units Documented by: Insulin Glargine (Lantus (Bkc)) 24 units SC BREAKFAST [facility] Insulin Human Lispro (Humalog Kwikpen (Bkc)) 0 unit SC ACHS [facility]; Protocol Last Admin: 12/11/19 21:30 Dose: Not Given Documented by: Insulin Human Lispro (Humalog Kwikpen (Bkc)) 3 unit SC LUNCH [facility] Insulin Human Lispro (Humalog Kwikpen (Bkc)) 12 unit SC BREAKFAST [facility] Insulin Human Lispro (Humalog Kwikpen (Bkc)) 15 unit SC DINNER [facility] Last Admin: 12/11/19 16:56 Dose: 15 u Documented by: Ondansetron HCl (Zofran) 4 mg IV Q6H PRN PRN PRN Reason: Nausea Oxycodone HCl (Oxyir) 5 mg PO Q4H PRN PRN PRN Reason: Pain Score 1-10/10 Pantoprazole Sodium (Protonix) 40 mg PO DAILY [facility] Pregabalin (Lyrica) 150 mg PO BID [facility] Last Admin: 12/11/19 21:48 Dose: 150 mg Documented by: Senna/Docusate Sodium (Senokot-S, Yessenia-Colace) 2 tablet PO BID [facility] Last Admin: 12/11/19 21:48 Dose: 2 tablet Documented by: Sodium Chloride () 10 - 40 ml IV UD PRN PRN Reason: SALINE FLUSH Trazodone HCl (Desyrel) 50 mg PO QHS [facility] Last Admin: 12/11/19 21:48 Dose: 50 mg Documented by: STROKE Vital Signs/Narrative: Vital Signs Temp Pulse Pulse Pulse Pulse Resp BP 12/12/19 06:40 59 L 63 79 12/12/19 04:09 12/12/19 04:08 98.4 F 59 L 20 H 138/54 H BP BP BP Pulse Ox 12/12/19 06:40 117/103 H 135/74 H 129/60 H 12/12/19 04:09 98 12/12/19 04:08 98 Medical Necessity - Tobacco Use Smoking Status: Former smoker - He quit smoking in 2008 Tobacco Use: Non-smoker Assessment/Plan All Active Problems (Last Reviewed 12/11/19 @ 09:[address] Jose Cruz Anderson MD) Dysphagia (Acute) Morbid obesity (Acute) Former cigarette smoker (Acute) History of AAA (abdominal aortic aneurysm) repair (Acute) Abnormal LFTs (Acute) Depression due to acute stroke (Acute) Preop cardiovascular exam (Acute) Elevated PSA, greater than or equal to 20 ng/ml (Acute) Urinary retention (Acute) Urinary retention due to benign prostatic hyperplasia (Acute) The patient is a 69 y/o M w/ PMHx: Chronic anemia, CKD stage III, Hx AAA, PAD, CAD s/p CABG, HTN, HLD, Hx CVA with R sided hemiplegia, chronic aphasia and dysphagia on altered diet, Carotid disease with R stenosis who presents to the [facility] on 12/11/19 w/ history of ongoing issues with urinary retention with inability to remove Pimentel with urology evaluation and acute rehab with concerns for BPH w/ CT A/P with nonspecific prominence of the prostate and follow-up evaluation concerning for elevated PSA and bone scan with concern for metastatic lesion involving the L5 vertebral body and left pedicle 1. Urinary Retention w/ BPH and suspected Prostate CA w/ Metastatic disease L5: Recent CT abdomen pelvis on 12/05/2019 while in acute rehab with atherosclerotic changes of the aorta with a distal abdominal aortic aneurysm status post stenting, nonspecific prominence of the prostate consistent with neoplasm, subtle sclerotic changes within the L3-4 and 5 vertebral bodies in addition to elevated PSA: Admitted to medical surgical floor per urology, s/p TURP, recent urine cultures with E. coli on 12/09/2019, maintained on ciprofloxacin per urology discretion, initial ongoing irrigation now d/c, trending labs, DVT prophylaxis, pain regimen, bowel regimen per discretion of admitting physician, urology. Maintained on Proscar regimen. 2. Recent MCA distribution stroke with right-sided hemiplegia, aphasia, dysphasia: Restart ASA, continue statin, BP regimen, altered diet with mechanical soft and honey thickened liquids, continue PT, OT, speech therapy. Once clinically appropriate would plan transition per urology discretion to TCU. 3. Chronic Kidney Disease Stage III: 12/12/19 BUN/Cr 30/1.58, baseline renal function 1.5-1.8, repeat BMP in AM. 4. Chronic anemia: Admission hemoglobin 10.3, repeat 9.7, stable, continue to trend given recent intervention. 5. CAD: Status post CABG, restart aspirin, continue Coreg and statin therapy. 6. Chronic COPD: Will continue ATC budesonide, PRN albuterol, HOB, IS parameters. 7. Diabetes mellitus type II: Hold oral home regimen, continue home insulin regimen, ADA diet, accu checks w/ ISS. 8. Anxiety and depression: We will continue patient home Prozac regimen. 9. Hyperlipidemia: We will maintain on TriCor and statin regimen. 10. History AAA: Status post repair, recent CT abdomen and pelvis w/ noted atherosclerotic changes of the aorta with a distal abdominal aortic aneurysm status post stenting, restart aspirin therapy, continue BP, statin, diabetic regimens. 11. Carotid disease: History of right carotid stenosis, continue BP, statin, diabetic regimen, restart aspirin therapy. 12. GERD: Maintain on pantoprazole. 13. DVT prophylaxis: SCDs, lovenox restart 12/13/19. Inpatient E&M: 91053 Subs Hosp L2
[2019-12-12 07:11] LABS: Anion Gap 4 (5-15); BUN 30 mg/dL (7-18); Calcium,Total 8.8 mg/dL (8.5-10.1); Chloride 103 mmol/L (98-107); Creatinine, Serum 1.58 mg/dL (0.70-1.30); EST Glomerular Filtration Rate 47 mL/min (>60); Est Glom Filt Rate - Afr Amer 56 mL/min (>60); Estimated Creatinine Clearance 43.29 ml/min; Glucose 106 mg/dL (74-106); Potassium 4.2 mmol/L (3.5-5.1); Sodium Level 138 mmol/L (136-145)
[2019-12-12] MEDS: Budesonide Respules 0.5 MG/2 ML AMPUL.NEB. INHALATION (07:46)
[2019-12-12] MEDS: Albuterol 2.5 MG/3 ML VIAL.NEB. INHALATION ×2 (07:46→13:13)
[2019-12-12] MEDS: Insulin Lispro 100 UNIT/ML INSULN.PEN 12 UNIT SC (08:08)
[2019-12-12] MEDS: Fenofibrate 145 MG Tablet PO (08:09)
--- NOTE | 2019-12-12 08:32 | PCM.PN.BLA ---
Progress Note 69 yo male s/p TURP d/c andersen today for voiding trial. okay with low dose aspirin. STROKE Vital Signs/Narrative: Vital Signs Temp Pulse Pulse Pulse Pulse Resp BP 12/12/19 07:57 97.8 F 59 L 18 134/64 H 12/12/19 07:46 57 L 16 12/12/19 06:40 59 L 63 79 BP BP BP Pulse Ox 12/12/19 07:57 95 12/12/19 07:46 91 12/12/19 06:40 117/103 H 135/74 H 129/60 H
--- NOTE | 2019-12-12 10:17 | CASEMGMT ---
RN CM Note: call to TALI Silverman to update pt may be able to dc later today. Recommend start precert for TCU. Nursing updated that precert will be needed pror to dc. Felicia FRANKN RN ACM
[2019-12-12] MEDS: Finasteride 5 MG Tablet PO (10:29)
[2019-12-12] MEDS: Aspirin E.C. 81 MG Tablet PO (10:29)
[2019-12-12] MEDS: Senna/Docusate Sodium 1 Tablet 2 TABLET PO (10:29)
[2019-12-12] MEDS: FLUoxetine 20 MG Capsule PO (10:29)
[2019-12-12] MEDS: Pantoprazole Sodium 40 MG Tablet PO (10:31)
[2019-12-12] MEDS: Carvedilol 12.5 MG Tablet PO (10:31)
[2019-12-12] MEDS: Ciprofloxacin 400 MG/200 ML BAG 200 MG IV (10:31)
[2019-12-12] MEDS: Pregabalin 75 MG Capsule 150 MG PO (10:38)
[2019-12-12] MEDS: amLODIPine 5 MG Tablet PO (10:38)
[2019-12-12] MEDS: Insulin Lispro 100 UNIT/ML INSULN.PEN SC ×2 (11:39)
--- NOTE | 2019-12-12 11:43 | CASEMGMT ---
Addendum entered by Deirdre Ohara 12/12/19 12:34: Social Work SW spoke with pt daughter in Law Halima and updated that precert has been started with TCU and will notify when decision is made. If pt denied and needs SNF under pending Medicaid, dgt in law would prefer 1. [facility] and 2. [facility]. TOBY Gerber Original Note: Social Work SW spoke with Karmen in TCU and precert was started with insurance. Will await preauth. TOBY Gerber
[2019-12-12 11:46] LABS: Bedside Glucose 172 mg/dL (70-110)
--- NOTE | 2019-12-12 13:17 | CASEMGMT ---
Social Work Call from Karmen in TCU and insurance has given authorization for pt admission. TALI called pt daughter in law and informed that insurance has been approved and d/c likely today. TALI met with pt and informed and he is agreeable to transfer to TCU. RN updated and plans to notify physician. Plan: TCU, when medically ready TOBY Gerber
[2019-12-12 13:46] LABS: Bedside Glucose 132 mg/dL (70-110)
--- NOTE | 2019-12-12 16:18 | PCM.TXEXTCAR ---
- Diet 12/11/19 14:41 Diet: Regular Diet Food consistency:: Mechanical Soft/Ground Liquid Consistency:: Honey Thick Type of Dietary Supplement:: 2000 calorie Is pt able to select menu?: No - Routine Orders/Code Status Enema Type: Fleetz Enema Frequency: Daily PRN Suppository Type: Dulcolax 10mg Suppository Frequency: Daily PRN Keep PO Greater than or Equal to (%): 92 Routine Lab Work: - - CBC, BMP within 1 week. Code Status: Full Code - Wound(s) PENIS Wound Type: Surgical Incision - Suggestions for Active Care Change Position every (hours): 2 Hours to sit in a chair: 6 Times a day to sit in chair: 3 - Therapies Weight Bearing: Full weight bearing Physical Therapy: Eval and Treat Occupational Therapy: Eval and Treat Speech Therapy: Eval and Treat - Allergies/Procedures Done in Hospital Allergies/Adverse Reactions: Allergies No Known Allergies Allergy (Verified 10/20/19 14:10) Procedures: - - 12/11/19 Cystoscopy, transurethral resection of the prostate, transrectal prostate biopsy. - Type of Care/Length of Stay Estimated LOS: Convalescent Care Less Than 30 days Type of Care Needed: Skilled Rehab Potential: Good Prognosis: Good - Additional Orders/Day of Discharge Additional Orders: (1) HOB. (2) Aspiration and fall precautions. (3) Encourage IS 10x/hr 7a-7p. (4) If any concerns for urinary retention immediately contact Dr. Anderson. (5) Monitor for urinary clots, expected given recent OR but if retention need to be concerned for retention secondary to clots. (6) Maintain follow-up with Dr. Anderson 2 weeks. H&P will serve as current which was dated: 12/11/19 Day of Discharge: 12/12/19 - Dietary and Speech Recommendations Speech Linguistic Eval Summary: Pt is a 69/M with pmhx of CAD with prior CABG, CVA with chronic right sided weakness, aphasia and dysphagia, PAD, carotid stenosis, AAA, COPD, HTN, and HLD. Pt was released from the inpatient rehab unit 12/10/2019 and had T[address]P with Dr. Anderson 12/11/2019. Pt planning to go to [facility] TCU if appropriate and when medically ready. ST order received. Pt presents with aphasia and apraxia of speech. Pt able to verbally provide name and . Pt required cues to provide name of city and location. Pt provided number for 911 in case of emergency and also how to call for assistance in room. Confrontation naming 80% accuracy with objects in room. Pt able to name and identify pictures on basic communication board. Pt able to provide names of objects within categories with 70%. Will recommend continued ST treatment for aphasia and apraxia. - Follow Up Care Primary Care Physician: Raffaele Elizondo III, MD [Primary Care Provider] - Please follow up with your Primary Care Physician in: Follow-up in 3-5 days to review admission and within 1-2 days of SNF d/c. Please Follow Up With: Jose Cruz Anderson MD When: in 2 weeks, please call to make an appointment.
--- NOTE | 2019-12-12 16:19 | NURSING ---
report given to harriet URIBE in [place].
[2019-12-12] MEDS: Insulin Lispro 100 UNIT/ML INSULN.PEN 15 UNIT SC (16:28)
[2019-12-12 16:40] LABS: Bedside Glucose 105 mg/dL (70-110)
== END 2019-12-12 18:00 ==
LOC: SDC 10:40 → MS3 10:40
PROVIDERS: Admitting Provider Urology; PCP Family Medicine; Referring Provider Urology; Visit Provider Urology
PROC: (CPT 52601; principal; 2019-12-11 09:20)
DX: N40.1 Benign prostatic hyperplasia with lower urinary tract symptoms (principal); N13.8 Other obstructive and reflux uropathy; R33.8 Other retention of urine; C79.51 Secondary malignant neoplasm of bone; G89.29 Other chronic pain; E11.51 Type 2 diabetes mellitus with diabetic peripheral angiopathy without gangrene; E11.22 Type 2 diabetes mellitus with diabetic chronic kidney disease; N41.0 Acute prostatitis; N41.1 Chronic prostatitis; J44.9 Chronic obstructive pulmonary disease, unspecified; N18.4 Chronic kidney disease, stage 4 (severe); I25.10 Atherosclerotic heart disease of native coronary artery without angina pectoris; E78.5 Hyperlipidemia, unspecified; I12.9 Hypertensive chronic kidney disease with stage 1 through stage 4 chronic kidney disease, or unspecified chronic kidney disease; F32.9 Major depressive disorder, single episode, unspecified; G47.33 Obstructive sleep apnea (adult) (pediatric); E66.01 Morbid (severe) obesity due to excess calories; I69.351 Hemiplegia and hemiparesis following cerebral infarction affecting right dominant side; F41.9 Anxiety disorder, unspecified; K21.9 Gastro-esophageal reflux disease without esophagitis; I69.320 Aphasia following cerebral infarction; Z79.899 Other long term (current) drug therapy; Z79.4 Long term (current) use of insulin; Z79.82 Long term (current) use of aspirin; Z95.1 Presence of aortocoronary bypass graft; Z87.891 Personal history of nicotine dependence; Z68.39 Body mass index [BMI] 39.0-39.9, adult
CPT/HCPCS: 52601; 55700; 36415; 80048; 82962; 85027; 88305; 92523; 92610; 94640; 96361; 96365; 96366; 97110; 97116; 97162; 97167; 97530; 99218; 99251; J7030; J7120; G0378; G0379; G0463; J0744; J2405

== ENCOUNTER 2019-12-12 18:27 | Inpatient (IN) | payer MEDICARE, SELFPAY ==
[2019-12-11 12:35] VITALS: BMI 39.2
[2019-12-12 18:30] VITALS: BP 145/59; PULSE 68; RESP 18; TEMP 36.1; O2SAT 94; BMI 36.7
[2019-12-12 19:43] VITALS: BMI 36.7
[2019-12-12 19:45] VITALS: PULSE 65; O2SAT 94
--- NOTE | 2019-12-12 20:50 | HP.PCM_ITS ---
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 (8) Body mass index (bmi) 36.0-36.9, adult Status: Chronic (9) Carotid artery stenosis Status: Chronic (10) Coronary artery disease Status: Chronic (11) Hypertension Status: Chronic (12) Diabetes mellitus Status: Chronic (13) BPH (benign prostatic hyperplasia) Status: Chronic (14) COPD (chronic obstructive pulmonary disease) Status: Chronic (15) Chronic back pain Status: Chronic (16) Obstructive sleep apnea Status: Chronic Comment: does not wear CPAP (17) Dysphagia Status: Chronic (18) Elevated PSA, greater than or equal to 20 ng/ml Status: Acute (19) Urinary retention Status: Acute (20) Hyperlipidemia Status: Chronic Qualifiers: History of Present Illness Date of Admission: 12/12/19 Chief Complaint: Here for rehabilitation, strengthening, prior to disposition determination. The patient is a 69 year old Male with below past medical history here with followin11/05/2019 Admit to Inpatient Rehabilitation Unit for stroke. Patient had urinary retention, PSA 20, Dr. Anderson recommended bone scan which showed L5 bony metastasis. 12/09/2019 Urine culture growing E. Coli, treated with Cipro. 12/11/2019 Admit to Hospital. 12/11/2019 Dr. Anderson performed cystoscopy, TURP, transrectal prostate biopsy. 12/12/2019 Admit to TCU with debility, here for rehabilitation, strengthening, prior to disposition determination. Past Medical History Past Medical History (Chronic Problems): Chronic Problems (Last Reviewed 12/11/19 @ 09:[address] Jose Cruz Anderson MD) PAD (peripheral artery disease) (Chronic) BPH (benign prostatic hyperplasia) (Chronic) COPD (chronic obstructive pulmonary disease) (Chronic) Chronic back pain (Chronic) Chronic renal failure, stage 3 (moderate) (Chronic) Obstructive sleep apnea (Chronic) does not wear CPAP Dysphagia (Chronic) Acute ischemic left MCA stroke (Chronic) 10/20/19 Cerebrovascular disease (Chronic) occluded left M1 Carotid stenosis, left (Chronic) near total occlusion Carotid stenosis, right (Chronic) moderate Grade II diastolic dysfunction (Chronic) Type 2 diabetes mellitus (Chronic) also with cardiovascular disease. cerebrovascular disease, PAD Left atrial enlargement (Chronic) mild - moderate Bony metastasis (Chronic) Right hemiplegia (Chronic) Expressive aphasia (Chronic) PAOD (peripheral arterial occlusive disease) (Chronic) Chronic kidney disease (Chronic) Left middle cerebral artery stroke (Chronic) Body mass index (bmi) 36.0-36.9, adult (Chronic) Carotid artery stenosis (Chronic) Coronary artery disease (Chronic) Hypertension (Chronic) Diabetes mellitus (Chronic) Atherosclerosis of coronary artery of [place] heart without angina pectoris (Chronic) CABG x 3 MASTERS to LAD, SVG to Dx, SVG to RCA 01/09/2009 H/O coronary artery bypass surgery (Chronic 01/09/09) CABG x 3 MASTERS to LAD, SVG to Dx, SVG to RCA 01/09/2009 Abdominal aortic aneurysm (AAA) (Chronic) History of endovascular stent graft for abdominal aortic aneurysm Essential (primary) hypertension (Chronic) Hyperlipidemia (Chronic) Medical History: Medical History (Last Reviewed 12/11/19 @ 09:[address] Jose Cruz Anderson MD) Atherosclerosis of coronary artery of [place] heart without angina pectoris (Chronic) I25.10 CABG x 3 MASTERS to LAD, SVG to Dx, SVG to RCA 01/09/2009 Abdominal aortic aneurysm (AAA) (Chronic) I71.4 History of endovascular stent graft for abdominal aortic aneurysm Essential (primary) hypertension (Chronic) I10 Hyperlipidemia (Chronic) E78.5 Diabetes mellitus E11.9 Allergies No Known Allergies Allergy (Verified 10/20/19 14:10) Home Medications: Ambulatory Orders Medication Instructions Recorded albuterol sulfate 90 mcg/actuation 2 puff INHALATION Q4H PRN PRN 33 04/06/18 aerosol inhaler Days #8 aspirin 81 mg tablet,delayed 81 mg PO QDAY 04/06/18 release pregabalin 75 mg capsule 150 mg PO BID 90 Days #180 cap 04/06/18 Atorvastatin Calcium 40 mg PO QDAY 11/04/19 Acetaminophen 1,000 mg PO Q8H PRN PRN 12/11/19 Carvedilol [Coreg (Beta Atilio)] 12.5 mg PO BID 12/11/19 Enoxaparin [Lovenox] 40 mg SUBCUT DAILY@0600 12/11/19 Famotidine 20 mg PO DAILY 12/11/19 Fenofibrate [Tricor] 145 mg PO DAILY 12/11/19 Finasteride [Proscar] 5 mg PO DAILY 12/11/19 Fluoxetine [Prozac] 20 mg PO DAILY 12/11/19 Fluticasone/Salmeterol 1 ea IH Q12H 12/11/19 [Fluticasone-Salmeterol 232-14] Insulin Glargine,Hum.rec.anlog 12 unit SQ QHS 12/11/19 [Lantus] Insulin Glargine,Hum.rec.anlog 24 unit SQ BREAKFAST 12/11/19 [Lantus] Insulin Lispro [Humalog KwikPen] 3 unit SQ LUNCH 12/11/19 Insulin Lispro [Humalog KwikPen] 12 unit SQ BREAKFAST 12/11/19 Insulin Lispro [Humalog KwikPen] 15 units SQ DINNER 12/11/19 Insulin Lispro [Humalog KwikPen] See Protocol SQ 12/11/19 Menthol/Lanolin/Calamine/Znox 1 applic TOPICAL BID 12/11/19 [Calmoseptine Ointment] Senna/Docusate Sodium [Senokot-S] 2 tab PO BID 12/11/19 Trazodone HCl 50 mg PO QHS 12/11/19 Amlodipine [Norvasc] 5 mg PO DAILY tab 12/12/19 Finasteride [Proscar] 5 mg PO DAILY tab 12/12/19 Surgical History: Surgical History (Last Reviewed 12/11/19 @ 09:[address] Jose Cruz Anderson MD) H/O coronary artery bypass surgery (Chronic) Onset Date: 01/09/09 Z95.1 CABG x 3 MASTERS to LAD, SVG to Dx, SVG to RCA 01/09/2009 History of coronary artery stent placement Z95.5 [id number] LAD w/ 3.5 x 15 mm Penta 10/2001 History of endovascular stent graft for abdominal aortic aneurysm (AAA) Onset Date: 2015 Z95.828 Surgical History: coronary bypass surgery - x 3., TURP, - - Abdominal aortic aneurysm repair, transrectal prostate biopsy. Psychiatric History: Depression - psot stroke Lives: Spouse/ Significant Other Smoking Status: Former smoker Tobacco Use: Cigarettes, Chew Alcohol: Occasional Drugs: None - *Family History Maternal Family History: Family History (Last Reviewed 11/05/19 @ 12:[address] Diamond Sosa DO) Father Myocardial infarction Hypertension Brother Diabetes History Items: No pertinent history Paternal Family History: Family History (Last Reviewed 11/05/19 @ 12:[address] Diamond Sosa DO) Father Myocardial infarction Hypertension Brother Diabetes History Items: No pertinent history Review of Systems Constitutional: Denies: Chills, Fever, Weight Change HEENT: Denies: Head Aches, Sinus Congestion, Sinus Drainage Cardiovascular: Denies: Chest Pain, Palpitations Respiratory: Denies: Cough, Shortness of breath at rest, Sputum production Gastrointestinal: Denies: Abdominal Pain, Nausea, Vomiting Genitourinary: Denies: Dysuria Musculoskeletal: Denies: Joint Pain, Joint Tenderness Skin: Denies: Rash, Wounds Neurological: Denies: Numbness, Tingling, Focal weakness Psychiatric: Denies: Anxiety, Depression, Homicidal Ideations, Suicidal Ideations Hematologic/ Lymphatic: Denies: Easy Bruising, Easy Bleeding VTE Information - Inpt Only VTE Present on Admission: No VTE Mechan Device Prophylaxis: Knee High JAMAL Hose VTE Pharm Prophylaxis ordered?: Yes Patient Problems: Active and Suspected Problems (Last Reviewed 12/11/19 @ 09:[address] Jose Cruz Anderson MD) Debility (Acute) - Physical Exam Vitals/I&O's: Vital Signs Temp Pulse Resp BP Pulse Ox 97.0 F L 65 18 145/59 H 94 12/12/19 18:30 12/12/19 19:45 12/12/19 18:30 12/12/19 18:30 12/12/19 19:45 Oxygen Delivery Method Room Air Weight: 109.633 kg Body Mass Index (BMI) 36.7 Finger Stick Blood Glucose 106 General: Alert, Oriented x3, Cooperative HEENT: Atraumatic, PERRLA, EOMI, Normocephalic Neck: Supple, No JVD, Negative Carotid Bruits Lungs: Clear to auscultation, Normal air movement Cardiovascular: Regular rate, No murmurs Abdomen: Bowel Sounds Present, Soft, Non Tender Extremities: No edema, Capillary Refill Less than 3 Seconds Skin: No rashes, No breakdown Musculoskeletal: No Tenderness to Palpation of Joints or Extremities Neurological: Cranial nerves II-XII grossly intact, - - Right hemiplegia. Psych/Mental Status: Normal Affect, Appropriate Current Medications Acetaminophen (Tylenol) 1,000 mg PO Q8H PRN PRN PRN Reason: Pain 1-05/30 or Fever Albuterol Sulfate (Ventolin Hfa (Sp)) 2 puff INHALATION Q4H PRN PRN PRN Reason: Wheezing Amlodipine Besylate (Norvasc) 5 mg PO DAILY [facility] Aspirin (Ecotrin) 81 mg PO DAILY@0800 [facility] Atorvastatin Calcium (Lipitor) 40 mg PO DAILY [facility] Calamine/Phenol (Calmoseptine Ointment) 1 applic TOPICAL BID [facility]; Protocol Carvedilol (Coreg) 12.5 mg PO BID [facility] Enoxaparin Sodium (Lovenox) 40 mg SC DAILY@0600 [facility] Famotidine (Pepcid) 20 mg PO DAILY [facility] Fenofibrate (Tricor) 145 mg PO DAILY [facility] Finasteride (Proscar) 5 mg PO DAILY [facility] Fluoxetine HCl (Prozac) 20 mg PO DAILY [facility] Insulin Glargine (Lantus (Bkc)) 12 units SC QHS [facility] Insulin Glargine (Lantus (Bkc)) 24 units SC BREAKFAST [facility] Insulin Human Lispro (Humalog Kwikpen (Bkc)) 0 unit SC ACHS [facility]; Protocol Insulin Human Lispro (Humalog Kwikpen (Bkc)) 3 unit SC LUNCH [facility] Insulin Human Lispro (Humalog Kwikpen (Bkc)) 12 unit SC BREAKFAST [facility] Insulin Human Lispro (Humalog Kwikpen (Bkc)) 15 unit SC DINNER [facility] Pregabalin (Lyrica) 150 mg PO BID [facility] Fluticasone/Salmeterol (Fluticasone-Salmeterol 232-14) 1 puff IH Q12H [facility] Senna/Docusate Sodium (Senokot-S, Yessenia-Colace) 2 tablet PO BID [facility] Trazodone HCl (Desyrel) 50 mg PO QHS [facility] Tuberculin PPD (Tubersol, Aplisol, Ppd) 5 tu ID X1 ONE Stop: 12/13/19 10:01 Tuberculin PPD (Tubersol, Aplisol, Ppd) 5 tu ID X1 ONE Stop: 12/20/19 10:01 Assessment/Plan All Active Problems (Last Reviewed 12/11/19 @ 09:[address] Jose Cruz Anderson MD) Morbid obesity (Acute) Former cigarette smoker (Acute) History of AAA (abdominal aortic aneurysm) repair (Acute) Abnormal LFTs (Acute) Depression due to acute stroke (Acute) Preop cardiovascular exam (Acute) Elevated PSA, greater than or equal to 20 ng/ml (Acute) Urinary retention (Acute) Urinary retention due to benign prostatic hyperplasia (Acute) Debility (Acute) 69 year old male with below past medical history significant for recent left middle cerebral artery stroke, hospitalized for urinary retention, underwent cystoscopy, TURP, transrectal biopsy 12/11/[address] Anderson, admitted to TCU with debility, here for rehabilitation, strengthening, prior to disposition determination. * Debility - PT/OT. * Pain - Tylenol 1000MG Q6H PRN pain (1-10). * Bowel - Miralax 17GM daily, Senna/colace 2 tablets BID, Dulcolax 10MG daily PRN. * Adult immunization - Administer Prevnar 13, Pneumovax 23, Fluzone as appropriate. * DVT prophylaxis - Lovenox 40MG SC daily. * COPD - Advair 232-14 1 puff Q12H, Albuterol MDI 2 puffs Q4H PRN. * Hypertension - Coreg 12.5MG BID, Amlodipine 5MG daily. * Coronary Artery Disease - Coreg 12.5MG twice daily, Aspirin 81MG daily. * Hyperlipidemia - Atorvastatin 40MG QHS, Fenofibrate 145MG daily. * Stroke - Aspirin 81MG daily. * GERD - Famotidine 20MG daily. * BPH s/p TURP - Finasteride 5MG daily. * Depression - Fluoxetine 20MG daily, stable chronic watermelon inspector use, GDR not indicated. * Diabetes Mellitus II - Lantus 24 units AM, 12 units PM; Humalog 12 units breakfast, 3 units lunch, 15 units supper. * Skin irritation - Calmoseptine BID. * Diabetic polyneuropathy - Lyrica 150MG twice daily. * Insomnia - Trazodone 50MG QHS.
[2019-12-12 21:40] LABS: Bedside Glucose 156 mg/dL (70-110)
[2019-12-12] MEDS: Fluticasone/Salmeterol 232-14 Inhaler 1 PUFF IH (22:14)
[2019-12-12] MEDS: traZODone 50 MG Tablet PO (22:14)
[2019-12-13] MEDS: Enoxaparin 40 MG/0.4 ML Syringe SC (06:10)
[2019-12-13] MEDS: Polyethylene Glycol 3350 17 GM PACKET PO (06:10)
[2019-12-13] MEDS: Famotidine 20 MG Tablet PO (06:11)
[2019-12-13] MEDS: Pregabalin 75 MG Capsule 150 MG PO ×2 (06:11→17:56)
[2019-12-13] MEDS: Fenofibrate 145 MG Tablet PO (06:11)
[2019-12-13] MEDS: Finasteride 5 MG Tablet PO (06:11)
[2019-12-13] MEDS: amLODIPine 5 MG Tablet PO (06:11)
[2019-12-13] MEDS: Senna/Docusate Sodium 1 Tablet 2 TABLET PO ×2 (06:11→17:56)
[2019-12-13] MEDS: Atorvastatin Calcium 40 MG Tablet PO (06:11)
[2019-12-13] MEDS: Carvedilol 12.5 MG Tablet PO ×2 (06:11→17:56)
[2019-12-13] MEDS: FLUoxetine 20 MG Capsule PO (06:11)
[2019-12-13] MEDS: Nystatin Powder 15gm Bottle 1 APPLIC TOPICAL ×2 (06:12→20:06)
[2019-12-13] MEDS: Menthol/Lanolin/Calamine/Znox 113 GM Tube 1 APPLIC TOPICAL ×2 (06:12→20:06)
[2019-12-13 06:16] LABS: Bedside Glucose 126 mg/dL (70-110)
[2019-12-13 06:56] LABS: Absolute Lymphocyte Count 0.77 X10^3/uL (0.83-4.51); Absolute Neutrophil Count 4.2 X10^3/uL (2.0-7.7); Basophil# 0.01 X10^3/uL; Basophil% 0.2 % (0-1); Eosinophil# 0.17 X10^3/uL; Eosinophils% 2.9 % (0-5); Hematocrit 31.2 % (40-54); Hemoglobin 9.9 g/dL (13.0-16.5); Lymphocyte # 0.77 X10^3/ul (4.0); Mean Corp Hgb Conc 31.7 g/dL (32-36); Mean Corpuscular Volume 81.9 fL (80-94); Mean Platelet Vol. 9.7 fl (6.2-12.0); Monocyte# 0.68 X10^3/uL; Monocyte% 11.5 % (0-10); NRBC Flagged by Analyzer 0 % (0-5); Neutrophil # 4.24 X10^3/uL (2.7-7.7); Neutrophil % 71.4 % (47-70); Platelet Count 276 K/mm3 (150-450); RBC Distribution Width CV 15.5 % (11.6-14.6); RBC Distribution Width SD 46.5 fl (35.1-43.9); Red Blood Count 3.81 M/mm3 (4.6-6.2); White Blood Count 5.9 K/mm3 (4.4-11.0)
[2019-12-13 07:16] LABS: Anion Gap 5 (5-15); BUN 30 mg/dL (7-18); BUN/Creat Ratio 20.3 RATIO (10-20); Calcium,Total 8.9 mg/dL (8.5-10.1); Chloride 104 mmol/L (98-107); Creatinine, Serum 1.48 mg/dL (0.70-1.30); EST Glomerular Filtration Rate 50 mL/min (>60); Est Glom Filt Rate - Afr Amer 61 mL/min (>60); Estimated Creatinine Clearance 46.22 ml/min; Glucose 139 mg/dL (74-106); Potassium 4.1 mmol/L (3.5-5.1); Sodium Level 137 mmol/L (136-145)
[2019-12-13] MEDS: Aspirin E.C. 81 MG Tablet PO (08:11)
[2019-12-13] MEDS: Fluticasone/Salmeterol 232-14 Inhaler 1 PUFF IH ×2 (08:11→18:08)
[2019-12-13] MEDS: Insulin Lispro 100 UNIT/ML INSULN.PEN 12 UNIT SC (08:16)
[2019-12-13 10:00] VITALS: PULSE 61; RESP 16; O2SAT 97
--- NOTE | 2019-12-13 10:48 | PCM.PN.RX ---
<Stephany Wise - Last Filed: 12/13/19 10:48> Progress Note - Pharmacy Subjective: [] Objective: Allergies No Known Allergies Allergy (Verified 10/20/19 14:10) Current Medications Generic Name Dose Route Start Last Admin Trade Name Freq PRN Reason Stop Dose Admin Acetaminophen 1,000 mg 12/12/19 21:09 Tylenol PO Q6H PRN PRN Pain Score 1-10/10 Albuterol Sulfate 2 puff 12/12/19 19:41 Ventolin Hfa (Sp) INHALATION Q4H PRN PRN Wheezing Amlodipine Besylate 5 mg 12/13/19 06:00 12/13/19 06:11 Norvasc PO 5 mg DAILY [facility] Administration Aspirin 81 mg 12/13/19 08:00 12/13/19 08:11 Ecotrin PO 81 mg DAILY@0800 [facility] Administration Atorvastatin Calcium 40 mg 12/13/19 06:00 12/13/19 06:11 Lipitor PO 40 mg DAILY [facility] Administration Bisacodyl 10 mg 12/12/19 21:09 Dulcolax PO DAILY PRN PRN Constipation Calamine/Phenol 1 applic 12/13/19 06:00 12/13/19 06:12 Calmoseptine Ointment TOPICAL 1 applicatio 0600,2200 [facility] Administration Protocol Carvedilol 12.5 mg 12/13/19 06:00 12/13/19 06:11 Coreg PO 12.5 mg BID [facility] Administration Enoxaparin Sodium 40 mg 12/13/19 06:00 12/13/19 06:10 Lovenox SC 40 mg DAILY@0600 [facility] Administration Famotidine 20 mg 12/13/19 06:00 12/13/19 06:11 Pepcid PO 20 mg DAILY [facility] Administration Fenofibrate 145 mg 12/13/19 06:00 12/13/19 06:11 Tricor PO 145 mg DAILY [facility] Administration Finasteride 5 mg 12/13/19 06:00 12/13/19 06:11 Proscar PO 5 mg DAILY [facility] Administration Fluoxetine HCl 20 mg 12/13/19 06:00 12/13/19 06:11 Prozac PO 20 mg DAILY [facility] Administration Insulin Glargine 12 units 12/12/19 22:00 12/12/19 22:13 Lantus (Bkc) SC 12 units QHS [facility] Administration Insulin Glargine 24 units 12/13/19 08:00 12/13/19 09:14 Lantus ([facility]) SC 24 applicatio BREAKFAST [facility] Administration Insulin Human Lispro 3 unit 12/13/19 12:00 Humalog Kwikpen ([facility]) SC LUNCH [facility] Insulin Human Lispro 12 unit 12/13/19 08:00 12/13/19 08:16 Humalog Kwikpen ([facility]) SC 12 applicatio BREAKFAST [facility] Administration Insulin Human Lispro 15 unit 12/13/19 17:00 Humalog Kwikpen ([facility]) SC DINNER [facility] Nutritional Formula (Lactose Free) 120 ml 12/13/19 06:00 12/13/19 06:11 Glucerna Shake PO Not Given 4X/DAY [facility] Nystatin 1 applic 12/13/19 06:00 12/13/19 06:12 Mycostatin Powder TOPICAL 1 applicatio 0600,2200 [facility] Administration Protocol Polyethylene Glycol 17 gm 12/13/19 06:00 12/13/19 06:10 Miralax PO 17 gm DAILY [facility] Administration Pregabalin 150 mg 12/13/19 06:00 12/13/19 06:11 Lyrica PO 150 mg BID [facility] Administration Fluticasone/Salmeterol 1 puff 12/12/19 18:45 12/13/19 08:11 Fluticasone-Salmeterol 232-14 IH 1 applicatio Q12H [facility] Administration Senna/Docusate Sodium 2 tablet 12/13/19 06:00 12/13/19 06:11 Senokot-S, Yessenia-Colace PO 2 tablet BID [facility] Administration Trazodone HCl 50 mg 12/12/19 22:00 12/12/19 22:14 Desyrel PO 50 mg QHS [facility] Administration Tuberculin PPD 5 tu 12/20/19 10:00 Tubersol, Aplisol, Ppd ID 12/20/19 10:01 X1 ONE Problem List (Last Reviewed 12/11/19 @ 09:[address] Jose Cruz Anderson MD) Debility (Acute) Bony metastasis (Chronic) Right hemiplegia (Chronic) Expressive aphasia (Chronic) PAOD (peripheral arterial occlusive disease) (Chronic) Chronic kidney disease (Chronic) Left middle cerebral artery stroke (Chronic) Body mass index (bmi) 36.0-36.9, adult (Chronic) Carotid artery stenosis (Chronic) Coronary artery disease (Chronic) Hypertension (Chronic) Diabetes mellitus (Chronic) Vital Signs Temp Pulse Resp BP Pulse Ox 97.0 F L 61 16 145/59 H 97 12/12/19 18:30 12/13/19 10:00 12/13/19 10:00 12/12/19 18:30 12/13/19 10:00 Oxygen Delivery Method Room Air Weight: 109.633 kg Body Mass Index (BMI) 36.7 Finger Stick Blood Glucose 106 Sodium 137 mmol/L (136-145) 12/13/19 06:43 Potassium 4.1 mmol/L (3.5-5.1) 12/13/19 06:43 Chloride 104 mmol/L (98-107) 12/13/19 06:43 Carbon Dioxide 28.0 mmol/L (21.0-32.0) 12/13/19 06:43 Anion Gap 5 (5-15) 12/13/19 06:43 BUN 30 mg/dL (7-18) H 12/13/19 06:43 Creatinine 1.48 mg/dL (0.70-1.30) H 12/13/19 06:43 Est GFR (MDRD) Af Amer 61 mL/min (>60) 12/13/19 06:43 Est GFR (MDRD) Non-Af 50 mL/min (>60) L 12/13/19 06:43 BUN/Creatinine Ratio 20.3 RATIO (10-20) H 12/13/19 06:43 Glucose 139 mg/dL (74-106) H 12/13/19 06:43 Assessment/Plan: 1. Pain: acetaminophen 1000mg PO Q6H PRN pain 1-05/30. Please continue to monitor for pain and PRN usage. 2. DVT prophylaxis: enoxaparin 40mg SC daily. Please continue to monitor for S/S of bleeding/DVT, renal function and platelets. 3. BPH s/p TURP: finasteride 5mg PO daily. Please continue to monitor. 4. COPD: fluticasone/salmeterol 232/14mcg inhaler 1 puff Q12H, albuterol inhaler 2 puffs Q4H PRN wheezing. Please continue to monitor for thrush, SOB, and wheezing. 5. CAD/hypertension/stroke: carvedilol 12.5mg PO BID, amlodipine 5mg PO daily, aspirin 81mg PO DAILYCM. Please continue to monitor BP, HR, edema, and S/S of bleeding. 6. GERD: famotidine 20mg PO daily. Please continue to monitor for S/S of GERD and renal function. 7. Type II Diabetes Mellitus: insulin glargine 24 units SC at breakfast and 12 units SC at bedtime, insulin lispro 12 units SC at breakfast, 3 units SC at lunch and 15 units SC at dinner. Please continue to monitor hemoglobin A1c and POC glucose readings. 8. Hyperlipidemia: atorvastatin 40mg PO QHS and fenofibrate 145mg PO daily. Please continue to monitor lipid panel, triglycerides, and for muscle pain. 9. Diabetic neuropathy: pregabalin 150mg PO BID. Please continue to monitor for confusion and renal function. Psychotropic Medications: 1. Depression: fluoxetine 20mg PO daily. Please see physician note regarding GDR. *2. Insomnia: trazodone 50mg PO QHS. Please consider GDR by 05/2020. Please continue to monitor for insomnia. Unnecessary Medications: None Bowel Regimen: Miralax 17gm PO daily, senna/docusate 2T PO BID, bisacodyl 10mg PO daily PRN constipation. Please continue to monitor for constipation and PRN usage. Date of Note:: 12/13/19 - Provider Comments Provider responsibility: Provider responsible to enter orders to implement recommendations <Wolf Gamino Chi - Last Filed: 12/13/19 13:03> Progress Note - Pharmacy Subjective: [] Objective: Allergies No Known Allergies Allergy (Verified 10/20/19 14:10) Current Medications Generic Name Dose Route Start Last Admin Trade Name Freq PRN Reason Stop Dose Admin Acetaminophen 1,000 mg 12/12/19 21:09 Tylenol PO Q6H PRN PRN Pain Score 1-10/10 Albuterol Sulfate 2 puff 12/12/19 19:41 Ventolin Hfa (Sp) INHALATION Q4H PRN PRN Wheezing Amlodipine Besylate 5 mg 12/13/19 06:00 12/13/19 06:11 Norvasc PO 5 mg DAILY [facility] Administration Aspirin 81 mg 12/13/19 08:00 12/13/19 08:11 Ecotrin PO 81 mg DAILY@0800 [facility] Administration Atorvastatin Calcium 40 mg 12/14/19 22:00 Lipitor PO QHS [facility] Bisacodyl 10 mg 12/12/19 21:09 Dulcolax PO DAILY PRN PRN Constipation Calamine/Phenol 1 applic 12/13/19 06:00 12/13/19 06:12 Calmoseptine Ointment TOPICAL 1 applicatio 0600,2200 [facility] Administration Protocol Carvedilol 12.5 mg 12/13/19 06:00 12/13/19 06:11 Coreg PO 12.5 mg BID [facility] Administration Enoxaparin Sodium 40 mg 12/13/19 06:00 12/13/19 06:10 Lovenox SC 40 mg DAILY@0600 [facility] Administration Famotidine 20 mg 12/13/19 06:00 12/13/19 06:11 Pepcid PO 20 mg DAILY [facility] Administration Fenofibrate 145 mg 12/13/19 06:00 12/13/19 06:11 Tricor PO 145 mg DAILY [facility] Administration Finasteride 5 mg 12/13/19 06:00 12/13/19 06:11 Proscar PO 5 mg DAILY [facility] Administration Fluoxetine HCl 20 mg 12/13/19 06:00 12/13/19 06:11 Prozac PO 20 mg DAILY [facility] Administration Insulin Glargine 12 units 12/12/19 22:00 12/12/19 22:13 Lantus ([facility]) SC 12 units QHS [facility] Administration Insulin Glargine 24 units 12/13/19 08:00 12/13/19 09:14 Lantus ([facility]) SC 24 applicatio BREAKFAST [facility] Administration Insulin Human Lispro 3 unit 12/13/19 12:00 12/13/19 11:37 Humalog Kwikpen ([facility]) SC 3 u LUNCH [facility] Administration Insulin Human Lispro 12 unit 12/13/19 08:00 12/13/19 08:16 Humalog Kwikpen ([facility]) SC 12 applicatio BREAKFAST [facility] Administration Insulin Human Lispro 15 unit 12/13/19 17:00 Humalog Kwikpen ([facility]) [place] DINNER [facility] Nutritional Formula (Lactose Free) 120 ml 12/13/19 06:00 12/13/19 06:11 Glucerna Shake PO Not Given 4X/DAY [facility] Nystatin 1 applic 12/13/19 06:00 12/13/19 06:12 Mycostatin Powder TOPICAL 1 applicatio 0600,2200 [facility] Administration Protocol Polyethylene Glycol 17 gm 12/13/19 06:00 12/13/19 06:10 Miralax PO 17 gm DAILY [facility] Administration Pregabalin 150 mg 12/13/19 06:00 12/13/19 06:11 Lyrica PO 150 mg BID [facility] Administration Fluticasone/Salmeterol 1 puff 12/12/19 18:45 12/13/19 08:11 Fluticasone-Salmeterol 232-14 IH 1 applicatio Q12H [facility] Administration Senna/Docusate Sodium 2 tablet 12/13/19 06:00 12/13/19 06:11 Senokot-S, Yessenia-Colace PO 2 tablet BID [facility] Administration Trazodone HCl 50 mg 12/12/19 22:00 12/12/19 22:14 Desyrel PO 50 mg QHS [facility] Administration Tuberculin PPD 5 tu 12/20/19 10:00 Tubersol, Aplisol, Ppd ID 12/20/19 10:01 X1 ONE Problem List (Last Reviewed 12/11/19 @ 09:[address] Jose Cruz Anderson MD) Debility (Acute) Bony metastasis (Chronic) Right hemiplegia (Chronic) Expressive aphasia (Chronic) PAOD (peripheral arterial occlusive disease) (Chronic) Chronic kidney disease (Chronic) Left middle cerebral artery stroke (Chronic) Body mass index (bmi) 36.0-36.9, adult (Chronic) Carotid artery stenosis (Chronic) Coronary artery disease (Chronic) Hypertension (Chronic) Diabetes mellitus (Chronic) Vital Signs Temp Pulse Resp BP Pulse Ox 97.0 F L 61 16 145/59 H 97 12/12/19 18:30 12/13/19 10:00 12/13/19 10:00 12/12/19 18:30 12/13/19 10:00 Oxygen Delivery Method Room Air Weight: 109.633 kg Body Mass Index (BMI) 36.7 Finger Stick Blood Glucose 106 Sodium 137 mmol/L (136-145) 12/13/19 06:43 Potassium 4.1 mmol/L (3.5-5.1) 12/13/19 06:43 Chloride 104 mmol/L (98-107) 12/13/19 06:43 Carbon Dioxide 28.0 mmol/L (21.0-32.0) 12/13/19 06:43 Anion Gap 5 (5-15) 12/13/19 06:43 BUN 30 mg/dL (7-18) H 12/13/19 06:43 Creatinine 1.48 mg/dL (0.70-1.30) H 12/13/19 06:43 Est GFR (MDRD) Af Amer 61 mL/min (>60) 12/13/19 06:43 Est GFR (MDRD) Non-Af 50 mL/min (>60) L 12/13/19 06:43 BUN/Creatinine Ratio 20.3 RATIO (10-20) H 12/13/19 06:43 Glucose 139 mg/dL (74-106) H 12/13/19 06:43 Assessment/Plan: Psychotropic Medications: Unnecessary Medications: Bowel Regimen: - Provider Comments Provider responsibility: Provider responsible to enter orders to implement recommendations Provider Comments to Recommendations by Pharmacy: Agree
[2019-12-13 11:15] LABS: Bedside Glucose 175 mg/dL (70-110)
[2019-12-13] MEDS: Tuberculin,Purif.prot.deriv. 50 TU/ML Vial 5 ML ID (11:37)
[2019-12-13] MEDS: Insulin Lispro 100 UNIT/ML INSULN.PEN SC (11:37)
[2019-12-13 14:24] VITALS: BP 149/62; PULSE 60; RESP 17; TEMP 36.6; O2SAT 96
[2019-12-13 17:50] LABS: Bedside Glucose 95 mg/dL (70-110)
[2019-12-13] MEDS: Insulin Lispro 100 UNIT/ML INSULN.PEN 15 UNIT SC (17:56)
[2019-12-13] MEDS: traZODone 50 MG Tablet PO (20:06)
[2019-12-13 21:10] LABS: Bedside Glucose 107 mg/dL (70-110)
[2019-12-14] MEDS: Senna/Docusate Sodium 1 Tablet 2 TABLET PO ×2 (05:39→17:32)
[2019-12-14] MEDS: Fenofibrate 145 MG Tablet PO (05:39)
[2019-12-14] MEDS: Enoxaparin 40 MG/0.4 ML Syringe SC (05:39)
[2019-12-14] MEDS: Pregabalin 75 MG Capsule 150 MG PO ×2 (05:39→17:33)
[2019-12-14] MEDS: Polyethylene Glycol 3350 17 GM PACKET PO (05:39)
[2019-12-14] MEDS: Famotidine 20 MG Tablet PO (05:40)
[2019-12-14] MEDS: Menthol/Lanolin/Calamine/Znox 113 GM Tube 1 APPLIC TOPICAL ×2 (05:40→22:27)
[2019-12-14] MEDS: Finasteride 5 MG Tablet PO (05:40)
[2019-12-14] MEDS: FLUoxetine 20 MG Capsule PO (05:40)
[2019-12-14] MEDS: amLODIPine 5 MG Tablet PO (05:40)
[2019-12-14] MEDS: Nystatin Powder 15gm Bottle 1 APPLIC TOPICAL ×2 (05:40→22:23)
[2019-12-14] MEDS: Carvedilol 12.5 MG Tablet PO ×2 (05:40→17:32)
[2019-12-14] MEDS: Fluticasone/Salmeterol 232-14 Inhaler 1 PUFF IH ×2 (05:45→17:32)
[2019-12-14 06:26] LABS: Bedside Glucose 109 mg/dL (70-110)
[2019-12-14 07:22] LABS: Absolute Lymphocyte Count 0.65 X10^3/uL (0.83-4.51); Absolute Neutrophil Count 4.5 X10^3/uL (2.0-7.7); Basophil# 0.03 X10^3/uL; Basophil% 0.5 % (0-1); Eosinophil# 0.22 X10^3/uL; Eosinophils% 3.6 % (0-5); Hematocrit 31.3 % (40-54); Hemoglobin 10.3 g/dL (13.0-16.5); Lymphocyte # 0.65 X10^3/ul (4.0); Lymphocyte % 10.7 % (19-41); Mean Corp Hgb Conc 32.9 g/dL (32-36); Mean Corpuscular Hgb 27.5 pg (27.0-32.0); Mean Corpuscular Volume 83.7 fL (80-94); Monocyte% 9.9 % (0-10); NRBC Flagged by Analyzer 0 % (0-5); Neutrophil % 74.5 % (47-70); Platelet Count 267 K/mm3 (150-450); RBC Distribution Width CV 15.7 % (11.6-14.6); RBC Distribution Width SD 47.2 fl (35.1-43.9); Red Blood Count 3.74 M/mm3 (4.6-6.2); White Blood Count 6.1 K/mm3 (4.4-11.0)
[2019-12-14 07:42] LABS: Anion Gap 6 (5-15); BUN 32 mg/dL (7-18); BUN/Creat Ratio 19.8 RATIO (10-20); Calcium,Total 9.5 mg/dL (8.5-10.1); Chloride 105 mmol/L (98-107); Creatinine, Serum 1.62 mg/dL (0.70-1.30); EST Glomerular Filtration Rate 45 mL/min (>60); Est Glom Filt Rate - Afr Amer 55 mL/min (>60); Estimated Creatinine Clearance 42.22 ml/min; Glucose 110 mg/dL (74-106); Potassium 3.9 mmol/L (3.5-5.1); Sodium Level 140 mmol/L (136-145)
[2019-12-14] MEDS: Aspirin E.C. 81 MG Tablet PO (08:33)
[2019-12-14 10:30] VITALS: PULSE 59; RESP 18; O2SAT 96
--- NOTE | 2019-12-14 10:40 | NURSING ---
oral care provided, thin water given per villatoro water protocol
[2019-12-14 11:01] LABS: Bedside Glucose 209 mg/dL (70-110)
[2019-12-14] MEDS: Glucerna Shake 120 ML LIQUID PO ×3 (12:09→22:17)
[2019-12-14 14:12] VITALS: BP 142/63; PULSE 62; RESP 16; TEMP 37.2; O2SAT 97
[2019-12-14 16:46] LABS: Bedside Glucose 164 mg/dL (70-110)
[2019-12-14 21:16] LABS: Bedside Glucose 190 mg/dL (70-110)
[2019-12-14] MEDS: traZODone 50 MG Tablet PO (22:17)
[2019-12-14] MEDS: Atorvastatin Calcium 40 MG Tablet PO (22:17)
[2019-12-15] MEDS: Finasteride 5 MG Tablet PO (05:16)
[2019-12-15] MEDS: Enoxaparin 40 MG/0.4 ML Syringe SC (05:16)
[2019-12-15] MEDS: Glucerna Shake 120 ML LIQUID PO ×4 (05:16→21:40)
[2019-12-15] MEDS: Famotidine 20 MG Tablet PO (05:16)
[2019-12-15] MEDS: Polyethylene Glycol 3350 17 GM PACKET PO (05:16)
[2019-12-15] MEDS: Carvedilol 12.5 MG Tablet PO ×2 (05:16→17:03)
[2019-12-15] MEDS: Fenofibrate 145 MG Tablet PO (05:16)
[2019-12-15] MEDS: amLODIPine 5 MG Tablet PO (05:16)
[2019-12-15] MEDS: Pregabalin 75 MG Capsule 150 MG PO ×2 (05:16→17:06)
[2019-12-15] MEDS: FLUoxetine 20 MG Capsule PO (05:16)
[2019-12-15] MEDS: Fluticasone/Salmeterol 232-14 Inhaler 1 PUFF IH ×2 (05:23→17:03)
[2019-12-15] MEDS: Nystatin Powder 15gm Bottle 1 APPLIC TOPICAL ×2 (05:23→21:45)
[2019-12-15] MEDS: Menthol/Lanolin/Calamine/Znox 113 GM Tube 1 APPLIC TOPICAL ×2 (05:23→21:44)
[2019-12-15] MEDS: Senna/Docusate Sodium 1 Tablet 2 TABLET PO (05:24)
[2019-12-15 06:05] LABS: Bedside Glucose 162 mg/dL (70-110)
[2019-12-15 07:47] LABS: Absolute Neutrophil Count 4.1 X10^3/uL (2.0-7.7); Basophil# 0.02 X10^3/uL; Basophil% 0.4 % (0-1); Eosinophil# 0.21 X10^3/uL; Eosinophils% 3.7 % (0-5); Hematocrit 32.4 % (40-54); Hemoglobin 10.3 g/dL (13.0-16.5); Lymphocyte % 12.4 % (19-41); Mean Corp Hgb Conc 31.8 g/dL (32-36); Mean Corpuscular Hgb 26.3 pg (27.0-32.0); Mean Corpuscular Volume 82.7 fL (80-94); Mean Platelet Vol. 10.1 fl (6.2-12.0); Monocyte# 0.62 X10^3/uL; NRBC Flagged by Analyzer 0 % (0-5); Neutrophil # 4.05 X10^3/uL (2.7-7.7); Neutrophil % 71.6 % (47-70); Platelet Count 299 K/mm3 (150-450); RBC Distribution Width CV 15.6 % (11.6-14.6); RBC Distribution Width SD 46.5 fl (35.1-43.9); Red Blood Count 3.92 M/mm3 (4.6-6.2); White Blood Count 5.7 K/mm3 (4.4-11.0)
[2019-12-15 08:01] LABS: Anion Gap 7 (5-15); BUN 35 mg/dL (7-18); BUN/Creat Ratio 20.2 RATIO (10-20); Calcium,Total 9.3 mg/dL (8.5-10.1); Chloride 104 mmol/L (98-107); Creatinine, Serum 1.73 mg/dL (0.70-1.30); EST Glomerular Filtration Rate 42 mL/min (>60); Est Glom Filt Rate - Afr Amer 51 mL/min (>60); Estimated Creatinine Clearance 39.54 ml/min; Glucose 168 mg/dL (74-106); Potassium 4.1 mmol/L (3.5-5.1); Sodium Level 138 mmol/L (136-145)
[2019-12-15] MEDS: Aspirin E.C. 81 MG Tablet PO (08:40)
[2019-12-15 11:01] LABS: Bedside Glucose 205 mg/dL (70-110)
[2019-12-15 11:06] VITALS: RESP 16; O2SAT 96
[2019-12-15 14:16] VITALS: BP 143/61; PULSE 61; RESP 16; TEMP 36.8; O2SAT 95
[2019-12-15 16:45] LABS: Bedside Glucose 204 mg/dL (70-110)
[2019-12-15 21:30] LABS: Bedside Glucose 244 mg/dL (70-110)
[2019-12-15] MEDS: traZODone 50 MG Tablet PO (21:42)
[2019-12-15] MEDS: Atorvastatin Calcium 40 MG Tablet PO (21:42)
[2019-12-16] MEDS: Carvedilol 12.5 MG Tablet PO ×2 (05:15→17:38)
[2019-12-16] MEDS: Polyethylene Glycol 3350 17 GM PACKET PO (05:15)
[2019-12-16] MEDS: Famotidine 20 MG Tablet PO (05:15)
[2019-12-16] MEDS: Enoxaparin 40 MG/0.4 ML Syringe SC (05:15)
[2019-12-16] MEDS: Glucerna Shake 120 ML LIQUID PO ×4 (05:15→21:17)
[2019-12-16] MEDS: FLUoxetine 20 MG Capsule PO (05:15)
[2019-12-16] MEDS: amLODIPine 5 MG Tablet PO (05:15)
[2019-12-16] MEDS: Pregabalin 75 MG Capsule 150 MG PO ×2 (05:15→17:38)
[2019-12-16] MEDS: Senna/Docusate Sodium 1 Tablet 2 TABLET PO ×2 (05:15→17:38)
[2019-12-16] MEDS: Fenofibrate 145 MG Tablet PO (05:16)
[2019-12-16] MEDS: Finasteride 5 MG Tablet PO (05:16)
[2019-12-16] MEDS: Menthol/Lanolin/Calamine/Znox 113 GM Tube 1 APPLIC TOPICAL ×2 (05:25→21:27)
[2019-12-16] MEDS: Nystatin Powder 15gm Bottle 1 APPLIC TOPICAL ×2 (05:25→21:27)
[2019-12-16] MEDS: Fluticasone/Salmeterol 232-14 Inhaler 1 PUFF IH ×2 (05:26→18:33)
[2019-12-16 06:21] LABS: Bedside Glucose 170 mg/dL (70-110)
[2019-12-16 06:35] LABS: Absolute Lymphocyte Count 0.72 X10^3/uL (0.83-4.51); Absolute Neutrophil Count 4.2 X10^3/uL (2.0-7.7); Basophil# 0.02 X10^3/uL; Basophil% 0.3 % (0-1); Eosinophil# 0.27 X10^3/uL; Eosinophils% 4.5 % (0-5); Hematocrit 33.9 % (40-54); Hemoglobin 10.6 g/dL (13.0-16.5); Lymphocyte # 0.72 X10^3/ul (4.0); Lymphocyte % 12.1 % (19-41); Mean Corp Hgb Conc 31.3 g/dL (32-36); Mean Corpuscular Volume 83.1 fL (80-94); Mean Platelet Vol. 9.5 fl (6.2-12.0); Monocyte# 0.74 X10^3/uL; Monocyte% 12.4 % (0-10); NRBC Flagged by Analyzer 0 % (0-5); Neutrophil # 4.15 X10^3/uL (2.7-7.7); Neutrophil % 69.9 % (47-70); Platelet Count 299 K/mm3 (150-450); RBC Distribution Width CV 15.3 % (11.6-14.6); RBC Distribution Width SD 46.5 fl (35.1-43.9); Red Blood Count 4.08 M/mm3 (4.6-6.2)
[2019-12-16 06:52] LABS: Anion Gap 8 (5-15); BUN 37 mg/dL (7-18); BUN/Creat Ratio 21.3 RATIO (10-20); Calcium,Total 9.4 mg/dL (8.5-10.1); Chloride 104 mmol/L (98-107); Creatinine, Serum 1.74 mg/dL (0.70-1.30); EST Glomerular Filtration Rate 42 mL/min (>60); Est Glom Filt Rate - Afr Amer 50 mL/min (>60); Estimated Creatinine Clearance 39.31 ml/min; Glucose 171 mg/dL (74-106); Potassium 4.2 mmol/L (3.5-5.1); Sodium Level 140 mmol/L (136-145)
[2019-12-16] MEDS: Aspirin E.C. 81 MG Tablet PO (08:08)
[2019-12-16 10:00] VITALS: PULSE 58; RESP 16; O2SAT 97
[2019-12-16 11:31] LABS: Bedside Glucose 203 mg/dL (70-110)
[2019-12-16 15:15] VITALS: BP 141/55; PULSE 59; RESP 16; TEMP 37; O2SAT 93
[2019-12-16 16:21] LABS: Bedside Glucose 161 mg/dL (70-110)
[2019-12-16] MEDS: Insulin Lispro 100 UNIT/ML INSULN.PEN SC (17:37)
[2019-12-16 21:11] LABS: Bedside Glucose 192 mg/dL (70-110)
[2019-12-16] MEDS: Atorvastatin Calcium 40 MG Tablet PO (21:20)
[2019-12-16] MEDS: traZODone 50 MG Tablet PO (21:23)
[2019-12-17] MEDS: Polyethylene Glycol 3350 17 GM PACKET PO (05:13)
[2019-12-17] MEDS: Senna/Docusate Sodium 1 Tablet 2 TABLET PO ×2 (05:13→17:59)
[2019-12-17] MEDS: Famotidine 20 MG Tablet PO (05:14)
[2019-12-17] MEDS: Carvedilol 12.5 MG Tablet PO ×2 (05:14→17:59)
[2019-12-17] MEDS: Fenofibrate 145 MG Tablet PO (05:14)
[2019-12-17] MEDS: Finasteride 5 MG Tablet PO (05:14)
[2019-12-17] MEDS: amLODIPine 5 MG Tablet PO (05:14)
[2019-12-17] MEDS: Menthol/Lanolin/Calamine/Znox 113 GM Tube 1 APPLIC TOPICAL ×2 (05:14→22:41)
[2019-12-17] MEDS: FLUoxetine 20 MG Capsule PO (05:14)
[2019-12-17] MEDS: Pregabalin 75 MG Capsule 150 MG PO ×2 (05:17→17:59)
[2019-12-17] MEDS: Glucerna Shake 120 ML LIQUID PO ×4 (05:17→22:40)
[2019-12-17] MEDS: Enoxaparin 40 MG/0.4 ML Syringe SC (05:17)
[2019-12-17 05:20] VITALS: BP 146/58; PULSE 62
[2019-12-17] MEDS: Nystatin Powder 15gm Bottle 1 APPLIC TOPICAL ×2 (05:24→22:44)
[2019-12-17] MEDS: Fluticasone/Salmeterol 232-14 Inhaler 1 PUFF IH ×2 (05:25→18:01)
[2019-12-17 06:25] LABS: Bedside Glucose 167 mg/dL (70-110)
[2019-12-17] MEDS: Aspirin E.C. 81 MG Tablet PO (08:15)
[2019-12-17] MEDS: Insulin Lispro 100 UNIT/ML INSULN.PEN SC ×3 (08:16→18:00)
[2019-12-17 11:30] LABS: Bedside Glucose 220 mg/dL (70-110)
[2019-12-17 15:11] VITALS: BP 144/99; PULSE 59; RESP 16; TEMP 36.4; O2SAT 97
--- NOTE | 2019-12-17 15:34 | CHAPLAIN ---
Type of Pastoral Visit _x__ Initial Visit ___ Follow-up Visit ___ On-call Visit ___ General Patient Visit ___ Spiritual Assessment ___ Family Conference ___ Bereavement ___ Rapid Response ___ Code Blue ___ Other (describe below) Pastoral Care Referral From _x__ Patient ___ Family ___ Nurse ___ Physician ___ Tank Shop Supervisor ___ Software Architect ___ Other (describe below) Sacrament/Intervention _x__ Active listening ___ Anointing ___ Catholic ___ Bereavement ___ Communion ___ [place] exploration ___ ___ Life review ___ Prayer ___ Reconciliation ___ Sacrament of Sick _x__ Supportive presence ___ Wedding ___ Other (describe below) Pastoral Comments patient was previously seen on Rehab; pt seems to have some improved verbal skills over last visit but still has to make effort to get out thoughts; pt is watching TV as appears to be his normal habit; pt is welcoming but states he has no needs
[2019-12-17 17:16] LABS: Bedside Glucose 164 mg/dL (70-110)
[2019-12-17 22:20] LABS: Bedside Glucose 176 mg/dL (70-110)
[2019-12-17] MEDS: traZODone 50 MG Tablet PO (22:41)
[2019-12-17] MEDS: Atorvastatin Calcium 40 MG Tablet PO (22:41)
[2019-12-18] MEDS: Pregabalin 75 MG Capsule 150 MG PO ×2 (05:31→17:48)
[2019-12-18] MEDS: Glucerna Shake 120 ML LIQUID PO ×4 (05:31→21:24)
[2019-12-18] MEDS: Enoxaparin 40 MG/0.4 ML Syringe SC (05:32)
[2019-12-18] MEDS: amLODIPine 5 MG Tablet PO (05:32)
[2019-12-18] MEDS: Famotidine 20 MG Tablet PO (05:32)
[2019-12-18] MEDS: Finasteride 5 MG Tablet PO (05:32)
[2019-12-18] MEDS: FLUoxetine 20 MG Capsule PO (05:32)
[2019-12-18] MEDS: Carvedilol 12.5 MG Tablet PO ×2 (05:32→17:48)
[2019-12-18] MEDS: Fenofibrate 145 MG Tablet PO (05:32)
[2019-12-18] MEDS: Senna/Docusate Sodium 1 Tablet 2 TABLET PO ×2 (05:32→17:48)
[2019-12-18] MEDS: Polyethylene Glycol 3350 17 GM PACKET PO (05:32)
[2019-12-18] MEDS: Nystatin Powder 15gm Bottle 1 APPLIC TOPICAL ×2 (05:33→21:24)
[2019-12-18] MEDS: Menthol/Lanolin/Calamine/Znox 113 GM Tube 1 APPLIC TOPICAL ×2 (05:33→21:24)
[2019-12-18] MEDS: Fluticasone/Salmeterol 232-14 Inhaler 1 PUFF IH ×2 (05:42→17:49)
[2019-12-18 05:47] VITALS: BP 150/54; PULSE 63
[2019-12-18 06:20] LABS: Bedside Glucose 155 mg/dL (70-110)
[2019-12-18] MEDS: Insulin Lispro 100 UNIT/ML INSULN.PEN SC ×3 (09:08→16:36)
[2019-12-18] MEDS: Aspirin E.C. 81 MG Tablet PO (09:08)
--- NOTE | 2019-12-18 11:15 | CASEMGMT ---
Social Work IDT met with patient and DIL via conference call for care plan meeting. Discussed patient's progress in therapy. Pt is mod-max assist for bed mobility, mod assist for transfers, min assist for ambulating with hemiwalker 10-20 ft. Pt is mod assist for UE dressing and max assist for bathing. ST working with pt on expressive aphasia and apraxia, word finding, and oral exercises. [facility] soft[facility]honey [facility] diet, and receiving med pass. Activities continues with 1:1 visits, and pt participates in self-directed activities. Pt is out of isolation 12/25. Explained insurance with update 12/15. The goal is pt to return home home, but if cannot assist at that time, pt would transfer to [facility] or [facility]. Will continue to follow. ELIZABETH MahanW
[2019-12-18 11:30] LABS: Bedside Glucose 187 mg/dL (70-110)
--- NOTE | 2019-12-18 14:07 | MDS.RN ---
Pain interview for isa 12/19/19 completed.
[2019-12-18 14:43] VITALS: BP 130/71; PULSE 67; RESP 16; TEMP 37.1; O2SAT 97
[2019-12-18 16:15] LABS: Bedside Glucose 213 mg/dL (70-110)
[2019-12-18] MEDS: traZODone 50 MG Tablet PO (21:24)
[2019-12-18] MEDS: Atorvastatin Calcium 40 MG Tablet PO (21:24)
[2019-12-18 21:31] LABS: Bedside Glucose 302 mg/dL (70-110)
[2019-12-19] MEDS: FLUoxetine 20 MG Capsule PO (05:37)
[2019-12-19] MEDS: Senna/Docusate Sodium 1 Tablet 2 TABLET PO ×2 (05:37→17:29)
[2019-12-19] MEDS: Glucerna Shake 120 ML LIQUID PO ×4 (05:37→22:08)
[2019-12-19] MEDS: Enoxaparin 40 MG/0.4 ML Syringe SC (05:37)
[2019-12-19] MEDS: Fenofibrate 145 MG Tablet PO (05:37)
[2019-12-19] MEDS: Famotidine 20 MG Tablet PO (05:38)
[2019-12-19] MEDS: Fluticasone/Salmeterol 232-14 Inhaler 1 PUFF IH ×2 (05:38→17:28)
[2019-12-19] MEDS: Finasteride 5 MG Tablet PO (05:38)
[2019-12-19] MEDS: Polyethylene Glycol 3350 17 GM PACKET PO (05:38)
[2019-12-19] MEDS: Carvedilol 12.5 MG Tablet PO ×2 (05:38→17:29)
[2019-12-19] MEDS: Menthol/Lanolin/Calamine/Znox 113 GM Tube 1 APPLIC TOPICAL ×2 (05:40→22:08)
[2019-12-19] MEDS: Pregabalin 75 MG Capsule 150 MG PO ×2 (05:44→17:29)
[2019-12-19] MEDS: amLODIPine 5 MG Tablet PO (05:45)
[2019-12-19] MEDS: Nystatin Powder 15gm Bottle 1 APPLIC TOPICAL ×2 (05:45→22:09)
[2019-12-19 06:16] LABS: Bedside Glucose 160 mg/dL (70-110)
--- NOTE | 2019-12-19 07:44 | NURSING ---
Pt refusing to wear brace to RT hand last HS. After much encouragement and education pt agreeable to wear it for awhile. All 5 fingers stiff and non-pitting edema noted. Brace noted to be to large for hand, pt stating that is why he does not like to wear it. Pt wore till about 2am.
[2019-12-19] MEDS: Aspirin E.C. 81 MG Tablet PO (08:45)
[2019-12-19] MEDS: Insulin Lispro 100 UNIT/ML INSULN.PEN SC ×3 (08:46→17:29)
[2019-12-19 11:16] LABS: Bedside Glucose 286 mg/dL (70-110)
[2019-12-19 14:50] VITALS: BP 158/69; PULSE 61; RESP 20; TEMP 37.1; O2SAT 95
[2019-12-19 17:21] LABS: Bedside Glucose 171 mg/dL (70-110)
[2019-12-19 21:35] LABS: Bedside Glucose 212 mg/dL (70-110)
[2019-12-19] MEDS: traZODone 50 MG Tablet PO (22:08)
[2019-12-19] MEDS: Atorvastatin Calcium 40 MG Tablet PO (22:08)
[2019-12-20] MEDS: Glucerna Shake 120 ML LIQUID PO ×4 (04:40→22:54)
[2019-12-20] MEDS: Pregabalin 75 MG Capsule 150 MG PO ×2 (04:41→17:21)
[2019-12-20] MEDS: Enoxaparin 40 MG/0.4 ML Syringe SC (04:41)
[2019-12-20] MEDS: Carvedilol 12.5 MG Tablet PO ×2 (04:41→17:19)
[2019-12-20] MEDS: Fenofibrate 145 MG Tablet PO (04:41)
[2019-12-20] MEDS: Finasteride 5 MG Tablet PO (04:41)
[2019-12-20] MEDS: Polyethylene Glycol 3350 17 GM PACKET PO (04:41)
[2019-12-20] MEDS: Senna/Docusate Sodium 1 Tablet 2 TABLET PO ×2 (04:41→17:20)
[2019-12-20] MEDS: Fluticasone/Salmeterol 232-14 Inhaler 1 PUFF IH ×2 (04:41→17:18)
[2019-12-20] MEDS: amLODIPine 5 MG Tablet PO (04:42)
[2019-12-20] MEDS: Nystatin Powder 15gm Bottle 1 APPLIC TOPICAL ×2 (04:42→22:58)
[2019-12-20] MEDS: Famotidine 20 MG Tablet PO (04:42)
[2019-12-20] MEDS: FLUoxetine 20 MG Capsule PO (04:42)
[2019-12-20] MEDS: Menthol/Lanolin/Calamine/Znox 113 GM Tube 1 APPLIC TOPICAL ×2 (04:42→22:55)
[2019-12-20 06:25] LABS: Bedside Glucose 171 mg/dL (70-110)
[2019-12-20] MEDS: Insulin Lispro 100 UNIT/ML INSULN.PEN SC ×3 (09:14→17:19)
[2019-12-20] MEDS: Aspirin E.C. 81 MG Tablet PO (09:14)
[2019-12-20 11:21] LABS: Bedside Glucose 207 mg/dL (70-110)
[2019-12-20] MEDS: Tuberculin,Purif.prot.deriv. 50 TU/ML Vial 5 ML ID (11:23)
[2019-12-20 14:46] VITALS: BP 132/76; PULSE 58; RESP 16; TEMP 36; O2SAT 97
[2019-12-20 16:25] LABS: Bedside Glucose 234 mg/dL (70-110)
[2019-12-20 21:36] LABS: Bedside Glucose 201 mg/dL (70-110)
[2019-12-20] MEDS: traZODone 50 MG Tablet PO (22:55)
[2019-12-20] MEDS: Atorvastatin Calcium 40 MG Tablet PO (22:56)
[2019-12-21] MEDS: Enoxaparin 40 MG/0.4 ML Syringe SC (05:01)
[2019-12-21] MEDS: Polyethylene Glycol 3350 17 GM PACKET PO (05:01)
[2019-12-21] MEDS: Senna/Docusate Sodium 1 Tablet 2 TABLET PO ×2 (05:02→18:04)
[2019-12-21] MEDS: Fenofibrate 145 MG Tablet PO (05:02)
[2019-12-21] MEDS: Glucerna Shake 120 ML LIQUID PO ×4 (05:02→21:46)
[2019-12-21] MEDS: amLODIPine 5 MG Tablet PO (05:03)
[2019-12-21] MEDS: Famotidine 20 MG Tablet PO (05:03)
[2019-12-21] MEDS: Carvedilol 12.5 MG Tablet PO ×2 (05:03→18:03)
[2019-12-21] MEDS: Finasteride 5 MG Tablet PO (05:03)
[2019-12-21] MEDS: FLUoxetine 20 MG Capsule PO (05:03)
[2019-12-21] MEDS: Nystatin Powder 15gm Bottle 1 APPLIC TOPICAL ×2 (05:04→21:52)
[2019-12-21] MEDS: Menthol/Lanolin/Calamine/Znox 113 GM Tube 1 APPLIC TOPICAL ×2 (05:04→21:52)
[2019-12-21 05:12] VITALS: BP 149/62; PULSE 62
[2019-12-21] MEDS: Fluticasone/Salmeterol 232-14 Inhaler 1 PUFF IH ×2 (05:13→18:09)
[2019-12-21] MEDS: Pregabalin 75 MG Capsule 150 MG PO ×2 (05:14→18:02)
[2019-12-21 06:25] LABS: Bedside Glucose 174 mg/dL (70-110)
[2019-12-21] MEDS: Insulin Lispro 100 UNIT/ML INSULN.PEN SC ×3 (08:12→18:02)
[2019-12-21] MEDS: Aspirin E.C. 81 MG Tablet PO (08:15)
[2019-12-21 11:31] LABS: Bedside Glucose 177 mg/dL (70-110)
[2019-12-21 16:00] VITALS: BP 152/71; PULSE 64; RESP 14; TEMP 36.9; O2SAT 94
[2019-12-21 16:32] LABS: Bedside Glucose 201 mg/dL (70-110)
[2019-12-21 21:16] LABS: Bedside Glucose 202 mg/dL (70-110)
[2019-12-21] MEDS: traZODone 50 MG Tablet PO (21:48)
[2019-12-21] MEDS: Atorvastatin Calcium 40 MG Tablet PO (21:48)
[2019-12-22] MEDS: Nystatin Powder 15gm Bottle 1 APPLIC TOPICAL ×2 (05:09→21:59)
[2019-12-22] MEDS: Menthol/Lanolin/Calamine/Znox 113 GM Tube 1 APPLIC TOPICAL ×2 (05:09→21:58)
[2019-12-22] MEDS: Pregabalin 75 MG Capsule 150 MG PO ×2 (05:09→18:25)
[2019-12-22] MEDS: Finasteride 5 MG Tablet PO (05:10)
[2019-12-22] MEDS: amLODIPine 5 MG Tablet PO (05:10)
[2019-12-22] MEDS: Senna/Docusate Sodium 1 Tablet 2 TABLET PO ×2 (05:10→18:26)
[2019-12-22] MEDS: FLUoxetine 20 MG Capsule PO (05:10)
[2019-12-22] MEDS: Enoxaparin 40 MG/0.4 ML Syringe SC (05:10)
[2019-12-22] MEDS: Fenofibrate 145 MG Tablet PO (05:11)
[2019-12-22] MEDS: Famotidine 20 MG Tablet PO (05:11)
[2019-12-22] MEDS: Carvedilol 12.5 MG Tablet PO ×2 (05:11→18:26)
[2019-12-22] MEDS: Polyethylene Glycol 3350 17 GM PACKET PO (05:11)
[2019-12-22] MEDS: Fluticasone/Salmeterol 232-14 Inhaler 1 PUFF IH ×2 (05:18→18:27)
[2019-12-22 05:21] VITALS: BP 125/60; PULSE 65
[2019-12-22 06:30] LABS: Bedside Glucose 152 mg/dL (70-110)
[2019-12-22] MEDS: Insulin Lispro 100 UNIT/ML INSULN.PEN SC ×2 (07:58→12:04)
[2019-12-22] MEDS: Aspirin E.C. 81 MG Tablet PO (07:58)
[2019-12-22 11:01] LABS: Bedside Glucose 280 mg/dL (70-110)
[2019-12-22] MEDS: Glucerna Shake 120 ML LIQUID PO ×3 (12:02→21:56)
--- NOTE | 2019-12-22 15:16 | NURSING ---
Blood sugars reviewed by Dr. Gamino and Humalog dose increased, Pt updated.
[2019-12-22 15:44] VITALS: BP 150/65; PULSE 60; RESP 16; TEMP 36.5; O2SAT 93
[2019-12-22 16:45] LABS: Bedside Glucose 231 mg/dL (70-110)
[2019-12-22] MEDS: Insulin Lispro 100 UNIT/ML INSULN.PEN 10 UNIT SC (18:27)
[2019-12-22 21:41] LABS: Bedside Glucose 230 mg/dL (70-110)
[2019-12-22] MEDS: Atorvastatin Calcium 40 MG Tablet PO (21:57)
[2019-12-22] MEDS: traZODone 50 MG Tablet PO (21:57)
[2019-12-23 04:44] VITALS: BP 125/63; PULSE 61
[2019-12-23] MEDS: Glucerna Shake 120 ML LIQUID PO ×4 (04:46→22:57)
[2019-12-23] MEDS: Fluticasone/Salmeterol 232-14 Inhaler 1 PUFF IH ×2 (04:46→17:58)
[2019-12-23] MEDS: Nystatin Powder 15gm Bottle 1 APPLIC TOPICAL ×2 (04:47→23:00)
[2019-12-23] MEDS: Menthol/Lanolin/Calamine/Znox 113 GM Tube 1 APPLIC TOPICAL ×2 (04:47→23:00)
[2019-12-23] MEDS: Fenofibrate 145 MG Tablet PO (04:48)
[2019-12-23] MEDS: Enoxaparin 40 MG/0.4 ML Syringe SC (04:48)
[2019-12-23] MEDS: Carvedilol 12.5 MG Tablet PO ×2 (04:48→17:58)
[2019-12-23] MEDS: amLODIPine 5 MG Tablet PO (04:48)
[2019-12-23] MEDS: Pregabalin 75 MG Capsule 150 MG PO ×2 (04:48→17:58)
[2019-12-23] MEDS: Famotidine 20 MG Tablet PO (04:49)
[2019-12-23] MEDS: Finasteride 5 MG Tablet PO (04:49)
[2019-12-23] MEDS: FLUoxetine 20 MG Capsule PO (04:49)
[2019-12-23 06:26] LABS: Bedside Glucose 174 mg/dL (70-110)
[2019-12-23] MEDS: Aspirin E.C. 81 MG Tablet PO (10:14)
[2019-12-23] MEDS: Insulin Lispro 100 UNIT/ML INSULN.PEN 10 UNIT SC (10:17)
[2019-12-23 11:06] LABS: Bedside Glucose 314 mg/dL (70-110)
[2019-12-23] MEDS: Insulin Lispro 100 UNIT/ML INSULN.PEN 13 UNIT SC ×2 (11:50→17:57)
[2019-12-23 16:00] VITALS: BP 133/51; PULSE 64; RESP 16; TEMP 36.6; O2SAT 98
[2019-12-23 16:46] LABS: Bedside Glucose 127 mg/dL (70-110)
[2019-12-23] MEDS: Senna/Docusate Sodium 1 Tablet 2 TABLET PO (17:58)
[2019-12-23 22:21] LABS: Bedside Glucose 253 mg/dL (70-110)
[2019-12-23] MEDS: traZODone 50 MG Tablet PO (22:57)
[2019-12-23] MEDS: Atorvastatin Calcium 40 MG Tablet PO (22:57)
[2019-12-24] MEDS: Enoxaparin 40 MG/0.4 ML Syringe SC (05:33)
[2019-12-24] MEDS: Finasteride 5 MG Tablet PO (05:33)
[2019-12-24] MEDS: Pregabalin 75 MG Capsule 150 MG PO ×2 (05:33→17:28)
[2019-12-24] MEDS: Glucerna Shake 120 ML LIQUID PO ×4 (05:33→22:02)
[2019-12-24] MEDS: Fenofibrate 145 MG Tablet PO (05:33)
[2019-12-24] MEDS: Carvedilol 12.5 MG Tablet PO ×2 (05:33→17:29)
[2019-12-24] MEDS: amLODIPine 5 MG Tablet PO (05:33)
[2019-12-24] MEDS: Senna/Docusate Sodium 1 Tablet 2 TABLET PO ×2 (05:33→17:29)
[2019-12-24] MEDS: FLUoxetine 20 MG Capsule PO (05:33)
[2019-12-24] MEDS: Polyethylene Glycol 3350 17 GM PACKET PO (05:34)
[2019-12-24] MEDS: Menthol/Lanolin/Calamine/Znox 113 GM Tube 1 APPLIC TOPICAL ×2 (05:40→22:06)
[2019-12-24] MEDS: Nystatin Powder 15gm Bottle 1 APPLIC TOPICAL ×2 (05:40→22:05)
[2019-12-24] MEDS: Famotidine 20 MG Tablet PO (05:40)
[2019-12-24 06:15] LABS: Bedside Glucose 169 mg/dL (70-110)
--- NOTE | 2019-12-24 07:49 | MDS.RN ---
Information for the mds was obtained from review of the clinical record, interview of resident, staff, and direct observation of resident's care.
[2019-12-24] MEDS: Insulin Lispro 100 UNIT/ML INSULN.PEN 13 UNIT SC ×3 (09:09→17:30)
[2019-12-24] MEDS: Fluticasone/Salmeterol 232-14 Inhaler 1 PUFF IH ×2 (09:09→17:32)
[2019-12-24] MEDS: Aspirin E.C. 81 MG Tablet PO (09:13)
[2019-12-24 11:11] LABS: Bedside Glucose 209 mg/dL (70-110)
--- NOTE | 2019-12-24 13:53 | NURSING ---
CALLED LUCAS FOR DAILY UPDATE. NOTIFIED OF COVID TEST PRECAUTIONARY REASONS.
[2019-12-24 14:10] VITALS: BP 131/64; PULSE 66; RESP 18; TEMP 36.8; O2SAT 94
[2019-12-24 17:06] LABS: Bedside Glucose 142 mg/dL (70-110)
[2019-12-24 21:21] LABS: Bedside Glucose 171 mg/dL (70-110)
[2019-12-24] MEDS: traZODone 50 MG Tablet PO (22:00)
[2019-12-24] MEDS: Atorvastatin Calcium 40 MG Tablet PO (22:00)
[2019-12-25] MEDS: Polyethylene Glycol 3350 17 GM PACKET PO (05:34)
[2019-12-25] MEDS: Carvedilol 12.5 MG Tablet PO ×2 (05:34→18:14)
[2019-12-25] MEDS: Enoxaparin 40 MG/0.4 ML Syringe SC (05:34)
[2019-12-25] MEDS: FLUoxetine 20 MG Capsule PO (05:35)
[2019-12-25] MEDS: Fenofibrate 145 MG Tablet PO (05:35)
[2019-12-25] MEDS: Finasteride 5 MG Tablet PO (05:35)
[2019-12-25] MEDS: Famotidine 20 MG Tablet PO (05:35)
[2019-12-25] MEDS: amLODIPine 5 MG Tablet PO (05:35)
[2019-12-25] MEDS: Senna/Docusate Sodium 1 Tablet 2 TABLET PO ×2 (05:35→18:09)
[2019-12-25] MEDS: Pregabalin 75 MG Capsule 150 MG PO ×2 (05:38→18:07)
[2019-12-25] MEDS: Glucerna Shake 120 ML LIQUID PO ×4 (05:38→22:58)
[2019-12-25] MEDS: Menthol/Lanolin/Calamine/Znox 113 GM Tube 1 APPLIC TOPICAL ×2 (05:42→22:59)
[2019-12-25] MEDS: Fluticasone/Salmeterol 232-14 Inhaler 1 PUFF IH ×2 (05:42→18:14)
[2019-12-25] MEDS: Nystatin Powder 15gm Bottle 1 APPLIC TOPICAL ×2 (05:42→22:59)
[2019-12-25 06:16] LABS: Bedside Glucose 169 mg/dL (70-110)
[2019-12-25] MEDS: Insulin Lispro 100 UNIT/ML INSULN.PEN 13 UNIT SC ×3 (09:28→18:09)
[2019-12-25] MEDS: Aspirin E.C. 81 MG Tablet PO (09:28)
[2019-12-25 11:00] LABS: Bedside Glucose 323 mg/dL (70-110)
--- NOTE | 2019-12-25 13:30 | SP.MBSS_ITS ---
PRIMARY / SECONDARY DIAGNOSIS: dysphagia (R13.12) CURRENT DIET (SOLIDS): mechanical soft textures (IDDSI: 5) CURRENT DIET (LIQUIDS): honey thickened liquids (IDDSI: 3) DENTITION: natural upper / lower dentition MENTAL STATUS: significant aphasia; sufficient for participation RESPIRATORY STATUS: O2 via room air REASON FOR REFERRAL: The Patient is a 69 year old male referred for a modified barium swallow (MBS) study to objectively assess the Patients oropharyngeal swallow function under fluoroscopy secondary to a recent left middle cerebral artery cerebrovascular accident involving the left temporoparietal regions MEDICAL HISTORY: 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 with resulting right hemiplegia, dysphagia, and severe aphasia / apraxia; chronic obstructive pulmonary disease, grade II diastolic dysfunction, atherosclerosis of coronary artery of [place] heart without angina pectoris, left and right carotid stenosis, left atrial stenosis, left atrial enlargement, status post carotid artery bypass graft, abdominal aortic aneurysm status post endovascular stent graft for abdominal aortic aneurysm, hypertension, hyperlipidemia, type II diabetes mellitus, obstructive sleep apnea, chronic back pain, peripheral artery disease, benign prostatic hyperplasia PREVIOUS MODIFIED BARIUM SWALLOW STUDY: 11/20/2019 MBS revealed mild to moderate oropharyngeal dysphagia (DSRS: 4; SPS: 4) with penetration and inconsistent ejection of thin and nectar thickened liquids ADDITIONAL OBJECTIVE ASSESSMENT RESULTS: 10/20/2019 CT of the brain revealed an area of subtle matos/white matter differentiation loss in the left temporoparietal region suggesting acute ischemic stroke; left middle cerebral artery occlusion. ASSESSMENT PARAMETERS: The Patient participated in a Modified Barium Swallow (MBS) study on 12/25/2019. This study was recorded in the lateral view and images were sent to PACs for storage. Scoring was completed through each trial using the 8- point Penetration-Aspiration Scale (PAS) and summarized via the Modified Barium Swallow Impairment Profile (MBSImP) and the Bolus Residue Scale (BRS), with severity scoring through the Dysphagia Severity Rating Scale (DSRS), and the Swallowing Performance Scale (SPS), and the Dysphagia Classification Scale (DCS), and recommended diet textures through the International Dysphagia Diet Standardisation Initiative (IDDSI) RESULTS OF THE EVALUATION: The Patient presents with mild oropharyngeal dysphagia (DSRS: 2; SPS: 4) with intermittent shallow transient penetration with complete ejection during ingestion of thin liquids secondary to a recent left middle cerebral artery cerebrovascular accident involving the left temporoparietal regions OBJECTIVE ASSESSMENT OF SWALLOW FUNCTION (QUANTITATIVE ? PER TRIAL): PENETRATION / ASPIRATION SCALE (PALACIO): 1 = does not enter airway 2 = enters airway/above vocal folds/ejected 3 = enters airway/above vocal folds/not ejected 4 = enters airway/contacts vocal folds/ejected 5 = enters airway/contacts vocal folds/not ejected 6 = enters airway/below vocal folds/ejected 7 = enters airway/below vocal folds/not ejected despite effort 8 = enters airway/below vocal folds/no effort VIDEOFLOROSCOPIC SCALE SCORE (PALACIO): Grade I = aspiration of material that has penetrated into the laryngeal vestibule, intact cough reflex Grade II = aspiration < 10 % of the bolus, intact cough reflex Grade III = aspiration of < 10 % of the bolus, reduced cough reflex or aspiration of > 10 % of the bolus, intact cough reflex Grade IV = aspiration of > 10 % of the bolus, reduced cough reflex PENETRATION / ASPIRATION SCALE (SCORE): Thin liquid - 5 mL tsp.: 2 Thin liquids via straw (single sip): 1 Thin liquids via straw (single sip): 1 Thin liquids via straw (single sip): 2 Thin liquids via straw (sequential swallows): 2 Pudding via spoon: 1 Regular textured cookie: 1 Thin liquids via straw (single sip): 2 Thin liquids via straw (chin tuck): 1* Thin liquids via straw (chin tuck): 1 Thin liquids via straw (chin tuck): 1 Thin liquids via straw (chin tuck): 1 * denotes suboptimal image quality during deglutition OBJECTIVE ASSESSMENT OF SWALLOW FUNCTION (QUANTITATIVE ? AGGREGATE): MODIFIED BARIUM SWALLOW IMPAIRMENT PROFILE (MBSImP) LABIAL SEAL: 0 (of 4) no labial escape TONGUE CONTROL: 1 (of 3) lateral buccal cavity / floor of mouth BOLUS PREPARATION / MASTICATION: 0 (of 3) timely and efficient BOLUS TRANSPORT / LINGUAL MOTION: 0 (of 4) brisk tongue motion ORAL RESIDUE: 2 (of 4) residue collection on oral structures INITIATION OF PHARYNGEAL SWALLOW: 3 (of 4) pyriforms SOFT PALATE ELEVATION: 0 (of 4) no bolus between soft palate & pharyngeal wall LARYNGEAL ELEVATION: 1 (of 3) partial superior movement / approximation ANTERIOR HYOID EXCURSION: 0 (of 2) complete movement EPIGLOTTIC MOVEMENT: 0 (of 2) complete inversion LARYNGEAL VESTIBULE CLOSURE: 0 (of 2) complete closure PHARYNGEAL STRIPPING WAVE: 0 (of 2) present / complete PE SEGMENT OPENIN (of 3) partial distension / duration / obstruction TONGUE BASE RETRACTION: 1 (of 4) trace column of contrast PHARYNGEAL RESIDUE: 1 (of 4) trace residue ESOPHAGEAL BOLUS CLEARANCE: could not view BOLUS RESIDUE SCALE (BRS): 1 (of 6) no residue OBJECTIVE ASSESSMENT OF SWALLOW FUNCTION (SEVERITY GRADING): DYSPHAGIA SEVERITY RATING SCALE (DSRS): 2 (mild) SWALLOWING PERFORMANCE SCALE (SPS): 4 (mild to moderate) DYSPHAGIA CLASSIFICATION SCALE (DCS): D0 (normal) DCS CLASSIFICATION CHARACTERISTICS: without stasis or food consistency restrictions OBJECTIVE ASSESSMENT OF SWALLOW FUNCTION (QUALITATIVE): ORAL PREPARATORY PHASE: overall competent bolus manipulation without fragmented swallowing (piecemeal deglutition); sufficient anterior oral containment during oral manipulation; preserved management of breathing / bolus formation ORAL TRANSITIONAL PHASE: overall sufficient bolus transportation; incomplete oral clearance with mild consolidation and tendency for right sided buccal pocketing; no presence of premature posterior bolus loss PHARYNGEAL PHASE: mild pharyngeal phase dyssynchrony; sufficient hyolaryngeal excursion; sufficient / consistent laryngeal vestibule pressure generated to expel penetrated material; appropriate pharyngeal motility; no signs of velopharyngeal impairments ESOPHAGEAL PHASE: no obvious esophageal phase abnormalities observed. RESPONSE TO STRATEGIES: all deficits managed successfully with reduction in bolus rate / volume adjustments, and execution of the chin tuck posture via straw INTERVENTION RECOMMENDATIONS AND CONSIDERATIONS: The Patient requires continued intensive skilled speech-language intervention targeting diet texture management and training / implementation of recommended compensatory strategies; training and implementation of a home oral care protocol to improve / maintain the integrity of the oral mucosa reducing the risk of aspiration related pulmonary complications; Patient education regarding stroke associated dysphagia; and Patient and caregiver training targeting meal preparation if unable to advance to baseline diet textures prior to discharge. POST ASSESSMENT EDUCATION: The results and recommendations were discussed with the Patient immediately following MBS completion, with the Patient verbalizing understanding and agreement with all recommendations and education provided. DIET TEXTURE RECOMMENDATIONS: Will recommend a mechanical soft textured (IDDSI: 5), thin liquid diet (IDDSI: 0) diet RECOMMENDED COMPENSATORY STRATEGIES: Supervision, consider cutting tougher textures into bite sized pieces (if / when advanced past mechanical soft textures), chin tuck via straw, reduced bolus volume / rate of ingestion, seated upright at 90 degrees during PO intake, remain upright for 30-60 minutes post meal (GERD precaution) IMAGE COUNT: [id number] Luis L Linton M.A., MARISOL-LAMINATION TECHNICIAN, CBIS MBSImP Certified, LSVT Certified [facility] Speech-Language Pathology Department Email: [email or web address]
[2019-12-25 15:00] VITALS: BP 134/62; PULSE 64; RESP 20; TEMP 36.5; O2SAT 94
[2019-12-25 16:55] LABS: Bedside Glucose 165 mg/dL (70-110)
[2019-12-25 22:36] LABS: Bedside Glucose 233 mg/dL (70-110)
[2019-12-25] MEDS: traZODone 50 MG Tablet PO (22:58)
[2019-12-25] MEDS: Atorvastatin Calcium 40 MG Tablet PO (22:58)
[2019-12-26] MEDS: Polyethylene Glycol 3350 17 GM PACKET PO (03:57)
[2019-12-26] MEDS: Famotidine 20 MG Tablet PO (03:57)
[2019-12-26] MEDS: Senna/Docusate Sodium 1 Tablet 2 TABLET PO ×2 (03:57→17:22)
[2019-12-26] MEDS: FLUoxetine 20 MG Capsule PO (03:57)
[2019-12-26] MEDS: Finasteride 5 MG Tablet PO (03:58)
[2019-12-26] MEDS: Menthol/Lanolin/Calamine/Znox 113 GM Tube 1 APPLIC TOPICAL ×2 (03:58→21:53)
[2019-12-26] MEDS: Nystatin Powder 15gm Bottle 1 APPLIC TOPICAL ×2 (03:58→21:53)
[2019-12-26] MEDS: Carvedilol 12.5 MG Tablet PO ×2 (03:58→17:22)
[2019-12-26] MEDS: Enoxaparin 40 MG/0.4 ML Syringe SC (03:58)
[2019-12-26] MEDS: amLODIPine 5 MG Tablet PO (03:58)
[2019-12-26] MEDS: Glucerna Shake 120 ML LIQUID PO ×4 (03:59→21:53)
[2019-12-26] MEDS: Fluticasone/Salmeterol 232-14 Inhaler 1 PUFF IH ×2 (04:00→17:22)
[2019-12-26] MEDS: Fenofibrate 145 MG Tablet PO (04:00)
[2019-12-26] MEDS: Pregabalin 75 MG Capsule 150 MG PO ×2 (04:09→17:26)
[2019-12-26 06:21] LABS: Bedside Glucose 161 mg/dL (70-110)
[2019-12-26] MEDS: Aspirin E.C. 81 MG Tablet PO (09:31)
[2019-12-26] MEDS: Insulin Lispro 100 UNIT/ML INSULN.PEN 13 UNIT SC ×3 (09:31→17:21)
[2019-12-26 11:55] LABS: Bedside Glucose 217 mg/dL (70-110)
--- NOTE | 2019-12-26 14:00 | CASEMGMT ---
Social Work Therapy scheduled family training with 12/29 at 12:30 pm to better determine a safe discharge plan. Will continue to follow. Sabina Alexandra MSW [employer]IGH SCHOOL LEARNING SUPPORT TEACHER
[2019-12-26 14:33] VITALS: BP 147/60; PULSE 58; RESP 16; TEMP 36.3; O2SAT 92
--- NOTE | 2019-12-26 14:52 | NURSING ---
attempted to call with update no answer
--- NOTE | 2019-12-26 14:55 | NURSING ---
spoke with update given.
[2019-12-26 16:21] LABS: Bedside Glucose 117 mg/dL (70-110)
[2019-12-26 21:16] LABS: Bedside Glucose 247 mg/dL (70-110)
[2019-12-26] MEDS: Atorvastatin Calcium 40 MG Tablet PO (21:53)
[2019-12-26] MEDS: traZODone 50 MG Tablet PO (21:53)
[2019-12-27] MEDS: Senna/Docusate Sodium 1 Tablet 2 TABLET PO (05:45)
[2019-12-27] MEDS: amLODIPine 5 MG Tablet PO (05:45)
[2019-12-27] MEDS: Carvedilol 12.5 MG Tablet PO ×2 (05:45→16:56)
[2019-12-27] MEDS: Fenofibrate 145 MG Tablet PO (05:45)
[2019-12-27] MEDS: Finasteride 5 MG Tablet PO (05:45)
[2019-12-27] MEDS: Enoxaparin 40 MG/0.4 ML Syringe SC (05:45)
[2019-12-27] MEDS: Famotidine 20 MG Tablet PO (05:45)
[2019-12-27] MEDS: FLUoxetine 20 MG Capsule PO (05:45)
[2019-12-27] MEDS: Polyethylene Glycol 3350 17 GM PACKET PO (05:45)
[2019-12-27] MEDS: Pregabalin 75 MG Capsule 150 MG PO ×2 (05:50→16:56)
[2019-12-27] MEDS: Menthol/Lanolin/Calamine/Znox 113 GM Tube 1 APPLIC TOPICAL ×2 (05:50→21:03)
[2019-12-27] MEDS: Nystatin Powder 15gm Bottle 1 APPLIC TOPICAL ×2 (05:50→21:02)
[2019-12-27] MEDS: Glucerna Shake 120 ML LIQUID PO ×4 (05:50→20:58)
[2019-12-27] MEDS: Fluticasone/Salmeterol 232-14 Inhaler 1 PUFF IH ×2 (05:54→16:56)
[2019-12-27 06:26] LABS: Bedside Glucose 150 mg/dL (70-110)
[2019-12-27] MEDS: Aspirin E.C. 81 MG Tablet PO (08:40)
[2019-12-27] MEDS: Insulin Lispro 100 UNIT/ML INSULN.PEN 13 UNIT SC ×3 (08:40→16:57)
[2019-12-27 11:11] LABS: Bedside Glucose 200 mg/dL (70-110)
[2019-12-27 14:47] VITALS: BP 137/67; PULSE 60; RESP 18; TEMP 36.4; O2SAT 97
[2019-12-27 16:50] LABS: Bedside Glucose 172 mg/dL (70-110)
[2019-12-27] MEDS: Atorvastatin Calcium 40 MG Tablet PO (21:00)
[2019-12-27] MEDS: traZODone 50 MG Tablet PO (21:00)
[2019-12-27 21:10] LABS: Bedside Glucose 224 mg/dL (70-110)
[2019-12-28] MEDS: Glucerna Shake 120 ML LIQUID PO ×4 (06:21→21:16)
[2019-12-28] MEDS: Fluticasone/Salmeterol 232-14 Inhaler 1 PUFF IH ×2 (06:22→17:42)
[2019-12-28] MEDS: Enoxaparin 40 MG/0.4 ML Syringe SC (06:22)
[2019-12-28] MEDS: Pregabalin 75 MG Capsule 150 MG PO ×2 (06:22→17:33)
[2019-12-28] MEDS: Famotidine 20 MG Tablet PO (06:23)
[2019-12-28] MEDS: Finasteride 5 MG Tablet PO (06:23)
[2019-12-28] MEDS: Carvedilol 12.5 MG Tablet PO ×2 (06:23→17:35)
[2019-12-28] MEDS: amLODIPine 5 MG Tablet PO (06:23)
[2019-12-28] MEDS: Fenofibrate 145 MG Tablet PO (06:24)
[2019-12-28] MEDS: FLUoxetine 20 MG Capsule PO (06:24)
[2019-12-28 06:26] LABS: Bedside Glucose 144 mg/dL (70-110)
[2019-12-28] MEDS: Nystatin Powder 15gm Bottle 1 APPLIC TOPICAL ×2 (06:29→21:32)
[2019-12-28] MEDS: Menthol/Lanolin/Calamine/Znox 113 GM Tube 1 APPLIC TOPICAL ×2 (06:30→21:18)
[2019-12-28] MEDS: Insulin Lispro 100 UNIT/ML INSULN.PEN 13 UNIT SC ×3 (08:00→17:38)
[2019-12-28] MEDS: Aspirin E.C. 81 MG Tablet PO (08:00)
[2019-12-28 11:21] LABS: Bedside Glucose 278 mg/dL (70-110)
[2019-12-28 13:56] VITALS: BP 129/63; PULSE 62; RESP 18; TEMP 36.3; O2SAT 98
[2019-12-28 16:30] LABS: Bedside Glucose 222 mg/dL (70-110)
[2019-12-28] MEDS: Senna/Docusate Sodium 1 Tablet 2 TABLET PO (17:34)
--- NOTE | 2019-12-28 18:12 | NURSING ---
Attempted to contact spouse today but was unsuccessful. pt did report that he spoke with his today.
[2019-12-28 21:11] LABS: Bedside Glucose 266 mg/dL (70-110)
[2019-12-28] MEDS: traZODone 50 MG Tablet PO (21:17)
[2019-12-28] MEDS: Atorvastatin Calcium 40 MG Tablet PO (21:17)
[2019-12-29] MEDS: Glucerna Shake 120 ML LIQUID PO ×4 (05:53→22:09)
[2019-12-29] MEDS: Polyethylene Glycol 3350 17 GM PACKET PO (05:54)
[2019-12-29] MEDS: Pregabalin 75 MG Capsule 150 MG PO ×2 (05:54→17:25)
[2019-12-29] MEDS: Senna/Docusate Sodium 1 Tablet 2 TABLET PO (05:54)
[2019-12-29 05:55] VITALS: BP 145/69; PULSE 60
[2019-12-29] MEDS: Finasteride 5 MG Tablet PO (05:55)
[2019-12-29] MEDS: Carvedilol 12.5 MG Tablet PO ×2 (05:55→17:20)
[2019-12-29] MEDS: Famotidine 20 MG Tablet PO (05:55)
[2019-12-29] MEDS: FLUoxetine 20 MG Capsule PO (05:55)
[2019-12-29] MEDS: amLODIPine 5 MG Tablet PO (05:55)
[2019-12-29] MEDS: Fenofibrate 145 MG Tablet PO (05:55)
[2019-12-29] MEDS: Enoxaparin 40 MG/0.4 ML Syringe SC (05:55)
[2019-12-29 05:59] LABS: Anion Gap 8 (5-15); BUN 42 mg/dL (7-18); BUN/Creat Ratio 23.9 RATIO (10-20); Calcium,Total 9.1 mg/dL (8.5-10.1); Chloride 103 mmol/L (98-107); Creatinine, Serum 1.76 mg/dL (0.70-1.30); EST Glomerular Filtration Rate 41 mL/min (>60); Est Glom Filt Rate - Afr Amer 50 mL/min (>60); Estimated Creatinine Clearance 38.86 ml/min; Glucose 153 mg/dL (74-106); Sodium Level 138 mmol/L (136-145)
[2019-12-29] MEDS: Menthol/Lanolin/Calamine/Znox 113 GM Tube 1 APPLIC TOPICAL ×2 (05:59→22:07)
[2019-12-29] MEDS: Fluticasone/Salmeterol 232-14 Inhaler 1 PUFF IH ×2 (06:00→17:20)
[2019-12-29] MEDS: Nystatin Powder 15gm Bottle 1 APPLIC TOPICAL ×2 (06:00→22:12)
[2019-12-29 06:21] LABS: Bedside Glucose 169 mg/dL (70-110)
[2019-12-29] MEDS: Insulin Lispro 100 UNIT/ML INSULN.PEN 13 UNIT SC ×2 (07:57→11:50)
[2019-12-29] MEDS: Aspirin E.C. 81 MG Tablet PO (07:58)
[2019-12-29 09:49] VITALS: PULSE 64; RESP 14; O2SAT 98
--- NOTE | 2019-12-29 11:12 | NURSING ---
Spoke with family and provided update.
[2019-12-29 11:15] LABS: Bedside Glucose 331 mg/dL (70-110)
--- NOTE | 2019-12-29 13:24 | NURSING ---
Addendum entered by Megan Pérez 12/29/19 14:58: Charted in error Original Note: Received order from Dr. Gamino for one time order for PT/INR. Order repeated back.
[2019-12-29 14:34] LABS: International Normalized Ratio 1.1; Prothrombin Time (Protime)PT. 13.3 SECONDS (11.7-14.9)
[2019-12-29 14:51] VITALS: BP 167/66; PULSE 61; RESP 16; TEMP 36; O2SAT 97
[2019-12-29 16:30] LABS: Bedside Glucose 234 mg/dL (70-110)
[2019-12-29] MEDS: Insulin Lispro 100 UNIT/ML INSULN.PEN 17 UNIT SC (17:20)
[2019-12-29] MEDS: Atorvastatin Calcium 40 MG Tablet PO (22:07)
[2019-12-29] MEDS: traZODone 50 MG Tablet PO (22:07)
[2019-12-29 22:15] LABS: Bedside Glucose 242 mg/dL (70-110)
--- NOTE | 2019-12-30 02:20 | NURSING ---
Pt resting in bed, eyes closed, resp deep and even.
[2019-12-30] MEDS: Polyethylene Glycol 3350 17 GM PACKET PO (04:45)
[2019-12-30] MEDS: Glucerna Shake 120 ML LIQUID PO ×4 (04:45→21:28)
[2019-12-30] MEDS: Enoxaparin 40 MG/0.4 ML Syringe SC (04:46)
[2019-12-30] MEDS: Famotidine 20 MG Tablet PO (04:47)
[2019-12-30] MEDS: Carvedilol 12.5 MG Tablet PO ×2 (04:47→18:17)
[2019-12-30] MEDS: Fenofibrate 145 MG Tablet PO (04:47)
[2019-12-30] MEDS: FLUoxetine 20 MG Capsule PO (04:47)
[2019-12-30] MEDS: Senna/Docusate Sodium 1 Tablet 2 TABLET PO ×2 (04:47→18:17)
[2019-12-30] MEDS: Finasteride 5 MG Tablet PO (04:47)
[2019-12-30] MEDS: amLODIPine 5 MG Tablet PO (04:47)
[2019-12-30] MEDS: Pregabalin 75 MG Capsule 150 MG PO ×2 (04:49→18:21)
[2019-12-30] MEDS: Nystatin Powder 15gm Bottle 1 APPLIC TOPICAL ×2 (04:50→21:33)
[2019-12-30] MEDS: Menthol/Lanolin/Calamine/Znox 113 GM Tube 1 APPLIC TOPICAL ×2 (04:50→21:34)
[2019-12-30 04:53] VITALS: BP 158/61; PULSE 62
[2019-12-30] MEDS: Fluticasone/Salmeterol 232-14 Inhaler 1 PUFF IH ×2 (04:54→18:15)
[2019-12-30 06:10] LABS: Bedside Glucose 184 mg/dL (70-110)
[2019-12-30] MEDS: Insulin Lispro 100 UNIT/ML INSULN.PEN 17 UNIT SC ×3 (08:52→18:13)
[2019-12-30] MEDS: Aspirin E.C. 81 MG Tablet PO (08:53)
[2019-12-30 11:30] LABS: Bedside Glucose 186 mg/dL (70-110)
[2019-12-30 16:00] VITALS: BP 156/62; PULSE 64; RESP 16; TEMP 36.6; O2SAT 97
[2019-12-30 16:41] LABS: Bedside Glucose 219 mg/dL (70-110)
[2019-12-30] MEDS: Atorvastatin Calcium 40 MG Tablet PO (21:29)
[2019-12-30] MEDS: traZODone 50 MG Tablet PO (21:29)
[2019-12-30 21:36] LABS: Bedside Glucose 235 mg/dL (70-110)
[2019-12-31 03:46] VITALS: BP 140/58; PULSE 63; RESP 16; TEMP 36.3; O2SAT 92
[2019-12-31] MEDS: Nystatin Powder 15gm Bottle 1 APPLIC TOPICAL ×2 (06:03→20:09)
[2019-12-31] MEDS: Carvedilol 12.5 MG Tablet PO ×2 (06:03→18:12)
[2019-12-31] MEDS: Glucerna Shake 120 ML LIQUID PO ×4 (06:03→20:07)
[2019-12-31] MEDS: Menthol/Lanolin/Calamine/Znox 113 GM Tube 1 APPLIC TOPICAL ×2 (06:03→20:09)
[2019-12-31] MEDS: amLODIPine 5 MG Tablet PO (06:04)
[2019-12-31] MEDS: Finasteride 5 MG Tablet PO (06:05)
[2019-12-31] MEDS: Enoxaparin 40 MG/0.4 ML Syringe SC (06:05)
[2019-12-31] MEDS: FLUoxetine 20 MG Capsule PO (06:05)
[2019-12-31] MEDS: Famotidine 20 MG Tablet PO (06:05)
[2019-12-31] MEDS: Senna/Docusate Sodium 1 Tablet 2 TABLET PO ×2 (06:05→18:12)
[2019-12-31] MEDS: Fenofibrate 145 MG Tablet PO (06:05)
[2019-12-31] MEDS: Fluticasone/Salmeterol 232-14 Inhaler 1 PUFF IH ×2 (06:06→18:12)
[2019-12-31] MEDS: Pregabalin 75 MG Capsule 150 MG PO ×2 (06:08→20:10)
[2019-12-31 06:31] LABS: Bedside Glucose 166 mg/dL (70-110)
[2019-12-31] MEDS: Aspirin E.C. 81 MG Tablet PO (09:10)
[2019-12-31] MEDS: Insulin Lispro 100 UNIT/ML INSULN.PEN 17 UNIT SC ×3 (09:12→18:13)
[2019-12-31 11:31] LABS: Bedside Glucose 197 mg/dL (70-110)
[2019-12-31 16:13] VITALS: BP 160/61; PULSE 64; RESP 16; TEMP 36.8; O2SAT 94
[2019-12-31 17:11] LABS: Bedside Glucose 196 mg/dL (70-110)
[2019-12-31] MEDS: Atorvastatin Calcium 40 MG Tablet PO (20:08)
[2019-12-31] MEDS: traZODone 50 MG Tablet PO (20:08)
[2019-12-31 21:11] LABS: Bedside Glucose 251 mg/dL (70-110)
[2020-01-01 05:34] VITALS: BP 140/70; PULSE 60; RESP 18; TEMP 36.3; O2SAT 94
[2020-01-01] MEDS: Glucerna Shake 120 ML LIQUID PO ×4 (05:36→21:28)
[2020-01-01] MEDS: Fluticasone/Salmeterol 232-14 Inhaler 1 PUFF IH ×2 (05:36→18:08)
[2020-01-01] MEDS: FLUoxetine 20 MG Capsule PO (05:37)
[2020-01-01] MEDS: Finasteride 5 MG Tablet PO (05:37)
[2020-01-01] MEDS: Enoxaparin 40 MG/0.4 ML Syringe SC (05:37)
[2020-01-01] MEDS: amLODIPine 5 MG Tablet PO (05:37)
[2020-01-01] MEDS: Fenofibrate 145 MG Tablet PO (05:38)
[2020-01-01] MEDS: Senna/Docusate Sodium 1 Tablet 2 TABLET PO ×2 (05:38→18:07)
[2020-01-01] MEDS: Polyethylene Glycol 3350 17 GM PACKET PO (05:38)
[2020-01-01] MEDS: Famotidine 20 MG Tablet PO (05:38)
[2020-01-01] MEDS: Carvedilol 12.5 MG Tablet PO ×2 (05:39→18:07)
[2020-01-01] MEDS: Pregabalin 75 MG Capsule 150 MG PO ×2 (05:42→18:07)
[2020-01-01] MEDS: Menthol/Lanolin/Calamine/Znox 113 GM Tube 1 APPLIC TOPICAL ×2 (05:44→21:35)
[2020-01-01] MEDS: Nystatin Powder 15gm Bottle 1 APPLIC TOPICAL ×2 (05:44→21:35)
[2020-01-01 06:26] LABS: Bedside Glucose 183 mg/dL (70-110)
[2020-01-01] MEDS: Aspirin E.C. 81 MG Tablet PO (08:41)
[2020-01-01] MEDS: Insulin Lispro 100 UNIT/ML INSULN.PEN 17 UNIT SC ×3 (08:41→18:09)
[2020-01-01 11:16] LABS: Bedside Glucose 260 mg/dL (70-110)
[2020-01-01 14:12] VITALS: BP 139/48; PULSE 62; RESP 18; TEMP 36.6; O2SAT 96
--- NOTE | 2020-01-01 14:33 | CASEMGMT ---
Social Work Family therapy training was rescheduled to this date. Spoke with pt, therapy and after training. feels she can care for pt at home. therapy provided list of DME and supplies pt needs at DC. just purchased FWW. SW will order BSC and w/c. SW provided lists of skilled and nonskilled HHC agencies. and IDT recommending continued therapy but DC plan will be to home with . Will await insurance outcome 12/31. ELIZABETH MahanW
[2020-01-01 16:50] LABS: Bedside Glucose 191 mg/dL (70-110)
[2020-01-01 21:11] LABS: Bedside Glucose 245 mg/dL (70-110)
[2020-01-01] MEDS: Atorvastatin Calcium 40 MG Tablet PO (21:28)
[2020-01-01] MEDS: traZODone 50 MG Tablet PO (21:28)
[2020-01-02 06:26] LABS: Bedside Glucose 158 mg/dL (70-110)
[2020-01-02] MEDS: Polyethylene Glycol 3350 17 GM PACKET PO (06:37)
[2020-01-02] MEDS: Senna/Docusate Sodium 1 Tablet 2 TABLET PO (06:37)
[2020-01-02] MEDS: Nystatin Powder 15gm Bottle 1 APPLIC TOPICAL ×2 (06:37→20:54)
[2020-01-02] MEDS: Fluticasone/Salmeterol 232-14 Inhaler 1 PUFF IH ×2 (06:37→17:39)
[2020-01-02] MEDS: Enoxaparin 40 MG/0.4 ML Syringe SC (06:37)
[2020-01-02] MEDS: Famotidine 20 MG Tablet PO (06:37)
[2020-01-02] MEDS: Carvedilol 12.5 MG Tablet PO ×2 (06:37→17:41)
[2020-01-02] MEDS: amLODIPine 5 MG Tablet PO (06:37)
[2020-01-02] MEDS: Fenofibrate 145 MG Tablet PO (06:37)
[2020-01-02] MEDS: Menthol/Lanolin/Calamine/Znox 113 GM Tube 1 APPLIC TOPICAL ×2 (06:37→20:53)
[2020-01-02] MEDS: FLUoxetine 20 MG Capsule PO (06:37)
[2020-01-02] MEDS: Finasteride 5 MG Tablet PO (06:37)
[2020-01-02] MEDS: Pregabalin 75 MG Capsule 150 MG PO ×2 (06:41→17:38)
[2020-01-02] MEDS: Glucerna Shake 120 ML LIQUID PO ×4 (06:47→20:52)
[2020-01-02] MEDS: Aspirin E.C. 81 MG Tablet PO (08:27)
[2020-01-02] MEDS: Insulin Lispro 100 UNIT/ML INSULN.PEN 17 UNIT SC ×3 (08:28→17:47)
[2020-01-02 11:06] LABS: Bedside Glucose 254 mg/dL (70-110)
[2020-01-02 15:34] VITALS: BP 151/71; PULSE 69; RESP 18; TEMP 36.6; O2SAT 93
[2020-01-02 17:51] LABS: Bedside Glucose 182 mg/dL (70-110)
[2020-01-02] MEDS: Atorvastatin Calcium 40 MG Tablet PO (20:52)
[2020-01-02] MEDS: traZODone 50 MG Tablet PO (20:52)
[2020-01-02 21:00] LABS: Bedside Glucose 255 mg/dL (70-110)
[2020-01-03 05:36] VITALS: BP 154/77; PULSE 62; RESP 18; TEMP 36.8; O2SAT 96
[2020-01-03] MEDS: Fluticasone/Salmeterol 232-14 Inhaler 1 PUFF IH ×2 (05:38→17:16)
[2020-01-03] MEDS: Enoxaparin 40 MG/0.4 ML Syringe SC (05:38)
[2020-01-03] MEDS: Glucerna Shake 120 ML LIQUID PO ×4 (05:38→22:02)
[2020-01-03] MEDS: Fenofibrate 145 MG Tablet PO (05:39)
[2020-01-03] MEDS: FLUoxetine 20 MG Capsule PO (05:39)
[2020-01-03] MEDS: amLODIPine 5 MG Tablet PO (05:39)
[2020-01-03] MEDS: Carvedilol 12.5 MG Tablet PO ×2 (05:39→17:19)
[2020-01-03] MEDS: Famotidine 20 MG Tablet PO (05:39)
[2020-01-03] MEDS: Finasteride 5 MG Tablet PO (05:41)
[2020-01-03] MEDS: Pregabalin 75 MG Capsule 150 MG PO ×2 (05:42→17:16)
[2020-01-03] MEDS: Nystatin Powder 15gm Bottle 1 APPLIC TOPICAL ×2 (05:46→22:04)
[2020-01-03] MEDS: Menthol/Lanolin/Calamine/Znox 113 GM Tube 1 APPLIC TOPICAL ×2 (05:46→22:04)
[2020-01-03 06:16] LABS: Bedside Glucose 181 mg/dL (70-110)
[2020-01-03] MEDS: Insulin Lispro 100 UNIT/ML INSULN.PEN 17 UNIT SC ×3 (08:11→17:17)
[2020-01-03] MEDS: Aspirin E.C. 81 MG Tablet PO (08:13)
[2020-01-03 11:21] LABS: Bedside Glucose 248 mg/dL (70-110)
[2020-01-03 14:47] VITALS: BP 139/46; PULSE 66; RESP 14; TEMP 36.8; O2SAT 94
[2020-01-03 15:39] VITALS: PULSE 70
[2020-01-03 17:16] LABS: Bedside Glucose 269 mg/dL (70-110)
[2020-01-03] MEDS: Senna/Docusate Sodium 1 Tablet 2 TABLET PO (17:16)
[2020-01-03 21:20] LABS: Bedside Glucose 286 mg/dL (70-110)
[2020-01-03] MEDS: Atorvastatin Calcium 40 MG Tablet PO (22:02)
[2020-01-03] MEDS: traZODone 50 MG Tablet PO (22:02)
[2020-01-04 06:21] LABS: Bedside Glucose 187 mg/dL (70-110)
[2020-01-04] MEDS: Carvedilol 12.5 MG Tablet PO ×2 (06:33→17:36)
[2020-01-04] MEDS: Enoxaparin 40 MG/0.4 ML Syringe SC (06:33)
[2020-01-04] MEDS: Glucerna Shake 120 ML LIQUID PO ×4 (06:33→21:59)
[2020-01-04] MEDS: Polyethylene Glycol 3350 17 GM PACKET PO (06:33)
[2020-01-04] MEDS: amLODIPine 5 MG Tablet PO (06:33)
[2020-01-04] MEDS: Menthol/Lanolin/Calamine/Znox 113 GM Tube 1 APPLIC TOPICAL ×2 (06:34→21:59)
[2020-01-04] MEDS: FLUoxetine 20 MG Capsule PO (06:34)
[2020-01-04] MEDS: Fenofibrate 145 MG Tablet PO (06:34)
[2020-01-04] MEDS: Senna/Docusate Sodium 1 Tablet 2 TABLET PO (06:34)
[2020-01-04] MEDS: Famotidine 20 MG Tablet PO (06:34)
[2020-01-04] MEDS: Finasteride 5 MG Tablet PO (06:34)
[2020-01-04] MEDS: Nystatin Powder 15gm Bottle 1 APPLIC TOPICAL ×2 (06:34→21:59)
[2020-01-04] MEDS: Pregabalin 75 MG Capsule 150 MG PO ×2 (06:39→17:36)
[2020-01-04] MEDS: Fluticasone/Salmeterol 232-14 Inhaler 1 PUFF IH ×2 (06:40→17:27)
[2020-01-04] MEDS: Insulin Lispro 100 UNIT/ML INSULN.PEN 17 UNIT SC (08:49)
[2020-01-04] MEDS: Aspirin E.C. 81 MG Tablet PO (08:49)
[2020-01-04 11:21] LABS: Bedside Glucose 319 mg/dL (70-110)
[2020-01-04] MEDS: Insulin Lispro 100 UNIT/ML INSULN.PEN 20 UNIT SC ×2 (12:36→17:26)
[2020-01-04 16:49] VITALS: BP 151/62; PULSE 67; RESP 20; TEMP 36.6; O2SAT 98
[2020-01-04 16:51] LABS: Bedside Glucose 267 mg/dL (70-110)
[2020-01-04 21:41] LABS: Bedside Glucose 301 mg/dL (70-110)
[2020-01-04] MEDS: Atorvastatin Calcium 40 MG Tablet PO (21:59)
[2020-01-04] MEDS: traZODone 50 MG Tablet PO (21:59)
[2020-01-05 06:08] LABS: Absolute Lymphocyte Count 0.83 X10^3/uL (0.83-4.51); Absolute Neutrophil Count 3.2 X10^3/uL (2.0-7.7); Basophil# 0.02 X10^3/uL; Basophil% 0.4 % (0-1); Eosinophil# 0.34 X10^3/uL; Eosinophils% 6.5 % (0-5); Hematocrit 32.8 % (40-54); Hemoglobin 10.5 g/dL (13.0-16.5); Lymphocyte # 0.83 X10^3/ul (4.0); Lymphocyte % 15.9 % (19-41); Mean Corpuscular Hgb 26.4 pg (27.0-32.0); Mean Corpuscular Volume 82.4 fL (80-94); Mean Platelet Vol. 10.6 fl (6.2-12.0); Monocyte# 0.81 X10^3/uL; Monocyte% 15.5 % (0-10); NRBC Flagged by Analyzer 0 % (0-5); Neutrophil # 3.18 X10^3/uL (2.7-7.7); Neutrophil % 60.9 % (47-70); Platelet Count 201 K/mm3 (150-450); RBC Distribution Width SD 47.7 fl (35.1-43.9); Red Blood Count 3.98 M/mm3 (4.6-6.2); White Blood Count 5.2 K/mm3 (4.4-11.0)
[2020-01-05 06:21] LABS: Bedside Glucose 193 mg/dL (70-110)
[2020-01-05] MEDS: Famotidine 20 MG Tablet PO (06:25)
[2020-01-05] MEDS: Finasteride 5 MG Tablet PO (06:25)
[2020-01-05] MEDS: Senna/Docusate Sodium 1 Tablet 2 TABLET PO ×2 (06:25→17:21)
[2020-01-05] MEDS: amLODIPine 5 MG Tablet PO (06:25)
[2020-01-05] MEDS: FLUoxetine 20 MG Capsule PO (06:25)
[2020-01-05] MEDS: Polyethylene Glycol 3350 17 GM PACKET PO (06:25)
[2020-01-05] MEDS: Carvedilol 12.5 MG Tablet PO ×2 (06:25→17:21)
[2020-01-05] MEDS: Enoxaparin 40 MG/0.4 ML Syringe SC (06:25)
[2020-01-05] MEDS: Fenofibrate 145 MG Tablet PO (06:25)
[2020-01-05] MEDS: Nystatin Powder 15gm Bottle 1 APPLIC TOPICAL ×2 (06:25→21:17)
[2020-01-05] MEDS: Menthol/Lanolin/Calamine/Znox 113 GM Tube 1 APPLIC TOPICAL ×2 (06:26→21:17)
[2020-01-05] MEDS: Glucerna Shake 120 ML LIQUID PO ×4 (06:29→21:17)
[2020-01-05] MEDS: Pregabalin 75 MG Capsule 150 MG PO ×2 (06:30→17:20)
[2020-01-05 06:32] LABS: Anion Gap 8 (5-15); BUN 42 mg/dL (7-18); Calcium,Total 9.2 mg/dL (8.5-10.1); Chloride 102 mmol/L (98-107); Creatinine, Serum 1.68 mg/dL (0.70-1.30); EST Glomerular Filtration Rate 43 mL/min (>60); Est Glom Filt Rate - Afr Amer 52 mL/min (>60); Estimated Creatinine Clearance 40.71 ml/min; Glucose 195 mg/dL (74-106); Potassium 4.1 mmol/L (3.5-5.1); Sodium Level 137 mmol/L (136-145)
[2020-01-05 06:33] VITALS: BP 135/70; PULSE 87; RESP 18; TEMP 36.4; O2SAT 97
[2020-01-05] MEDS: Fluticasone/Salmeterol 232-14 Inhaler 1 PUFF IH ×2 (06:34→18:29)
[2020-01-05] MEDS: Insulin Lispro 100 UNIT/ML INSULN.PEN 20 UNIT SC ×3 (08:51→17:21)
[2020-01-05] MEDS: Aspirin E.C. 81 MG Tablet PO (08:51)
[2020-01-05 11:11] LABS: Bedside Glucose 275 mg/dL (70-110)
[2020-01-05 15:27] VITALS: BP 142/61; PULSE 63; RESP 18; TEMP 36.9; O2SAT 93
[2020-01-05 16:36] LABS: Bedside Glucose 224 mg/dL (70-110)
[2020-01-05] MEDS: traZODone 50 MG Tablet PO (21:17)
[2020-01-05] MEDS: Atorvastatin Calcium 40 MG Tablet PO (21:17)
[2020-01-05 21:20] LABS: Bedside Glucose 318 mg/dL (70-110)
[2020-01-06] MEDS: Enoxaparin 40 MG/0.4 ML Syringe SC (06:23)
[2020-01-06] MEDS: Fenofibrate 145 MG Tablet PO (06:23)
[2020-01-06] MEDS: Glucerna Shake 120 ML LIQUID PO ×4 (06:23→20:47)
[2020-01-06] MEDS: amLODIPine 5 MG Tablet PO (06:23)
[2020-01-06] MEDS: Finasteride 5 MG Tablet PO (06:23)
[2020-01-06] MEDS: Polyethylene Glycol 3350 17 GM PACKET PO (06:23)
[2020-01-06] MEDS: Senna/Docusate Sodium 1 Tablet 2 TABLET PO ×2 (06:23→18:23)
[2020-01-06] MEDS: Nystatin Powder 15gm Bottle 1 APPLIC TOPICAL ×2 (06:24→20:49)
[2020-01-06] MEDS: FLUoxetine 20 MG Capsule PO (06:24)
[2020-01-06] MEDS: Famotidine 20 MG Tablet PO (06:24)
[2020-01-06] MEDS: Menthol/Lanolin/Calamine/Znox 113 GM Tube 1 APPLIC TOPICAL ×2 (06:24→20:50)
[2020-01-06] MEDS: Fluticasone/Salmeterol 232-14 Inhaler 1 PUFF IH ×2 (06:25→18:23)
[2020-01-06] MEDS: Carvedilol 12.5 MG Tablet PO ×2 (06:29→18:23)
[2020-01-06] MEDS: Pregabalin 75 MG Capsule 150 MG PO ×2 (06:29→19:04)
[2020-01-06 06:51] LABS: Bedside Glucose 205 mg/dL (70-110)
[2020-01-06 06:58] VITALS: BP 123/70; PULSE 71; RESP 17; TEMP 36.6; O2SAT 98
[2020-01-06] MEDS: Insulin Lispro 100 UNIT/ML INSULN.PEN 20 UNIT SC ×2 (08:00→11:51)
[2020-01-06] MEDS: Aspirin E.C. 81 MG Tablet PO (08:01)
[2020-01-06 11:35] LABS: Bedside Glucose 300 mg/dL (70-110)
[2020-01-06 16:00] VITALS: BP 132/74; PULSE 72; RESP 16; TEMP 36.2; O2SAT 96
[2020-01-06] MEDS: Insulin Lispro 100 UNIT/ML INSULN.PEN 23 UNIT SC (16:07)
[2020-01-06 16:11] LABS: Bedside Glucose 253 mg/dL (70-110)
[2020-01-06 17:41] LABS: Bedside Glucose 217 mg/dL (70-110)
--- NOTE | 2020-01-06 19:59 | PN_ITS ---
Subjective: Resident seen for regulatory visit. He has no new problems, concerns, complaints. His sugars have been difficult to control. Vitals/I&O's: Vital Signs Temp Pulse Resp BP Pulse Ox 97.2 F L 72 16 132/74 H 96 01/06/20 16:00 01/06/20 16:00 01/06/20 16:00 01/06/20 16:00 01/06/20 16:00 Oxygen Delivery Method Room Air Weight: 109.6 kg Body Mass Index (BMI) 36.7 Finger Stick Blood Glucose 106 Intake and Output for Last 24 Hours 01/04/20 01/05/20 01/06/20 23:59 23:59 23:59 Intake Total 980 / 980 1080 / 1080 840 / 840 Balance 980 / 980 1080 / 1080 840 / 840 Laboratory Results 01/05/20 21:12: POC Glucose 318 H 01/06/20 06:16: POC Glucose 205 H 01/06/20 11:31: POC Glucose 300 H 01/06/20 16:05: POC Glucose 253 H 01/06/20 17:19: POC Glucose 217 H Past Medical History Past Medical History (Chronic Problems): Chronic Problems (Last Reviewed 12/11/19 @ 09:[address] Jose Cruz Anderson MD) PAD (peripheral artery disease) (Chronic) BPH (benign prostatic hyperplasia) (Chronic) COPD (chronic obstructive pulmonary disease) (Chronic) Chronic back pain (Chronic) Chronic renal failure, stage 3 (moderate) (Chronic) Obstructive sleep apnea (Chronic) does not wear CPAP Dysphagia (Chronic) Acute ischemic left MCA stroke (Chronic) 10/20/19 Cerebrovascular disease (Chronic) occluded left M1 Carotid stenosis, left (Chronic) near total occlusion Carotid stenosis, right (Chronic) moderate Grade II diastolic dysfunction (Chronic) Type 2 diabetes mellitus (Chronic) also with cardiovascular disease. cerebrovascular disease, PAD Left atrial enlargement (Chronic) mild - moderate Bony metastasis (Chronic) Right hemiplegia (Chronic) Expressive aphasia (Chronic) PAOD (peripheral arterial occlusive disease) (Chronic) Chronic kidney disease (Chronic) Left middle cerebral artery stroke (Chronic) Body mass index (bmi) 36.0-36.9, adult (Chronic) Carotid artery stenosis (Chronic) Coronary artery disease (Chronic) Hypertension (Chronic) Diabetes mellitus (Chronic) Atherosclerosis of coronary artery of [place] heart without angina pectoris (Chronic) CABG x 3 MASTERS to LAD, SVG to Dx, SVG to RCA 01/09/2009 H/O coronary artery bypass surgery (Chronic 01/09/09) CABG x 3 MASTERS to LAD, SVG to Dx, SVG to RCA 01/09/2009 Abdominal aortic aneurysm (AAA) (Chronic) History of endovascular stent graft for abdominal aortic aneurysm Essential (primary) hypertension (Chronic) Hyperlipidemia (Chronic) Medical History: Medical History (Last Reviewed 12/11/19 @ 09:[address] Jose Cruz Anderson MD) Atherosclerosis of coronary artery of [place] heart without angina pectoris (Chronic) I25.10 CABG x 3 MASTERS to LAD, SVG to Dx, SVG to RCA 01/09/2009 Abdominal aortic aneurysm (AAA) (Chronic) I71.4 History of endovascular stent graft for abdominal aortic aneurysm Essential (primary) hypertension (Chronic) I10 Hyperlipidemia (Chronic) E78.5 Diabetes mellitus E11.9 Allergies No Known Allergies Allergy (Verified 10/20/19 14:10) Home Medications: Ambulatory Orders Medication Instructions Recorded albuterol sulfate 90 mcg/actuation 2 puff INHALATION Q4H PRN PRN 33 04/06/18 aerosol inhaler Days #8 aspirin 81 mg tablet,delayed 81 mg PO QDAY 04/06/18 release pregabalin 75 mg capsule 150 mg PO BID 90 Days #180 cap 04/06/18 Atorvastatin Calcium 40 mg PO QDAY 11/04/19 Acetaminophen 1,000 mg PO Q8H PRN PRN 12/11/19 Carvedilol [Coreg (Beta Atilio)] 12.5 mg PO BID 12/11/19 Enoxaparin [Lovenox] 40 mg SUBCUT DAILY@0600 12/11/19 Famotidine 20 mg PO DAILY 12/11/19 Fenofibrate [Tricor] 145 mg PO DAILY 12/11/19 Finasteride [Proscar] 5 mg PO DAILY 12/11/19 Fluoxetine [Prozac] 20 mg PO DAILY 12/11/19 Fluticasone/Salmeterol 1 ea IH Q12H 12/11/19 [Fluticasone-Salmeterol 232-14] Insulin Glargine,Hum.rec.anlog 12 unit SQ QHS 12/11/19 [Lantus] Insulin Glargine,Hum.rec.anlog 24 unit SQ BREAKFAST 12/11/19 [Lantus] Insulin Lispro [Humalog KwikPen] 3 unit SQ LUNCH 12/11/19 Insulin Lispro [Humalog KwikPen] 12 unit SQ BREAKFAST 12/11/19 Insulin Lispro [Humalog KwikPen] 15 units SQ DINNER 12/11/19 Insulin Lispro [Humalog KwikPen] See Protocol SQ 12/11/19 Menthol/Lanolin/Calamine/Znox 1 applic TOPICAL BID 12/11/19 [Calmoseptine Ointment] Senna/Docusate Sodium [Senokot-S] 2 tab PO BID 12/11/19 Trazodone HCl 50 mg PO QHS 12/11/19 Amlodipine [Norvasc] 5 mg PO DAILY tab 12/12/19 Finasteride [Proscar] 5 mg PO DAILY tab 12/12/19 Surgical History: Surgical History (Last Reviewed 12/11/19 @ 09:[address] Jose Cruz Anderson MD) H/O coronary artery bypass surgery (Chronic) Onset Date: 01/09/09 Z95.1 CABG x 3 MASTERS to LAD, SVG to Dx, SVG to RCA 01/09/2009 History of coronary artery stent placement Z95.5 LUG-Mkls-Sqpb LAD w/ 3.5 x 15 mm Penta 10/2001 History of endovascular stent graft for abdominal aortic aneurysm (AAA) Onset Date: 2015 Z95.828 Surgical History: coronary bypass surgery - x 3., TURP, - - Abdominal aortic aneurysm repair, transrectal prostate biopsy. Psychiatric History: Depression - psot stroke Lives: Spouse/ Significant Other Smoking Status: Former smoker Tobacco Use: Cigarettes, Chew Alcohol: Occasional Drugs: None - *Family History Maternal Family History: Family History (Last Reviewed 11/05/19 @ 12:[address] Diamond Sosa DO) Father Myocardial infarction Hypertension Brother Diabetes History Items: No pertinent history Paternal Family History: Family History (Last Reviewed 11/05/19 @ 12:[address] Diamond Sosa DO) Father Myocardial infarction Hypertension Brother Diabetes History Items: No pertinent history Capacity - Capacity Assessment Tool Can the patient make a choice & communicate that choice?: Yes Can the patient understand benefits, risks and alternatives?: Yes Can the patient make a logical, rational choice?: Yes Is the choice the patient makes consistent w/ their values?: Yes Is there an impending, emergent risk to the patient?: No Does the patient have an Advance Directive?: No Is there a Surrogate Available?: Yes i.e. HCPOA: Yes i.e. close relative (spouse, child, parent, sibling)?: Yes Review of Systems Constitutional: Denies: Chills, Fever, Weight Change HEENT: Denies: Head Aches, Sinus Congestion, Sinus Drainage Cardiovascular: Denies: Chest Pain, Palpitations Respiratory: Denies: Cough, Shortness of breath at rest, Sputum production Gastrointestinal: Denies: Abdominal Pain, Nausea, Vomiting Genitourinary: Denies: Dysuria Musculoskeletal: Denies: Joint Pain, Joint Tenderness Skin: Denies: Rash, Wounds Neurological: Denies: Numbness, Tingling, Focal weakness Psychiatric: Denies: Anxiety, Depression, Homicidal Ideations, Suicidal Ideations Hematologic/ Lymphatic: Denies: Easy Bruising, Easy Bleeding Patient Problems: Active and Suspected Problems (Last Reviewed 12/11/19 @ 09:[address] Jose Cruz Anderson MD) Debility (Acute) - Physical Exam Vitals/I&O's: Vital Signs Temp Pulse Resp BP Pulse Ox 97.2 F L 72 16 132/74 H 96 01/06/20 16:00 01/06/20 16:00 01/06/20 16:00 01/06/20 16:00 01/06/20 16:00 Oxygen Delivery Method Room Air Weight: 109.6 kg Body Mass Index (BMI) 36.7 Finger Stick Blood Glucose 106 Intake and Output for Last 24 Hours 01/04/20 01/05/20 01/06/20 23:59 23:59 23:59 Intake Total 980 / 980 1080 / 1080 840 / 840 Balance 980 / 980 1080 / 1080 840 / 840 General: Alert, Oriented x3, Cooperative HEENT: Atraumatic, PERRLA, EOMI, Normocephalic Neck: Supple, No JVD, Negative Carotid Bruits Lungs: Clear to auscultation, Normal air movement Cardiovascular: Regular rate, No murmurs Abdomen: Bowel Sounds Present, Soft, Non Tender Extremities: No edema, Capillary Refill Less than 3 Seconds Skin: No rashes, No breakdown Musculoskeletal: No Tenderness to Palpation of Joints or Extremities Neurological: Cranial nerves II-XII grossly intact Psych/Mental Status: Normal Affect, Appropriate Laboratory Results 01/05/20 21:12: POC Glucose 318 H 01/06/20 06:16: POC Glucose 205 H 01/06/20 11:31: POC Glucose 300 H 01/06/20 16:05: POC Glucose 253 H 01/06/20 17:19: POC Glucose 217 H Current Medications Acetaminophen (Tylenol) 1,000 mg PO Q6H PRN PRN PRN Reason: Pain Score 1-10/10 Albuterol Sulfate (Ventolin Hfa (Sp)) 2 puff INHALATION Q4H PRN PRN PRN Reason: Wheezing Amlodipine Besylate (Norvasc) 5 mg PO DAILY [facility] Last Admin: 01/06/20 06:23 Dose: 5 mg Documented by: Aspirin (Ecotrin) 81 mg PO DAILY@0800 [facility] Last Admin: 01/06/20 08:01 Dose: 81 mg Documented by: Atorvastatin Calcium (Lipitor) 40 mg PO QHS [facility] Last Admin: 01/05/20 21:17 Dose: 40 mg Documented by: Bisacodyl (Dulcolax) 10 mg PO DAILY PRN PRN PRN Reason: Constipation Calamine/Phenol (Calmoseptine Ointment) 1 applic TOPICAL 0600,2200 [facility]; Protocol Last Admin: 01/06/20 06:24 Dose: 1 applicatio Documented by: Carvedilol (Coreg) 12.5 mg PO BID [facility] Last Admin: 01/06/20 18:23 Dose: 12.5 mg Documented by: Enoxaparin Sodium (Lovenox) 40 mg SC DAILY@0600 [facility] Last Admin: 01/06/20 06:23 Dose: 40 mg Documented by: Famotidine (Pepcid) 20 mg PO DAILY [facility] Last Admin: 01/06/20 06:24 Dose: 20 mg Documented by: Fenofibrate (Tricor) 145 mg PO DAILY [facility] Last Admin: 01/06/20 06:23 Dose: 145 mg Documented by: Finasteride (Proscar) 5 mg PO DAILY [facility] Last Admin: 01/06/20 06:23 Dose: 5 mg Documented by: Fluoxetine HCl (Prozac) 20 mg PO DAILY [facility] Last Admin: 01/06/20 06:24 Dose: 20 mg Documented by: Insulin Glargine (Lantus (Bkc)) 35 units SC BREAKFAST [facility] Insulin Glargine (Lantus (Bkc)) 35 units SC QHS [facility] Insulin Human Lispro (Humalog Kwikpen (Bkc)) 23 unit SC TIDAC [facility] Last Admin: 01/06/20 16:07 Dose: 23 units Documented by: Nutritional Formula (Lactose Free) (Glucerna Shake) 120 ml PO 4X/DAY [facility] Last Admin: 01/06/20 16:11 Dose: 120 ml Documented by: Nystatin (Mycostatin Powder) 1 applic TOPICAL 0600,2200 [facility]; Protocol Last Admin: 01/06/20 06:24 Dose: 1 applicatio Documented by: Polyethylene Glycol (Miralax) 17 gm PO DAILY [facility] Last Admin: 01/06/20 06:23 Dose: 17 gm Documented by: Pregabalin (Lyrica) 150 mg PO BID [facility] Last Admin: 01/06/20 19:04 Dose: 150 mg Documented by: Fluticasone/Salmeterol (Fluticasone-Salmeterol 232-14) 1 puff IH Q12H [facility] Last Admin: 01/06/20 18:23 Dose: 1 puff Documented by: Senna/Docusate Sodium (Senokot-S, Yessenia-Colace) 2 tablet PO BID [facility] Last Admin: 01/06/20 18:23 Dose: 2 tablet Documented by: Trazodone HCl (Desyrel) 50 mg PO QHS [facility] Last Admin: 01/05/20 21:17 Dose: 50 mg Documented by: Assessment/Plan All Active Problems (Last Reviewed 12/11/19 @ 09:[address] Jose Cruz Anderson MD) Morbid obesity (Acute) Former cigarette smoker (Acute) History of AAA (abdominal aortic aneurysm) repair (Acute) Abnormal LFTs (Acute) Depression due to acute stroke (Acute) Preop cardiovascular exam (Acute) Elevated PSA, greater than or equal to 20 ng/ml (Acute) Urinary retention (Acute) Urinary retention due to benign prostatic hyperplasia (Acute) Debility (Acute) 69 year old male with below past medical history significant for recent left middle cerebral artery stroke, hospitalized for urinary retention, underwent cystoscopy, TURP, transrectal biopsy 12/11/[address] Anderson, admitted to TCU with debility, here for rehabilitation, strengthening, prior to disposition determination. * Debility - PT/OT. * Pain - Tylenol 1000MG Q6H PRN pain (1-10). * Bowel - Miralax 17GM daily, Senna/colace 2 tablets BID, Dulcolax 10MG daily PRN. * Adult immunization - Administer Prevnar 13, Pneumovax 23, Fluzone as appropriate. * DVT prophylaxis - Lovenox 40MG SC daily. * COPD - Advair 232-14 1 puff Q12H, Albuterol MDI 2 puffs Q4H PRN. * Hypertension - Coreg 12.5MG BID, Amlodipine 5MG daily. * Coronary Artery Disease - Coreg 12.5MG twice daily, Aspirin 81MG daily. * Hyperlipidemia - Atorvastatin 40MG QHS, Fenofibrate 145MG daily. * Stroke - Aspirin 81MG daily. * GERD - Famotidine 20MG daily. * BPH s/p TURP - Finasteride 5MG daily. * Depression - Fluoxetine 20MG daily, stable chronic oil heaterman use, GDR not indicated. * Diabetes Mellitus II - Lantus 35 units BID; Humalog 23 units TIDAC * Skin irritation - Calmoseptine BID. * Diabetic polyneuropathy - Lyrica 150MG twice daily. * Insomnia - Trazodone 50MG QHS. * Nutrition - Glucerna 120ML 4x/day. * Tinea Corporis - Nystatin powder BID.
[2020-01-06] MEDS: Atorvastatin Calcium 40 MG Tablet PO (20:45)
[2020-01-06] MEDS: traZODone 50 MG Tablet PO (20:46)
[2020-01-06 20:56] LABS: Bedside Glucose 287 mg/dL (70-110)
[2020-01-07 06:06] LABS: Bedside Glucose 185 mg/dL (70-110)
[2020-01-07 06:24] VITALS: BP 170/76; PULSE 59; RESP 18; TEMP 36.4; O2SAT 93
[2020-01-07] MEDS: Fluticasone/Salmeterol 232-14 Inhaler 1 PUFF IH ×2 (06:31→17:03)
[2020-01-07] MEDS: Pregabalin 75 MG Capsule 150 MG PO ×2 (06:31→17:03)
[2020-01-07] MEDS: Glucerna Shake 120 ML LIQUID PO ×4 (06:31→21:23)
[2020-01-07] MEDS: Polyethylene Glycol 3350 17 GM PACKET PO (06:32)
[2020-01-07] MEDS: Finasteride 5 MG Tablet PO (06:33)
[2020-01-07] MEDS: Senna/Docusate Sodium 1 Tablet 2 TABLET PO ×2 (06:33→17:04)
[2020-01-07] MEDS: Famotidine 20 MG Tablet PO (06:33)
[2020-01-07] MEDS: Carvedilol 12.5 MG Tablet PO ×2 (06:33→17:03)
[2020-01-07] MEDS: amLODIPine 5 MG Tablet PO (06:33)
[2020-01-07] MEDS: FLUoxetine 20 MG Capsule PO (06:33)
[2020-01-07] MEDS: Fenofibrate 145 MG Tablet PO (06:34)
[2020-01-07] MEDS: Enoxaparin 40 MG/0.4 ML Syringe SC (06:34)
[2020-01-07] MEDS: Nystatin Powder 15gm Bottle 1 APPLIC TOPICAL ×2 (06:38→21:25)
[2020-01-07] MEDS: Menthol/Lanolin/Calamine/Znox 113 GM Tube 1 APPLIC TOPICAL ×2 (06:38→21:26)
[2020-01-07] MEDS: Insulin Lispro 100 UNIT/ML INSULN.PEN 23 UNIT SC ×3 (08:32→17:04)
[2020-01-07] MEDS: Aspirin E.C. 81 MG Tablet PO (08:32)
--- NOTE | 2020-01-07 08:41 | NURSING ---
please refer to therapy notes/documentation for functional assessment. Currently pt up in chair at bedside legs elevated watching tv.
[2020-01-07 11:00] LABS: Bedside Glucose 285 mg/dL (70-110)
[2020-01-07 14:27] VITALS: BP 147/66; PULSE 66; RESP 18; TEMP 36.1; O2SAT 96
[2020-01-07 16:36] LABS: Bedside Glucose 231 mg/dL (70-110)
[2020-01-07 21:10] LABS: Bedside Glucose 229 mg/dL (70-110)
[2020-01-07] MEDS: Atorvastatin Calcium 40 MG Tablet PO (21:25)
[2020-01-07] MEDS: traZODone 50 MG Tablet PO (21:28)
[2020-01-08 05:38] VITALS: BP 158/70; PULSE 59; RESP 16; TEMP 36.4; O2SAT 93
[2020-01-08] MEDS: Menthol/Lanolin/Calamine/Znox 113 GM Tube 1 APPLIC TOPICAL ×2 (05:39→21:40)
[2020-01-08] MEDS: Polyethylene Glycol 3350 17 GM PACKET PO (05:40)
[2020-01-08] MEDS: Carvedilol 12.5 MG Tablet PO ×2 (05:40→17:49)
[2020-01-08] MEDS: Enoxaparin 40 MG/0.4 ML Syringe SC (05:40)
[2020-01-08] MEDS: amLODIPine 5 MG Tablet PO (05:40)
[2020-01-08] MEDS: Finasteride 5 MG Tablet PO (05:40)
[2020-01-08] MEDS: Famotidine 20 MG Tablet PO (05:40)
[2020-01-08] MEDS: FLUoxetine 20 MG Capsule PO (05:40)
[2020-01-08] MEDS: Senna/Docusate Sodium 1 Tablet 2 TABLET PO ×2 (05:40→17:49)
[2020-01-08] MEDS: Fenofibrate 145 MG Tablet PO (05:40)
[2020-01-08] MEDS: Nystatin Powder 15gm Bottle 1 APPLIC TOPICAL ×2 (05:41→21:40)
[2020-01-08] MEDS: Fluticasone/Salmeterol 232-14 Inhaler 1 PUFF IH ×2 (05:41→17:49)
[2020-01-08] MEDS: Glucerna Shake 120 ML LIQUID PO ×2 (05:44→11:31)
[2020-01-08] MEDS: Pregabalin 75 MG Capsule 150 MG PO ×2 (05:44→17:49)
[2020-01-08 06:30] LABS: Bedside Glucose 187 mg/dL (70-110)
[2020-01-08] MEDS: Aspirin E.C. 81 MG Tablet PO (08:06)
[2020-01-08] MEDS: Insulin Lispro 100 UNIT/ML INSULN.PEN 23 UNIT SC ×3 (08:07→17:49)
[2020-01-08 11:06] LABS: Bedside Glucose 224 mg/dL (70-110)
[2020-01-08 16:00] VITALS: BP 137/62; PULSE 60; RESP 16; TEMP 36.7; O2SAT 93
--- NOTE | 2020-01-08 16:51 | ST ---
Pt's [id number] requested update via phone call. Spoke with dtr-in-law Halima regarding current diet and compensatory strategy recommendations. Halima requesting email of recommendations to be able to explain to pt and pt's . Email sent to Halima at [email or web address].
[2020-01-08 16:55] LABS: Bedside Glucose 255 mg/dL (70-110)
[2020-01-08 21:16] LABS: Bedside Glucose 265 mg/dL (70-110)
[2020-01-08] MEDS: Atorvastatin Calcium 40 MG Tablet PO (21:35)
[2020-01-08] MEDS: traZODone 50 MG Tablet PO (21:35)
[2020-01-08 22:48] VITALS: O2SAT 97
[2020-01-09] MEDS: Senna/Docusate Sodium 1 Tablet 2 TABLET PO ×2 (05:51→17:34)
[2020-01-09] MEDS: Carvedilol 12.5 MG Tablet PO ×2 (05:51→17:34)
[2020-01-09] MEDS: Famotidine 20 MG Tablet PO (05:51)
[2020-01-09] MEDS: Finasteride 5 MG Tablet PO (05:51)
[2020-01-09] MEDS: amLODIPine 5 MG Tablet PO (05:51)
[2020-01-09] MEDS: Fenofibrate 145 MG Tablet PO (05:51)
[2020-01-09] MEDS: Enoxaparin 40 MG/0.4 ML Syringe SC (05:52)
[2020-01-09] MEDS: FLUoxetine 20 MG Capsule PO (05:52)
[2020-01-09] MEDS: Polyethylene Glycol 3350 17 GM PACKET PO (05:52)
[2020-01-09] MEDS: Pregabalin 75 MG Capsule 150 MG PO ×2 (05:52→17:34)
[2020-01-09] MEDS: Nystatin Powder 15gm Bottle 1 APPLIC TOPICAL ×2 (05:52→22:26)
[2020-01-09] MEDS: Fluticasone/Salmeterol 232-14 Inhaler 1 PUFF IH ×2 (05:52→17:34)
[2020-01-09] MEDS: Menthol/Lanolin/Calamine/Znox 113 GM Tube 1 APPLIC TOPICAL ×2 (05:53→22:26)
[2020-01-09 06:30] LABS: Bedside Glucose 171 mg/dL (70-110)
[2020-01-09 06:56] VITALS: BP 154/66; PULSE 98; RESP 17; TEMP 36.9; O2SAT 97
[2020-01-09] MEDS: Aspirin E.C. 81 MG Tablet PO (08:10)
[2020-01-09] MEDS: Insulin Lispro 100 UNIT/ML INSULN.PEN 23 UNIT SC ×3 (08:10→18:01)
[2020-01-09 10:00] VITALS: PULSE 68; RESP 16; O2SAT 96
[2020-01-09 10:56] LABS: Bedside Glucose 217 mg/dL (70-110)
[2020-01-09 12:59] VITALS: BP 153/72; PULSE 68; RESP 18; TEMP 36.4; O2SAT 96
[2020-01-09 16:36] LABS: Bedside Glucose 192 mg/dL (70-110)
[2020-01-09] MEDS: traZODone 50 MG Tablet PO (22:26)
[2020-01-09] MEDS: Atorvastatin Calcium 40 MG Tablet PO (22:26)
[2020-01-09 22:35] LABS: Bedside Glucose 276 mg/dL (70-110)
[2020-01-10] MEDS: Nystatin Powder 15gm Bottle 1 APPLIC TOPICAL ×2 (05:21→20:12)
[2020-01-10] MEDS: Enoxaparin 40 MG/0.4 ML Syringe SC (05:21)
[2020-01-10] MEDS: Senna/Docusate Sodium 1 Tablet 2 TABLET PO ×2 (05:21→17:34)
[2020-01-10] MEDS: amLODIPine 5 MG Tablet PO (05:21)
[2020-01-10] MEDS: FLUoxetine 20 MG Capsule PO (05:21)
[2020-01-10] MEDS: Famotidine 20 MG Tablet PO (05:21)
[2020-01-10] MEDS: Fenofibrate 145 MG Tablet PO (05:21)
[2020-01-10] MEDS: Carvedilol 12.5 MG Tablet PO ×2 (05:21→17:35)
[2020-01-10] MEDS: Finasteride 5 MG Tablet PO (05:21)
[2020-01-10] MEDS: Polyethylene Glycol 3350 17 GM PACKET PO (05:21)
[2020-01-10] MEDS: Menthol/Lanolin/Calamine/Znox 113 GM Tube 1 APPLIC TOPICAL ×2 (05:21→20:11)
[2020-01-10] MEDS: Fluticasone/Salmeterol 232-14 Inhaler 1 PUFF IH ×2 (05:22→17:41)
[2020-01-10] MEDS: Pregabalin 75 MG Capsule 150 MG PO ×2 (05:25→17:39)
[2020-01-10 05:30] VITALS: BP 150/78; PULSE 68; RESP 18; TEMP 36.4; O2SAT 97
[2020-01-10 06:36] LABS: Bedside Glucose 189 mg/dL (70-110)
[2020-01-10] MEDS: Aspirin E.C. 81 MG Tablet PO (07:53)
[2020-01-10] MEDS: Insulin Lispro 100 UNIT/ML INSULN.PEN 23 UNIT SC ×2 (07:54→11:23)
[2020-01-10 11:20] LABS: Bedside Glucose 261 mg/dL (70-110)
[2020-01-10 15:08] VITALS: BP 146/64; PULSE 62; RESP 18; TEMP 36; O2SAT 96
[2020-01-10 17:01] LABS: Bedside Glucose 148 mg/dL (70-110)
[2020-01-10] MEDS: Insulin Lispro 100 UNIT/ML INSULN.PEN 26 UNIT SC (17:41)
[2020-01-10] MEDS: traZODone 50 MG Tablet PO (20:12)
[2020-01-10] MEDS: Atorvastatin Calcium 40 MG Tablet PO (20:12)
[2020-01-10 21:45] LABS: Bedside Glucose 280 mg/dL (70-110)
[2020-01-11 03:49] VITALS: BP 146/76; PULSE 62; RESP 16; TEMP 36.4; O2SAT 96
[2020-01-11] MEDS: Carvedilol 12.5 MG Tablet PO ×2 (03:51→17:58)
[2020-01-11] MEDS: Senna/Docusate Sodium 1 Tablet 2 TABLET PO ×2 (03:51→17:58)
[2020-01-11] MEDS: FLUoxetine 20 MG Capsule PO (03:51)
[2020-01-11] MEDS: amLODIPine 5 MG Tablet PO (03:52)
[2020-01-11] MEDS: Fenofibrate 145 MG Tablet PO (03:52)
[2020-01-11] MEDS: Finasteride 5 MG Tablet PO (03:52)
[2020-01-11] MEDS: Famotidine 20 MG Tablet PO (03:52)
[2020-01-11] MEDS: Enoxaparin 40 MG/0.4 ML Syringe SC (03:52)
[2020-01-11] MEDS: Polyethylene Glycol 3350 17 GM PACKET PO (03:53)
[2020-01-11] MEDS: Pregabalin 75 MG Capsule 150 MG PO ×2 (03:55→17:58)
[2020-01-11] MEDS: Fluticasone/Salmeterol 232-14 Inhaler 1 PUFF IH ×2 (03:56→17:57)
[2020-01-11] MEDS: Nystatin Powder 15gm Bottle 1 APPLIC TOPICAL ×2 (03:56→21:11)
[2020-01-11] MEDS: Menthol/Lanolin/Calamine/Znox 113 GM Tube 1 APPLIC TOPICAL ×2 (03:56→21:11)
[2020-01-11 07:06] LABS: Bedside Glucose 146 mg/dL (70-110)
[2020-01-11] MEDS: Aspirin E.C. 81 MG Tablet PO (08:00)
[2020-01-11] MEDS: Insulin Lispro 100 UNIT/ML INSULN.PEN 26 UNIT SC ×3 (08:01→17:57)
[2020-01-11 11:11] VITALS: PULSE 72; RESP 18
[2020-01-11 11:21] LABS: Bedside Glucose 193 mg/dL (70-110)
[2020-01-11 14:08] VITALS: BP 143/51; PULSE 68; RESP 18; TEMP 36.7; O2SAT 94
[2020-01-11 17:00] LABS: Bedside Glucose 183 mg/dL (70-110)
[2020-01-11] MEDS: Atorvastatin Calcium 40 MG Tablet PO (21:12)
[2020-01-11] MEDS: traZODone 50 MG Tablet PO (21:13)
[2020-01-11 21:21] LABS: Bedside Glucose 258 mg/dL (70-110)
[2020-01-12] MEDS: Menthol/Lanolin/Calamine/Znox 113 GM Tube 1 APPLIC TOPICAL ×2 (05:39→22:18)
[2020-01-12] MEDS: Nystatin Powder 15gm Bottle 1 APPLIC TOPICAL ×2 (05:39→22:18)
[2020-01-12 05:40] VITALS: BP 160/76; PULSE 59; RESP 18; TEMP 36.5; O2SAT 94
[2020-01-12] MEDS: Pregabalin 75 MG Capsule 150 MG PO ×2 (05:43→18:05)
[2020-01-12] MEDS: Polyethylene Glycol 3350 17 GM PACKET PO (05:44)
[2020-01-12] MEDS: Fluticasone/Salmeterol 232-14 Inhaler 1 PUFF IH ×2 (05:44→18:05)
[2020-01-12] MEDS: FLUoxetine 20 MG Capsule PO (05:45)
[2020-01-12] MEDS: Senna/Docusate Sodium 1 Tablet 2 TABLET PO ×2 (05:45→18:05)
[2020-01-12] MEDS: Carvedilol 12.5 MG Tablet PO ×2 (05:45→18:05)
[2020-01-12] MEDS: Finasteride 5 MG Tablet PO (05:45)
[2020-01-12] MEDS: Famotidine 20 MG Tablet PO (05:45)
[2020-01-12] MEDS: Fenofibrate 145 MG Tablet PO (05:45)
[2020-01-12] MEDS: amLODIPine 5 MG Tablet PO (05:45)
[2020-01-12] MEDS: Enoxaparin 40 MG/0.4 ML Syringe SC (05:52)
[2020-01-12 06:09] LABS: Absolute Lymphocyte Count 0.88 X10^3/uL (0.83-4.51); Absolute Neutrophil Count 4.2 X10^3/uL (2.0-7.7); Basophil# 0.02 X10^3/uL; Basophil% 0.3 % (0-1); Eosinophil# 0.25 X10^3/uL; Eosinophils% 4.1 % (0-5); Hematocrit 34.2 % (40-54); Lymphocyte # 0.88 X10^3/ul (4.0); Lymphocyte % 14.4 % (19-41); Mean Corp Hgb Conc 32.2 g/dL (32-36); Mean Corpuscular Hgb 26.3 pg (27.0-32.0); Mean Corpuscular Volume 81.6 fL (80-94); Mean Platelet Vol. 10.3 fl (6.2-12.0); Monocyte# 0.79 X10^3/uL; Monocyte% 12.9 % (0-10); NRBC Flagged by Analyzer 0 % (0-5); Neutrophil # 4.16 X10^3/uL (2.7-7.7); Platelet Count 345 K/mm3 (150-450); RBC Distribution Width SD 47.2 fl (35.1-43.9); Red Blood Count 4.19 M/mm3 (4.6-6.2); White Blood Count 6.1 K/mm3 (4.4-11.0)
[2020-01-12 06:25] LABS: Bedside Glucose 158 mg/dL (70-110)
[2020-01-12 06:37] LABS: Anion Gap 7 (5-15); BUN 40 mg/dL (7-18); BUN/Creat Ratio 23.7 RATIO (10-20); Calcium,Total 9.4 mg/dL (8.5-10.1); Chloride 102 mmol/L (98-107); Creatinine, Serum 1.69 mg/dL (0.70-1.30); EST Glomerular Filtration Rate 43 mL/min (>60); Est Glom Filt Rate - Afr Amer 52 mL/min (>60); Estimated Creatinine Clearance 40.47 ml/min; Glucose 123 mg/dL (74-106); Potassium 4.3 mmol/L (3.5-5.1); Sodium Level 136 mmol/L (136-145)
[2020-01-12] MEDS: Insulin Lispro 100 UNIT/ML INSULN.PEN 26 UNIT SC ×3 (09:09→18:04)
[2020-01-12] MEDS: Aspirin E.C. 81 MG Tablet PO (09:10)
[2020-01-12 10:48] VITALS: BP 148/59; PULSE 64; RESP 18; TEMP 36.6; O2SAT 97
[2020-01-12 11:31] LABS: Bedside Glucose 262 mg/dL (70-110)
[2020-01-12 13:59] VITALS: PULSE 64; RESP 18; O2SAT 97
[2020-01-12 16:11] LABS: Bedside Glucose 219 mg/dL (70-110)
[2020-01-12 21:51] LABS: Bedside Glucose 307 mg/dL (70-110)
[2020-01-12] MEDS: Atorvastatin Calcium 40 MG Tablet PO (22:17)
[2020-01-12] MEDS: traZODone 50 MG Tablet PO (22:17)
[2020-01-13] MEDS: Senna/Docusate Sodium 1 Tablet 2 TABLET PO ×2 (05:41→17:01)
[2020-01-13] MEDS: Polyethylene Glycol 3350 17 GM PACKET PO (05:41)
[2020-01-13] MEDS: Carvedilol 12.5 MG Tablet PO ×2 (05:41→17:00)
[2020-01-13] MEDS: Fenofibrate 145 MG Tablet PO (05:42)
[2020-01-13] MEDS: Pregabalin 75 MG Capsule 150 MG PO ×2 (05:42→17:00)
[2020-01-13] MEDS: Nystatin Powder 15gm Bottle 1 APPLIC TOPICAL ×2 (05:42→20:09)
[2020-01-13] MEDS: amLODIPine 5 MG Tablet PO (05:42)
[2020-01-13] MEDS: Enoxaparin 40 MG/0.4 ML Syringe SC (05:42)
[2020-01-13] MEDS: FLUoxetine 20 MG Capsule PO (05:42)
[2020-01-13] MEDS: Menthol/Lanolin/Calamine/Znox 113 GM Tube 1 APPLIC TOPICAL ×2 (05:42→20:09)
[2020-01-13] MEDS: Finasteride 5 MG Tablet PO (05:42)
[2020-01-13] MEDS: Fluticasone/Salmeterol 232-14 Inhaler 1 PUFF IH ×2 (05:42→17:01)
[2020-01-13] MEDS: Famotidine 20 MG Tablet PO (05:42)
[2020-01-13 05:53] VITALS: BP 161/74; PULSE 81; RESP 16; TEMP 36.6; O2SAT 96
[2020-01-13 06:41] LABS: Bedside Glucose 166 mg/dL (70-110)
[2020-01-13] MEDS: Insulin Lispro 100 UNIT/ML INSULN.PEN 26 UNIT SC (08:15)
[2020-01-13] MEDS: Aspirin E.C. 81 MG Tablet PO (08:15)
[2020-01-13 11:35] LABS: Bedside Glucose 310 mg/dL (70-110)
[2020-01-13] MEDS: Insulin Lispro 100 UNIT/ML INSULN.PEN 30 UNIT SC ×2 (12:07→17:42)
[2020-01-13 15:41] VITALS: BP 158/73; PULSE 65; RESP 18; TEMP 36.8; O2SAT 95
[2020-01-13 17:05] LABS: Bedside Glucose 202 mg/dL (70-110)
[2020-01-13] MEDS: traZODone 50 MG Tablet PO (20:07)
[2020-01-13] MEDS: Atorvastatin Calcium 40 MG Tablet PO (20:07)
[2020-01-13 20:46] LABS: Bedside Glucose 239 mg/dL (70-110)
[2020-01-14 05:09] VITALS: BP 160/59; PULSE 60; RESP 18; TEMP 36.1; O2SAT 96
[2020-01-14] MEDS: Pregabalin 75 MG Capsule 150 MG PO ×2 (05:12→17:40)
[2020-01-14] MEDS: Polyethylene Glycol 3350 17 GM PACKET PO (05:12)
[2020-01-14] MEDS: Senna/Docusate Sodium 1 Tablet 2 TABLET PO (05:12)
[2020-01-14] MEDS: Fluticasone/Salmeterol 232-14 Inhaler 1 PUFF IH ×2 (05:12→17:41)
[2020-01-14] MEDS: FLUoxetine 20 MG Capsule PO (05:13)
[2020-01-14] MEDS: amLODIPine 5 MG Tablet PO (05:13)
[2020-01-14] MEDS: Fenofibrate 145 MG Tablet PO (05:13)
[2020-01-14] MEDS: Enoxaparin 40 MG/0.4 ML Syringe SC (05:13)
[2020-01-14] MEDS: Carvedilol 12.5 MG Tablet PO ×2 (05:13→17:40)
[2020-01-14] MEDS: Finasteride 5 MG Tablet PO (05:13)
[2020-01-14] MEDS: Famotidine 20 MG Tablet PO (05:13)
[2020-01-14] MEDS: Menthol/Lanolin/Calamine/Znox 113 GM Tube 1 APPLIC TOPICAL ×2 (05:13→22:25)
[2020-01-14] MEDS: Nystatin Powder 15gm Bottle 1 APPLIC TOPICAL ×2 (05:14→22:25)
[2020-01-14 06:21] LABS: Bedside Glucose 137 mg/dL (70-110)
[2020-01-14] MEDS: Aspirin E.C. 81 MG Tablet PO (08:37)
[2020-01-14] MEDS: Insulin Lispro 100 UNIT/ML INSULN.PEN 30 UNIT SC ×3 (08:38→17:40)
[2020-01-14 11:16] LABS: Bedside Glucose 196 mg/dL (70-110)
[2020-01-14 16:00] VITALS: BP 146/67; PULSE 66; RESP 16; TEMP 36; O2SAT 96
[2020-01-14 17:11] LABS: Bedside Glucose 180 mg/dL (70-110)
--- NOTE | 2020-01-14 17:22 | CASEMGMT ---
Social Work Insurance issued LCD 01/14, DC 01/15. Spoke with [facility] whom is actively searching for nonskilled HHC aides. Requested referral for [facility] skilled HHC. Referral made and accepted for PT/OT/ST/SN. Referred to [facility] for w/c, BSC, hospital bed. Sabina Alexandra, ELIZABETH INSOLE FILLER
[2020-01-14 21:15] LABS: Bedside Glucose 268 mg/dL (70-110)
--- NOTE | 2020-01-14 21:19 | DCINST_ITS ---
- Discharge Diagnoses Current Active Problems: Current Active and Chronic Problems (Last Reviewed 12/11/19 @ 09:[address] Jose Cruz Anderson MD) Debility (Acute) Bony metastasis (Chronic) Right hemiplegia (Chronic) Expressive aphasia (Chronic) PAOD (peripheral arterial occlusive disease) (Chronic) Chronic kidney disease (Chronic) Left middle cerebral artery stroke (Chronic) Body mass index (bmi) 36.0-36.9, adult (Chronic) Carotid artery stenosis (Chronic) Coronary artery disease (Chronic) Hypertension (Chronic) Diabetes mellitus (Chronic) You will use the following diet at home:: No restrictions, Regular Your food should be the consistency of: Regular Your liquids should be the consistency of: Regular/Thin Discharge Activity: Return to Normal Activity, May Shower, Use Walker Weight Bearing Status: Weight bearing as tolerated Call your doctor if you observe: Fever of 101 or Higher, Inability to urinate, Inability to have a bowel movement, Shortness of breath, Chest pain, Uncontro lled pain Allergies/Adverse Reactions: Allergies No Known Allergies Allergy (Verified 10/20/19 14:10) Medications to take at Discharge albuterol sulfate 90 mcg/actuation aerosol inhaler 2 puff INHALATION Q4H PRN PRN 33 Days #8 04/06/18 aspirin 81 mg tablet,delayed release 81 mg PO QDAY 04/06/18 pregabalin 75 mg capsule 150 mg PO BID 90 Days #180 cap 04/06/18 Atorvastatin Calcium 40 mg PO QDAY 11/04/19 Acetaminophen 1,000 mg PO Q8H PRN PRN 12/11/19 Fenofibrate [Tricor] 145 mg PO DAILY 12/11/19 Menthol/Lanolin/Calamine/Znox [Calmoseptine Ointment] 1 applic TOPICAL BID 12/11/19 Finasteride [Proscar] 5 mg PO DAILY tab 12/12/19 Amlodipine [Norvasc] 5 mg PO DAILY #30 tab 01/14/20 Carvedilol [Coreg (Beta Atilio)] 12.5 mg PO BID #60 tab 01/14/20 Famotidine 20 mg PO DAILY #30 tab 01/14/20 Finasteride [Proscar] 5 mg PO DAILY #30 tab 01/14/20 Fluoxetine [Prozac] 20 mg PO DAILY #30 cap 01/14/20 Fluticasone/Salmeterol [Fluticasone-Salmeterol 232-14] 1 [facility] Q12H #1 inhaler 01/14/20 Insulin Glargine [Lantus SoloStar Pen] 45 units SUBCUT BREAKFAST #7 pen 01/14/20 Insulin Glargine [Lantus SoloStar Pen] 45 units SUBCUT QHS #7 pen 01/14/20 Insulin Lispro [Humalog KwikPen] 30 unit SUBCUT TIDAC #7 insuln.pen 01/14/20 Nystatin Powder [Mycostatin Powder] 1 applic TOPICAL 0600,2200 bottle 01/14/20 Trazodone HCl 50 mg PO QHS #30 tab 01/14/20 The following prescriptions were given: Carvedilol [Coreg (Beta Atilio)] 12.5 mg PO BID #60 tab Transmission Status: Pending to [facility] Famotidine 20 mg PO DAILY #30 tab Transmission Status: Pending to [facility] Fluticasone/Salmeterol [Fluticasone-Salmeterol 232-14] 1 [facility] Q12H #1 inhaler Transmission Status: Pending to [facility] Insulin Lispro [Humalog KwikPen] 30 unit SUBCUT TIDAC #7 insuln.pen Transmission Status: Pending to [facility] Insulin Glargine [Lantus SoloStar Pen] 45 units SUBCUT BREAKFAST #7 pen Transmission Status: Pending to [facility] Insulin Glargine [Lantus SoloStar Pen] 45 units SUBCUT QHS #7 pen Transmission Status: Pending to [facility] Amlodipine [Norvasc] 5 mg PO DAILY #30 tab Transmission Status: Pending to [facility] Finasteride [Proscar] 5 mg PO DAILY #30 tab Transmission Status: Pending to [facility] Fluoxetine [Prozac] 20 mg PO DAILY #30 cap Transmission Status: Pending to [facility] Trazodone HCl 50 mg PO QHS #30 tab Transmission Status: Pending to [facility] Primary Care Physician: Raffaele Elizondo III, MD [Primary Care Provider] - Please follow up with your Primary Care Physician in: 1 week. Test Results: Test results from this visit will be discussed in further detail at your follow- up appointment, if applicable. Proposed Discharge Date: 01/16/20
--- NOTE | 2020-01-14 21:21 | PCM.DC.SUM ---
Discharge Date and Diagnosis - Problem List Patient Problems: Active and Suspected Problems (Last Reviewed 12/11/19 @ 09:[address] Jose Cruz Anderson MD) Debility (Acute) Date of Admission: 12/12/19 Date of Discharge: 01/16/20 - Primary Discharge Diagnosis Acute Problems: Active Problems (Last Reviewed 12/11/19 @ 09:[address] Jose Cruz Anderson MD) Debility (Acute) - Secondary Discharge Diagnosis Chronic Problems: Chronic Problems (Last Reviewed 12/11/19 @ 09:[address] Jose Cruz Anderson MD) PAD (peripheral artery disease) (Chronic) BPH (benign prostatic hyperplasia) (Chronic) COPD (chronic obstructive pulmonary disease) (Chronic) Chronic back pain (Chronic) Chronic renal failure, stage 3 (moderate) (Chronic) Obstructive sleep apnea (Chronic) does not wear CPAP Dysphagia (Chronic) Acute ischemic left MCA stroke (Chronic) 10/20/19 Cerebrovascular disease (Chronic) occluded left M1 Carotid stenosis, left (Chronic) near total occlusion Carotid stenosis, right (Chronic) moderate Grade II diastolic dysfunction (Chronic) Type 2 diabetes mellitus (Chronic) also with cardiovascular disease. cerebrovascular disease, PAD Left atrial enlargement (Chronic) mild - moderate Bony metastasis (Chronic) Right hemiplegia (Chronic) Expressive aphasia (Chronic) PAOD (peripheral arterial occlusive disease) (Chronic) Chronic kidney disease (Chronic) Left middle cerebral artery stroke (Chronic) Body mass index (bmi) 36.0-36.9, adult (Chronic) Carotid artery stenosis (Chronic) Coronary artery disease (Chronic) Hypertension (Chronic) Diabetes mellitus (Chronic) Atherosclerosis of coronary artery of [place] heart without angina pectoris (Chronic) CABG x 3 MASTERS to LAD, SVG to Dx, SVG to RCA 01/09/2009 H/O coronary artery bypass surgery (Chronic 01/09/09) CABG x 3 MASTERS to LAD, SVG to Dx, SVG to RCA 01/09/2009 Abdominal aortic aneurysm (AAA) (Chronic) History of endovascular stent graft for abdominal aortic aneurysm Essential (primary) hypertension (Chronic) Hyperlipidemia (Chronic) Hospital Course and Treatment Imaging Results: 12/12/19 Breakfast Diet: Calorie Controlled Food consistency:: Mechanical Soft/Ground Liquid Consistency:: Regular/Thin Type of Dietary Supplement:: 2000 calorie Diet Comments: 1:1 supervised meals; chin tuck with straws with thin liquids How many daily calories?: 1999 calorie Labs (Last 48 Hours) 01/12/20 01/13/20 01/13/20 21:32 06:23 11:29 POC Glucose 307 H 166 H 310 H 01/13/20 01/13/20 01/14/20 16:51 20:38 06:05 POC Glucose 202 H 239 H 137 H 01/14/20 01/14/20 01/14/20 11:04 16:41 21:11 POC Glucose 196 H 180 H 268 H Operations: None Procedures: None Summary of Care Provided: The patient is a 69 year old Male with below past medical history significant for recent left middle cerebral artery stroke, hospitalized for urinary retention, underwent cystoscopy, TURP, transrectal biopsy 12/11/[address] Anderson, admitted to TCU with debility, here for rehabilitation, strengthening, prior to disposition determination. Resident is unable to access bathroom due to wheelchair unable to fit into the bathroom. Requires bedside commode. Resident requires the head of the bed to be elevated more than 30 degrees most of the time due to COPD, Requires a hospital bed. Patient unable to ambulated long distances with a cane or walker and requires wheelchair for mobility. Discharge home with , [facility] PT/OT/ST/SN/nonskilled Home Health Care Aides, Referred to [facility] for wheelchair, bedside commode, hospital bed. Patient Problems: Active and Suspected Problems (Last Reviewed 12/11/19 @ 09:[address] Jose Cruz Anderson MD) Debility (Acute) - Physical Exam Vitals/I&O's: Vital Signs Temp Pulse Resp BP Pulse Ox 96.8 F L 66 16 146/67 H 96 01/14/20 16:00 01/14/20 16:00 01/14/20 16:00 01/14/20 16:00 01/14/20 16:00 Oxygen Delivery Method Room Air Weight: 105.46 kg Body Mass Index (BMI) 36.7 Finger Stick Blood Glucose 106 Intake and Output for Last 24 Hours 01/12/20 01/13/20 01/14/20 23:59 23:59 23:59 Intake Total 840 / 840 1000 / 1000 740 / 740 Balance 840 / 840 1000 / 1000 740 / 740 Laboratory Results 01/14/20 06:05: POC Glucose 137 H 01/14/20 11:04: POC Glucose 196 H 01/14/20 16:41: POC Glucose 180 H 01/14/20 21:11: POC Glucose 268 H Current Medications Acetaminophen (Tylenol) 1,000 mg PO Q6H PRN PRN PRN Reason: Pain Score 1-10/10 Albuterol Sulfate (Ventolin Hfa (Sp)) 2 puff INHALATION Q4H PRN PRN PRN Reason: Wheezing Amlodipine Besylate (Norvasc) 5 mg PO DAILY [facility] Last Admin: 01/14/20 05:13 Dose: 5 mg Documented by: Aspirin (Ecotrin) 81 mg PO DAILY@0800 [facility] Last Admin: 01/14/20 08:37 Dose: 81 mg Documented by: Atorvastatin Calcium (Lipitor) 40 mg PO QHS [facility] Last Admin: 01/13/20 20:07 Dose: 40 mg Documented by: Bisacodyl (Dulcolax) 10 mg PO DAILY PRN PRN PRN Reason: Constipation Calamine/Phenol (Calmoseptine Ointment) 1 applic TOPICAL 0600,2200 [facility]; Protocol Last Admin: 01/14/20 05:13 Dose: 1 applicatio Documented by: Carvedilol (Coreg) 12.5 mg PO BID [facility] Last Admin: 01/14/20 17:40 Dose: 12.5 mg Documented by: Enoxaparin Sodium (Lovenox) 40 mg SC DAILY@0600 [facility] Last Admin: 01/14/20 05:13 Dose: 40 mg Documented by: Famotidine (Pepcid) 20 mg PO DAILY [facility] Last Admin: 01/14/20 05:13 Dose: 20 mg Documented by: Fenofibrate (Tricor) 145 mg PO DAILY [facility] Last Admin: 01/14/20 05:13 Dose: 145 mg Documented by: Finasteride (Proscar) 5 mg PO DAILY [facility] Last Admin: 01/14/20 05:13 Dose: 5 mg Documented by: Fluoxetine HCl (Prozac) 20 mg PO DAILY [facility] Last Admin: 01/14/20 05:13 Dose: 20 mg Documented by: Insulin Glargine (Lantus (Bkc)) 45 units SC BREAKFAST [facility] Last Admin: 01/14/20 08:37 Dose: 45 u Documented by: Insulin Glargine (Lantus ([facility])) 45 units SC QHS [facility] Last Admin: 01/13/20 20:40 Dose: 45 units Documented by: Insulin Human Lispro (Humalog Kwikpen ([facility])) 30 unit SC TIDAC [facility] Last Admin: 01/14/20 17:40 Dose: 30 u Documented by: Nystatin (Mycostatin Powder) 1 applic TOPICAL 0600,2200 [facility]; Protocol Last Admin: 01/14/20 05:14 Dose: 1 applicatio Documented by: Polyethylene Glycol (Miralax) 17 gm PO DAILY [facility] Last Admin: 01/14/20 05:12 Dose: 17 gm Documented by: Pregabalin (Lyrica) 150 mg PO BID [facility] Last Admin: 01/14/20 17:40 Dose: 150 mg Documented by: Fluticasone/Salmeterol (Fluticasone-Salmeterol 232-14) 1 puff IH Q12H [facility] Last Admin: 01/14/20 17:41 Dose: 1 puff Documented by: Senna/Docusate Sodium (Senokot-S, Yessenia-Colace) 2 tablet PO BID [facility] Last Admin: 01/14/20 17:40 Dose: Not Given Documented by: Trazodone HCl (Desyrel) 50 mg PO QHS [facility] Last Admin: 01/13/20 20:07 Dose: 50 mg Documented by: Discharge Diet: No Restrictions Discharge Activity: Return to Normal Activity, May Shower, Use Walker Weight Bearing Status: Weight bearing as tolerated Call your doctor if you observe: Fever of 101 or Higher, Inability to urinate, Inability to have a bowel movement, Shortness of breath, Chest pain, Uncontrolled pain Home Medications: Medications to take at Discharge albuterol sulfate 90 mcg/actuation aerosol inhaler 2 puff INHALATION Q4H PRN PRN 33 Days #8 04/06/18 aspirin 81 mg tablet,delayed release 81 mg PO QDAY 04/06/18 pregabalin 75 mg capsule 150 mg PO BID 90 Days #180 cap 04/06/18 Atorvastatin Calcium 40 mg PO QDAY 11/04/19 Acetaminophen 1,000 mg PO Q8H PRN PRN 12/11/19 Fenofibrate [Tricor] 145 mg PO DAILY 12/11/19 Menthol/Lanolin/Calamine/Znox [Calmoseptine Ointment] 1 applic TOPICAL BID 12/11/19 Finasteride [Proscar] 5 mg PO DAILY tab 12/12/19 Amlodipine [Norvasc] 5 mg PO DAILY #30 tab 01/14/20 Carvedilol [Coreg (Beta Atilio)] 12.5 mg PO BID #60 tab 01/14/20 Famotidine 20 mg PO DAILY #30 tab 01/14/20 Finasteride [Proscar] 5 mg PO DAILY #30 tab 01/14/20 Fluoxetine [Prozac] 20 mg PO DAILY #30 cap 01/14/20 Fluticasone/Salmeterol [Fluticasone-Salmeterol 232-14] 1 [facility] Q12H #1 inhaler 01/14/20 Insulin Glargine [Lantus SoloStar Pen] 45 units SUBCUT BREAKFAST #7 pen 01/14/20 Insulin Glargine [Lantus SoloStar Pen] 45 units SUBCUT QHS #7 pen 01/14/20 Insulin Lispro [Humalog KwikPen] 30 unit SUBCUT TIDAC #7 insuln.pen 01/14/20 Nystatin Powder [Mycostatin Powder] 1 applic TOPICAL 0600,2200 bottle 01/14/20 Trazodone HCl 50 mg PO QHS #30 tab 01/14/20 Following Prescrptions Were Given to Patient: Carvedilol [Coreg (Beta Atilio)] 12.5 mg PO BID #60 tab Transmission Status: Pending to [facility] Famotidine 20 mg PO DAILY #30 tab Transmission Status: Pending to [facility] Fluticasone/Salmeterol [Fluticasone-Salmeterol 232-14] 1 [facility] Q12H #1 inhaler Transmission Status: Pending to [facility] Insulin Lispro [Humalog KwikPen] 30 unit SUBCUT TIDAC #7 insuln.pen Transmission Status: Pending to [facility] Insulin Glargine [Lantus SoloStar Pen] 45 units SUBCUT BREAKFAST #7 pen Transmission Status: Pending to [facility] Insulin Glargine [Lantus SoloStar Pen] 45 units SUBCUT QHS #7 pen Transmission Status: Pending to [facility] Amlodipine [Norvasc] 5 mg PO DAILY #30 tab Transmission Status: Pending to [facility] Finasteride [Proscar] 5 mg PO DAILY #30 tab Transmission Status: Pending to [facility] Fluoxetine [Prozac] 20 mg PO DAILY #30 cap Transmission Status: Pending to [facility] Trazodone HCl 50 mg PO QHS #30 tab Transmission Status: Pending to [facility] Primary Care Physician: Raffaele Elizondo III, MD [Primary Care Provider] - Please follow up with your Primary Care Physician in: 1 week. Disposition: Home with Home Health Minutes spent on discharge:: 35 Patient Condition:: Stable Medical Necessity - Tobacco Use Smoking Status: Former smoker Tobacco Use: Cigarettes, Chew Meaningful Use Info Meaningful Use Diagnoses (Choose all that apply): None applicable
[2020-01-14] MEDS: Atorvastatin Calcium 40 MG Tablet PO (22:26)
[2020-01-14] MEDS: traZODone 50 MG Tablet PO (22:26)
[2020-01-14 22:39] VITALS: PULSE 74; O2SAT 94
[2020-01-15] MEDS: Pregabalin 75 MG Capsule 150 MG PO ×2 (05:40→17:48)
[2020-01-15] MEDS: FLUoxetine 20 MG Capsule PO (05:41)
[2020-01-15] MEDS: amLODIPine 5 MG Tablet PO (05:41)
[2020-01-15] MEDS: Finasteride 5 MG Tablet PO (05:42)
[2020-01-15] MEDS: Famotidine 20 MG Tablet PO (05:42)
[2020-01-15] MEDS: Senna/Docusate Sodium 1 Tablet 2 TABLET PO ×2 (05:42→17:46)
[2020-01-15] MEDS: Carvedilol 12.5 MG Tablet PO ×2 (05:42→17:46)
[2020-01-15] MEDS: Enoxaparin 40 MG/0.4 ML Syringe SC (05:43)
[2020-01-15] MEDS: Polyethylene Glycol 3350 17 GM PACKET PO (05:43)
[2020-01-15] MEDS: Menthol/Lanolin/Calamine/Znox 113 GM Tube 1 APPLIC TOPICAL ×2 (05:44→21:55)
[2020-01-15] MEDS: Nystatin Powder 15gm Bottle 1 APPLIC TOPICAL ×2 (05:44→21:55)
[2020-01-15] MEDS: Fenofibrate 145 MG Tablet PO (05:45)
[2020-01-15] MEDS: Fluticasone/Salmeterol 232-14 Inhaler 1 PUFF IH ×2 (05:46→17:55)
[2020-01-15 05:47] VITALS: BP 134/58; PULSE 63; RESP 17; TEMP 36.6; O2SAT 94
[2020-01-15 06:15] LABS: Bedside Glucose 142 mg/dL (70-110)
[2020-01-15] MEDS: Aspirin E.C. 81 MG Tablet PO (07:47)
[2020-01-15] MEDS: Insulin Lispro 100 UNIT/ML INSULN.PEN 30 UNIT SC ×3 (07:47→17:45)
[2020-01-15 10:00] VITALS: PULSE 60; RESP 18; O2SAT 95
[2020-01-15 11:20] LABS: Bedside Glucose 223 mg/dL (70-110)
[2020-01-15 16:00] VITALS: BP 152/74; PULSE 60; RESP 18; TEMP 36.7; O2SAT 95
[2020-01-15 17:01] LABS: Bedside Glucose 192 mg/dL (70-110)
[2020-01-15 21:11] LABS: Bedside Glucose 242 mg/dL (70-110)
[2020-01-15] MEDS: traZODone 50 MG Tablet PO (21:49)
[2020-01-15] MEDS: Atorvastatin Calcium 40 MG Tablet PO (21:52)
[2020-01-16] MEDS: Menthol/Lanolin/Calamine/Znox 113 GM Tube 1 APPLIC TOPICAL (05:16)
[2020-01-16] MEDS: Nystatin Powder 15gm Bottle 1 APPLIC TOPICAL (05:16)
[2020-01-16] MEDS: FLUoxetine 20 MG Capsule PO (05:17)
[2020-01-16] MEDS: Senna/Docusate Sodium 1 Tablet 2 TABLET PO (05:17)
[2020-01-16] MEDS: amLODIPine 5 MG Tablet PO (05:17)
[2020-01-16] MEDS: Fenofibrate 145 MG Tablet PO (05:18)
[2020-01-16] MEDS: Enoxaparin 40 MG/0.4 ML Syringe SC (05:18)
[2020-01-16] MEDS: Famotidine 20 MG Tablet PO (05:18)
[2020-01-16] MEDS: Finasteride 5 MG Tablet PO (05:18)
[2020-01-16] MEDS: Pregabalin 75 MG Capsule 150 MG PO (05:19)
[2020-01-16] MEDS: Polyethylene Glycol 3350 17 GM PACKET PO (05:19)
[2020-01-16] MEDS: Carvedilol 12.5 MG Tablet PO (05:19)
[2020-01-16] MEDS: Fluticasone/Salmeterol 232-14 Inhaler 1 PUFF IH (05:20)
[2020-01-16 05:21] VITALS: BP 147/65; PULSE 85; RESP 17; TEMP 36.5; O2SAT 96
[2020-01-16 06:16] LABS: Bedside Glucose 142 mg/dL (70-110)
[2020-01-16] MEDS: Insulin Lispro 100 UNIT/ML INSULN.PEN 30 UNIT SC ×2 (08:14→11:46)
[2020-01-16] MEDS: Aspirin E.C. 81 MG Tablet PO (08:16)
[2020-01-16 11:10] LABS: Bedside Glucose 186 mg/dL (70-110)
--- NOTE | 2020-01-16 12:09 | NURSING ---
clarified with Karmen Cabrera that pt discharge teaching will require giving education about insulin injections to . asked if she is able to be screened at the main entrance and escorted up to the unit for discharge teaching. she agreed. notified Yasmin that when she comes, to come to main entrance and she will be screened and brought to pt room. she is agreeable to plan. updated main entrance that she will be coming at 1400.
[2020-01-16 14:55] VITALS: BP 148/70; PULSE 60; RESP 20; TEMP 36.7; O2SAT 96
== END 2020-01-16 14:56 | disposition home health service (06) | DRG 949 ==
PROVIDERS: Admitting Provider Family Medicine Geriatric Medicine; PCP Family Medicine; Visit Provider Family Medicine Geriatric Medicine
DX: Z48.816 Encounter for surgical aftercare following surgery on the genitourinary system (principal); C79.51 Secondary malignant neoplasm of bone; G81.91 Hemiplegia, unspecified affecting right dominant side; R47.01 Aphasia; N40.1 Benign prostatic hyperplasia with lower urinary tract symptoms; R33.8 Other retention of urine; I69.398 Other sequelae of cerebral infarction; E11.42 Type 2 diabetes mellitus with diabetic polyneuropathy; I25.10 Atherosclerotic heart disease of native coronary artery without angina pectoris; K21.9 Gastro-esophageal reflux disease without esophagitis; F32.9 Major depressive disorder, single episode, unspecified; E11.51 Type 2 diabetes mellitus with diabetic peripheral angiopathy without gangrene; G47.33 Obstructive sleep apnea (adult) (pediatric); G89.29 Other chronic pain; J44.9 Chronic obstructive pulmonary disease, unspecified; I12.9 Hypertensive chronic kidney disease with stage 1 through stage 4 chronic kidney disease, or unspecified chronic kidney disease; E11.22 Type 2 diabetes mellitus with diabetic chronic kidney disease; N18.3 Chronic kidney disease, stage 3 (moderate); E78.5 Hyperlipidemia, unspecified; E66.01 Morbid (severe) obesity due to excess calories; Z68.36 Body mass index [BMI] 36.0-36.9, adult; Z87.891 Personal history of nicotine dependence
CPT/HCPCS: 36415; 74230; 80048; 82962; 85025; 85610; 87635; 92507; 92523; 92526; 92610; 92611; 97110; 97112; 97116; 97162; 97166; 97530; 97535; 97802; G2023; U0002; U0004

== ENCOUNTER → 2020-02-07 09:33 | Outpatient (CLI) | payer MEDICARE, SELFPAY ==
--- NOTE | 2020-02-07 10:15 | MRI_ITS ---
STUDY: MRI LUMBAR SPINE WITHOUT CONTRAST REASON FOR EXAM: Male, 69 years old. F/U BONE SCAN, LESIONS L3/4/5 TECHNIQUE: Standardized fat and water weighted pulse sequences were obtained in the sagittal and axial planes. COMPARISON: CT scan dated 2013, CT scan dated 2019 and bone scan dated 2019. FINDINGS: Lumbar straightening. No significant scoliosis. Conus medullaris terminates normally at the L1 level. No acute fracture. No dislocation. No acute cortical destruction. High T1/high T2 signal within the L4 and L5 vertebral bodies without corresponding STIR abnormality (statistically hemangiomas). Mild paraspinal muscle atrophy. Aorta dilated measuring up to 4.8 cm (axial image 22 series 5) with postsurgical changes. Normal retroperitoneum. T12-L1: Normal endplates. Normal disc height, hydration and morphology. Normal bilateral facet joints. Normal central canal and bilateral lateral recesses. Normal bilateral intervertebral neural foramina. L1-2: Normal endplates. Disc desiccation. Normal bilateral facet joints. Normal central canal and bilateral lateral recesses. Normal bilateral intervertebral neural foramina. L2-3: Normal endplates. Disc bulge, central disc protrusion, with mild central canal narrowing. Facet joint arthrosis. Minimal lateral recess narrowing. Normal bilateral intervertebral neural foramina. L3-4: Moderate endplate spondylosis. Disc bulge with moderate central canal narrowing. Facet joint arthrosis. Lateral recess narrowing without impingement. Neural foraminal narrowing without impingement. L4-5: Moderate endplate spondylosis. Disc bulge with moderate central canal narrowing. Facet joint arthrosis. Lateral recess narrowing with minimal contact of the left descending nerve root. Neural foraminal narrowing with impingement on the right. L5-S1: Mild endplate spondylosis. Disc bulge, slightly prominent centrally, without central canal narrowing. Facet joint arthrosis. Normal central canal and bilateral lateral recesses. Neural foraminal narrowing without impingement. 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
== END ==
PROVIDERS: PCP Family Medicine; Referring Provider Family Medicine; Visit Provider Family Medicine
DX: M54.5 Low back pain (principal)
CPT/HCPCS: 72148

== ENCOUNTER → 2021-10-10 | Emergency (ER) | payer MEDICARE, SELFPAY ==
[2021-10-10 06:05] VITALS: TEMP 35.9; BMI 32.1
--- NOTE | 2021-10-10 06:08 | EDS_ITS ---
HPI History of Present Illness Chief Complaint: CPR Detail of Chief Complaint: Cardiopulmonary arrest Informant: EMS Limited: coma Onset/Context/Timing Onset: Hours Context: Sudden Onset Timing: Continuous Quality: Patient recently Location: Home Current Severity: Severe Maximum Severity: Severe Worsened by: Nothing Relieved by: Nothing Associated Symptoms Length of loss of consciousness: Since EMS was dispatched. Narrative Narrative: Patient is a 8-year-old male with history of heart problems and diabetes. heard him cry out. He fell to the ground. She called EMS. EMS arrived at 0507. Initial monitor reading was asystole. He then went into PEA. Upon arrival and assessment emerged from he was noted to be in asystole. I gel was placed per squad. CPR since 0507. Patient received appropriate meds for asystole and PEA. Prior similar symptoms: No Recent Illness/Hospitalization: No PFSH PFSH Medical History Abdominal aortic aneurysm (AAA) Atherosclerosis of coronary artery of [place] heart without angina pectoris Diabetes mellitus Essential (primary) hypertension Hyperlipidemia Home Medications albuterol sulfate 90 mcg/actuation aerosol inhaler 2 puff INHALATION Q4H PRN PRN 33 Days #8 04/06/18 [History Last Taken Unknown] aspirin 81 mg tablet,delayed release 81 mg PO QDAY 04/06/18 [History Last Taken Unknown] pregabalin 75 mg capsule 150 mg PO BID 90 Days #180 cap 04/06/18 [History Last Taken Unknown] atorvastatin 40 mg PO QDAY 11/04/19 [History Last Taken Unknown] acetaminophen 1,000 mg PO Q8H PRN PRN 12/11/19 [History Last Taken Unknown] fenofibrate nanocrystallized 145 mg PO DAILY 12/11/19 [History Last Taken Unknown] menthol-zinc oxide 1 applic TOPICAL BID 12/11/19 [History Last Taken Unknown] finasteride 5 mg PO DAILY tab 12/12/19 [Rx Last Taken Unknown] amlodipine 5 mg PO DAILY #30 tab 01/14/20 [Rx Last Taken Unknown] carvedilol 12.5 mg PO BID #60 tab 01/14/20 [Rx Last Taken Unknown] famotidine 20 mg PO DAILY #30 tab 01/14/20 [Rx Last Taken Unknown] finasteride 5 mg PO DAILY #30 tab 01/14/20 [Rx Last Taken Unknown] fluoxetine 20 mg PO DAILY #30 cap 01/14/20 [Rx Last Taken Unknown] fluticasone propion-salmeterol 1 ea IH Q12H #1 inhaler 01/14/20 [Rx Last Taken Unknown] insulin glargine 45 units SUBCUT BREAKFAST #7 pen 01/14/20 [Rx Last Taken Unkno wn] insulin glargine 45 units SUBCUT QHS #7 pen 01/14/20 [Rx Last Taken Unknown] insulin lispro 30 unit SUBCUT TIDAC #7 insuln.pen 01/14/20 [Rx Last Taken Unknown] nystatin 1 applic TOPICAL 0600,2200 bottle 01/14/20 [Rx Last Taken Unknown] trazodone 50 mg PO QHS #30 tab 01/14/20 [Rx Last Taken Unknown] Allergy/AdvReac Type Severity Reaction Status Date / Time No Known Allergies Allergy Verified 10/10/21 06:13 Family History Father Myocardial infarction age 64 Hypertension Brother Diabetes Surgical History H/O coronary artery bypass surgery (01/09/09) History of coronary artery stent placement History of endovascular stent graft for abdominal aortic aneurysm (AAA) (2016) Social History (Updated 10/10/21 @ 06:[address] Damien Parrish MD) household members: spouse Smoking Status: Former smoker how long ago did patient quit smokin years ago alcohol intake: current alcohol intake frequency: a few times a month Alcohol type: beer and hard liquor caffeine: Yes Type: coffee Number of servings: 2 ROS ROS ED ROS Narrative GCS 3 T with fixed dilated pupils Review of Systems ROS Unobtainable: due to mental status EXAM Physical Exam Const Vital Signs: 10/10/21 06:05 Temperature 96.6 F L Temperature Source Temporal Positive well nourished, well developed and obese General Appearance ED: well developed, pallor and other Patient appears pale. Pupils are fixed and dilated. GCS 3 T. Nutritional Appearance: obese HEENT normocephalic, atraumatic and cyanosis of lips/distal nose Eyes Negative for PERRL or EOMs intact bilaterally General Eye ED: Yes pale conjunctiva; Negative for scleral icterus Resp Resp Narrative: Breath sounds noted with bagging. Cardio Cardio Narrative: Monitor revealed asystole and no heart tones noted. GI Palpation: soft Neuro Neuro Narrative: 3T Psych Psych Narrative: 3T Skin General Skin Exam: pallor MDM MDM MDM Narrative Medical decision making narrative: Patient arrived with asystole/PEA. Since he had fixed and dilated pupils and downtime was approximately 1 hour he was pronounced at 0603. Discharge Plan Triage Chief Complaint: CPR ED Provider: Damien Parrish Dx/Rx/DC Orders Clinical Impression: Cardiopulmonary arrest with successful resuscitation Prescriptions: No Action albuterol sulfate 90 mcg/actuation HFA aerosol inhaler 2 puff INHALATION Q4H PRN PRN (Reason: Wheezing) 33 Days Qty: 8 RF: 0 aspirin [Adult Low Dose Aspirin] 81 mg tablet,delayed release (DR/EC) 81 mg PO QDAY RF: 0 pregabalin 75 mg capsule 150 mg PO BID 90 Days Qty: 180 RF: 0 atorvastatin 80 MG tablet 40 mg PO QDAY RF: 0 acetaminophen 500 MG tablet 1,000 mg PO Q8H PRN PRN (Reason: Pain Or Fever) RF: 0 fenofibrate nanocrystallized 145 MG tablet 145 mg PO DAILY RF: 0 menthol-zinc oxide 1 APPLIC ointment 1 applic topical BID RF: 0 finasteride 5 MG tablet 5 mg PO DAILY RF: 0 nystatin 1 APPLIC bottle 1 applic topical 0600,2200 RF: 0 insulin lispro 100 UNIT/ML insulin pen 30 unit subcut TIDAC Qty: 7 RF: 0 insulin glargine 100 UNITS/ML insulin pen 45 units subcut BREAKFAST Qty: 7 RF: 0 insulin glargine 100 UNITS/ML insulin pen 45 units subcut QHS Qty: 7 RF: 0 carvedilol 12.5 MG tablet 12.5 mg PO BID Qty: 60 RF: 0 trazodone 50 MG tablet 50 mg PO QHS Qty: 30 RF: 0 amlodipine 5 MG tablet 5 mg PO DAILY Qty: 30 RF: 0 famotidine 20 MG tablet 20 mg PO DAILY Qty: 30 RF: 0 fluoxetine 20 MG capsule 20 mg PO DAILY Qty: 30 RF: 0 finasteride 5 MG tablet 5 mg PO DAILY Qty: 30 RF: 0 fluticasone propion-salmeterol 1 PUFF inhaler 1 ea IH Q12H Qty: 1 RF: 0 Primary Care Provider: Care Physician,No Primary Disposition Disposition:
--- NOTE | 2021-10-10 06:08 | ED.RN ---
EMS BROUGHT PT IN STATING THEY ARRIVED ON SCENE AT 0507 AND PT WAS NOT BREATHING. THEY STARTED CPR. COMPLETED 3 ROUNDS OF EPI AND PT WAS ASYSTOLE/PEA SINCE THEY ARRIVED ON SCENE. ROSC WAS NEVER OBTAINED. UPON ARRIVAL TO ED PT WAS ASYSTOLE. TOD WAS CALLED BT DR MULLEN AT 0606.
--- NOTE | 2021-10-10 06:33 | ED.RN ---
in the pt's last hour of life the pt recieved 100ml of normal saline, and 3 doses of epinephrine.
--- NOTE | 2021-10-10 09:41 | ED.RN ---
pt taken to [facility] around 0800
--- NOTE | 2021-10-10 19:08 | ED.RN ---
Addendum entered by Kaya Smith 10/10/21 19:25: pt arrived intubated by ems and automatic cpr machine was doing compressions. Original Note: 604 pt arrived with cpr in progress by ems. dr vega at the bedside and pronounced time of at 605.no family at the bedside,unable to obtain any information.
--- NOTE | 2021-10-10 19:26 | ED.RN ---
0651 pt's at the bedside.obtained data as able from .
== END ==
PROVIDERS: Emergency Provider Emergency Medicine; Visit Provider Emergency Medicine
DX: I46.9 Cardiac arrest, cause unspecified (principal); R40.2430 Glasgow coma scale score 3-8, unspecified time; E11.9 Type 2 diabetes mellitus without complications; E78.5 Hyperlipidemia, unspecified; Z87.891 Personal history of nicotine dependence; I25.10 Atherosclerotic heart disease of native coronary artery without angina pectoris; I10 Essential (primary) hypertension
CPT/HCPCS: 99282